=== PATIENT | female | born 1980 | race African-American/Black ===

== ENCOUNTER 2017-11-22 21:11 | Inpatient (IN) ==
[2017-11-22] MEDS ORDERED: MethylPREDNISolone Sod Succinate Inj 125 MG/2 ML Vial IV.PUSH ONE (23:28)
[2017-11-22 23:41] LABS: Baso # (Auto) 0.1 th/mm3 (0.0-0.2); Baso % (Auto) 0.9 % (0.0-2.0); Eos # (Auto) 0.1 th/mm3 (0.0-0.4); Eos % (Auto) 1.7 % (0.0-4.0); Hematocrit 34.3 % (35.0-46.0); Lymph # (Auto) 2.1 th/mm3 (1.0-4.8); Lymph % (Auto) 29.4 % (9.0-44.0); Mean Corpuscular HGB Conc 32.2 % (32.0-36.0); Mean Corpuscular Hemoglobin 25.6 pg (27.0-34.0); Mean Corpuscular Volume 79.6 fL (80.0-100.0); Mean Platelet Volume 8.1 fL (7.0-11.0); Mono # (Auto) 0.5 th/mm3 (0.0-0.9); Mono % (Auto) 7.3 % (0.0-8.0); Neut # (Auto) 4.3 th/mm3 (1.8-7.7); Neut % (Auto) 60.7 % (16.0-70.0); Platelet Count 362 th/mm3 (150-450); Red Cell Distribution Width 23.8 % (11.6-17.2); White Blood Count 7.1 th/mm3 (4.0-11.0)
[2017-11-22 23:51] LABS: Bacteria,Urine Rare /hpf; Bilirubin,Urine Negative (Negative); Clarity,Urine Hazy (Clear); Color,Urine Yellow (Yellw/Straw); Glucose,Urine (UA) Negative (Negative); Leukocyte Esterase,Urine Negative (Negative); Mucus,Urine Moderate /lpf (Occasional); Nitrite,Urine Negative (Negative); Specific Gravity,Urine 1.032 (1.002-1.035); Squamous Epithelial Cell,Urine 5 /hpf (0-5); Urobilinogen,Urine 4 or Greater mg/dL (Less than 2)
[2017-11-23] LABS: Albumin 3.2 g/dL (3.4-5.0); Anion Gap 4 meq/L (5-15); Aspartate Aminotransferase 17 U/L (15-37); Blood Urea Nitrogen 12 mg/dL (7-18); Calcium 8.8 mg/dL (8.5-10.1); Carbon Dioxide 28.6 meq/L (21.0-32.0); Chloride 108 meq/L (98-107); Glomerular Filtration Rate 71 mL/min (>89); Glucose,Random 92 mg/dL (74-106); Potassium 4.4 meq/L (3.5-5.1); Sodium 141 meq/L (136-145)
[2017-11-23 00:02] LABS: Alanine Aminotransferase 19 U/L (10-53)
[2017-11-23 00:03] LABS: Alkaline Phosphatase 88 U/L (45-117); Total Protein 7.3 g/dL (6.4-8.2)
[2017-11-23] MEDS ORDERED: Sod Chloride 0.9% Inj 1,000 ML IV.SIG ONE (00:53)
--- NOTE | 2017-11-23 00:53 | ED ---
HPI General Chief Complaint: Neuro Symptoms/Deficit Stated Complaint: numbness/MS pt Time Seen by Provider: 11/22/17 22:13 Source: patient Mode of arrival: ambulatory Limitations: no limitations History of Present Illness HPI Narrative: The patient is a 37-year-old female with MS presented with complaint of left artm and leg weakness that started earlier today. She had another she had another episode of exacerbation of MS during the summer and just recently moved to [facility] from [place]. She does not have a physician established down here yet. She was diagnosed with MS in 2012 and there is no family history of it. Denies any alcohol drug use and admits to smoking. 3 C- sections in the past and has chronic anemia. Onset (ago): day(s) (1) Location: left leg History of same: Yes Severity: moderate Quality: weak Relieving factors: none Exacerbating factors: none Context: sudden onset On Anticoagulants: No Associated symptoms: denies other symptoms Related Data Home Medications Medication Instructions Recorded Confirmed No Known Home Medications 11/22/17 11/22/17 Allergies Allergy/AdvReac Type Severity Reaction Status Date / Time No Known Allergies Allergy Verified 11/22/17 22:25 Review of Systems ROS: all other systems reviewed are negative [facility] Medical History Medical History Anemia (Acute) Multiple sclerosis (Acute) Surgical History Surgical History Previous section (Acute) Family History Family History Father Stroke Mother Hypertension Lupus Social History Social History Substance History: No History of Abuse Second Hand Smoke Exposure: Yes Smoking Status: Current every day smoker Tobacco Type: Cigarettes How Often Do You Have a Drink Containing Alcohol: Never Recent Travel in [facility] within the Last 8 Weeks: No Recent Out of Country Travel within the Last 8 Weeks: No Immunization History Tetanus Immunization: <5 Years Hx Influenza Vaccine This Season: No Exam Narrative Exam Narrative: GENERAL: Alert and oriented no distress SKIN: Focused skin assessment warm/dry. HEAD: Atraumatic. Normocephalic. EYES: Pupils equal and round. No scleral icterus. No injection or drainage. ENT: No nasal bleeding or discharge. Mucous membranes pink and moist. NECK: Trachea midline. No JVD. CARDIOVASCULAR: Regular rate and rhythm. No murmur appreciated. RESPIRATORY: No accessory muscle use. Clear to auscultation. Breath sounds equal bilaterally. GASTROINTESTINAL: Abdomen soft, non-tender, nondistended. Hepatic and splenic margins not palpable. MUSCULOSKELETAL: No obvious deformities. No clubbing. No cyanosis. No edema. NEUROLOGICAL: Awake and alert. No obvious cranial nerve deficits. Normal speech. Right upper lower extremities 5 out of 5 strength. Left lower extremity 3 out of 5 drops after 5 seconds. Left upper extremity 4 out of 5. PSYCHIATRIC: Appropriate mood and affect; insight and judgment normal. Course Hospital Course: Patient with appears to be MS exacerbation discussed with neurology on-call. Recommends high-dose Solu-Medrol and admission with an MRI in the a.m. Reevaluation(s) Reevaluation #1: Patient is resting comfortably no distress. Time: 00:30 Initial Documented Vital Signs Temperature 98.2 F 11/22/17 22:03 Pulse Rate 91 H 11/22/17 22:03 Respiratory Rate 18 11/22/17 22:03 Blood Pressure 132/64 11/22/17 22:03 Pulse Oximetry 100 11/22/17 22:03 Last Documented Vital Signs Temperature 98.2 F 11/22/17 22:03 Pulse Rate 88 11/23/17 02:35 Respiratory Rate 16 11/23/17 02:35 Blood Pressure 124/78 11/23/17 02:35 Pulse Oximetry 99 11/23/17 02:35 Medical Decision Making [facility] Narrative Medical decision making narrative: Patient with appears to be an MS exacerbation she had similar symptoms recently. Discussed with neurology started on IV steroids high-dose and then I will got admitted for an MRI in the a.m. Medical Screen Exam Complete: Yes Emergency Medical Condition: Yes Medical Records Medical records reviewed: Yes I reviewed the patient's medical records. Lab Data Lab results reviewed: Yes I reviewed the patient's lab results. Result diagrams: 11/22/17 23:20 11/22/17 23:20 POC Results POC Urine Results Negative Lab Results 11/22/17 11/22/17 11/22/17 Range/Units 22:48 23:20 23:20 WBC 7.1 (4.0-11.0) th/mm3 RBC 4.30 (4.00-5.30) mil/mm3 Hgb 11.0 L (11.6-15.3) gm/dL Hct 34.3 L (35.0-46.0) % MCV 79.6 L (80.0-100.0) fL MCH 25.6 L (27.0-34.0) pg MCHC 32.2 (32.0-36.0) % RDW 23.8 H (11.6-17.2) % Plt Count 362 (150-450) th/mm3 MPV 8.1 (7.0-11.0) fL Neut % (Auto) 60.7 (16.0-70.0) % Lymph % (Auto) 29.4 (9.0-44.0) % [place] % (Auto) 7.3 (0.0-8.0) % Eos % (Auto) 1.7 (0.0-4.0) % Baso % (Auto) 0.9 (0.0-2.0) % Neut # (Auto) 4.3 (1.8-7.7) th/mm3 Lymph # (Auto) 2.1 (1.0-4.8) th/mm3 [place] # (Auto) 0.5 (0.0-0.9) th/mm3 Eos # (Auto) 0.1 (0.0-0.4) th/mm3 Baso # (Auto) 0.1 (0.0-0.2) th/mm3 WBC Differential . Differential Comment Auto diff final Sodium 141 (136-145) meq/L Potassium 4.4 (3.5-5.1) meq/L Chloride 108 H (98-107) meq/L Carbon Dioxide 28.6 (21.0-32.0) meq/L Anion Gap 4 L (5-15) meq/L BUN 12 (7-18) mg/dL Creatinine 1.05 H (0.50-1.00) mg/dL Estimated GFR 71 L (>89) mL/min Random Glucose 92 (74-106) mg/dL Calcium 8.8 (8.5-10.1) mg/dL Total Bilirubin 0.1 L (0.2-1.0) mg/dL AST 17 (15-37) U/L ALT 19 (10-53) U/L Alkaline Phosphatase 88 (45-117) U/L Total Protein 7.3 (6.4-8.2) g/dL Albumin 3.2 L (3.4-5.0) g/dL Urine Color Yellow (Yellw/Straw) Urine Clarity Hazy H (Clear) Urine pH 6.0 (5.0-8.5) Ur Specific [place] 1.032 (1.002-1.035) Urine Protein 30 H (Neg-Trace) mg/dL Urine Glucose (UA) Negative (Negative) mg/dL Urine Ketones Trace H (Negative) mg/dL Urine Occult Blood Negative (Negative) Urine Nitrate Negative (Negative) Urine Bilirubin Negative (Negative) Urine Urobilinogen 4 or greater (Less than 2) mg/dL Ur Leukocyte Esterase Negative (Negative) Urine RBC 1 (0-3) /hpf Urine WBC 1 (0-5) /hpf Ur Squamous Epith Cells 5 (0-5) /hpf Urine Bacteria Rare H (None) /hpf Urine Mucus Moderate H (Occasional) /lpf Ur Microscopic Review Not Reportable Discharge Plan Discharge Disposition Patient Disposition: 30 Still Patient Discharge Condition Condition: Good Discharge Details Diagnosis: Multiple sclerosis exacerbation, Acute dehydration Physicians Team ED Provider: Shukri Dasilva Primary Care Provider: Primary Care Saida You Attending Provider: Leonid Peña Other Providers: Harjit Henry ED Status: Left Department Discharge Information Discharge Date/Time: 11/23/17 03:15
[2017-11-23] MEDS ORDERED: Bisacodyl 10 MG Supp RECTAL PRN ×2 (01:24→13:03)
[2017-11-23] MEDS ORDERED: Senna/Docusate Sodium 8.6/50 MG Tablet PO ONE (02:02)
--- NOTE | 2017-11-23 02:04 | P.HPIM ---
History of Present Illness Primary Care Physician: No Primary Care Physician History of Present Illness: 37-year-old female with a history of multiple sclerosis with most recent exacerbation last month who presents with a 1 day history of diplopia starting yesterday, with gradual onset left upper and lower extremity weakness starting during the day yesterday. She denies any chest pain, shortness of breath, nausea, vomiting, fevers, chills. She says that this current MS exacerbation is similar to her last MS exacerbation, both with left-sided weakness. Patient recently moved down here from [place], hoping that the warm weather would help with her MS. Review of Systems Patient does report some mild constipation, however no abdominal pain. All other systems reviewed negative except as stated in HPI [facility] - History History Provided By: Patient - Medical History Medical History: Medical History (Last Updated 11/22/17 @ 22:05 by Deja España) Anemia Multiple sclerosis - Surgical History Surgical History: Surgical History (Last Updated 11/23/17 @ 01:58 by Surinder Wiggins MD) Previous section - Family History Family History: Family History (Last Updated 11/23/17 @ 01:58 by Surinder Wiggins MD) Father Stroke Mother Hypertension Lupus - Tobacco History Second Hand Smoke Exposure: Yes Tobacco Use In Past 30 Days: Yes Smoking Status: Current every day smoker Tobacco Type: Cigarettes - Alcohol History How Often Do You Have a Drink Containing Alcohol: Never - Substance Use History Substance History: No History of Abuse - Travel History Recent Travel in the [place] Within the Last 8 Weeks: No Recent Travel Out of the Country Within the Last 8 Weeks: No - Immunization History Tetanus Immunization: <5 Years Hx Influenza Vaccine This Season: No Medications and Allergies Active Medications: Active Medications Al Hydroxide/Mg Hydroxide (Milk Of Magnesia Liq) 30 ml PO Q12H PRN PRN Reason: Mild Constipation Bisacodyl (Dulcolax Supp) 10 mg RECTAL DAILY PRN PRN Reason: SEVERE CONSITIPATION Sodium Chloride (Ns Inj) 1,000 mls @ 100 mls/hr IV.CONT .Q10H LOLA Lactulose (Lactulose Liq) 30 ml PO DAILY PRN PRN Reason: SEVERE CONSITIPATION Sennosides (Senokot) 17.2 mg PO Q12H PRN PRN Reason: Moderate Constipation Allergies Allergy/AdvReac Type Severity Reaction Status Date / Time No Known Allergies Allergy Verified 11/22/17 22:25 Home Medications Medication Instructions Recorded Confirmed Type No Known Home Medications 11/22/17 11/22/17 History Exam Vital signs: Vital Signs 11/22/17 22:03 Temperature 98.2 F Pulse Rate 91 H Respiratory Rate 18 Blood Pressure 132/64 Pulse Oximetry 100 Intake & Output 11/22/17 11/22/17 11/23/17 06:59 18:59 06:59 Weight 94.801 kg Narrative: GENERAL: Patient sitting up in bed. Appears comfortable. Alert and oriented x3. SKIN: Warm and dry. HEAD: Atraumatic. Normocephalic. EYES: Pupils equal and round. No scleral icterus. No injection or drainage. Patient appears to have a little nystagmus on lateral gaze bilaterally. ENT: No nasal bleeding or discharge. Mucous membranes pink and moist. NECK: Trachea midline. No JVD. CARDIOVASCULAR: Regular rate and rhythm. RESPIRATORY: No accessory muscle use. Clear to auscultation. Breath sounds equal bilaterally. GASTROINTESTINAL: Abdomen soft, non-tender, nondistended. Hepatic and splenic margins not palpable. MUSCULOSKELETAL: Extremities without clubbing, cyanosis, or edema. No obvious deformities. NEUROLOGICAL: Awake and alert. No obvious cranial nerve deficits. Patient with 4 out of 5 strength on the left upper and left lower extremity. 5 out of 5 strength on right upper and right lower extremity. Speech is clear. PSYCHIATRIC: Appropriate mood and affect; insight and judgment normal. Results - Labs CBC & Chem 7: 11/22/17 23:20 11/22/17 23:20 Labs: Short CBC 11/22/17 Range/Units 23:20 WBC 7.1 (4.0-11.0) th/mm3 Hgb 11.0 L (11.6-15.3) gm/dL Hct 34.3 L (35.0-46.0) % Plt Count 362 (150-450) th/mm3 BMP 11/22/17 23:20 Sodium 141 Potassium 4.4 Chloride 108 H Carbon Dioxide 28.6 BUN 12 Creatinine 1.05 H Calcium 8.8 Liver Function 11/22/17 Range/Units 23:20 Total Bilirubin 0.1 L (0.2-1.0) mg/dL AST 17 (15-37) U/L ALT 19 (10-53) U/L Alkaline Phosphatase 88 (45-117) U/L Albumin 3.2 L (3.4-5.0) g/dL Urine 11/22/17 Range/Units 22:48 Urine Color Yellow (Yellw/Straw) Urine Clarity Hazy H (Clear) Urine pH 6.0 (5.0-8.5) Ur Specific [place] 1.032 (1.002-1.035) Urine Protein 30 H (Neg-Trace) mg/dL Urine Glucose (UA) Negative (Negative) mg/dL Caprini VTE Risk Assessment Caprini VTE Risk Assessment: Moderate/High Risk (score >= 2) Caprini Risk Assessment Model: Point Value = 1 Point Value = 2 Point Value = 3 Point Value = 5 Age 41-60 Minor surgery BMI > 25 kg/m2 Swollen legs Varicose veins or History of unexplained or recurrent spontaneous Oral contraceptives or hormone replacement Sepsis (< 1 month) Serious lung disease, including pneumonia (< 1 month) Abnormal pulmonary function Acute myocardial infarction Congestive heart failure (< 1 month) History of inflammatory bowel disease Medical patient at bed rest Age 61-74 Arthroscopic surgery Major open surgery (> 45 min) Laparoscopic surgery (> 45 min) Malignancy Confined to bed (> 72 hours) Immobilizing plaster cast Central venous access Age >= 75 History of VTE Family history of VTE Factor V Leiden Prothrombin [id number] Lupus anticoagulant Anticardiolipin antibodies Elevated serum homocysteine Heparin-induced thrombocytopenia Other congenital or acquired thrombophilia Stroke (< 1 month) Elective arthroplasty Hip, pelvis, or leg fracture Acute spinal cord injury (< 1 month) Prophylaxis Regimen: Total Risk Factor Score Risk Level Prophylaxis Regimen 0-1 Low Early ambulation 2 Moderate Order ONE of the following: *Sequential Compression Device (SCD) *Heparin 5000 units SQ BID 3-4 Higher Order ONE of the following medications: *Heparin 5000 units SQ TID *Enoxaparin/Lovenox 40 mg SQ daily (WT < 150 kg, CrCl > 30 mL/min) *Enoxaparin/Lovenox 30 mg SQ daily (WT < 150 kg, CrCl > 10-29 mL/min) *Enoxaparin/Lovenox 30 mg SQ BID (WT < 150 kg, CrCl > 30 mL/min) AND/OR *Sequential Compression Device (SCD) 5 or more Highest Order ONE of the following medications: *Heparin 5000 units SQ TID (Preferred with Epidurals) *Enoxaparin/Lovenox 40 mg SQ daily (WT < 150 kg, CrCl > 30 mL/min) *Enoxaparin/Lovenox 30 mg SQ daily (WT < 150 kg, CrCl > 10-29 mL/min) *Enoxaparin/Lovenox 30 mg SQ BID (WT < 150 kg, CrCl > 30 mL/min) AND *Sequential Compression Device (SCD) Assessment and Plan - Plan //Multiple sclerosis exacerbation. -[facility] has discussed case with neurology. Status post IV Solu-Medrol in the ER = Outside records to be requested. Further management as per neurology. MRI scheduled for this morning. //Chronic anemia. Hemoglobin 11. No signs of bleeding. //Tobacco abuse. Cessation counseling provided. //Chronic mild constipation. Laxative ordered x1. Discussed Condition With: Patient, nurse, ED physician.
[2017-11-23] MEDS: Sod Chloride 0.9% Inj 1,000 ML IV.CONT SCH ×3 (03:39→22:44)
[2017-11-23] MEDS ORDERED: Gadobutrol PF 10 MMOL/10 ML Vial (for RAD) IV.SIG ONE ×2 (08:51→20:03)
--- NOTE | 2017-11-23 08:57 | MR ---
EXAM DATE: 11/23/2017 7:14 AM EDT AGE/SEX: 37 years / Female INDICATIONS: . Left leg weakness and numbness. Multiple sclerosis. CLINICAL DATA: This is the patient's subsequent encounter. Patient reports that signs and symptoms h ave been present for 2 days and indicates a pain score of 0/10. MEDICAL/SURGICAL HISTORY: Anemia. Multiple sclerosis. section. COMPARISON: No prior exams available for comparison. TECHNIQUE: Multiplanar, multisequence examination of the brain was performed without and with 9.5 ml Gadavist (gadobutrol) contrast as a single exam dose. FINDINGS: Problems specific findings: The inversion recovery images demonstrate scattered areas of T2 signal in the periventricular and subcortical white matter. No enhancing plaques are identified. No abnormal s ignal is seen in these areas on the diffusion restricted images. The exam as a stated history of MS. In the appropriate clinical setting these lesions could represent a demyelinating process. There are nonspecific in appearance but fairly numerous for a patient of 37 years of age. MRI source data: The ventricular system is normal in size and configuration. No mass lesion is identi fied. No abnormal inter or extra-axial fluid collections are seen. No abnormal enhancement is identif ied. The appearance of the posterior fossa is unremarkable. The visualized portion of sinus and orbit are intact. CONCLUSION: 1. Scattered areas of abnormal T2 signal within the periventricular and subcortical white matter. No enhancing lesions identified. Please see above. Electronically signed by: Tito Ruiz MD 11/23/2017 8:56 AM EDT
[2017-11-23] MEDS ORDERED: Acetaminophen 325 MG Tablet PO PRN (13:03)
[2017-11-23] MEDS ORDERED: Naloxone Inj 0.4 MG/ML Vial IV.PUSH PRN (13:04)
[2017-11-23] MEDS ORDERED: Morphine Inj 4 MG/ML Vial IV.PUSH PRN (13:04)
[2017-11-23] MEDS ORDERED: Morphine Sulfate Inj 2 MG/ML Vial IV.PUSH PRN (13:04)
[2017-11-23] MEDS ORDERED: Ibuprofen 400 MG Tablet PO PRN (13:04)
[2017-11-23] MEDS: oxyCODONE/Acetaminophen 10/325 Tablet PO PRN ×2 (14:54→20:57)
--- NOTE | 2017-11-23 14:54 | P.PNIM ---
Subjective Interval history: 37-year-old female with a history of multiple sclerosis with most recent exacerbation last month who presents with a 1 day history of diplopia starting yesterday, with gradual onset left upper and lower extremity weakness starting during the day yesterday. She denies any chest pain, shortness of breath, nausea, vomiting, fevers, chills. She says that this current MS exacerbation is similar to her last MS exacerbation, both with left-sided weakness. Patient recently moved down here from [place], hoping that the warm weather would help with her MS. 11-23 AWAIT NEUROLOGY INPUT PT AND OT AM LABS ORAL PAIN CONTROL DW RN AND PT AND CM Physical Exam Vital signs: Vital Signs 11/22/17 22:03 11/23/17 02:35 11/23/17 04:00 Temperature 98.2 F 98 F Pulse Rate 91 H 88 79 Respiratory Rate 18 16 18 Blood Pressure 132/64 124/78 122/68 Pulse Oximetry 100 99 97 11/23/17 06:00 11/23/17 12:00 Temperature 98.2 F Pulse Rate 80 Respiratory Rate 17 20 Blood Pressure 112/68 Pulse Oximetry 99 Intake & Output 11/22/17 11/23/17 11/23/17 18:59 06:59 18:59 Intake Total 1000 / 1000 1480 / 1480 Balance 1000 / 1000 1480 / 1480 Weight 94.801 kg Intake: IV 1000 / 1000 1000 / 1000 NS Inj 1,000 ML @ 100 mls/hr IV 1000 / 1000 .CONT .Q10H LOLA Rx#:[id number] NS Inj 1,000 ML @ Wide Open IV. 1000 / 1000 SIG BOLUS ONE Rx#:[id number] Oral 480 / 480 Other: # Voids 1 Date of Last Bowel Movement 11/22/17 Narrative: GENERAL: Patient sitting up in bed. Appears comfortable. Alert and oriented x3. SKIN: Warm and dry. HEAD: Atraumatic. Normocephalic. EYES: Pupils equal and round. No scleral icterus. No injection or drainage. Patient appears to have a little nystagmus on lateral gaze bilaterally. ENT: No nasal bleeding or discharge. Mucous membranes pink and moist. NECK: Trachea midline. No JVD. CARDIOVASCULAR: Regular rate and rhythm. S1, S2 NO S3 OR S4 RESPIRATORY: No accessory muscle use. Clear to auscultation. Breath sounds equal bilaterally. GASTROINTESTINAL: Abdomen soft, non-tender, nondistended. Hepatic and splenic margins not palpable. MUSCULOSKELETAL: Extremities without clubbing, cyanosis, or edema. No obvious deformities. NEUROLOGICAL: Awake and alert. No obvious cranial nerve deficits. Patient with 3 out of 5 strength on the left lower extremity AND 4/5 IN LEFT UPPER EXTREMITY. 5 out of 5 strength on right upper and right lower extremity. Speech is clear. PSYCHIATRIC: Appropriate mood and affect; insight and judgment normal. Results - Labs CBC & Chem 7: 11/22/17 23:20 11/22/17 23:20 Laboratory Results - last 24 hr 11/22/17 11/22/17 11/22/17 22:48 23:20 23:20 WBC 7.1 RBC 4.30 Hgb 11.0 L Hct 34.3 L MCV 79.6 L MCH 25.6 L MCHC 32.2 RDW 23.8 H Plt Count 362 MPV 8.1 Neut % (Auto) 60.7 Lymph % (Auto) 29.4 [place] % (Auto) 7.3 Eos % (Auto) 1.7 Baso % (Auto) 0.9 Neut # (Auto) 4.3 Lymph # (Auto) 2.1 [place] # (Auto) 0.5 Eos # (Auto) 0.1 Baso # (Auto) 0.1 WBC Differential . Differential Comment Auto diff final Sodium 141 Potassium 4.4 Chloride 108 H Carbon Dioxide 28.6 Anion Gap 4 L BUN 12 Creatinine 1.05 H Estimated GFR 71 L Random Glucose 92 Calcium 8.8 Total Bilirubin 0.1 L AST 17 ALT 19 Alkaline Phosphatase 88 Total Protein 7.3 Albumin 3.2 L Urine Color Yellow Urine Clarity Hazy H Urine pH 6.0 Ur Specific [place] 1.032 Urine Protein 30 H Urine Glucose (UA) Negative Urine Ketones Trace H Urine Occult Blood Negative Urine Nitrate Negative Urine Bilirubin Negative Urine Urobilinogen 4 or greater Ur Leukocyte Esterase Negative Urine RBC 1 Urine WBC 1 Ur Squamous Epith Cells 5 Urine Bacteria Rare H Urine Mucus Moderate H Ur Microscopic Review Not Reportable - Imaging Impressions Head MRI 11/23/17 00:00 CONCLUSION: 1. Scattered areas of abnormal T2 signal within the periventricular and subcortical white matter. No enhancing lesions identified. Please see above. Assessment and Plan - Plan Multiple sclerosis exacerbation. [facility] case with neurology. Status post IV Solu-Medrol in the ER = Outside records to be requested. Further management as per neurology. MRI scheduled for this morning. Chronic anemia. Hemoglobin 11. No signs of bleeding. Tobacco abuse. Cessation counseling provided. Chronic mild constipation. Laxative ordered x1. Code Status: FULL CODE Discussed Condition With: RN AND PT AND CM Discharge Planning: PENDING IMPROVEMENT NO FUNDING POSSIBLE [facility]
[2017-11-23] MEDS: Famotidine 20 MG Tablet PO SCH ×2 (15:00→20:39)
[2017-11-23] MEDS ORDERED: MethylPREDNISolone Sod Suc Inj 250 MG in Sodium Chlor 0.9% Inj 100 ML IV.SIG ONE ×2 (16:00→21:00)
--- NOTE | 2017-11-23 20:30 | MB ---
cc: Harjit Henry MD, PhD DATE: 11/23/2017 REASON FOR CONSULTATION: Multiple sclerosis. HISTORY OF PRESENT ILLNESS: This is a pleasant 37-year-old woman who has a diagnosis of multiple sclerosis made a number of years ago by MRI scanning as well as lumbar puncture. She has been treated with a number for immunomodulators but has had difficulty tolerating these. These have included Copaxone, Tecfidera and Aubagio. She therefore has been off immunomodulators for some time. Her neurologist in [place] was considering placing her on Ocrevus, but she has not yet started this. She had her last exacerbation last February and then one last month and now presents with double vision, left-sided weakness consistent with a recurrent MS exacerbation. She had one exacerbation in 2017. Does not believe she has had any exacerbations in 2016. PAST MEDICAL HISTORY: Noted above, multiple sclerosis, as well as anemia. CURRENT MEDICATIONS: 1. Tylenol. 2. Dulcolax. 3. Pepcid. 4. Motrin. 5. Lactulose. She has been started on IV Solu-Medrol through the emergency room. Yesterday she received a dose of 160 mg IV push. Today, she received an additional dose of Solu-Medrol, one-time dose of 250 mg IV. She continued with her symptoms, although double vision is slightly better. NEUROLOGICAL EXAMINATION: VITAL SIGNS: Blood pressure is 113/68, pulse 82, respirations 20, temperature 98 degrees. NEUROLOGIC: HIGHER CORTICAL FUNCTIONS: Normal. CRANIAL NERVES: She does have JESSE with dissociated nystagmus. The pupils are equal. Other cranial nerves are normal. MOTOR: She has left hemiparesis, 4/5 strength left arm, left leg, 5/5 strength in the right. Reflexes are symmetric. She has diminished numbness in the left hand. MRI of the brain shows several plaques in the white matter consistent with MS plaques. None of these are showing any contrast enhancement, however. LABORATORY DATA: White count 7100, hemoglobin 11, hematocrit 34.3%, platelet count 362,000. Sodium is 141, potassium 4.4, chloride 101, CO2 28.6, BUN is 12, creatinine 1.05, GFR 71, glucose 92. AST is 17, ALT is 19. IMPRESSION: Multiple sclerosis exacerbation. RECOMMENDATION: I would like to proceed with an MRI of the cervical and thoracic spine as well. Would recommend continuing IV Solu-Medrol. We will increase the dose to 250 mg IV every 6 hours for 3-5 days depending on her response. After discharge, I feel that another immunomodulator needs to be considered. Ocrevus certainly would be a consideration given the frequent number of exacerbations she has been experiencing. Harjit Henry MD, PhD TONY/ct , 07:04 PM , 07:11 PM
[2017-11-23] MEDS: Morphine Inj 4 MG/ML Vial IV.PUSH PRN (20:39)
[2017-11-23] MEDS: Senna/Docusate Sodium 8.6/50 MG Tablet PO SCH (20:39)
[2017-11-23] MEDS ORDERED: Zolpidem Tartrate 5 MG Tablet PO PRN (21:00)
--- NOTE | 2017-11-23 21:18 | MR ---
EXAM DATE: 11/23/2017 7:12 PM EDT AGE/SEX: 37 years / Female INDICATIONS: Multiple sclerosis. Bilateral leg weakness. CLINICAL DATA: This is the patient's initial encounter. Patient reports that signs and symptoms have been present for 1 day and indicates a pain score of 0/10. MEDICAL/SURGICAL HISTORY: Multiple sclerosis. section. COMPARISON: No prior exams available for comparison. TECHNIQUE: Multiplanar, multisequence MRI of the thoracic spine was performed without and with 9.5 m l Gadavist (gadobutrol) contrast as a cumulative dose for multiple exams. FINDINGS: Vertebrae: Normal vertebral body height. Homogeneous marrow signal. Alignment: Normal. Cord: Normal size. No epidural impressions. The conus is at the level of L1. There is a longitudinal area of T2 prolongation in the left half of the thoracic cord centered at the T5 level measuring 12 mm in length. No enhancement within this signal abnormality. Post Contrast: No abnormal areas of enhancement are seen in the cord, dural or paraspinal regions. T1-T2: The thecal sac has a normal diameter. No evidence of disc bulge or protrusion. T2-T3: The thecal sac has a normal diameter. No evidence of disc bulge or protrusion. T3-T4: The thecal sac has a normal diameter. No evidence of disc bulge or protrusion. T4-T5: The thecal sac has a normal diameter. No evidence of disc bulge or protrusion. T5-T6: The thecal sac has a normal diameter. No evidence of disc bulge or protrusion. T6-T7: The thecal sac has a normal diameter. No evidence of disc bulge or protrusion. T7-T8: The thecal sac has a normal diameter. No evidence of disc bulge or protrusion. T8-T9: The thecal sac has a normal diameter. No evidence of disc bulge or protrusion. T9-T10: The thecal sac has a normal diameter. No evidence of disc bulge or protrusion. T10-T11: The thecal sac has a normal diameter. No evidence of disc bulge or protrusion. T11-T12: The thecal sac has a normal diameter. No evidence of disc bulge or protrusion. T12-L1: The thecal sac has a normal diameter. No evidence of disc bulge or protrusion. CONCLUSION: 1. Elongated 12 mm area of T2 prolongation within the substance of the thoracic cord left half T5 le [place] characteristic of demyelination. Electronically signed by: Erasmo Pendleton MD 11/23/2017 9:16 PM EDT
--- NOTE | 2017-11-23 21:22 | MR ---
EXAM DATE: 11/23/2017 7:12 PM EDT AGE/SEX: 37 years / Female INDICATIONS: Multiple sclerosis. Bilateral leg weakness. CLINICAL DATA: This is the patient's subsequent encounter. Patient reports that signs and symptoms h ave been present for 1 day and indicates a pain score of 0/10. MEDICAL/SURGICAL HISTORY: Multiple sclerosis. section. COMPARISON: No prior exams available for comparison. TECHNIQUE: Multiplanar, multisequence MRI examination of the cervical spine was performed without an d with 9.5 ml Gadavist (gadobutrol) contrast as a cumulative dose for multiple exams. FINDINGS: Vertebrae: Normal vertebral body height. Homogeneous marrow signal. Alignment: There is reversal of the cervical lordosis from C2 through C5. No evidence of spondylolis thesis.. Cord: Normal size to the cervical cord. There is a focal rounded area of T2 prolongation within the posterior central cord just inferior to the C5-6 level. No abnormal enhancement within this abnormali ty. Post Fossa: The cerebellar tonsils are normal in position. Post Contrast: No abnormal areas of enhancement are seen. C2-C3: The thecal sac has a normal configuration. There is no evidence of disc herniation or spinal canal stenosis. The neural foramina are patent bilaterally. C3-C4: The thecal sac has a normal configuration. There is no evidence of disc herniation or spinal canal stenosis. The neural foramina are patent bilaterally. C4-C5: The thecal sac has a normal configuration. There is no evidence of disc herniation or spinal canal stenosis. The neural foramina are patent bilaterally. C5-C6: Central left paracentral protrusion of the disc indenting on the thecal sac with a thin amoun t of CSF sealed seen about the cervical cord. The protrusion measures 3 mm in AP dimension. C6-C7: The thecal sac has a normal configuration. There is no evidence of disc herniation or spinal canal stenosis. The neural foramina are patent bilaterally. C7-T1: No epidural impressions seen. CONCLUSION: 1. Rounded 5 mm area of T2 prolongation in the posterior substance of the cervical cord just inferio r to the C5-6 level without enhancement. Given the adjacent disc protrusion, differential considerati ons include demyelinating and encephalomalacic causes. 2. Central left paracentral protrusion at C5-6 disc with out evidence of cord compression. Electronically signed by: Erasmo Pendleton MD 11/23/2017 9:21 PM EDT
[2017-11-24] MEDS: oxyCODONE/Acetaminophen 10/325 Tablet PO PRN ×3 (04:08→23:09)
[2017-11-24 06:00] LABS: Baso % (Auto) 0.1 % (0.0-2.0); Hematocrit 33.3 % (35.0-46.0); Hemoglobin 10.4 gm/dL (11.6-15.3); Lymph % (Auto) 6.7 % (9.0-44.0); Mean Corpuscular HGB Conc 31.1 % (32.0-36.0); Mean Corpuscular Hemoglobin 25.3 pg (27.0-34.0); Mean Corpuscular Volume 81.3 fL (80.0-100.0); Mean Platelet Volume 8.8 fL (7.0-11.0); Mono # (Auto) 0.2 th/mm3 (0.0-0.9); Mono % (Auto) 1.1 % (0.0-8.0); Neut # (Auto) 13.8 th/mm3 (1.8-7.7); Neut % (Auto) 92.1 % (16.0-70.0); Platelet Count 351 th/mm3 (150-450); Red Cell Distribution Width 23.9 % (11.6-17.2)
[2017-11-24 06:16] LABS: Alanine Aminotransferase 18 U/L (10-53); Anion Gap 7 meq/L (5-15); Aspartate Aminotransferase 15 U/L (15-37); Blood Urea Nitrogen 8 mg/dL (7-18); Calcium 8.5 mg/dL (8.5-10.1); Carbon Dioxide 24.6 meq/L (21.0-32.0); Chloride 110 meq/L (98-107); Glomerular Filtration Rate 69 mL/min (>89); Glucose,Random 147 mg/dL (74-106); Magnesium 1.8 mg/dL (1.5-2.5); Phosphorus 1.9 mg/dL (2.5-4.9); Potassium 4.9 meq/L (3.5-5.1); Sodium 142 meq/L (136-145)
[2017-11-24 06:24] LABS: Alkaline Phosphatase 88 U/L (45-117); Free T4 (Free Thyroxine) 0.77 ng/dL (0.76-1.46); Thyroid Stimulating Hormone 0.226 uIU/mL (0.358-3.740); Total Protein 6.8 g/dL (6.4-8.2)
[2017-11-24] MEDS: Sod Chloride 0.9% Inj 1,000 ML IV.CONT SCH ×2 (07:30→17:30)
[2017-11-24] MEDS: Senna/Docusate Sodium 8.6/50 MG Tablet PO SCH ×2 (08:38→20:35)
[2017-11-24] MEDS: Famotidine 20 MG Tablet PO SCH ×2 (08:38→20:35)
--- NOTE | 2017-11-24 12:13 | P.PNIM ---
Subjective Interval history: 37-year-old female with a history of multiple sclerosis with most recent exacerbation last month who presents with a 1 day history of diplopia starting yesterday, with gradual onset left upper and lower extremity weakness starting during the day yesterday. She denies any chest pain, shortness of breath, nausea, vomiting, fevers, chills. She says that this current MS exacerbation is similar to her last MS exacerbation, both with left-sided weakness. Patient recently moved down here from [place], hoping that the warm weather would help with her MS. 11-23 AWAIT NEUROLOGY INPUT PT AND OT AM LABS ORAL PAIN CONTROL DW RN AND PT AND CM 11-24 STEROIDS INCREASED PER NEUROLOGY CONTINUE PT AND OT WILL NEED OUTPT FOLLOW UP WITH NEUROLOGY DENIES ANY MAJOR IMPROVEMENT OF LEFT LOWER EXTREMITY CHART Physical Exam Vital signs: Vital Signs 11/23/17 16:00 11/24/17 00:00 11/24/17 02:00 Temperature 98.4 F 98.0 F Pulse Rate 82 79 Respiratory Rate 20 16 18 Blood Pressure 113/68 125/69 Pulse Oximetry 97 95 11/24/17 04:00 11/24/17 08:00 11/24/17 11:55 Temperature 98.1 F 98.4 F 98.8 F Pulse Rate 80 16 L 63 Respiratory Rate 16 16 16 Blood Pressure 123/70 107/55 L 104/54 L Pulse Oximetry 96 100 100 Intake & Output 11/23/17 11/24/17 11/24/17 18:59 06:59 18:59 Intake Total 2220 / 2220 1104 / 1104 Balance 2220 / 2220 1104 / 1104 Weight 92 kg Intake: IV 1000 / 1000 1104 / 1104 NS Inj 1,000 ML @ 100 mls/hr IV 1000 / 1000 1000 / 1000 .CONT .Q10H [facility] Rx#:[id number] SoluMEDROL Inj 250 MG In NS Inj 104 / 104 100 ML @ 200 mls/hr IV.SIG ONCE ONE Rx#:[id number] Oral 1220 / 1220 Other: # Voids 2 3 Date of Last Bowel Movement 11/23/17 # Bowel Movements 0 Narrative: GENERAL: Patient sitting up in bed. Appears comfortable. Alert and oriented x3. SKIN: Warm and dry. HEAD: Atraumatic. Normocephalic. EYES: Pupils equal and round. No scleral icterus. No injection or drainage. Patient appears to have a little nystagmus on lateral gaze bilaterally. ENT: No nasal bleeding or discharge. Mucous membranes pink and moist. NECK: Trachea midline. No JVD. CARDIOVASCULAR: Regular rate and rhythm. S1, S2 NO S3 OR S4 RESPIRATORY: No accessory muscle use. Clear to auscultation. Breath sounds equal bilaterally. GASTROINTESTINAL: Abdomen soft, non-tender, nondistended. Hepatic and splenic margins not palpable. MUSCULOSKELETAL: Extremities without clubbing, cyanosis, or edema. No obvious deformities. NEUROLOGICAL: Awake and alert. No obvious cranial nerve deficits. Patient with 3 out of 5 strength on the left lower extremity AND 4/5 IN LEFT UPPER EXTREMITY. 5 out of 5 strength on right upper and right lower extremity. Speech is clear. PSYCHIATRIC: Appropriate mood and affect; insight and judgment normal. Results - Labs CBC & Chem 7: 11/24/17 04:50 11/24/17 04:50 Laboratory Results - last 24 hr 11/22/17 11/24/17 11/24/17 23:20 04:50 04:50 WBC 15.0 H RBC 4.10 Hgb 10.4 L Hct 33.3 L MCV 81.3 MCH 25.3 L MCHC 31.1 L RDW 23.9 H Plt Count 351 MPV 8.8 Neut % (Auto) 92.1 H Lymph % (Auto) 6.7 L [place] % (Auto) 1.1 Eos % (Auto) 0.0 Baso % (Auto) 0.1 Neut # (Auto) 13.8 H Lymph # (Auto) 1.0 [place] # (Auto) 0.2 Eos # (Auto) 0.0 Baso # (Auto) 0.0 WBC Differential . Differential Comment Auto diff final Sodium 142 Potassium 4.9 Chloride 110 H Carbon Dioxide 24.6 Anion Gap 7 BUN 8 Creatinine 1.07 H Estimated GFR 69 L Random Glucose 147 H Calcium 8.5 Phosphorus 1.9 L Magnesium 1.8 Total Bilirubin 0.1 L AST 15 ALT 18 Alkaline Phosphatase 88 Total Protein 6.8 Albumin 3.0 L TSH 0.226 L Free T4 0.77 Beta HCG, Qual Less than 1.0 - Imaging Impressions Cervical Spine MRI 11/23/17 00:00 CONCLUSION: 1. Rounded 5 mm area of T2 prolongation in the posterior substance of the cervical cord just inferior to the C5-6 level without enhancement. Given the adjacent disc protrusion, differential considerations include demyelinating and encephalomalacic causes. 2. Central left paracentral protrusion at C5-6 disc with out evidence of cord compression. Thoracic Spine MRI 11/23/17 00:00 CONCLUSION: 1. Elongated 12 mm area of T2 prolongation within the substance of the thoracic cord left half T5 level characteristic of demyelination. - Procedures NONE Assessment and Plan - Plan Multiple sclerosis exacerbation. [facility]. Status post IV Solu-Medrol in the ER = Outside records to be requested. Further management as per neurology. MRIS DONE Chronic anemia. Hemoglobin 11. No signs of bleeding. Tobacco abuse. Cessation counseling provided. Chronic mild constipation. Laxative ordered x1. STARTED ON IV STEROIDS PER NEUROLOGY 250MG Q 5H HAS INSOMNIA WILL GIVE AMBIEN FOR SLEEP DW RN AND PT AND CM Code Status: FULL CODE Discussed Condition With: RN AND PT AND CM Discharge Planning: PENDING IMPROVEMENT NO FUNDING
[2017-11-24] MEDS: MethylPREDNISolone Sod Suc Inj 250 MG in Sodium Chlor 0.9% Inj 100 ML IV.SIG SCH ×2 (13:00→18:41)
--- NOTE | 2017-11-24 19:15 | P.PNNEU ---
Subjective Subjective Comments: tolerating iv solumedrol Feels improvement in left sided strength Active Medications: Active Medications Acetaminophen (Tylenol) 650 mg PO Q4H PRN PRN Reason: Temp > 100.4 Al Hydroxide/Mg Hydroxide (Milk Of Magnesia Liq) 30 ml PO Q12H PRN PRN Reason: Mild Constipation Bisacodyl (Dulcolax Supp) 10 mg RECTAL DAILY PRN PRN Reason: SEVERE CONSITIPATION Famotidine (Pepcid) 20 mg PO BID [facility] Last Admin: 11/24/17 08:38 Dose: 20 mg Sodium Chloride (Ns Inj) 1,000 mls @ 100 mls/hr IV.CONT .Q10H [facility] Last Infusion: 11/24/17 08:44 Dose: 0 mls/hr Methylprednisolone Sodium Succinate 250 mg/ Sodium Chloride 104 mls @ 200 mls/ hr IV.SIG Q6H [facility] Last Admin: 11/24/17 18:41 Dose: 200 mls/hr Ibuprofen (Motrin) 600 mg PO Q6HR PRN PRN Reason: PAIN SCALE 1 TO 2 Lactulose (Lactulose Liq) 30 ml PO DAILY PRN PRN Reason: SEVERE CONSITIPATION Morphine Sulfate (Morphine Inj) 4 mg IV.PUSH Q3H PRN PRN Reason: BREAKTHROUGH PAIN Last Admin: 11/23/17 20:39 Dose: 4 mg Morphine Sulfate (Morphine Inj) 4 mg IV.PUSH Q3H PRN PRN Reason: PAIN 6-10;IF UNABLE TO TAKE PO Morphine Sulfate (Morphine Inj) 2 mg IV.PUSH Q3H PRN PRN Reason: PAIN 3-5; IF UABLE TO TAKE PO Naloxone HCl (Narcan Inj) 0.4 mg IV.PUSH UNSCH PRN PRN Reason: SEE LABEL COMMENTS Ondansetron HCl (Zofran Inj) 4 mg IV.PUSH Q6H PRN PRN Reason: NAUSEA OR VOMITING Oxycodone/Acetaminophen (Percocet 10/325 Mg) 1 tab PO Q6H PRN PRN Reason: PAIN SCALE 6 TO 10 Last Admin: 11/24/17 14:13 Dose: 1 tab Oxycodone/Acetaminophen (Percocet 5/325 Mg) 1 tab PO Q6H PRN PRN Reason: PAIN SCALE 3 TO 5 Last Admin: 11/23/17 13:14 Dose: 1 tab Senna/Docusate Sodium (Lisa-Colace) 1 tab PO BID [facility] Last Admin: 11/24/17 08:38 Dose: 1 tab Sennosides (Senokot) 17.2 mg PO Q12H PRN PRN Reason: Moderate Constipation Zolpidem Tartrate (Ambien) 10 mg PO HS PRN PRN Reason: INSOMNIA Allergies/Adverse Reactions: Allergies Allergy/AdvReac Type Severity Reaction Status Date / Time No Known Allergies Allergy Verified 11/22/17 22:25 Physical Exam Vital signs: Vital Signs 11/24/17 00:00 11/24/17 02:00 11/24/17 04:00 Temperature 98.0 F 98.1 F Pulse Rate 79 80 Respiratory Rate 16 18 16 Blood Pressure 125/69 123/70 Pulse Oximetry 95 96 11/24/17 08:00 11/24/17 11:55 11/24/17 16:00 Temperature 98.4 F 98.8 F 98.9 F Pulse Rate 16 L 63 85 Respiratory Rate 16 16 16 Blood Pressure 107/55 L 104/54 L 102/52 L Pulse Oximetry 100 100 100 Intake & Output 11/24/17 11/24/17 11/25/17 06:59 18:59 06:59 Intake Total 1104 / 1104 944 / 944 Balance 1104 / 1104 944 / 944 Weight 92 kg Intake: IV 1104 / 1104 104 / 104 NS Inj 1,000 ML @ 100 mls/hr IV 1000 / 1000 .CONT .Q10H [facility] Rx#:[id number] SoluMEDROL Inj 250 MG In NS Inj 104 / 104 104 / 104 100 ML @ 200 mls/hr IV.SIG Q6H [facility] Rx#:[id number] Oral 840 / 840 Other: # Voids 3 2 Date of Last Bowel Movement 11/23/17 # Bowel Movements 0 - Routine Neurological Exam alert, speech intact CN normal MOTOR 4/5 LUE and LLE. 5/5 RUE and RLE Objective Radiology Results: MRI brain shows several areas of demyelination without contrast enhancement MRI cervical and thoracic spine with small isolated areas of demyelination with no enhancement Laboratory Results - last 24 hr 11/22/17 11/24/17 11/24/17 23:20 04:50 04:50 WBC 15.0 H RBC 4.10 Hgb 10.4 L Hct 33.3 L MCV 81.3 MCH 25.3 L MCHC 31.1 L RDW 23.9 H Plt Count 351 MPV 8.8 Neut % (Auto) 92.1 H Lymph % (Auto) 6.7 L [place] % (Auto) 1.1 Eos % (Auto) 0.0 Baso % (Auto) 0.1 Neut # (Auto) 13.8 H Lymph # (Auto) 1.0 [place] # (Auto) 0.2 Eos # (Auto) 0.0 Baso # (Auto) 0.0 WBC Differential . Differential Comment Auto diff final Sodium 142 Potassium 4.9 Chloride 110 H Carbon Dioxide 24.6 Anion Gap 7 BUN 8 Creatinine 1.07 H Estimated GFR 69 L Random Glucose 147 H Calcium 8.5 Phosphorus 1.9 L Magnesium 1.8 Total Bilirubin 0.1 L AST 15 ALT 18 Alkaline Phosphatase 88 Total Protein 6.8 Albumin 3.0 L TSH 0.226 L Free T4 0.77 Beta HCG, Qual Less than 1.0 Review/Management - Diagnosis (1) Multiple sclerosis exacerbation Code(s): G35 - Multiple sclerosis Status: Acute Current Visit: Yes - Review/Management Plan: copntinue iv solumedrol through monday night/monday am
[2017-11-25] MEDS: MethylPREDNISolone Sod Suc Inj 250 MG in Sodium Chlor 0.9% Inj 100 ML IV.SIG SCH ×4 (00:33→18:34)
[2017-11-25] MEDS: Morphine Inj 4 MG/ML Vial IV.PUSH PRN ×2 (00:35→09:38)
[2017-11-25] MEDS: Sod Chloride 0.9% Inj 1,000 ML IV.CONT SCH ×2 (03:34→14:51)
[2017-11-25 06:47] LABS: Baso % (Auto) 0.2 % (0.0-2.0); Hematocrit 33.8 % (35.0-46.0); Hemoglobin 10.5 gm/dL (11.6-15.3); Lymph # (Auto) 1.3 th/mm3 (1.0-4.8); Lymph % (Auto) 6.7 % (9.0-44.0); Mean Corpuscular Hemoglobin 24.9 pg (27.0-34.0); Mean Corpuscular Volume 80.2 fL (80.0-100.0); Mean Platelet Volume 8.7 fL (7.0-11.0); Mono # (Auto) 0.3 th/mm3 (0.0-0.9); Mono % (Auto) 1.7 % (0.0-8.0); Neut # (Auto) 17.2 th/mm3 (1.8-7.7); Neut % (Auto) 91.4 % (16.0-70.0); Platelet Count 358 th/mm3 (150-450); Red Blood Count 4.22 mil/mm3 (4.00-5.30); Red Cell Distribution Width 24.4 % (11.6-17.2); White Blood Count 18.8 th/mm3 (4.0-11.0)
[2017-11-25 07:02] LABS: Albumin 3.1 g/dL (3.4-5.0); Anion Gap 9 meq/L (5-15); Aspartate Aminotransferase 10 U/L (15-37); Calcium 8.7 mg/dL (8.5-10.1); Carbon Dioxide 27.5 meq/L (21.0-32.0); Chloride 108 meq/L (98-107); Glomerular Filtration Rate 71 mL/min (>89); Glucose,Random 114 mg/dL (74-106); Magnesium 2.2 mg/dL (1.5-2.5); Phosphorus 2.3 mg/dL (2.5-4.9); Potassium 4.3 meq/L (3.5-5.1); Sodium 144 meq/L (136-145)
[2017-11-25 07:05] LABS: Alanine Aminotransferase 18 U/L (10-53); Alkaline Phosphatase 85 U/L (45-117); Blood Urea Nitrogen 12 mg/dL (7-18); Total Protein 7.2 g/dL (6.4-8.2)
[2017-11-25] MEDS: Famotidine 20 MG Tablet PO SCH ×2 (08:18→20:41)
[2017-11-25] MEDS: Senna/Docusate Sodium 8.6/50 MG Tablet PO SCH ×2 (08:18→20:41)
--- NOTE | 2017-11-25 12:11 | XR ---
EXAM DATE: 11/25/2017 12:00 AM EDT AGE/SEX: 37 years / Female INDICATIONS: Left sided chest pain. CLINICAL DATA: This is the patient's initial encounter. Patient reports that signs and symptoms have been present for 2 days and indicates a pain score of 5/10. MEDICAL/SURGICAL HISTORY: . Anemia. Multiple sclerosis. section. COMPARISON: No prior exams available for comparison. FINDINGS: Portable AP view of the chest demonstrates a normal-sized cardiac silhouette. No effusion, consolidat ion, or pneumothorax is identified. The bones and soft tissues demonstrate no acute finding. CONCLUSION: No acute cardiopulmonary abnormality is identified. Electronically signed by: Oscar Martinez MD 11/25/2017 12:09 PM EDT
--- NOTE | 2017-11-25 16:40 | P.PN ---
Subjective Interval history: Patient is seen lying in bed. Tells me that she is getting her strength back in her left arm. Still quite weak in the left leg and relying on the walker to move around the room. She is experiencing a lot of depression due to her MS. In the past she has tried citalopram but it did not really help. She is open to trying something else. Discussed the importance of continuing these type of medications without interruption and she tells me that she has an appointment on December 05 with a new primary care who will be able to continue her medications. Physical Exam Vital signs: Vital Signs 11/24/17 20:00 11/25/17 00:00 11/25/17 08:00 Temperature 98.2 F 98.5 F 99.1 F Pulse Rate 64 59 L 68 Respiratory Rate 18 18 14 Blood Pressure 137/65 138/74 128/71 Pulse Oximetry 98 100 100 11/25/17 09:00 11/25/17 12:00 Temperature 99.1 F 98.1 F Pulse Rate 68 65 Respiratory Rate 14 16 Blood Pressure 128/71 124/71 Pulse Oximetry 100 98 Intake & Output 11/24/17 11/25/17 11/25/17 18:59 06:59 18:59 Intake Total 944 / 944 1368 / 1368 304 / 304 Balance 944 / 944 1368 / 1368 304 / 304 Weight 100.4 kg Intake: IV 104 / 104 208 / 208 304 / 304 SoluMEDROL Inj 250 MG In NS Inj 104 / 104 208 / 208 304 / 304 100 ML @ 200 mls/hr IV.SIG Q6H [facility] Rx#:[id number] Oral 840 / 840 960 / 960 Other 200 / 200 Other: # Voids 2 6 Date of Last Bowel Movement 11/22/17 # Bowel Movements 0 Narrative: GENERAL: Patient sitting up in bed. Appears comfortable. Alert and oriented x3. SKIN: Warm and dry. HEAD: Atraumatic. Normocephalic. NECK: Trachea midline. No JVD. CARDIOVASCULAR: Regular rate and rhythm. RESPIRATORY: No accessory muscle use. Clear to auscultation. Breath sounds equal bilaterally. GASTROINTESTINAL: Abdomen soft, non-tender, nondistended. MUSCULOSKELETAL: Extremities without clubbing, cyanosis, or edema. No obvious deformities. NEUROLOGICAL: Awake and alert. No obvious cranial nerve deficits. Patient with 3 out of 5 strength on the left lower extremity AND 4/5 IN LEFT UPPER EXTREMITY. 5 out of 5 strength on right upper and right lower extremity. Speech is clear. PSYCHIATRIC: Appears depressed; insight and judgment normal. Results - Labs CBC & Chem 7: 11/25/17 06:07 11/25/17 06:07 Laboratory Results - last 24 hr 11/24/17 11/25/17 11/25/17 04:50 06:07 06:07 WBC 18.8 H RBC 4.22 Hgb 10.5 L Hct 33.8 L MCV 80.2 MCH 24.9 L MCHC 31.0 L RDW 24.4 H Plt Count 358 MPV 8.7 Neut % (Auto) 91.4 H Lymph % (Auto) 6.7 L [place] % (Auto) 1.7 Eos % (Auto) 0.0 Baso % (Auto) 0.2 Neut # (Auto) 17.2 H Lymph # (Auto) 1.3 [place] # (Auto) 0.3 Eos # (Auto) 0.0 Baso # (Auto) 0.0 WBC Differential . Differential Comment Auto diff final Sodium 144 Potassium 4.3 Chloride 108 H Carbon Dioxide 27.5 Anion Gap 9 BUN 12 Creatinine 1.05 H Estimated GFR 71 L Random Glucose 114 H Hemoglobin A1c 5.0 Calcium 8.7 Phosphorus 2.3 L Magnesium 2.2 Total Bilirubin 0.1 L AST 10 L ALT 18 Alkaline Phosphatase 85 Total Protein 7.2 Albumin 3.1 L - Imaging Impressions Chest X-Ray 11/25/17 00:00 CONCLUSION: No acute cardiopulmonary abnormality is identified. - Procedures NONE Assessment and Plan - Plan Multiple sclerosis exacerbation. -Neurochecks = Outside records to be requested. Further management as per neurology. Per neurology plan is to continue IV Solu -Medrol until at least Monday. MRIS DONE Chronic anemia. -Hemoglobin 11. No signs of bleeding. Neutrophilia -Most likely due to steroid. Afebrile. UA negative. Cultures ordered. Monitor. Tobacco abuse. -Cessation counseling provided. Chronic mild constipation. -Laxative ordered x1. Insomnia -Exacerbated by steroid. Not responsive to Ambien -Will possibly be helped by BuSpar Depression -Trial BuSpar. Code Status: FULL CODE Discussed Condition With: RN AND PT Discharge Planning: PENDING IMPROVEMENT NO FUNDING
[2017-11-25] MEDS: oxyCODONE/Acetaminophen 10/325 Tablet PO PRN (23:16)
[2017-11-26] MEDS: Sod Chloride 0.9% Inj 1,000 ML IV.CONT SCH ×3 (01:11→21:37)
[2017-11-26] MEDS: MethylPREDNISolone Sod Suc Inj 250 MG in Sodium Chlor 0.9% Inj 100 ML IV.SIG SCH ×4 (02:23→18:51)
[2017-11-26 05:02] LABS: Baso % (Auto) 0.1 % (0.0-2.0); Hematocrit 32.4 % (35.0-46.0); Hemoglobin 10.2 gm/dL (11.6-15.3); Lymph # (Auto) 1.1 th/mm3 (1.0-4.8); Lymph % (Auto) 6.2 % (9.0-44.0); Mean Corpuscular HGB Conc 31.6 % (32.0-36.0); Mean Corpuscular Hemoglobin 25.5 pg (27.0-34.0); Mean Corpuscular Volume 80.7 fL (80.0-100.0); Mono # (Auto) 0.7 th/mm3 (0.0-0.9); Mono % (Auto) 3.9 % (0.0-8.0); Neut # (Auto) 15.6 th/mm3 (1.8-7.7); Neut % (Auto) 89.8 % (16.0-70.0); Platelet Count 328 th/mm3 (150-450); Red Blood Count 4.01 mil/mm3 (4.00-5.30); Red Cell Distribution Width 24.4 % (11.6-17.2); White Blood Count 17.4 th/mm3 (4.0-11.0)
[2017-11-26] MEDS: oxyCODONE/Acetaminophen 10/325 Tablet PO PRN (05:12)
[2017-11-26 05:34] LABS: Calcium 8.5 mg/dL (8.5-10.1); Carbon Dioxide 28.4 meq/L (21.0-32.0); Potassium 4.5 meq/L (3.5-5.1)
[2017-11-26] MEDS: Famotidine 20 MG Tablet PO SCH ×2 (09:02→20:17)
[2017-11-26] MEDS: Senna/Docusate Sodium 8.6/50 MG Tablet PO SCH ×2 (09:02→20:16)
--- NOTE | 2017-11-26 14:35 | P.PNIM ---
Subjective Interval history: 37-year-old female with a history of multiple sclerosis with most recent exacerbation last month who presents with a 1 day history of diplopia starting yesterday, with gradual onset left upper and lower extremity weakness starting during the day yesterday. She denies any chest pain, shortness of breath, nausea, vomiting, fevers, chills. She says that this current MS exacerbation is similar to her last MS exacerbation, both with left-sided weakness. Patient recently moved down here from [place], hoping that the warm weather would help with her MS. 11-23 AWAIT NEUROLOGY INPUT PT AND OT AM LABS ORAL PAIN CONTROL DW RN AND PT AND CM 11-24 STEROIDS INCREASED PER NEUROLOGY CONTINUE PT AND OT WILL NEED OUTPT FOLLOW UP WITH NEUROLOGY DENIES ANY MAJOR IMPROVEMENT OF LEFT LOWER EXTREMITY CHART 11-25 Patient is seen lying in bed. Tells me that she is getting her strength back in her left arm. Still quite weak in the left leg and relying on the walker to move around the room. She is experiencing a lot of depression due to her MS. In the past she has tried citalopram but it did not really help. She is open to trying something else. Discussed the importance of continuing these type of medications without interruption and she tells me that she has an appointment on December 05 with a new primary care who will be able to continue her medications. 11-26 STATES HAS SOME BACK PAIN ON THE LEFT NEED TO MOVE MORE DW PT AND RN AND CM CONTINUE STEROIDS Physical Exam Vital signs: Vital Signs 11/25/17 16:00 11/25/17 20:00 11/26/17 00:00 Temperature 98.4 F 97.9 F 97.7 F Pulse Rate 54 L 56 L 51 L Respiratory Rate 16 17 16 Blood Pressure 136/67 116/60 115/57 L Pulse Oximetry 100 99 100 11/26/17 04:00 11/26/17 08:00 11/26/17 09:00 Temperature 97.8 F 97.6 F 97.6 F Pulse Rate 47 L 52 L 52 L Respiratory Rate 16 16 16 Blood Pressure 126/63 128/65 128/65 Pulse Oximetry 100 99 99 11/26/17 12:00 Temperature 98.2 F Pulse Rate 55 L Respiratory Rate 16 Blood Pressure 114/61 Pulse Oximetry 99 Intake & Output 11/25/17 11/26/17 11/26/17 18:59 06:59 18:59 Intake Total 1684 / 1684 3464 / 3464 104 / 104 Balance 1684 / 1684 3464 / 3464 104 / 104 Weight 100.4 kg Intake: IV 404 / 404 / 104 / 104 SoluMEDROL Inj 250 MG In NS Inj 404 / 404 / 204 104 / 104 100 ML @ 200 mls/hr IV.SIG Q6H [facility] Rx#:[id number] Oral 1280 / 1280 3260 / 3260 Other: # Voids 3 1 Date of Last Bowel Movement 11/25/17 11/25/17 11/25/17 # Bowel Movements 1 4 Narrative: GENERAL: Patient sitting up in bed. Appears comfortable. Alert and oriented x3. SKIN: Warm and dry. HEAD: Atraumatic. Normocephalic. NECK: Trachea midline. No JVD. CARDIOVASCULAR: Regular rate and rhythm. RESPIRATORY: No accessory muscle use. Clear to auscultation. Breath sounds equal bilaterally. GASTROINTESTINAL: Abdomen soft, non-tender, nondistended. MUSCULOSKELETAL: Extremities without clubbing, cyanosis, or edema. No obvious deformities. NEUROLOGICAL: Awake and alert. No obvious cranial nerve deficits. Patient with 3 out of 5 strength on the left lower extremity AND 4/5 IN LEFT UPPER EXTREMITY. 5 out of 5 strength on right upper and right lower extremity. Speech is clear. PSYCHIATRIC: Appears depressed; insight and judgment normal. Results - Labs CBC & Chem 7: 11/26/17 04:07 11/26/17 04:07 Laboratory Results - last 24 hr 11/26/17 11/26/17 04:07 04:07 WBC 17.4 H RBC 4.01 Hgb 10.2 L Hct 32.4 L MCV 80.7 MCH 25.5 L MCHC 31.6 L RDW 24.4 H Plt Count 328 MPV 9.0 Neut % (Auto) 89.8 H Lymph % (Auto) 6.2 L Upton % (Auto) 3.9 Eos % (Auto) 0.0 Baso % (Auto) 0.1 Neut # (Auto) 15.6 H Lymph # (Auto) 1.1 Upton # (Auto) 0.7 Eos # (Auto) 0.0 Baso # (Auto) 0.0 WBC Differential . Differential Comment Auto diff final Sodium 143 Potassium 4.5 Chloride 107 Carbon Dioxide 28.4 Anion Gap 8 BUN 16 Creatinine 1.08 H Estimated GFR 69 L Random Glucose 120 H Calcium 8.5 Microbiology 11/25/17 13:05 Blood - Peripheral Aerobic Blood Culture - Preliminary No growth in 1 day 11/25/17 13:05 Blood - Peripheral Anaerobic Blood Culture - Preliminary No growth in 1 day 11/25/17 13:10 Blood - Peripheral Aerobic Blood Culture - Preliminary No growth in 1 day 11/25/17 13:10 Blood - Peripheral Anaerobic Blood Culture - Preliminary No growth in 1 day - Imaging ITS Impressions Cervical Spine MRI 11/23/17 00:00 CONCLUSION: 1. Rounded 5 mm area of T2 prolongation in the posterior substance of the cervical cord just inferior to the C5-6 level without enhancement. Given the adjacent disc protrusion, differential considerations include demyelinating and encephalomalacic causes. 2. Central left paracentral protrusion at C5-6 disc with out evidence of cord compression. Head MRI 11/23/17 00:00 CONCLUSION: 1. Scattered areas of abnormal T2 signal within the periventricular and subcortical white matter. No enhancing lesions identified. Please see above. Thoracic Spine MRI 11/23/17 00:00 CONCLUSION: 1. Elongated 12 mm area of T2 prolongation within the substance of the thoracic cord left half T5 level characteristic of demyelination. Chest X-Ray 11/25/17 00:00 CONCLUSION: No acute cardiopulmonary abnormality is identified. - Procedures NONE Assessment and Plan - Plan Multiple sclerosis exacerbation. -[facility] has discussed case with neurology. Status post IV Solu-Medrol in the ER = Outside records to be requested. Further management as per neurology. MRIS DONE Chronic anemia. Hemoglobin 11. No signs of bleeding. Tobacco abuse. Cessation counseling provided. Chronic mild constipation. Laxative ordered x1. STARTED ON IV STEROIDS PER NEUROLOGY 250MG Q 5H HAS INSOMNIA WILL GIVE AMBIEN FOR SLEEP BUSPAR ADDED FOR SLEEP DEPRESSION BUSPAR STARTED DW RN AND PT AND CM Code Status: FULL CODE Discussed Condition With: RN AND PT AND CM Discharge Planning: PENDING IMPROVEMENT NO FUNDING
[2017-11-26] MEDS: Morphine Inj 4 MG/ML Vial IV.PUSH PRN (19:51)
[2017-11-27] MEDS: MethylPREDNISolone Sod Suc Inj 250 MG in Sodium Chlor 0.9% Inj 100 ML IV.SIG SCH ×4 (06:42→17:57)
[2017-11-27] MEDS: Sod Chloride 0.9% Inj 1,000 ML IV.CONT SCH ×2 (06:42→18:23)
[2017-11-27] MEDS: oxyCODONE/Acetaminophen 10/325 Tablet PO PRN ×2 (09:10→18:10)
[2017-11-27] MEDS: Senna/Docusate Sodium 8.6/50 MG Tablet PO SCH ×2 (09:11→21:03)
[2017-11-27] MEDS: Famotidine 20 MG Tablet PO SCH ×2 (09:11→21:03)
--- NOTE | 2017-11-27 11:40 | P.PNIM ---
Subjective Interval history: 37-year-old female with a history of multiple sclerosis with most recent exacerbation last month who presents with a 1 day history of diplopia starting yesterday, with gradual onset left upper and lower extremity weakness starting during the day yesterday. She denies any chest pain, shortness of breath, nausea, vomiting, fevers, chills. She says that this current MS exacerbation is similar to her last MS exacerbation, both with left-sided weakness. Patient recently moved down here from [place], hoping that the warm weather would help with her MS. 11-23 AWAIT NEUROLOGY INPUT PT AND OT AM LABS ORAL PAIN CONTROL DW RN AND PT AND CM 11-24 STEROIDS INCREASED PER NEUROLOGY CONTINUE PT AND OT WILL NEED OUTPT FOLLOW UP WITH NEUROLOGY DENIES ANY MAJOR IMPROVEMENT OF LEFT LOWER EXTREMITY CHART 11-25 Patient is seen lying in bed. Tells me that she is getting her strength back in her left arm. Still quite weak in the left leg and relying on the walker to move around the room. She is experiencing a lot of depression due to her MS. In the past she has tried citalopram but it did not really help. She is open to trying something else. Discussed the importance of continuing these type of medications without interruption and she tells me that she has an appointment on December 05 with a new primary care who will be able to continue her medications. 11-26 STATES HAS SOME BACK PAIN ON THE LEFT NEED TO MOVE MORE DW PT AND RN AND CM CONTINUE STEROIDS 10- STATES NO IMPROVEMENT IN LEFT LEG DW RN AND PT STILL ON STEROIDS VERY TEARFUL TODAY DW DR LANI WARE WANTS HEMATOLOGY FOR PLASMAPHERESIS Physical Exam Vital signs: Vital Signs 11/26/17 12:00 11/26/17 16:00 11/26/17 20:00 Temperature 98.2 F 98.1 F 98 F Pulse Rate 55 L 58 L 50 L Respiratory Rate 16 16 18 Blood Pressure 114/61 123/67 119/65 Pulse Oximetry 99 100 95 11/27/17 00:00 11/27/17 08:00 Temperature 97.8 F 97.9 F Pulse Rate 55 L 43 L Respiratory Rate 18 16 Blood Pressure 137/62 132/65 Pulse Oximetry 100 100 Intake & Output 11/26/17 11/27/17 11/27/17 18:59 06:59 18:59 Intake Total 2428 / 2428 1280 / 1280 Balance 2428 / 2428 1280 / 1280 Weight 104.9 kg Intake: IV 80 / 80 SoluMEDROL Inj 250 MG In NS Inj 80 / 80 100 ML @ 200 mls/hr IV.SIG Q6H [facility] Rx#:[id number] Oral 2220 / 2220 1200 / 1200 Other: # Voids 3 6 Date of Last Bowel Movement 11/25/17 11/25/17 11/25/17 Narrative: GENERAL: Patient sitting up in bed. Appears comfortable. Alert and oriented x3. SKIN: Warm and dry. HEAD: Atraumatic. Normocephalic. NECK: Trachea midline. No JVD. CARDIOVASCULAR: Regular rate and rhythm. RESPIRATORY: No accessory muscle use. Clear to auscultation. Breath sounds equal bilaterally. GASTROINTESTINAL: Abdomen soft, non-tender, nondistended. MUSCULOSKELETAL: Extremities without clubbing, cyanosis, or edema. No obvious deformities. NEUROLOGICAL: Awake and alert. No obvious cranial nerve deficits. Patient with 3 out of 5 strength on the left lower extremity AND 4/5 IN LEFT UPPER EXTREMITY. 5 out of 5 strength on right upper and right lower extremity. Speech is clear. PSYCHIATRIC: Appears depressed; insight and judgment normal. Results - Labs CBC & Chem 7: 11/26/17 04:07 11/26/17 04:07 Microbiology 11/25/17 13:05 Blood - Peripheral Aerobic Blood Culture - Preliminary No growth in 2 days 11/25/17 13:05 Blood - Peripheral Anaerobic Blood Culture - Preliminary No growth in 2 days 11/25/17 13:10 Blood - Peripheral Aerobic Blood Culture - Preliminary No growth in 2 days 11/25/17 13:10 Blood - Peripheral Anaerobic Blood Culture - Preliminary No growth in 2 days - Imaging ITS Impressions Cervical Spine MRI 11/23/17 00:00 CONCLUSION: 1. Rounded 5 mm area of T2 prolongation in the posterior substance of the cervical cord just inferior to the C5-6 level without enhancement. Given the adjacent disc protrusion, differential considerations include demyelinating and encephalomalacic causes. 2. Central left paracentral protrusion at C5-6 disc with out evidence of cord compression. Head MRI 11/23/17 00:00 CONCLUSION: 1. Scattered areas of abnormal T2 signal within the periventricular and subcortical white matter. No enhancing lesions identified. Please see above. Thoracic Spine MRI 11/23/17 00:00 CONCLUSION: 1. Elongated 12 mm area of T2 prolongation within the substance of the thoracic cord left half T5 level characteristic of demyelination. Chest X-Ray 11/25/17 00:00 CONCLUSION: No acute cardiopulmonary abnormality is identified. - Procedures NONE Assessment and Plan - Plan Multiple sclerosis exacerbation. -[facility] has discussed case with neurology. Status post IV Solu-Medrol in the ER = Outside records to be requested. Further management as per neurology. MRIS DONE CONSULT HEMATOLOGY FOR PLASMAPHERESIS FOR MULTIPLE SCLEROSIS Chronic anemia. Hemoglobin 11. No signs of bleeding. Tobacco abuse. Cessation counseling provided. Chronic mild constipation. Laxative ordered x1. STARTED ON IV STEROIDS PER NEUROLOGY 250MG Q 6H HAS INSOMNIA WILL GIVE AMBIEN FOR SLEEP BUSPAR ADDED FOR SLEEP DEPRESSION BUSPAR STARTED DW RN AND PT AND CM Code Status: FULL CODE Discussed Condition With: RN AND PT AND CM Discharge Planning: PENDING IMPROVEMENT NO FUNDING
--- NOTE | 2017-11-27 18:59 | P.PNNEU ---
Subjective Subjective Comments: Pt still c/o significant LLE weakness despite iv solumedrol therapy Active Medications: Active Medications Acetaminophen (Tylenol) 650 mg PO Q4H PRN PRN Reason: Temp > 100.4 Al Hydroxide/Mg Hydroxide (Milk Of Magnesia Liq) 30 ml PO Q12H PRN PRN Reason: Mild Constipation Bisacodyl (Dulcolax Supp) 10 mg RECTAL DAILY PRN PRN Reason: SEVERE CONSITIPATION Buspirone HCl (Buspar) 5 mg PO BID [facility] Last Admin: 11/27/17 09:11 Dose: 5 mg Famotidine (Pepcid) 20 mg PO BID [facility] Last Admin: 11/27/17 09:11 Dose: 20 mg Sodium Chloride (Ns Inj) 1,000 mls @ 100 mls/hr IV.CONT .Q10H [facility] Last Admin: 11/27/17 18:23 Dose: Not Given Methylprednisolone Sodium Succinate 250 mg/ Sodium Chloride 104 mls @ 200 mls/ hr IV.SIG Q6H [facility] Last Infusion: 11/27/17 18:23 Dose: Infused Ibuprofen (Motrin) 600 mg PO Q6HR PRN PRN Reason: PAIN SCALE 1 TO 2 Lactulose (Lactulose Liq) 30 ml PO DAILY PRN PRN Reason: SEVERE CONSITIPATION Last Admin: 11/25/17 08:18 Dose: 30 ml Morphine Sulfate (Morphine Inj) 4 mg IV.PUSH Q3H PRN PRN Reason: BREAKTHROUGH PAIN Last Admin: 11/26/17 19:51 Dose: 4 mg Morphine Sulfate (Morphine Inj) 4 mg IV.PUSH Q3H PRN PRN Reason: PAIN 6-10;IF UNABLE TO TAKE PO Morphine Sulfate (Morphine Inj) 2 mg IV.PUSH Q3H PRN PRN Reason: PAIN 3-5; IF UABLE TO TAKE PO Last Admin: 11/26/17 09:11 Dose: 2 mg Naloxone HCl (Narcan Inj) 0.4 mg IV.PUSH UNSCH PRN PRN Reason: SEE LABEL COMMENTS Ondansetron HCl (Zofran Inj) 4 mg IV.PUSH Q6H PRN PRN Reason: NAUSEA OR VOMITING Oxycodone/Acetaminophen (Percocet 10/325 Mg) 1 tab PO Q6H PRN PRN Reason: PAIN SCALE 6 TO 10 Last Admin: 11/27/17 18:10 Dose: 1 tab Oxycodone/Acetaminophen (Percocet 5/325 Mg) 1 tab PO Q6H PRN PRN Reason: PAIN SCALE 3 TO 5 Last Admin: 11/23/17 13:14 Dose: 1 tab Senna/Docusate Sodium (Lisa-Colace) 1 tab PO BID [facility] Last Admin: 11/27/17 09:11 Dose: 1 tab Sennosides (Senokot) 17.2 mg PO Q12H PRN PRN Reason: Moderate Constipation Allergies/Adverse Reactions: Allergies Allergy/AdvReac Type Severity Reaction Status Date / Time No Known Allergies Allergy Verified 11/22/17 22:25 Physical Exam Vital signs: Vital Signs 11/26/17 20:00 11/27/17 00:00 11/27/17 08:00 Temperature 98 F 97.8 F 97.9 F Pulse Rate 50 L 55 L 43 L Respiratory Rate 18 18 16 Blood Pressure 119/65 137/62 132/65 Pulse Oximetry 95 100 100 11/27/17 15:54 11/27/17 18:40 Temperature 98 F Pulse Rate 61 Respiratory Rate 22 18 Blood Pressure 114/56 L Pulse Oximetry 100 Intake & Output 11/26/17 11/27/17 11/27/17 18:59 06:59 18:59 Intake Total 2428 / 2428 1280 / 1280 232 / 232 Output Total 0 / 0 Balance 2428 / 2428 1280 / 1280 232 / 232 Weight 104.9 kg Intake: IV 208 / 208 80 / 80 232 / 232 SoluMEDROL Inj 250 MG In NS Inj 208 / 208 80 / 80 232 / 232 100 ML @ 200 mls/hr IV.SIG Q6H [facility] Rx#:[id number] Oral 2220 / 2220 1200 / 1200 Output: Urine 0 / 0 Other: # Voids 3 6 Date of Last Bowel Movement 11/25/17 11/25/17 11/25/17 - Routine Neurological Exam alert, speech normal CN intact MOTOR 5/5 BUE 4-/5 LLE. 5/5 RLE Objective Microbiology 11/25/17 13:05 Aerobic Blood Culture - Preliminary Blood - Peripheral No growth in 2 days Anaerobic Blood Culture - Preliminary No growth in 2 days 11/25/17 13:10 Aerobic Blood Culture - Preliminary Blood - Peripheral No growth in 2 days Anaerobic Blood Culture - Preliminary No growth in 2 days Review/Management - Diagnosis (1) Multiple sclerosis exacerbation Code(s): G35 - Multiple sclerosis Status: Acute Current Visit: Yes - Review/Management Plan: hematology consult for consideration of plasmapheresis for MS----5-10 treatments every other day
[2017-11-27 21:28] LABS: Activated Partial Thrombo Time 21.3 sec (24.3-30.1); Prothrombin Time 10.3 sec (9.8-11.6)
--- NOTE | 2017-11-27 23:21 | MB ---
cc: Christos Dyer MD DATE: 11/27/2017 REASON FOR CONSULTATION: Consult requested by Dr. Henry, neurologist, to arrange plasmapheresis for exacerbation of multiple sclerosis. HISTORY OF PRESENT ILLNESS: This is a 37-year-old female. She is without any significant past medical history. Five years ago in 2012, she was diagnosed with multiple sclerosis. She had multiple treatments when she used to live in [place]. She recently moved to [facility]. The patient presented to the emergency room last week complaining of diplopia and weakness of the left upper extremity and left lower extremity. In the emergency room, the patient underwent further workup. Neurology, Dr. Henry, was called. The patient was started on high dose steroid therapy. This failed to improve her symptoms. Therefore, Dr. Henry has recommended plasmapheresis. He is requesting a hematology consult for further evaluation. REVIEW OF SYSTEMS: The patient still has weakness in the leg. Her diplopia is somewhat improved. She has been getting high doses of steroids, which do not seem to be helping the symptoms of the multiple sclerosis. The rest of the review of systems is negative. PAST MEDICAL HISTORY: Multiple sclerosis, chronic anemia. PAST SURGICAL HISTORY: . ALLERGIES: NONE. MEDICATIONS: Prior to coming to the hospital were none. FAMILY HISTORY: None for multiple sclerosis or malignancy. SOCIAL HISTORY: The patient smokes cigarettes, 1 pack a day. She does not drink alcohol. PHYSICAL EXAMINATION: GENERAL: This is a well-developed female in no apparent distress. VITAL SIGNS: Temperature 98, heart rate 61, respiratory rate 22, blood pressure 114/56. HEAD, EYES, EARS, NOSE, AND THROAT: Pupils equal, round, reactive to light and accommodation, extraocular movements intact. Anicteric. No oral lesions noted. No thrush noted. NECK: Supple. No JVD. No masses noted. LUNGS: Clear. No wheezing, rhonchi, or rales. HEART: Regular rate and rhythm. No murmur heard. ABDOMEN: Soft and nontender. No hepatosplenomegaly. No abnormal bowel sounds. No guarding or rigidity noted. EXTREMITIES: No pedal edema. No cyanosis, no clubbing. NEUROLOGIC: The patient is awake, alert. SKIN: No bruises or petechiae noted. BREASTS: No masses noted. LYMPH NODES: No cervical, supraclavicular, or axillary lymphadenopathy noted. BACK: There is no spinal tenderness noted. ASSESSMENT: 1. Exacerbation of multiple sclerosis and not responding to high dose steroids. 2. Multiple sclerosis diagnosed in 2013. 3. History of chronic anemia. PLAN: I have reviewed her available records and I have discussed with the patient regarding the plasmapheresis. I discussed with her that neurologist, Dr. Henry, has recommended plasmapheresis. I discussed the procedure with the patient in layman terms of what it entails. She now has better understanding of the plasmapheresis. She states that she never had that in the past since she was diagnosed with multiple sclerosis in 2012. The risks, benefits and alternatives of plasmapheresis were discussed with the patient. Complications of the procedure were explained to her. She has agreed to allow us to proceed with that. I will consult interventional radiology for Vas-Cath placement for tomorrow. I will get CBC and coagulation studies for the Vas-Cath procedure. I will notify the dialysis unit who does inpatient plasmapheresis . We will replace the plasma with albumin. We will start the first plasmapheresis tomorrow and then every other day for a total of 5. She will be reassessed by neurologist, Dr. Henry and if she has a response after 5 treatments then it could be extended for 10 treatments if needed. Thank you for asking my opinion. MD ADITHYA Walker/red , 10:38 PM , 10:51 PM [facility]William
[2017-11-28] MEDS: MethylPREDNISolone Sod Suc Inj 250 MG in Sodium Chlor 0.9% Inj 100 ML IV.SIG SCH ×5 (00:09→23:42)
[2017-11-28] MEDS: oxyCODONE/Acetaminophen 10/325 Tablet PO PRN ×4 (00:14→20:54)
[2017-11-28] MEDS: Sod Chloride 0.9% Inj 1,000 ML IV.CONT SCH ×3 (04:45→21:28)
[2017-11-28 06:36] LABS: Baso % (Auto) 0.1 % (0.0-2.0); Hematocrit 34.1 % (35.0-46.0); Lymph # (Auto) 1.3 th/mm3 (1.0-4.8); Lymph % (Auto) 8.7 % (9.0-44.0); Mean Corpuscular HGB Conc 32.2 % (32.0-36.0); Mean Corpuscular Hemoglobin 25.6 pg (27.0-34.0); Mean Corpuscular Volume 79.5 fL (80.0-100.0); Mean Platelet Volume 9.1 fL (7.0-11.0); Mono # (Auto) 0.5 th/mm3 (0.0-0.9); Mono % (Auto) 3.3 % (0.0-8.0); Neut # (Auto) 12.7 th/mm3 (1.8-7.7); Neut % (Auto) 87.9 % (16.0-70.0); Platelet Count 327 th/mm3 (150-450); Red Blood Count 4.28 mil/mm3 (4.00-5.30); Red Cell Distribution Width 23.6 % (11.6-17.2); White Blood Count 14.4 th/mm3 (4.0-11.0)
[2017-11-28 07:08] LABS: Albumin 2.8 g/dL (3.4-5.0); Anion Gap 8 meq/L (5-15); Aspartate Aminotransferase 16 U/L (15-37); Blood Urea Nitrogen 20 mg/dL (7-18); Calcium 8.4 mg/dL (8.5-10.1); Carbon Dioxide 28.6 meq/L (21.0-32.0); Chloride 103 meq/L (98-107); Glomerular Filtration Rate 69 mL/min (>89); Glucose,Random 109 mg/dL (74-106); Magnesium 2.1 mg/dL (1.5-2.5); Potassium 3.8 meq/L (3.5-5.1); Sodium 140 meq/L (136-145)
[2017-11-28 07:10] LABS: Alanine Aminotransferase 43 U/L (10-53); Phosphorus 2.9 mg/dL (2.5-4.9)
[2017-11-28 07:22] LABS: Alkaline Phosphatase 82 U/L (45-117); Total Protein 6.7 g/dL (6.4-8.2)
[2017-11-28] MEDS: Senna/Docusate Sodium 8.6/50 MG Tablet PO SCH ×2 (08:27→20:54)
[2017-11-28] MEDS: Famotidine 20 MG Tablet PO SCH ×2 (08:27→20:54)
[2017-11-28] MEDS ORDERED: *Heparin 10,000 UNITS/10 ML Vial Periprocedural ONLY ONE (10:55)
--- NOTE | 2017-11-28 11:16 | P.RAD ---
Post Procedure Progress Note - Pre Procedure Diagnosis (1) Multiple sclerosis exacerbation - Post Procedure Diagnosis (1) Multiple sclerosis exacerbation - Procedure Information Supervising Radiologist: Chin Laguna MD - Plan of Activity Patient to Unit: Nursing Unit Patient Condition: Good See PACS Report for procedural detail/treatment.
[2017-11-28] MEDS: Morphine Inj 4 MG/ML Vial IV.PUSH PRN ×2 (12:05→21:54)
--- NOTE | 2017-11-28 12:23 | IR ---
EXAM DATE: 11/28/2017 12:00 AM EDT AGE/SEX: 37 years / Female INDICATIONS: Patient with history of Multiple Sclerosis in need of temporary non-tunneled central ve nous catheter placement for Plasmapheresis. CLINICAL DATA: This is the patient's initial encounter. Patient reports that signs and symptoms have been present for 1 day and indicates a pain score of 0/10. MEDICAL/SURGICAL HISTORY: Multiple sclerosis. Anemia. section. COMPARISON: No prior exams available for comparison. FLUORO TIME (min): 0.15 IMAGE SERIES: 3 ACCESS SITE: Right internal jugular vein DEVICE(S): 14 Kinyarwanda double lumen 15 cm Schon catheter Vascath. . . PROCEDURE : 1. Ultrasound guided venipuncture. 2. Fluoroscopic guidance. 3. Central line placement. The risks, benefits and alternatives to the procedure were explained and verbal and written consent w as obtained. The site was prepped in sterile fashion. Full sterile technique was used, including ca p, mask, sterile gloves and gown and a large sterile sheet. Hand hygiene and 2% chlorhexidine prep w as utilized per protocol for cutaneous antisepsis with appropriate dry time for site. Sterile gel an d sterile probe cover were utilized for ultrasound guidance. The skin and subcutaneous tissues were infiltrated with local anesthetic solution. A suitable site a funmi the vein was selected with ultrasound and fluoroscopic guidance. A small incision was made. Th e vein was accessed under direct ultrasound visualization using the micropuncture technique. The miller ropuncture set was exchanged for a 0.035 wire. The tract was dilated. The catheter was advanced int o position under direct fluoroscopic visualization, and was advanced with the tip at the junction of the superior vena cava and rt atrium. The catheter was fixed in place with suture and a sterile dres sing was applied. The patient tolerated the procedure well and there were no complications. CONCLUSION: 1. Uncomplicated line placement as above. Electronically signed by: Chin Laguna MD 11/28/2017 12:22 PM EDT
[2017-11-28] MEDS ORDERED: Heparin 2,000 UNITS/2 ML Vial (for IV use) IV.FLUSH PRN (12:33)
--- NOTE | 2017-11-28 12:48 | P.PNONC ---
Subjective Interval history: Patient just returned to room from IR having Vas-Cath placed. She reports some tenderness at the site. Describes increasing left leg weakness. Objective Vital Signs/Intake & Output: Vital Signs 11/27/17 15:54 11/27/17 18:40 11/27/17 20:00 Temperature 98 F 98.2 F Pulse Rate 61 57 L Respiratory Rate 22 18 18 Blood Pressure 114/56 L 115/66 Pulse Oximetry 100 97 11/28/17 00:00 11/28/17 01:00 11/28/17 08:00 Temperature 97.4 F L 98.4 F Pulse Rate 51 L 52 L Respiratory Rate 18 18 17 Blood Pressure 120/56 L 132/64 Pulse Oximetry 100 100 11/28/17 12:00 Temperature 97.8 F Pulse Rate 55 L Respiratory Rate 18 Blood Pressure 135/71 Pulse Oximetry 99 Intake & Output 11/27/17 11/28/17 11/28/17 18:59 06:59 18:59 Intake Total 232 / 232 104 / 104 104 / 104 Output Total 0 / 0 Balance 232 / 232 104 / 104 104 / 104 Weight 104.9 kg Intake: IV 232 / 232 104 / 104 104 / 104 SoluMEDROL Inj 250 MG In NS Inj 232 / 232 104 / 104 104 / 104 100 ML @ 200 mls/hr IV.SIG Q6H [facility]A Rx#:[id number] Output: Urine 0 / 0 Other: # Voids 3 Date of Last Bowel Movement 11/25/17 11/25/17 12/25/17 Weight On Admission 104.9 kg Result Diagrams: 11/28/17 05:49 11/28/17 05:49 Laboratory Results: Laboratory Results - last 24 hr 11/27/17 11/27/17 11/28/17 20:04 20:04 05:49 WBC 14.4 H RBC 4.28 Hgb 11.0 L Hct 34.1 L MCV 79.5 L MCH 25.6 L MCHC 32.2 RDW 23.6 H Plt Count 327 MPV 9.1 Neut % (Auto) 87.9 H Lymph % (Auto) 8.7 L [place] % (Auto) 3.3 Eos % (Auto) 0.0 Baso % (Auto) 0.1 Neut # (Auto) 12.7 H Lymph # (Auto) 1.3 [place] # (Auto) 0.5 Eos # (Auto) 0.0 Baso # (Auto) 0.0 WBC Differential . Differential Comment Auto diff final PT 10.3 INR 1.0 APTT 21.3 L Fibrinogen 226 L Sodium Potassium Chloride Carbon Dioxide Anion Gap BUN Creatinine Estimated GFR Random Glucose Calcium Phosphorus Magnesium Total Bilirubin AST ALT Alkaline Phosphatase Total Protein Albumin Beta HCG, Qual Less than 1.0 11/28/17 05:49 WBC RBC Hgb Hct MCV MCH MCHC RDW Plt Count MPV Neut % (Auto) Lymph % (Auto) [place] % (Auto) Eos % (Auto) Baso % (Auto) Neut # (Auto) Lymph # (Auto) [place] # (Auto) Eos # (Auto) Baso # (Auto) WBC Differential Differential Comment PT INR APTT Fibrinogen Sodium 140 Potassium 3.8 Chloride 103 Carbon Dioxide 28.6 Anion Gap 8 BUN 20 H Creatinine 1.07 H Estimated GFR 69 L Random Glucose 109 H Calcium 8.4 L Phosphorus 2.9 Magnesium 2.1 Total Bilirubin 0.2 AST 16 ALT 43 Alkaline Phosphatase 82 Total Protein 6.7 Albumin 2.8 L Beta HCG, Qual Culture Results: Microbiology 11/25/17 13:05 Aerobic Blood Culture - Preliminary Blood - Peripheral No growth in 3 days Anaerobic Blood Culture - Preliminary No growth in 3 days 11/25/17 13:10 Aerobic Blood Culture - Preliminary Blood - Peripheral No growth in 3 days Anaerobic Blood Culture - Preliminary No growth in 3 days Imaging Studies: Impressions Catheter Placement 11/28/17 00:00 CONCLUSION: 1. Uncomplicated line placement as above. Medications: Active Medications Generic Name Dose Route Start Last Admin Trade Name Freq PRN Reason Stop Dose Admin Buspirone HCl 5 mg 11/25/17 21:00 11/28/17 08:27 Buspar PO 5 mg BID LOLA Administration Famotidine 20 mg 11/23/17 15:00 11/28/17 08:27 Pepcid PO 20 mg BID LOLA Administration Sodium Chloride 1,000 mls @ 100 mls/hr 11/23/17 01:30 11/28/17 12:08 Ns Inj IV.CONT Not Given .Q10H LOLA Methylprednisolone Sodium 104 mls @ 200 mls/hr 11/27/17 12:00 11/28/17 12:22 Succinate 250 mg/ Sodium IV.SIG 200 mls/hr Chloride Q6H LOLA Administration Lactulose 30 ml 11/23/17 13:03 11/25/17 08:18 Lactulose Liq PO 30 ml DAILY PRN Administration SEVERE CONSITIPATION Morphine Sulfate 4 mg 11/23/17 13:04 11/28/17 12:05 Morphine Inj IV.PUSH 4 mg Q3H PRN Administration BREAKTHROUGH PAIN Morphine Sulfate 2 mg 11/23/17 13:04 11/26/17 09:11 Morphine Inj IV.PUSH 2 mg Q3H PRN Administration PAIN 3-5; IF UABLE TO TAKE PO Oxycodone/Acetaminophen 1 tab 11/23/17 13:04 11/28/17 06:40 Percocet 10/325 Mg PO 1 tab Q6H PRN Administration PAIN SCALE 6 TO 10 Oxycodone/Acetaminophen 1 tab 11/23/17 13:04 11/23/17 13:14 Percocet 5/325 Mg PO 1 tab Q6H PRN Administration PAIN SCALE 3 TO 5 Senna/Docusate Sodium 1 tab 11/23/17 21:00 11/28/17 08:27 Lisa-Colace PO 1 tab BID LOLA Administration Sennosides 17.2 mg 11/23/17 13:03 11/28/17 08:27 Senokot PO 17.2 mg Q12H PRN Administration Moderate Constipation Objective Remarks: GENERAL: Well-nourished, well-developed female patient, in no acute distress. SKIN: Warm and dry. HEAD: Normocephalic. EYES: No scleral icterus. No injection or drainage. NECK: Supple, trachea midline. Rt Vasc-cath, drsg dry/intact. CARDIOVASCULAR: Regular rate and rhythm without murmurs. RESPIRATORY: Breath sounds equal bilaterally. Non-labored at rest. GASTROINTESTINAL: Abdomen soft, non-tender, nondistended. EXTREMITIES: No cyanosis, or edema. MUSCULOSKELETAL: Adequate muscle tone. NEUROLOGICAL: Awake, alert, and oriented x3. LLE weakness. PSYCHIATRIC: Appropriate mood and affect; insight and judgment normal. Assessment/Plan - Plan Ms. Price is a pleasant 37-year-old female patient who has a history of multiple sclerosis. She recently moved to [place] from [place]. She is under the care of neurologist who consulted hematology for plasma exchange. Plan: 1. MS, with increasing left sided weakness. Management per neurology. 2. Plasma exchange, status post Vas-Cath placement today. Plan for plasma exchange every other day times 5 days. Orders given to dialysis nurse. 3. Monitor CBC, aPTT and fibrinogen daily. - Attending Statement The exam, history, and the medical decision-making described in the above note were completed with the assistance of the mid-level provider. I reviewed and agree with the findings presented. I attest that I had a [id number] encounter with the patient on the same day, and personally performed and documented my assessment and findings in the medical record. c/o discomfort at [facility] site had first Pheresis today.Tolerated well check coags tomorrow
--- NOTE | 2017-11-28 17:00 | P.PNIM ---
Subjective Interval history: Patient reports continued left-sided weakness and pain. Denies any chest pain. Physical Exam Vital signs: Vital Signs 11/27/17 18:40 11/27/17 20:00 11/28/17 00:00 Temperature 98.2 F 97.4 F L Pulse Rate 57 L 51 L Respiratory Rate 18 18 18 Blood Pressure 115/66 120/56 L Pulse Oximetry 97 100 11/28/17 01:00 11/28/17 08:00 11/28/17 12:00 Temperature 98.4 F 97.8 F Pulse Rate 52 L 55 L Respiratory Rate 18 18 Blood Pressure 132/64 135/71 Pulse Oximetry 100 99 Intake & Output 11/27/17 11/28/17 11/28/17 18:59 06:59 18:59 Intake Total 232 / 232 104 / 104 208 / 208 Output Total 0 / 0 Balance 232 / 232 104 / 104 208 / 208 Weight 104.9 kg Intake: IV 232 / 232 104 / 104 208 / 208 SoluMEDROL Inj 250 MG In NS Inj 232 / 232 104 / 104 208 / 208 100 ML @ 200 mls/hr IV.SIG Q6H LOLA Rx#:[id number] Output: Urine 0 / 0 Other: # Voids 3 Date of Last Bowel Movement 11/25/17 11/25/17 12/25/17 Weight On Admission 104.9 kg Narrative: GENERAL: Patient lying in bed following right IJ placement. Appears uncomfortable. Alert and oriented x3. SKIN: Warm and dry. HEAD: Atraumatic. Normocephalic. NECK: Trachea midline. No JVD. CARDIOVASCULAR: Regular rate and rhythm. RESPIRATORY: No accessory muscle use. Clear to auscultation. Breath sounds equal bilaterally. GASTROINTESTINAL: Abdomen soft, non-tender, nondistended. MUSCULOSKELETAL: Extremities without clubbing, cyanosis, or edema. No obvious deformities. NEUROLOGICAL: Awake and alert. No obvious cranial nerve deficits. Patient with 3 out of 5 strength on the left lower extremity, 4-5 strength left upper extremity. PSYCHIATRIC: Appears depressed; insight and judgment normal. Results - Labs CBC & Chem 7: 11/28/17 05:49 11/28/17 05:49 Laboratory Results - last 24 hr 11/27/17 11/27/17 11/28/17 20:04 20:04 05:49 WBC 14.4 H RBC 4.28 Hgb 11.0 L Hct 34.1 L MCV 79.5 L MCH 25.6 L MCHC 32.2 RDW 23.6 H Plt Count 327 MPV 9.1 Neut % (Auto) 87.9 H Lymph % (Auto) 8.7 L [place] % (Auto) 3.3 Eos % (Auto) 0.0 Baso % (Auto) 0.1 Neut # (Auto) 12.7 H Lymph # (Auto) 1.3 [place] # (Auto) 0.5 Eos # (Auto) 0.0 Baso # (Auto) 0.0 WBC Differential . Differential Comment Auto diff final PT 10.3 INR 1.0 APTT 21.3 L Fibrinogen 226 L Sodium Potassium Chloride Carbon Dioxide Anion Gap BUN Creatinine Estimated GFR Random Glucose Calcium Phosphorus Magnesium Total Bilirubin AST ALT Alkaline Phosphatase Total Protein Albumin Beta HCG, Qual Less than 1.0 11/28/17 05:49 WBC RBC Hgb Hct MCV MCH MCHC RDW Plt Count MPV Neut % (Auto) Lymph % (Auto) [place] % (Auto) Eos % (Auto) Baso % (Auto) Neut # (Auto) Lymph # (Auto) [place] # (Auto) Eos # (Auto) Baso # (Auto) WBC Differential Differential Comment PT INR APTT Fibrinogen Sodium 140 Potassium 3.8 Chloride 103 Carbon Dioxide 28.6 Anion Gap 8 BUN 20 H Creatinine 1.07 H Estimated GFR 69 L Random Glucose 109 H Calcium 8.4 L Phosphorus 2.9 Magnesium 2.1 Total Bilirubin 0.2 AST 16 ALT 43 Alkaline Phosphatase 82 Total Protein 6.7 Albumin 2.8 L Beta HCG, Qual Microbiology 11/25/17 13:05 Blood - Peripheral Aerobic Blood Culture - Preliminary No growth in 3 days 11/25/17 13:05 Blood - Peripheral Anaerobic Blood Culture - Preliminary No growth in 3 days 11/25/17 13:10 Blood - Peripheral Aerobic Blood Culture - Preliminary No growth in 3 days 11/25/17 13:10 Blood - Peripheral Anaerobic Blood Culture - Preliminary No growth in 3 days - Imaging Impressions Catheter Placement 11/28/17 00:00 CONCLUSION: 1. Uncomplicated line placement as above. - Procedures NONE Assessment and Plan - Plan //Multiple sclerosis exacerbation. -[facility] has discussed case with neurology. Status post IV Solu-Medrol in the ER = Outside records to be requested. Further management as per neurology. = Patient did not improved with IVIG. Plan is for plasmapheresis as per hematology. Appreciate hematology assistance. //Chronic anemia. Hemoglobin 11. No signs of bleeding. = Hemoglobin 11. No signs of bleeding. Continue to monitor. //Leukocytosis. 14.4. Secondary to steroids. No signs of infection. //Tobacco abuse. Cessation counseling provided. //Chronic mild constipation. Continue twice daily Lisa-Colace. //Insomnia. //Depression Continue Ambien.. BuSpar was added for sleep. We will continue for now. Discussed Condition With: Patient, nurse. Discharge Planning: Pending improvement. Will need neurology and hematology clearance.
[2017-11-28] MEDS: CALCIUM GLUCONATE IV.SIG SCH (17:29)
[2017-11-28] MEDS: SODIUM CHLOR 0.9% IV.SIG SCH (17:29)
[2017-11-28] MEDS: ALBUMIN HUMAN 5% IV.SIG SCH (17:30)
[2017-11-28] MEDS: Anticoagulant Citrate Dextrose 1,000 ML Solution EXTRACORPO SCH (17:31)
--- NOTE | 2017-11-28 18:11 | P.PNNEU ---
Subjective Subjective Comments: s/p vascath placement and had pheresis #1 today and tolerated it well Active Medications: Active Medications Acetaminophen (Tylenol) 650 mg PO Q4H PRN PRN Reason: Temp > 100.4 Al Hydroxide/Mg Hydroxide (Milk Of Brittany Liagusto) 30 ml PO Q12H PRN PRN Reason: Mild Constipation Bisacodyl (Dulcolax Supp) 10 mg RECTAL DAILY PRN PRN Reason: SEVERE CONSITIPATION Buspirone HCl (Buspar) 5 mg PO BID [facility] Last Admin: 11/28/17 08:27 Dose: 5 mg Diphenhydramine HCl (Benadryl Inj) 25 mg IV.PUSH PRN PRN PRN Reason: FOR ALLERGIC REACTION Stop: 12/07/17 12:24 Diphenhydramine HCl (Benadryl Inj) 25 mg IV.PUSH PRN PRN PRN Reason: SEE LABEL COMMENTS Stop: 12/07/17 12:25 Famotidine (Pepcid) 20 mg PO BID [facility] Last Admin: 11/28/17 08:27 Dose: 20 mg Heparin Sodium (Porcine) (Heparin Inj) 5,000 units OTHER Q48H [facility] Stop: 12/09/17 13:59 Heparin Sodium (Porcine) (Heparin Inj) 1,000 units IV.FLUSH Q48H PRN PRN Reason: SEE LABEL COMMENTS Stop: 12/07/17 12:32 Last Admin: 11/28/17 17:31 Dose: 1,000 units Sodium Chloride (Ns Inj) 1,000 mls @ 100 mls/hr IV.CONT .Q10H [facility] Last Admin: 11/28/17 12:08 Dose: Not Given Methylprednisolone Sodium Succinate 250 mg/ Sodium Chloride 104 mls @ 200 mls/ hr IV.SIG Q6H [facility] Last Admin: 11/28/17 18:06 Dose: 200 mls/hr Albumin Human ([place] 5% Inj) 3,500 mls @ 0 mls/hr IV.SIG Q48H [facility] Stop: 12/06/17 14:01 Last Admin: 11/28/17 17:30 Dose: 180 mls/hr Calcium Gluconate 3.5 gm/ (Sodium Chloride) 285 mls @ 120 mls/hr IV.SIG Q48H [facility] Stop: 12/06/17 16:23 Last Admin: 11/28/17 17:29 Dose: 120 mls/hr Ibuprofen (Motrin) 600 mg PO Q6HR PRN PRN Reason: PAIN SCALE 1 TO 2 Lactulose (Lactulose Liq) 30 ml PO DAILY PRN PRN Reason: SEVERE CONSITIPATION Last Admin: 11/25/17 08:18 Dose: 30 ml Morphine Sulfate (Morphine Inj) 4 mg IV.PUSH Q3H PRN PRN Reason: BREAKTHROUGH PAIN Last Admin: 11/28/17 12:05 Dose: 4 mg Morphine Sulfate (Morphine Inj) 4 mg IV.PUSH Q3H PRN PRN Reason: PAIN 6-10;IF UNABLE TO TAKE PO Morphine Sulfate (Morphine Inj) 2 mg IV.PUSH Q3H PRN PRN Reason: PAIN 3-5; IF UABLE TO TAKE PO Last Admin: 11/26/17 09:11 Dose: 2 mg Naloxone HCl (Narcan Inj) 0.4 mg IV.PUSH UNSCH PRN PRN Reason: SEE LABEL COMMENTS Ondansetron HCl (Zofran Inj) 4 mg IV.PUSH Q6H PRN PRN Reason: NAUSEA OR VOMITING Oxycodone/Acetaminophen (Percocet 10/325 Mg) 1 tab PO Q6H PRN PRN Reason: PAIN SCALE 6 TO 10 Last Admin: 11/28/17 12:43 Dose: 1 tab Oxycodone/Acetaminophen (Percocet 5/325 Mg) 1 tab PO Q6H PRN PRN Reason: PAIN SCALE 3 TO 5 Last Admin: 11/23/17 13:14 Dose: 1 tab Senna/Docusate Sodium (Lisa-Colace) 1 tab PO BID [facility] Last Admin: 11/28/17 08:27 Dose: 1 tab Sennosides (Senokot) 17.2 mg PO Q12H PRN PRN Reason: Moderate Constipation Last Admin: 11/28/17 08:27 Dose: 17.2 mg Sodium Chloride (Ns Flush) 10 ml OTHER Q48H [facility] Stop: 12/08/17 13:59 Sodium Citrate (Acd-A Solution) 1,000 ml EXTRACORPO Q48H [facility] Stop: 12/06/17 15:01 Last Admin: 11/28/17 17:31 Dose: 1,000 ml Allergies/Adverse Reactions: Allergies Allergy/AdvReac Type Severity Reaction Status Date / Time No Known Allergies Allergy Verified 11/22/17 22:25 Physical Exam Vital signs: Vital Signs 11/27/17 18:40 11/27/17 20:00 11/28/17 00:00 Temperature 98.2 F 97.4 F L Pulse Rate 57 L 51 L Respiratory Rate 18 18 18 Blood Pressure 115/66 120/56 L Pulse Oximetry 97 100 11/28/17 01:00 11/28/17 08:00 11/28/17 12:00 Temperature 98.4 F 97.8 F Pulse Rate 52 L 55 L Respiratory Rate 18 17 18 Blood Pressure 132/64 135/71 Pulse Oximetry 100 99 Intake & Output 11/27/17 11/28/17 11/28/17 18:59 06:59 18:59 Intake Total 232 / 232 104 / 104 208 / 208 Output Total 0 / 0 Balance 232 / 232 104 / 104 208 / 208 Weight 104.9 kg Intake: IV 232 / 232 104 / 104 208 / 208 SoluMEDROL Inj 250 MG In NS Inj 232 / 232 104 / 104 208 / 208 100 ML @ 200 mls/hr IV.SIG Q6H LOLA Rx#:[id number] Output: Urine 0 / 0 Other: # Voids 3 Date of Last Bowel Movement 11/25/17 11/25/17 12/25/17 Weight On Admission 104.9 kg - Routine Neurological Exam alert, speech normal CN intact MOTOR 5/5 RUE, 4/5 LUE. 5/5 RLE, 4/5 LLE Objective Laboratory Results - last 24 hr 11/27/17 11/27/17 11/28/17 20:04 20:04 05:49 WBC 14.4 H RBC 4.28 Hgb 11.0 L Hct 34.1 L MCV 79.5 L MCH 25.6 L MCHC 32.2 RDW 23.6 H Plt Count 327 MPV 9.1 Neut % (Auto) 87.9 H Lymph % (Auto) 8.[address] [place] % (Auto) 3.3 Eos % (Auto) 0.0 Baso % (Auto) 0.1 Neut # (Auto) 12.7 H Lymph # (Auto) 1.3 [place] # (Auto) 0.5 Eos # (Auto) 0.0 Baso # (Auto) 0.0 WBC Differential . Differential Comment Auto diff final PT 10.3 INR 1.0 APTT 21.3 L Fibrinogen 226 L Sodium Potassium Chloride Carbon Dioxide Anion Gap BUN Creatinine Estimated GFR Random Glucose Calcium Phosphorus Magnesium Total Bilirubin AST ALT Alkaline Phosphatase Total Protein Albumin Beta HCG, Qual Less than 1.0 11/28/17 05:49 WBC RBC Hgb Hct MCV MCH MCHC RDW Plt Count MPV Neut % (Auto) Lymph % (Auto) [place] % (Auto) Eos % (Auto) Baso % (Auto) Neut # (Auto) Lymph # (Auto) [place] # (Auto) Eos # (Auto) Baso # (Auto) WBC Differential Differential Comment PT INR APTT Fibrinogen Sodium 140 Potassium 3.8 Chloride 103 Carbon Dioxide 28.6 Anion Gap 8 BUN 20 H Creatinine 1.07 H Estimated GFR 69 L Random Glucose 109 H Calcium 8.4 L Phosphorus 2.9 Magnesium 2.1 Total Bilirubin 0.2 AST 16 ALT 43 Alkaline Phosphatase 82 Total Protein 6.7 Albumin 2.8 L Beta HCG, Qual Microbiology 11/25/17 13:05 Aerobic Blood Culture - Preliminary Blood - Peripheral No growth in 3 days Anaerobic Blood Culture - Preliminary No growth in 3 days 11/25/17 13:10 Aerobic Blood Culture - Preliminary Blood - Peripheral No growth in 3 days Anaerobic Blood Culture - Preliminary No growth in 3 days Review/Management - Diagnosis (1) Multiple sclerosis exacerbation Code(s): G35 - Multiple sclerosis Status: Acute Current Visit: Yes - Review/Management Plan: continue plasmapheresis every other day for 5-10 treatments.
[2017-11-28] MEDS: Heparin - SQ 10,000 UNITS/ML Vial OTHER SCH (19:33)
[2017-11-29] MEDS: Morphine Inj 4 MG/ML Vial IV.PUSH PRN (01:14)
[2017-11-29] MEDS: MethylPREDNISolone Sod Suc Inj 250 MG in Sodium Chlor 0.9% Inj 100 ML IV.SIG SCH ×4 (05:21→23:59)
[2017-11-29] MEDS: oxyCODONE/Acetaminophen 10/325 Tablet PO PRN ×4 (05:21→23:59)
[2017-11-29] MEDS: Famotidine 20 MG Tablet PO SCH ×2 (08:45→21:24)
[2017-11-29] MEDS: Senna/Docusate Sodium 8.6/50 MG Tablet PO SCH ×2 (08:45→21:24)
[2017-11-29] MEDS: Sod Chloride 0.9% Inj 1,000 ML IV.CONT SCH ×2 (09:11→17:41)
--- NOTE | 2017-11-29 11:17 | P.PNIM ---
Subjective Interval history: 37-year-old female with a history of multiple sclerosis with most recent exacerbation last month who presents with a 1 day history of diplopia starting yesterday, with gradual onset left upper and lower extremity weakness starting during the day yesterday. She denies any chest pain, shortness of breath, nausea, vomiting, fevers, chills. She says that this current MS exacerbation is similar to her last MS exacerbation, both with left-sided weakness. Patient recently moved down here from [place], hoping that the warm weather would help with her MS. 11-23 AWAIT NEUROLOGY INPUT PT AND OT AM LABS ORAL PAIN CONTROL DW RN AND PT AND CM 11-24 STEROIDS INCREASED PER NEUROLOGY CONTINUE PT AND OT WILL NEED OUTPT FOLLOW UP WITH NEUROLOGY DENIES ANY MAJOR IMPROVEMENT OF LEFT LOWER EXTREMITY CHART 11-25 Patient is seen lying in bed. Tells me that she is getting her strength back in her left arm. Still quite weak in the left leg and relying on the walker to move around the room. She is experiencing a lot of depression due to her MS. In the past she has tried citalopram but it did not really help. She is open to trying something else. Discussed the importance of continuing these type of medications without interruption and she tells me that she has an appointment on December 05 with a new primary care who will be able to continue her medications. 30 STATES HAS SOME BACK PAIN ON THE LEFT NEED TO MOVE MORE DW PT AND RN AND CM CONTINUE STEROIDS 10-1 STATES NO IMPROVEMENT IN LEFT LEG DW RN AND PT STILL ON STEROIDS VERY TEARFUL TODAY DW DR LANI WARE WANTS HEMATOLOGY FOR PLASMAPHERESIS 10-2 Patient reports continued left-sided weakness and pain. Denies any chest pain. HAD CATHETER PLACED 10-3 HAD CATHETER PLACED YESTERDAY HAD PLASMAPHERESIS YESTERDAY DW RN AND PT AND CM STATES NO IMPROVEMENT IN LEFT LE YET AM LABS Physical Exam Vital signs: Vital Signs 11/28/17 12:00 11/28/17 20:00 11/29/17 00:00 Temperature 97.8 F 98.1 F 98.2 F Pulse Rate 55 L 60 53 L Respiratory Rate 18 16 16 Blood Pressure 135/71 112/62 144/72 H Pulse Oximetry 99 100 100 11/29/17 04:00 11/29/17 08:00 Temperature 98.3 F 98.2 F Pulse Rate 56 L 51 L Respiratory Rate 16 16 Blood Pressure 133/66 131/66 Pulse Oximetry 100 98 Intake & Output 11/28/17 11/29/17 11/29/17 18:59 06:59 18:59 Intake Total 658 / 658 597 / 597 Balance 658 / 658 597 / 597 Weight 104.9 kg 104.5 kg Intake: IV / 208 597 / 597 Calcium Gluconate Inj 3.5 GM In 285 / 285 NS Inj 250 ML @ 120 mls/hr IV. SIG Q48H [facility] Rx#:[id number] SoluMEDROL Inj 250 MG In NS Inj 208 / 208 312 / 312 100 ML @ 200 mls/hr IV.SIG Q6H [facility] Rx#:[id number] Oral 450 / 450 Other: # Voids 4 3 Date of Last Bowel Movement 12/25/17 11/25/17 Weight On Admission 104.9 kg Narrative: GENERAL: Patient lying in bed following right IJ placement. Appears uncomfortable. Alert and oriented x3. SKIN: Warm and dry. HEAD: Atraumatic. Normocephalic. NECK: Trachea midline. No JVD. CARDIOVASCULAR: Regular rate and rhythm. RESPIRATORY: No accessory muscle use. Clear to auscultation. Breath sounds equal bilaterally. GASTROINTESTINAL: Abdomen soft, non-tender, nondistended. MUSCULOSKELETAL: Extremities without clubbing, cyanosis, or edema. No obvious deformities. NEUROLOGICAL: Awake and alert. No obvious cranial nerve deficits. Patient with 3 out of 5 strength on the left lower extremity, 4-5 strength left upper extremity. PSYCHIATRIC: Appears depressed; insight and judgment normal. Results - Labs CBC & Chem 7: 11/28/17 05:49 11/28/17 05:49 Microbiology 11/25/17 13:05 Blood - Peripheral Aerobic Blood Culture - Preliminary No growth in 4 days 11/25/17 13:05 Blood - Peripheral Anaerobic Blood Culture - Preliminary No growth in 4 days 11/25/17 13:10 Blood - Peripheral Aerobic Blood Culture - Preliminary No growth in 4 days 11/25/17 13:10 Blood - Peripheral Anaerobic Blood Culture - Preliminary No growth in 4 days - Imaging Impressions Catheter Placement 11/28/17 00:00 CONCLUSION: 1. Uncomplicated line placement as above. - Procedures IR dialysis cath plcmt w us Signed EXAM DATE: 11/28/2017 12:00 AM EDT AGE/SEX: 37 years / Female INDICATIONS: Patient with history of Multiple Sclerosis in need of temporary non-tunneled central venous catheter placement for Plasmapheresis. CLINICAL DATA: This is the patient's initial encounter. Patient reports that signs and symptoms have been present for 1 day and indicates a pain score of 0/ 10. MEDICAL/SURGICAL HISTORY: Multiple sclerosis. Anemia. section. COMPARISON: No prior exams available for comparison. FLUORO TIME (min): 0.15 IMAGE SERIES: 3 ACCESS SITE: Right internal jugular vein DEVICE(S): 14 [place]ian double lumen 15 cm Schon catheter Vascath. . . PROCEDURE : 1. Ultrasound guided venipuncture. 2. Fluoroscopic guidance. 3. Central line placement. The risks, benefits and alternatives to the procedure were explained and verbal and written consent was obtained. The site was prepped in sterile fashion. Full sterile technique was used, including cap, mask, sterile gloves and gown and a large sterile sheet. Hand hygiene and 2% chlorhexidine prep was utilized per protocol for cutaneous antisepsis with appropriate dry time for site. Sterile gel and sterile probe cover were utilized for ultrasound guidance. The skin and subcutaneous tissues were infiltrated with local anesthetic solution. A suitable site above the vein was selected with ultrasound and fluoroscopic guidance. A small incision was made. The vein was accessed under direct ultrasound visualization using the micropuncture technique. The micropuncture set was exchanged for a 0.035 wire. The tract was dilated. The catheter was advanced into position under direct fluoroscopic visualization, and was advanced with the tip at the junction of the superior vena cava and rt atrium. The catheter was fixed in place with suture and a sterile dressing was applied. The patient tolerated the procedure well and there were no complications. CONCLUSION: 1. Uncomplicated line placement as above. Electronically signed by: Chin Laguna MD 11/28/2017 Assessment and Plan - Plan Multiple sclerosis exacerbation. -[facility]y. Status post IV Solu-Medrol in the ER = Outside records to be requested. Further management as per neurology. MRIS DONE CONSULT HEMATOLOGY FOR PLASMAPHERESIS FOR MULTIPLE SCLEROSIS HAD RIGHT HD CATHETER PLACEMENT FOR PLASMAPHERESIS ON 10-2 FIRST PLASMAPHERESIS ON 10-2 Chronic anemia. Hemoglobin 11. No signs of bleeding. Tobacco abuse. Cessation counseling provided. Chronic mild constipation. Laxative ordered x1. STARTED ON IV STEROIDS PER NEUROLOGY 250MG Q 6H--REMAINS ON STEROIDS HAS INSOMNIA WILL GIVE AMBIEN FOR SLEEP BUSPAR ADDED FOR SLEEP DEPRESSION BUSPAR STARTED DW RN AND PT AND CM AM LABS Code Status: FULL CODE Discussed Condition With: RN AND PT AND CM Discharge Planning: PENDING IMPROVEMENT NO FUNDING
--- NOTE | 2017-11-29 14:49 | P.PNONC ---
Subjective Interval history: Patient sitting in chair, no acute distress. Patient reports pain at the Vas-Cath site. She states she is awaiting her nurse to bring medicine. Noted on exam her right arm is cool to touch, good pulses. Patient states her arm has been cool since the placement of the Vas-Cath. Status post plasmapheresis yesterday. Patient has not noticed improvement in her left leg weakness. Objective Vital Signs/Intake & Output: Vital Signs 11/28/17 20:00 11/29/17 00:00 11/29/17 04:00 Temperature 98.1 F 98.2 F 98.3 F Pulse Rate 60 53 L 56 L Respiratory Rate 16 16 16 Blood Pressure 112/62 144/72 H 133/66 Pulse Oximetry 100 100 100 11/29/17 08:00 11/29/17 12:00 Temperature 98.2 F 98.3 F Pulse Rate 51 L 67 Respiratory Rate 16 18 Blood Pressure 131/66 124/68 Pulse Oximetry 98 99 Intake & Output 11/28/17 11/29/17 11/29/17 18:59 06:59 18:59 Intake Total 658 / 658 597 / 597 104 / 104 Balance 658 / 658 597 / 597 104 / 104 Weight 104.9 kg 104.5 kg Intake: IV 208 / 208 597 / 597 104 / 104 Calcium Gluconate Inj 3.5 GM In 285 / 285 NS Inj 250 ML @ 120 mls/hr IV. SIG Q48H [facility] Rx#:[id number] SoluMEDROL Inj 250 MG In NS Inj 208 / 208 312 / 312 104 / 104 100 ML @ 200 mls/hr IV.SIG Q6H [facility] Rx#:[id number] Oral 450 / 450 Other: # Voids 4 3 Date of Last Bowel Movement 12/25/17 11/25/17 Weight On Admission 104.9 kg Result Diagrams: 11/28/17 05:49 11/28/17 05:49 Culture Results: Microbiology 11/25/17 13:05 Aerobic Blood Culture - Preliminary Blood - Peripheral No growth in 4 days Anaerobic Blood Culture - Preliminary No growth in 4 days 11/25/17 13:10 Aerobic Blood Culture - Preliminary Blood - Peripheral No growth in 4 days Anaerobic Blood Culture - Preliminary No growth in 4 days Medications: Active Medications Generic Name Dose Route Start Last Admin Trade Name Freq PRN Reason Stop Dose Admin Al Hydroxide/Mg Hydroxide 30 ml 11/23/17 13:03 11/28/17 20:54 Milk Of Magnesia Liq PO 30 ml Q12H PRN Administration Mild Constipation Buspirone HCl 5 mg 11/25/17 21:00 11/29/17 08:45 Buspar PO 5 mg BID LOLA Administration Famotidine 20 mg 11/23/17 15:00 11/29/17 08:45 Pepcid PO 20 mg BID LOLA Administration Heparin Sodium (Porcine) 5,000 units 11/28/17 14:00 11/28/17 19:33 Heparin Inj OTHER 12/09/17 13:59 Not Given Q48H LOLA Heparin Sodium (Porcine) 1,000 units 11/28/17 12:33 11/28/17 17:31 Heparin Inj IV.FLUSH 12/07/17 12:32 1,000 units Q48H PRN Administration SEE LABEL COMMENTS Sodium Chloride 1,000 mls @ 100 mls/hr 11/23/17 01:30 11/29/17 09:11 Ns Inj IV.CONT Not Given .Q10H [facility] Methylprednisolone Sodium 104 mls @ 200 mls/hr 11/27/17 12:00 11/29/17 13:41 Succinate 250 mg/ Sodium IV.SIG Infused Chloride Q6H [facility] Infusion Albumin Human 3,500 mls @ 0 mls/hr 11/28/17 14:00 11/28/17 17:30 Alburx 5% Inj IV.SIG 12/06/17 14:01 180 mls/hr Q48H LOLA Administration As Directed Calcium Gluconate 3.5 gm/ 285 mls @ 120 mls/hr 11/28/17 14:00 11/28/17 21:26 Sodium Chloride IV.SIG 12/06/17 16:23 Infused Q48H [facility]A Infusion Lactulose 30 ml 11/23/17 13:03 11/25/17 08:18 Lactulose Liq PO 30 ml DAILY PRN Administration SEVERE CONSITIPATION Morphine Sulfate 4 mg 11/23/17 13:04 11/29/17 01:14 Morphine Inj IV.PUSH 4 mg Q3H PRN Administration BREAKTHROUGH PAIN Morphine Sulfate 2 mg 11/23/17 13:04 11/26/17 09:11 Morphine Inj IV.PUSH 2 mg Q3H PRN Administration PAIN 3-5; IF UABLE TO TAKE PO Oxycodone/Acetaminophen 1 tab 11/23/17 13:04 11/29/17 14:38 Percocet 10/325 Mg PO 1 tab Q6H PRN Administration PAIN SCALE 6 TO 10 Oxycodone/Acetaminophen 1 tab 11/23/17 13:04 11/23/17 13:14 Percocet 5/325 Mg PO 1 tab Q6H PRN Administration PAIN SCALE 3 TO 5 Senna/Docusate Sodium 1 tab 11/23/17 21:00 11/29/17 08:45 Lias-Colace PO 1 tab BID LOLA Administration Sennosides 17.2 mg 11/23/17 13:03 11/28/17 08:27 Senokot PO 17.2 mg Q12H PRN Administration Moderate Constipation Sodium Chloride 10 ml 11/28/17 14:00 11/28/17 19:33 Ns Flush OTHER 12/08/17 13:59 Not Given Q48H LOLA Sodium Citrate 1,000 ml 11/28/17 15:00 11/28/17 17:31 Acd-A Solution EXTRACORPO 12/06/17 15:01 1,000 ml Q48H LOLA Administration Objective Remarks: GENERAL: Well-nourished, well-developed young female patient, in no acute distress. SKIN: Warm and dry. Vasc-cath Rt. HEAD: Normocephalic. EYES: No scleral icterus. No injection or drainage. NECK: Supple, trachea midline. CARDIOVASCULAR: Regular rate and rhythm without murmurs. RESPIRATORY: Breath sounds equal bilaterally. Non-labored at rest. GASTROINTESTINAL: Abdomen soft, non-tender, nondistended. EXTREMITIES: No cyanosis, or edema. Right arm cooler than left, 3+ radial pulses. MUSCULOSKELETAL: Adequate muscle tone. NEUROLOGICAL: Awake, alert, and oriented x3. LLE weaker than RLE. PSYCHIATRIC: Appropriate mood and affect; insight and judgment normal. Assessment/Plan - Plan Ms. Price is a pleasant 37-year-old female patient who has a history of multiple sclerosis. She recently moved to [place] from [place]. She is under the care of neurologist who consulted hematology for plasma exchange. Plan: 1. MS, with increasing left sided weakness. Management per neurology. 2. Plasma exchange, status post Vas-Cath placement yesterday and #1 plasma exchange. Plan for plasma exchange every other day times 5 days. Patient reports tolerating well, has not noticed a difference in her left lower extremity weakness. 3. Noted on exam right arm is cooler than left. Patient states this started after placement of the Vas-Cath. She has good pulses and color is normal. I notified her attending Dr. Peña, who had Dr. Alfredo-vascular surgeon evaluate this, he recommends IR re-evaluate Vasc-cath. Consult placed for IR to re-evaluate vasc-cath. 4. Monitor CBC, aPTT and fibrinogen daily. - Attending Statement The exam, history, and the medical decision-making described in the above note were completed with the assistance of the mid-level provider. I reviewed and agree with the findings presented. I attest that I had a [id number] encounter with the patient on the same day, and personally performed and documented my assessment and findings in the medical record. left sided weakness persist c/o pain at the vascath site. RUE is very cold, ? arterial thrombosis. d/w Dr Laguna. Get CTA RUE STAT d/w pt and RN
--- NOTE | 2017-11-29 20:04 | P.PNNEU ---
Subjective Subjective Comments: pt feels sensation improving on left. Has left knee pain. No other sx Active Medications: Active Medications Acetaminophen (Tylenol) 650 mg PO Q4H PRN PRN Reason: Temp > 100.4 Al Hydroxide/Mg Hydroxide (Milk Of Magnsissy Liq) 30 ml PO Q12H PRN PRN Reason: Mild Constipation Last Admin: 11/28/17 20:54 Dose: 30 ml Bisacodyl (Dulcolax Supp) 10 mg RECTAL DAILY PRN PRN Reason: SEVERE CONSITIPATION Buspirone HCl (Buspar) 5 mg PO BID [facility] Last Admin: 11/29/17 08:45 Dose: 5 mg Diphenhydramine HCl (Benadryl Inj) 25 mg IV.PUSH PRN PRN PRN Reason: FOR ALLERGIC REACTION Stop: 12/07/17 12:24 Diphenhydramine HCl (Benadryl Inj) 25 mg IV.PUSH PRN PRN PRN Reason: SEE LABEL COMMENTS Stop: 12/07/17 12:25 Famotidine (Pepcid) 20 mg PO BID [facility] Last Admin: 11/29/17 08:45 Dose: 20 mg Heparin Sodium (Porcine) (Heparin Inj) 5,000 units OTHER Q48H [facility] Stop: 12/09/17 13:59 Last Admin: 11/28/17 19:33 Dose: Not Given Heparin Sodium (Porcine) (Heparin Inj) 1,000 units IV.FLUSH Q48H PRN PRN Reason: SEE LABEL COMMENTS Stop: 12/07/17 12:32 Last Admin: 11/28/17 17:31 Dose: 1,000 units Sodium Chloride (Ns Inj) 1,000 mls @ 100 mls/hr IV.CONT .Q10H [facility] Last Admin: 11/29/17 17:41 Dose: 100 mls/hr Methylprednisolone Sodium Succinate 250 mg/ Sodium Chloride 104 mls @ 200 mls/ hr IV.SIG Q6H [facility] Last Infusion: 11/29/17 18:43 Dose: Infused Albumin Human (Alburx 5% Inj) 3,500 mls @ 0 mls/hr IV.SIG Q48H [facility] Stop: 12/06/17 14:01 Last Infusion: 11/28/17 17:30 Dose: Infused Calcium Gluconate 3.5 gm/ (Sodium Chloride) 285 mls @ 120 mls/hr IV.SIG Q48H [facility] Stop: 12/06/17 16:23 Last Infusion: 11/28/17 21:26 Dose: Infused Ibuprofen (Motrin) 600 mg PO Q6HR PRN PRN Reason: PAIN SCALE 1 TO 2 Lactulose (Lactulose Liq) 30 ml PO DAILY PRN PRN Reason: SEVERE CONSITIPATION Last Admin: 11/25/17 08:18 Dose: 30 ml Morphine Sulfate (Morphine Inj) 4 mg IV.PUSH Q3H PRN PRN Reason: BREAKTHROUGH PAIN Last Admin: 11/29/17 01:14 Dose: 4 mg Morphine Sulfate (Morphine Inj) 4 mg IV.PUSH Q3H PRN PRN Reason: PAIN 6-10;IF UNABLE TO TAKE PO Morphine Sulfate (Morphine Inj) 2 mg IV.PUSH Q3H PRN PRN Reason: PAIN 3-5; IF UABLE TO TAKE PO Last Admin: 11/26/17 09:11 Dose: 2 mg Naloxone HCl (Narcan Inj) 0.4 mg IV.PUSH UNSCH PRN PRN Reason: SEE LABEL COMMENTS Ondansetron HCl (Zofran Inj) 4 mg IV.PUSH Q6H PRN PRN Reason: NAUSEA OR VOMITING Oxycodone/Acetaminophen (Percocet 5/325 Mg) 1 tab PO Q6H PRN PRN Reason: PAIN SCALE 3 TO 5 Last Admin: 11/23/17 13:14 Dose: 1 tab Oxycodone/Acetaminophen (Percocet 10/325 Mg) 1 tab PO Q4H PRN PRN Reason: PAIN SCALE 6 TO 10 Last Admin: 11/29/17 18:39 Dose: 1 tab Senna/Docusate Sodium (Lisa-Colace) 1 tab PO BID [facility] Last Admin: 11/29/17 08:45 Dose: 1 tab Sennosides (Senokot) 17.2 mg PO Q12H PRN PRN Reason: Moderate Constipation Last Admin: 11/28/17 08:27 Dose: 17.2 mg Sodium Chloride (Ns Flush) 10 ml OTHER Q48H [facility] Stop: 12/08/17 13:59 Last Admin: 11/28/17 19:33 Dose: Not Given Sodium Citrate (Acd-A Solution) 1,000 ml EXTRACORPO Q48H [facility] Stop: 12/06/17 15:01 Last Admin: 11/28/17 17:31 Dose: 1,000 ml Allergies/Adverse Reactions: Allergies Allergy/AdvReac Type Severity Reaction Status Date / Time No Known Allergies Allergy Verified 11/22/17 22:25 Physical Exam Vital signs: Vital Signs 11/29/17 00:00 11/29/17 04:00 11/29/17 08:00 Temperature 98.2 F 98.3 F 98.2 F Pulse Rate 53 L 56 L 51 L Respiratory Rate 16 16 16 Blood Pressure 144/72 H 133/66 131/66 Pulse Oximetry 100 100 98 11/29/17 12:00 11/29/17 16:00 Temperature 98.3 F 98.6 F Pulse Rate 67 68 Respiratory Rate 18 18 Blood Pressure 124/68 116/59 L Pulse Oximetry 99 98 Intake & Output 11/29/17 11/29/17 11/30/17 06:59 18:59 06:59 Intake Total 597 / 597 1008 / 1008 Balance 597 / 597 1008 / 1008 Weight 104.5 kg Intake: IV 597 / 597 208 / 208 Calcium Gluconate Inj 3.5 GM In 285 / 285 NS Inj 250 ML @ 120 mls/hr IV. SIG Q48H [facility] Rx#:[id number] SoluMEDROL Inj 250 MG In NS Inj 312 / 312 208 / 208 100 ML @ 200 mls/hr IV.SIG Q6H [facility] Rx#:[id number] Oral 800 / 800 Other: # Voids 3 2 Date of Last Bowel Movement 11/25/17 - Routine Neurological Exam alert, speech normal Cn intact MOTOR 4/5 LUE and LLE Objective Microbiology 11/25/17 13:05 Aerobic Blood Culture - Preliminary Blood - Peripheral No growth in 4 days Anaerobic Blood Culture - Preliminary No growth in 4 days 11/25/17 13:10 Aerobic Blood Culture - Preliminary Blood - Peripheral No growth in 4 days Anaerobic Blood Culture - Preliminary No growth in 4 days Review/Management - Diagnosis (1) Multiple sclerosis exacerbation Code(s): G35 - Multiple sclerosis Status: Acute Current Visit: Yes - Review/Management Plan: continue plasmapheresis every other day for 5-10 treatments.
[2017-11-30] MEDS: Morphine Inj 4 MG/ML Vial IV.PUSH PRN (00:55)
[2017-11-30] MEDS: Sod Chloride 0.9% Inj 1,000 ML IV.CONT SCH ×3 (06:19→23:03)
[2017-11-30] MEDS: MethylPREDNISolone Sod Suc Inj 250 MG in Sodium Chlor 0.9% Inj 100 ML IV.SIG SCH ×3 (06:21→18:53)
[2017-11-30] MEDS: oxyCODONE/Acetaminophen 10/325 Tablet PO PRN ×4 (06:21→21:43)
[2017-11-30 08:00] LABS: Baso % (Auto) 0.1 % (0.0-2.0); Hematocrit 37.8 % (35.0-46.0); Hemoglobin 11.7 gm/dL (11.6-15.3); Lymph % (Auto) 4.9 % (9.0-44.0); Mean Corpuscular Volume 80.7 fL (80.0-100.0); Mean Platelet Volume 8.8 fL (7.0-11.0); Mono # (Auto) 1.3 th/mm3 (0.0-0.9); Mono % (Auto) 6.1 % (0.0-8.0); Neut # (Auto) 18.1 th/mm3 (1.8-7.7); Neut % (Auto) 88.9 % (16.0-70.0); Platelet Count 300 th/mm3 (150-450); Red Blood Count 4.69 mil/mm3 (4.00-5.30); Red Cell Distribution Width 23.5 % (11.6-17.2); White Blood Count 20.4 th/mm3 (4.0-11.0)
[2017-11-30 08:15] LABS: Mean Corpuscular HGB Conc 30.9 % (32.0-36.0)
[2017-11-30 08:22] LABS: Alanine Aminotransferase 22 U/L (10-53); Albumin 3.6 g/dL (3.4-5.0); Alkaline Phosphatase 61 U/L (45-117); Anion Gap 6 meq/L (5-15); Aspartate Aminotransferase 9 U/L (15-37); Blood Urea Nitrogen 20 mg/dL (7-18); Calcium 8.5 mg/dL (8.5-10.1); Carbon Dioxide 32.7 meq/L (21.0-32.0); Chloride 103 meq/L (98-107); Glomerular Filtration Rate 69 mL/min (>89); Glucose,Random 112 mg/dL (74-106); Magnesium 2.5 mg/dL (1.5-2.5); Phosphorus 2.9 mg/dL (2.5-4.9); Potassium 4.8 meq/L (3.5-5.1); Sodium 142 meq/L (136-145); Total Protein 6.2 g/dL (6.4-8.2)
[2017-11-30 08:54] LABS: INR 1.2 Ratio
[2017-11-30] MEDS: Senna/Docusate Sodium 8.6/50 MG Tablet PO SCH ×2 (09:04→20:01)
[2017-11-30] MEDS: Famotidine 20 MG Tablet PO SCH ×2 (09:04→20:01)
[2017-11-30 09:12] LABS: Prothrombin Time 12.6 sec (9.8-11.6)
[2017-11-30] MEDS ORDERED: Sodium Chlor 0.9% Inj 250 ML IV.SIG SCH (10:00)
[2017-11-30] MEDS: ALBUMIN HUMAN 5% IV.SIG SCH ×2 (10:31→13:30)
[2017-11-30] MEDS: SODIUM CHLOR 0.9% IV.SIG SCH ×2 (10:32→13:30)
[2017-11-30] MEDS: CALCIUM GLUCONATE IV.SIG SCH ×2 (10:32→13:30)
[2017-11-30] MEDS: Anticoagulant Citrate Dextrose 1,000 ML Solution EXTRACORPO SCH ×2 (10:33→17:56)
[2017-11-30] MEDS: Heparin - SQ 10,000 UNITS/ML Vial OTHER SCH (13:30)
--- NOTE | 2017-11-30 14:39 | P.PNONC ---
Subjective Interval history: Afebrile She has just returned from getting plasma exchange Reports her arm became warm again last night Complains of being hungry Has very minimal increased feeling in her L leg. Objective Vital Signs/Intake & Output: Vital Signs 11/29/17 16:00 11/29/17 20:00 11/30/17 00:00 Temperature 98.6 F 98.6 F 98.5 F Pulse Rate 68 61 56 L Respiratory Rate 18 16 16 Blood Pressure 116/59 L 125/77 142/75 H Pulse Oximetry 98 99 98 Intake & Output 11/29/17 11/30/17 11/30/17 18:59 06:59 18:59 Intake Total 1008 / 1008 1104 / 1104 3889 / 3889 Output Total 3500 / 3500 Balance 1008 / 1008 1104 / 1104 389 / 389 Weight 227 lb 8.273 oz Intake: IV 208 / 208 1104 / 1104 3889 / 3889 NS Inj 1,000 ML @ 100 mls/hr IV 1000 / 1000 .CONT .Q10H [facility] Rx#:[id number] Alburx 5% Inj 3,500 ML @ As 3500 / 3500 Directed IV.SIG Q48H [facility] Rx#: [id number] Calcium Gluconate Inj 3.5 GM In 285 / 285 NS Inj 250 ML @ 120 mls/hr IV. SIG Q48H [facility] Rx#:[id number] SoluMEDROL Inj 250 MG In NS Inj 208 / 208 104 / 104 104 / 104 100 ML @ 200 mls/hr IV.SIG Q6H [facility] Rx#:[id number] Oral 800 / 800 Output: Plasma Exchange Amount 3500 / 3500 Other: # Voids 2 2 Date of Last Bowel Movement 11/26/17 11/26/17 Result Diagrams: 11/30/17 07:06 11/30/17 07:06 Laboratory Results: Laboratory Results - last 24 hr 11/30/17 11/30/17 11/30/17 07:06 07:06 07:06 WBC 20.4 H RBC 4.69 Hgb 11.7 Hct 37.8 MCV 80.7 MCH 25.0 L MCHC 30.9 L RDW 23.5 H Plt Count 300 MPV 8.8 Neut % (Auto) 88.9 H Lymph % (Auto) 4.9 L [place] % (Auto) 6.1 Eos % (Auto) 0.0 Baso % (Auto) 0.1 Neut # (Auto) 18.1 H Lymph # (Auto) 1.0 [place] # (Auto) 1.3 H Eos # (Auto) 0.0 Baso # (Auto) 0.0 WBC Differential . Differential Comment Auto diff final PT 12.6 H INR 1.2 APTT 25.0 Fibrinogen 82 L* Sodium 142 Potassium 4.8 Chloride 103 Carbon Dioxide 32.7 H Anion Gap 6 BUN 20 H Creatinine 1.07 H Estimated GFR 69 L Random Glucose 112 H Calcium 8.5 Phosphorus 2.9 Magnesium 2.5 Total Bilirubin 0.4 AST 9 L ALT 22 Alkaline Phosphatase 61 Total Protein 6.2 L Albumin 3.6 Blood Type 11/30/17 10:30 WBC RBC Hgb Hct MCV MCH MCHC RDW Plt Count MPV Neut % (Auto) Lymph % (Auto) [place] % (Auto) Eos % (Auto) Baso % (Auto) Neut # (Auto) Lymph # (Auto) [place] # (Auto) Eos # (Auto) Baso # (Auto) WBC Differential Differential Comment PT INR APTT Fibrinogen Sodium Potassium Chloride Carbon Dioxide Anion Gap BUN Creatinine Estimated GFR Random Glucose Calcium Phosphorus Magnesium Total Bilirubin AST ALT Alkaline Phosphatase Total Protein Albumin Blood Type O Positive Culture Results: Microbiology 11/25/17 13:05 Aerobic Blood Culture - Final Blood - Peripheral No growth in 5 days Anaerobic Blood Culture - Final No growth in 5 days 11/25/17 13:10 Aerobic Blood Culture - Final Blood - Peripheral No growth in 5 days Anaerobic Blood Culture - Final No growth in 5 days Medications: Active Medications Generic Name Dose Route Start Last Admin Trade Name Freq PRN Reason Stop Dose Admin Al Hydroxide/Mg Hydroxide 30 ml 11/23/17 13:03 11/28/17 20:54 Milk Of Magnesia Liq PO 30 ml Q12H PRN Administration Mild Constipation Buspirone HCl 5 mg 11/25/17 21:00 11/30/17 09:04 Buspar PO 5 mg BID LOLA Administration Famotidine 20 mg 11/23/17 15:00 11/30/17 09:04 Pepcid PO 20 mg BID LOLA Administration Heparin Sodium (Porcine) 5,000 units 11/28/17 14:00 11/30/17 13:30 Heparin Inj OTHER 12/09/17 13:59 Not Given Q48H [facility] Heparin Sodium (Porcine) 1,000 units 11/28/17 12:33 11/28/17 17:31 Heparin Inj IV.FLUSH 12/07/17 12:32 1,000 units Q48H PRN Administration SEE LABEL COMMENTS Sodium Chloride 1,000 mls @ 100 mls/hr 11/23/17 01:30 11/30/17 06:19 Ns Inj IV.CONT Infused .Q10H [facility] Infusion Methylprednisolone Sodium 104 mls @ 200 mls/hr 11/27/17 12:00 11/30/17 14:18 Succinate 250 mg/ Sodium IV.SIG 200 mls/hr Chloride Q6H LOLA Administration Albumin Human 3,500 mls @ 0 mls/hr 11/28/17 14:00 11/30/17 13:32 Alburx 5% Inj IV.SIG 12/06/17 14:01 Infused Q48H [facility]A Infusion As Directed Calcium Gluconate 3.5 gm/ 285 mls @ 120 mls/hr 11/28/17 14:00 11/30/17 13:32 Sodium Chloride IV.SIG 12/06/17 16:23 Infused Q48H LOLA Infusion Lactulose 30 ml 11/23/17 13:03 11/25/17 08:18 Lactulose Liq PO 30 ml DAILY PRN Administration SEVERE CONSITIPATION Morphine Sulfate 4 mg 11/23/17 13:04 11/30/17 00:55 Morphine Inj IV.PUSH 4 mg Q3H PRN Administration BREAKTHROUGH PAIN Morphine Sulfate 2 mg 11/23/17 13:04 11/26/17 09:11 Morphine Inj IV.PUSH 2 mg Q3H PRN Administration PAIN 3-5; IF UABLE TO TAKE PO Oxycodone/Acetaminophen 1 tab 11/23/17 13:04 11/23/17 13:14 Percocet 5/325 Mg PO 1 tab Q6H PRN Administration PAIN SCALE 3 TO 5 Oxycodone/Acetaminophen 1 tab 11/29/17 15:41 11/30/17 14:18 Percocet 10/325 Mg PO 1 tab Q4H PRN Administration PAIN SCALE 6 TO 10 Senna/Docusate Sodium 1 tab 11/23/17 21:00 11/30/17 09:04 Lisa-Colace PO 1 tab BID LOLA Administration Sennosides 17.2 mg 11/23/17 13:03 11/28/17 08:27 Senokot PO 17.2 mg Q12H PRN Administration Moderate Constipation Sodium Chloride 10 ml 11/28/17 14:00 11/30/17 13:30 Ns Flush OTHER 12/08/17 13:59 Not Given Q48H LOLA Sodium Citrate 1,000 ml 11/28/17 15:00 11/30/17 10:33 Acd-A Solution EXTRACORPO 12/06/17 15:01 1,000 ml Q48H LOLA Administration Objective Remarks: GENERAL: Well-nourished, well-developed young female patient, in no acute distress. SKIN: Warm and dry. Vasc-cath Rt. HEAD: Normocephalic. EYES: No scleral icterus. No injection or drainage. NECK: Supple, trachea midline. CARDIOVASCULAR: Regular rate and rhythm without murmurs. RESPIRATORY: Breath sounds equal bilaterally. Non-labored at rest. GASTROINTESTINAL: Abdomen soft, non-tender, nondistended. EXTREMITIES: No cyanosis, or edema. R arm warm and well perfused on today's visit. MUSCULOSKELETAL: Adequate muscle tone. NEUROLOGICAL: Awake, alert, and oriented x3. LLE weaker than RLE. Assessment/Plan - Plan Ms. Price is a pleasant 37-year-old female patient who has a history of multiple sclerosis. She recently moved to [place] from [place]. She is under the care of neurologist who consulted hematology for plasma exchange. Plan: 1. Plasma exchange continues. She had pheresis #2/5 today. Reports very minimal improvement in her LLE. 2. Fibrinogen decreased today to 82. Transfuse cryoprecipitate. Continue to monitor coags. 3. Noted R arm now warm. CTA done earlier today, currently pending. Await results. - Attending Statement The exam, history, and the medical decision-making described in the above note were completed with the assistance of the mid-level provider. I reviewed and agree with the findings presented. I attest that I had a [id number] encounter with the patient on the same day, and personally performed and documented my assessment and findings in the medical record. Left sided weakness is better. RUE is warm again CTA RUE = no thrombosis. second plasmapheresis today. Tolerated well Cryo for fibrinigen <100.
--- NOTE | 2017-11-30 16:11 | CT ---
EXAM DATE: 11/30/2017 9:12 AM EDT AGE/SEX: 37 years / Female INDICATIONS: Evaluate for arterial thrombosis CLINICAL DATA: This is the patient's initial encounter. Patient reports that signs and symptoms have been present for 1 day and indicates a pain score of 0/10. MEDICAL/SURGICAL HISTORY: Anemia. None. RADIATION DOSE: 9.36 CTDI (mGy) COMPARISON: No prior exams available for comparison. TECHNIQUE: Volumetric scanning was performed using a multi-row detector CT scanner during bolus infu alba of 100 ml Omnipaque 350 (iohexol) nonionic water-soluble contrast as a single exam dose. The d rex was post processed with a variety of visualization algorithms including full volume maximum inten sity projection, multi-planar sliding thin slab reformation, curved planar reformation, and surface r endering techniques. Using automated exposure control and adjustment of the mA and/or kV according t o patient size, radiation dose was kept as low as reasonably achievable to obtain optimal diagnostic quality images. DICOM format image data is available electronically for review and comparison. FINDINGS: CT angiography of the right upper extremity demonstrates normal origin of vessels from the arch. No p roximal stenosis is seen. A right internal jugular vas catheter is present. No abnormality is identif ied within the mediastinum. The subclavian, axillary and brachial arteries are patent. The proximal radial artery is unremarkable . The distal half of the forearm and digital vessels are not evaluated. CONCLUSION: 1. Limited but negative evaluation of the upper extremity. No abnormalities identified to the level of the proximal forearm with nonvisualization of vessels distal to this. Electronically signed by: Chin Laguna MD 11/30/2017 4:09 PM EDT
[2017-11-30] MEDS: Acetaminophen 325 MG Tablet PO PRN (17:50)
[2017-11-30] MEDS ORDERED: Sod Phosphate/Sod Biphosphate (Adult) Enema 133 ML Bottle RECTAL ONE (19:28)
--- NOTE | 2017-11-30 19:30 | P.PNIM ---
Subjective Interval history: Patient seen this afternoon around 1 PM. Says that right arm swelling seems to be getting better. She reports continued left leg pain, however sensation is improving in left leg. Physical Exam Vital signs: Vital Signs 11/29/17 20:00 11/30/17 00:00 11/30/17 16:00 Temperature 98.6 F 98.5 F 98.5 F Pulse Rate 61 56 L 66 Respiratory Rate 16 16 16 Blood Pressure 125/77 142/75 H 121/62 Pulse Oximetry 99 98 96 Intake & Output 11/30/17 11/30/17 12/01/17 06:59 18:59 06:59 Intake Total 1104 / 1104 3993 / 3993 Output Total 3500 / 3500 Balance 1104 / 1104 493 / 493 Weight 103.2 kg Intake: IV 1104 / 1104 3993 / 3993 NS Inj 1,000 ML @ 100 mls/hr IV 1000 / 1000 .CONT .Q10H LOLA Rx#:[id number] Alburx 5% Inj 3,500 ML @ As 3500 / 3500 Directed IV.SIG Q48H LOLA Rx#: [id number] Calcium Gluconate Inj 3.5 GM In 285 / 285 NS Inj 250 ML @ 120 mls/hr IV. SIG Q48H LOLA Rx#:[id number] SoluMEDROL Inj 250 MG In NS Inj 104 / 104 208 / 208 100 ML @ 200 mls/hr IV.SIG Q6H LOLA Rx#:[id number] Output: Plasma Exchange Amount 3500 / 3500 Other: # Voids 2 Date of Last Bowel Movement 11/26/17 11/26/17 Narrative: GENERAL: Patient sitting up in chair at bedside. Appears comfortable. SKIN: Warm and dry. HEAD: Normocephalic. EYES: No scleral icterus. No injection or drainage. NECK: Supple, trachea midline. No JVD. CARDIOVASCULAR: Regular rate and rhythm without murmurs, gallops, or rubs. RESPIRATORY: Breath sounds equal bilaterally. No accessory muscle use. GASTROINTESTINAL: Abdomen soft, non-tender, nondistended. MUSCULOSKELETAL: No cyanosis, or edema. Right arm with some edema, warmth, however no erythema. BACK: Nontender without obvious deformity. No CVA tenderness. Results - Labs CBC & Chem 7: 11/30/17 07:06 11/30/17 07:06 Laboratory Results - last 24 hr 11/30/17 11/30/17 11/30/17 07:06 07:06 07:06 WBC 20.4 H RBC 4.69 Hgb 11.7 Hct 37.8 MCV 80.7 MCH 25.0 L MCHC 30.9 L RDW 23.5 H Plt Count 300 MPV 8.8 Neut % (Auto) 88.9 H Lymph % (Auto) 4.9 L [place] % (Auto) 6.1 Eos % (Auto) 0.0 Baso % (Auto) 0.1 Neut # (Auto) 18.1 H Lymph # (Auto) 1.0 [place] # (Auto) 1.3 H Eos # (Auto) 0.0 Baso # (Auto) 0.0 WBC Differential . Differential Comment Auto diff final PT 12.6 H INR 1.2 APTT 25.0 Fibrinogen 82 L* Sodium 142 Potassium 4.8 Chloride 103 Carbon Dioxide 32.7 H Anion Gap 6 BUN 20 H Creatinine 1.07 H Estimated GFR 69 L Random Glucose 112 H Calcium 8.5 Phosphorus 2.9 Magnesium 2.5 Total Bilirubin 0.4 AST 9 L ALT 22 Alkaline Phosphatase 61 Total Protein 6.2 L Albumin 3.6 Blood Type Blood Bank Comment 11/30/17 10:30 WBC RBC Hgb Hct MCV MCH MCHC RDW Plt Count MPV Neut % (Auto) Lymph % (Auto) [place] % (Auto) Eos % (Auto) Baso % (Auto) Neut # (Auto) Lymph # (Auto) [place] # (Auto) Eos # (Auto) Baso # (Auto) WBC Differential Differential Comment PT INR APTT Fibrinogen Sodium Potassium Chloride Carbon Dioxide Anion Gap BUN Creatinine Estimated GFR Random Glucose Calcium Phosphorus Magnesium Total Bilirubin AST ALT Alkaline Phosphatase Total Protein Albumin Blood Type O Positive Blood Bank Comment Microbiology 11/25/17 13:05 Blood - Peripheral Aerobic Blood Culture - Final No growth in 5 days 11/25/17 13:05 Blood - Peripheral Anaerobic Blood Culture - Final No growth in 5 days 11/25/17 13:10 Blood - Peripheral Aerobic Blood Culture - Final No growth in 5 days 11/25/17 13:10 Blood - Peripheral Anaerobic Blood Culture - Final No growth in 5 days - Imaging Impressions Upper Extremity CTA 11/30/17 00:00 CONCLUSION: 1. Limited but negative evaluation of the upper extremity. No abnormalities identified to the level of the proximal forearm with nonvisualization of vessels distal to this. - Procedures IR dialysis cath plcmt w us Signed EXAM DATE: 11/28/2017 12:00 AM EDT AGE/SEX: 37 years / Female INDICATIONS: Patient with history of Multiple Sclerosis in need of temporary non-tunneled central venous catheter placement for Plasmapheresis. CLINICAL DATA: This is the patient's initial encounter. Patient reports that signs and symptoms have been present for 1 day and indicates a pain score of 0/ 10. MEDICAL/SURGICAL HISTORY: Multiple sclerosis. Anemia. section. COMPARISON: No prior exams available for comparison. FLUORO TIME (min): 0.15 IMAGE SERIES: 3 ACCESS SITE: Right internal jugular vein DEVICE(S): 14 Telugu double lumen 15 cm Schon catheter Vascath. . . PROCEDURE : 1. Ultrasound guided venipuncture. 2. Fluoroscopic guidance. 3. Central line placement. The risks, benefits and alternatives to the procedure were explained and verbal and written consent was obtained. The site was prepped in sterile fashion. Full sterile technique was used, including cap, mask, sterile gloves and gown and a large sterile sheet. Hand hygiene and 2% chlorhexidine prep was utilized per protocol for cutaneous antisepsis with appropriate dry time for site. Sterile gel and sterile probe cover were utilized for ultrasound guidance. The skin and subcutaneous tissues were infiltrated with local anesthetic solution. A suitable site above the vein was selected with ultrasound and fluoroscopic guidance. A small incision was made. The vein was accessed under direct ultrasound visualization using the micropuncture technique. The micropuncture set was exchanged for a 0.035 wire. The tract was dilated. The catheter was advanced into position under direct fluoroscopic visualization, and was advanced with the tip at the junction of the superior vena cava and rt atrium. The catheter was fixed in place with suture and a sterile dressing was applied. The patient tolerated the procedure well and there were no complications. CONCLUSION: 1. Uncomplicated line placement as above. Electronically signed by: Chin Laguna MD 11/28/2017 Assessment and Plan - Plan Multiple sclerosis exacerbation. [facility]. Status post IV Solu-Medrol in the ER = Outside records to be requested. Further management as per neurology. MRIS DONE CONSULT HEMATOLOGY FOR PLASMAPHERESIS FOR MULTIPLE SCLEROSIS = Appreciate hematology assistance. Continues on IV steroids as per neurology. Appears to be improving on plasmapheresis. Appreciate workday financials consultant assistance. //Right upper extremity swelling CT angiogram appears negative for thrombus. Likely superficial thrombus. Appears to be improving. Chronic anemia. Hemoglobin 11. No signs of bleeding. Tobacco abuse. Cessation counseling provided. //Chronic mild constipation. Laxative ordered x1. = 11/30. No bowel movement in 1 week despite laxatives. Will order enema. //HAS INSOMNIA Continue Ambien for sleep. //Depression. Continue BuSpar. Which was started here. Discharge Planning: Pending improvement. Will need neurology and hematology clearance.
--- NOTE | 2017-11-30 21:01 | P.PNNEU ---
Subjective Subjective Comments: Pt had second plasma pheresis today and is tolerating it well SHe feels sensation in left leg improving and able to move it easier Active Medications: Active Medications Acetaminophen (Tylenol) 650 mg PO Q4H PRN PRN Reason: Temp > 100.4 Acetaminophen (Tylenol) 650 mg PO Q4H PRN PRN Reason: SEE LABEL COMMENTS Last Admin: 11/30/17 17:50 Dose: 650 mg Al Hydroxide/Mg Hydroxide (Milk Of Magnsissy Liq) 30 ml PO Q12H PRN PRN Reason: Mild Constipation Last Admin: 11/28/17 20:54 Dose: 30 ml Bisacodyl (Dulcolax Supp) 10 mg RECTAL DAILY PRN PRN Reason: SEVERE CONSITIPATION Buspirone HCl (Buspar) 5 mg PO BID [facility] Last Admin: 11/30/17 20:01 Dose: 5 mg Diphenhydramine HCl (Benadryl Inj) 25 mg IV.PUSH PRN PRN PRN Reason: FOR ALLERGIC REACTION Stop: 12/07/17 12:24 Diphenhydramine HCl (Benadryl Inj) 25 mg IV.PUSH PRN PRN PRN Reason: SEE LABEL COMMENTS Stop: 12/07/17 12:25 Diphenhydramine HCl (Benadryl) 25 mg PO Q4H PRN PRN Reason: SEE LABEL COMMENTS Last Admin: 11/30/17 17:51 Dose: 25 mg Famotidine (Pepcid) 20 mg PO BID [facility] Last Admin: 11/30/17 20:01 Dose: 20 mg Heparin Sodium (Porcine) (Heparin Inj) 5,000 units OTHER Q48H [facility] Stop: 12/09/17 13:59 Last Admin: 11/30/17 13:30 Dose: Not Given Heparin Sodium (Porcine) (Heparin Inj) 1,000 units IV.FLUSH Q48H PRN PRN Reason: SEE LABEL COMMENTS Stop: 12/07/17 12:32 Last Admin: 11/28/17 17:31 Dose: 1,000 units Sodium Chloride (Ns Inj) 1,000 mls @ 100 mls/hr IV.CONT .Q10H [facility] Last Admin: 11/30/17 17:57 Dose: Not Given Methylprednisolone Sodium Succinate 250 mg/ Sodium Chloride 104 mls @ 200 mls/ hr IV.SIG Q6H [facility] Last Infusion: 11/30/17 19:25 Dose: Infused Albumin Human (Alburx 5% Inj) 3,500 mls @ 0 mls/hr IV.SIG Q48H LOLA Stop: 12/06/17 14:01 Last Infusion: 11/30/17 13:32 Dose: Infused Calcium Gluconate 3.5 gm/ (Sodium Chloride) 285 mls @ 120 mls/hr IV.SIG Q48H LOLA Stop: 12/06/17 16:23 Last Infusion: 11/30/17 13:32 Dose: Infused Sodium Chloride (Ns Inj) 250 mls @ 15 mls/hr IV.SIG ONCE LOLA Stop: 12/01/17 02:39 Last Admin: 11/30/17 17:57 Dose: Not Given Ibuprofen (Motrin) 600 mg PO Q6HR PRN PRN Reason: PAIN SCALE 1 TO 2 Lactulose (Lactulose Liq) 30 ml PO DAILY PRN PRN Reason: SEVERE CONSITIPATION Last Admin: 11/25/17 08:18 Dose: 30 ml Morphine Sulfate (Morphine Inj) 4 mg IV.PUSH Q3H PRN PRN Reason: BREAKTHROUGH PAIN Last Admin: 11/30/17 00:55 Dose: 4 mg Morphine Sulfate (Morphine Inj) 4 mg IV.PUSH Q3H PRN PRN Reason: PAIN 6-10;IF UNABLE TO TAKE PO Morphine Sulfate (Morphine Inj) 2 mg IV.PUSH Q3H PRN PRN Reason: PAIN 3-5; IF UABLE TO TAKE PO Last Admin: 11/26/17 09:11 Dose: 2 mg Naloxone HCl (Narcan Inj) 0.4 mg IV.PUSH UNSCH PRN PRN Reason: SEE LABEL COMMENTS Ondansetron HCl (Zofran Inj) 4 mg IV.PUSH Q6H PRN PRN Reason: NAUSEA OR VOMITING Oxycodone/Acetaminophen (Percocet 5/325 Mg) 1 tab PO Q6H PRN PRN Reason: PAIN SCALE 3 TO 5 Last Admin: 11/23/17 13:14 Dose: 1 tab Oxycodone/Acetaminophen (Percocet 10/325 Mg) 1 tab PO Q4H PRN PRN Reason: PAIN SCALE 6 TO 10 Last Admin: 11/30/17 17:50 Dose: 1 tab Senna/Docusate Sodium (Lisa-Colace) 1 tab PO BID [facility] Last Admin: 11/30/17 20:01 Dose: 1 tab Sennosides (Senokot) 17.2 mg PO Q12H PRN PRN Reason: Moderate Constipation Last Admin: 11/28/17 08:27 Dose: 17.2 mg Sodium Chloride (Ns Flush) 10 ml OTHER Q48H LOLA Stop: 12/08/17 13:59 Last Admin: 11/30/17 13:30 Dose: Not Given Sodium Citrate (Acd-A Solution) 1,000 ml EXTRACORPO Q48H LOLA Stop: 12/06/17 15:01 Last Admin: 11/30/17 17:56 Dose: Not Given Allergies/Adverse Reactions: Allergies Allergy/AdvReac Type Severity Reaction Status Date / Time No Known Allergies Allergy Verified 11/22/17 22:25 Physical Exam Vital signs: Vital Signs 11/30/17 00:00 11/30/17 16:00 11/30/17 19:31 Temperature 98.5 F 98.5 F 97.4 F L Pulse Rate 56 L 66 66 Respiratory Rate 16 16 17 Blood Pressure 142/75 H 121/62 144/67 H Pulse Oximetry 98 96 100 Intake & Output 11/30/17 11/30/17 12/01/17 06:59 18:59 06:59 Intake Total 1104 / 1104 3993 / 3993 104 / 104 Output Total 3500 / 3500 Balance 1104 / 1104 493 / 493 104 / 104 Weight 103.2 kg Intake: IV 1104 / 1104 3993 / 3993 104 / 104 NS Inj 1,000 ML @ 100 mls/hr IV 1000 / 1000 .CONT .Q10H LOLA Rx#:[id number] Alburx 5% Inj 3,500 ML @ As 3500 / 3500 Directed IV.SIG Q48H LOLA Rx#: [id number] Calcium Gluconate Inj 3.5 GM In 285 / 285 NS Inj 250 ML @ 120 mls/hr IV. SIG Q48H LOLA Rx#:[id number] SoluMEDROL Inj 250 MG In NS Inj 104 / 104 208 / 208 104 / 104 100 ML @ 200 mls/hr IV.SIG Q6H LOLA Rx#:[id number] Intake (Blood Product) Amt 0 / 0 Pre-Pooled Cryo Thawed 10units 0 / 0 Unit [id number] Output: Plasma Exchange Amount 3500 / 3500 Other: # Voids 2 Date of Last Bowel Movement 11/26/17 11/26/17 - Routine Neurological Exam alert, speech normal CN intact MTOR 4/5 LUE and LLE, 5/5 RUE and RLE Objective Laboratory Results - last 24 hr 11/30/17 11/30/17 11/30/17 07:06 07:06 07:06 WBC 20.4 H RBC 4.69 Hgb 11.7 Hct 37.8 MCV 80.7 MCH 25.0 L MCHC 30.9 L RDW 23.5 H Plt Count 300 MPV 8.8 Neut % (Auto) 88.9 H Lymph % (Auto) 4.9 L [place] % (Auto) 6.1 Eos % (Auto) 0.0 Baso % (Auto) 0.1 Neut # (Auto) 18.1 H Lymph # (Auto) 1.0 [place] # (Auto) 1.3 H Eos # (Auto) 0.0 Baso # (Auto) 0.0 WBC Differential . Differential Comment Auto diff final PT 12.6 H INR 1.2 APTT 25.0 Fibrinogen 82 L* Sodium 142 Potassium 4.8 Chloride 103 Carbon Dioxide 32.7 H Anion Gap 6 BUN 20 H Creatinine 1.07 H Estimated GFR 69 L Random Glucose 112 H Calcium 8.5 Phosphorus 2.9 Magnesium 2.5 Total Bilirubin 0.4 AST 9 L ALT 22 Alkaline Phosphatase 61 Total Protein 6.2 L Albumin 3.6 Blood Type Blood Bank Comment 11/30/17 10:30 WBC RBC Hgb Hct MCV MCH MCHC RDW Plt Count MPV Neut % (Auto) Lymph % (Auto) [place] % (Auto) Eos % (Auto) Baso % (Auto) Neut # (Auto) Lymph # (Auto) [place] # (Auto) Eos # (Auto) Baso # (Auto) WBC Differential Differential Comment PT INR APTT Fibrinogen Sodium Potassium Chloride Carbon Dioxide Anion Gap BUN Creatinine Estimated GFR Random Glucose Calcium Phosphorus Magnesium Total Bilirubin AST ALT Alkaline Phosphatase Total Protein Albumin Blood Type O Positive Blood Bank Comment Microbiology 11/25/17 13:05 Aerobic Blood Culture - Final Blood - Peripheral No growth in 5 days Anaerobic Blood Culture - Final No growth in 5 days 11/25/17 13:10 Aerobic Blood Culture - Final Blood - Peripheral No growth in 5 days Anaerobic Blood Culture - Final No growth in 5 days Review/Management - Diagnosis (1) Multiple sclerosis exacerbation Code(s): G35 - Multiple sclerosis Status: Acute Current Visit: Yes - Review/Management Plan: continue plasmapheresis every other day for 5-10 treatments.
[2017-12-01] MEDS: MethylPREDNISolone Sod Suc Inj 250 MG in Sodium Chlor 0.9% Inj 100 ML IV.SIG SCH ×4 (00:28→17:33)
[2017-12-01] MEDS: oxyCODONE/Acetaminophen 10/325 Tablet PO PRN ×4 (06:28→19:58)
[2017-12-01] MEDS: Senna/Docusate Sodium 8.6/50 MG Tablet PO SCH ×2 (08:53→20:01)
[2017-12-01] MEDS: Famotidine 20 MG Tablet PO SCH ×2 (08:53→20:02)
[2017-12-01] MEDS: Sod Chloride 0.9% Inj 1,000 ML IV.CONT SCH (10:22)
--- NOTE | 2017-12-01 13:25 | P.PNONC ---
Subjective Interval history: Afebrile Patient states she had some vaginal bleeding this morning when she wiped but this also stopped abruptly She was not expecting her menses for another 10 days No other bleeding Reports not much change in her lower extremity strength Objective Vital Signs/Intake & Output: Vital Signs 11/30/17 16:00 11/30/17 19:31 11/30/17 19:50 Temperature 98.5 F 97.4 F L 98 F Pulse Rate 66 66 71 Respiratory Rate 16 17 18 Blood Pressure 121/62 144/67 H 136/67 Pulse Oximetry 96 100 99 11/30/17 21:30 12/01/17 00:00 Temperature 98.1 F 98.5 F Pulse Rate 64 65 Respiratory Rate 16 16 Blood Pressure 137/73 138/81 Pulse Oximetry 99 99 Intake & Output 11/30/17 12/01/17 12/01/17 18:59 06:59 18:59 Intake Total 3993 / 3993 1178 / 1178 104 / 104 Output Total 3500 / 3500 Balance 493 / 493 1178 / 1178 104 / 104 Weight 243 lb 6.245 oz Intake: IV 3993 / 3993 208 / 208 104 / 104 [place] 5% Inj 3,500 ML @ As 3500 / 3500 Directed IV.SIG Q48H LOLA Rx#: [id number] Calcium Gluconate Inj 3.5 GM In 285 / 285 NS Inj 250 ML @ 120 mls/hr IV. SIG Q48H LOLA Rx#:[id number] SoluMEDROL Inj 250 MG In NS Inj 208 / 208 208 / 208 104 / 104 100 ML @ 200 mls/hr IV.SIG Q6H LOLA Rx#:[id number] Oral 960 / 960 Other Pre-Pooled Cryo Thawed 10units 10 Unit [id number] Intake (Blood Product) Amt 0 / 0 Pre-Pooled Cryo Thawed 10units 0 / 0 Unit [id number] Output: Plasma Exchange Amount 3500 / 3500 Other: # Voids 2 Date of Last Bowel Movement 11/26/17 11/26/17 11/26/17 Result Diagrams: 12/01/17 13:12 11/30/17 07:06 Laboratory Results: Laboratory Results - last 24 hr 11/30/17 10:30 Blood Type O Positive Blood Bank Comment Culture Results: Microbiology 11/25/17 13:05 Aerobic Blood Culture - Final Blood - Peripheral No growth in 5 days Anaerobic Blood Culture - Final No growth in 5 days 11/25/17 13:10 Aerobic Blood Culture - Final Blood - Peripheral No growth in 5 days Anaerobic Blood Culture - Final No growth in 5 days Imaging Studies: Impressions Upper Extremity CTA 11/30/17 00:00 CONCLUSION: 1. Limited but negative evaluation of the upper extremity. No abnormalities identified to the level of the proximal forearm with nonvisualization of vessels distal to this. Medications: Active Medications Generic Name Dose Route Start Last Admin Trade Name Freq PRN Reason Stop Dose Admin Acetaminophen 650 mg 11/30/17 09:22 11/30/17 17:50 Tylenol PO 650 mg Q4H PRN Administration SEE LABEL COMMENTS Al Hydroxide/Mg Hydroxide 30 ml 11/23/17 13:03 11/28/17 20:54 Milk Of Magnesia Liq PO 30 ml Q12H PRN Administration Mild Constipation Buspirone HCl 5 mg 11/25/17 21:00 12/01/17 08:53 Buspar PO 5 mg BID LOLA Administration Diphenhydramine HCl 25 mg 11/30/17 09:22 11/30/17 17:51 Benadryl PO 25 mg Q4H PRN Administration SEE LABEL COMMENTS Famotidine 20 mg 11/23/17 15:00 12/01/17 08:53 Pepcid PO 20 mg BID LOLA Administration Heparin Sodium (Porcine) 5,000 units 11/28/17 14:00 11/30/17 13:30 Heparin Inj OTHER 12/09/17 13:59 Not Given Q48H [facility] Heparin Sodium (Porcine) 1,000 units 11/28/17 12:33 11/28/17 17:31 Heparin Inj IV.FLUSH 12/07/17 12:32 1,000 units Q48H PRN Administration SEE LABEL COMMENTS Sodium Chloride 1,000 mls @ 100 mls/hr 11/23/17 01:30 12/01/17 10:22 Ns Inj IV.CONT Not Given .Q10H [facility] Methylprednisolone Sodium 104 mls @ 200 mls/hr 11/27/17 12:00 12/01/17 12:31 Succinate 250 mg/ Sodium IV.SIG 200 mls/hr Chloride Q6H LOLA Administration Albumin Human 3,500 mls @ 0 mls/hr 11/28/17 14:00 11/30/17 13:32 Alburx 5% Inj IV.SIG 12/06/17 14:01 Infused Q48H LOLA Infusion As Directed Calcium Gluconate 3.5 gm/ 285 mls @ 120 mls/hr 11/28/17 14:00 11/30/17 13:32 Sodium Chloride IV.SIG 12/06/17 16:23 Infused Q48H LOLA Infusion Lactulose 30 ml 11/23/17 13:03 11/25/17 08:18 Lactulose Liq PO 30 ml DAILY PRN Administration SEVERE CONSITIPATION Morphine Sulfate 4 mg 11/23/17 13:04 11/30/17 00:55 Morphine Inj IV.PUSH 4 mg Q3H PRN Administration BREAKTHROUGH PAIN Morphine Sulfate 2 mg 11/23/17 13:04 11/26/17 09:11 Morphine Inj IV.PUSH 2 mg Q3H PRN Administration PAIN 3-5; IF UABLE TO TAKE PO Oxycodone/Acetaminophen 1 tab 11/23/17 13:04 11/23/17 13:14 Percocet 5/325 Mg PO 1 tab Q6H PRN Administration PAIN SCALE 3 TO 5 Oxycodone/Acetaminophen 1 tab 11/29/17 15:41 12/01/17 11:19 Percocet 10/325 Mg PO 1 tab Q4H PRN Administration PAIN SCALE 6 TO 10 Senna/Docusate Sodium 1 tab 11/23/17 21:00 12/01/17 08:53 Lisa-Colace PO Not Given BID LOLA Sennosides 17.2 mg 11/23/17 13:03 11/28/17 08:27 Senokot PO 17.2 mg Q12H PRN Administration Moderate Constipation Sodium Chloride 10 ml 11/28/17 14:00 11/30/17 13:30 Ns Flush OTHER 12/08/17 13:59 Not Given Q48H LOLA Sodium Citrate 1,000 ml 11/28/17 15:00 11/30/17 17:56 Acd-A Solution EXTRACORPO 12/06/17 15:01 Not Given Q48H [facility] Objective Remarks: GENERAL: Well-nourished, well-developed young female patient, in no acute distress. SKIN: Warm and dry. Vasc-cath Rt. HEAD: Normocephalic. EYES: No scleral icterus. No injection or drainage. NECK: Supple, trachea midline. CARDIOVASCULAR: Regular rate and rhythm without murmurs. RESPIRATORY: Breath sounds equal bilaterally. Non-labored at rest. GASTROINTESTINAL: Abdomen soft, non-tender, nondistended. EXTREMITIES: No cyanosis, or edema. R arm warm and well perfused MUSCULOSKELETAL: Adequate muscle tone. NEUROLOGICAL: Awake, alert, and oriented x3. LLE weaker than RLE. Assessment/Plan - Plan Ms. Price is a pleasant 37-year-old female patient who has a history of multiple sclerosis. She recently moved to [place] from [place]. She is under the care of neurologist who consulted hematology for plasma exchange. Plan: 1. Off day today for plasma exchange. Will continue with number 3 out of 5 tomorrow. 2. Labs pending. Plan to transfuse cryoprecipitate for fibrinogen less than 100 3. Monitor CBC, coags. Supportive care. - Attending Statement The exam, history, and the medical decision-making described in the above note were completed with the assistance of the mid-level provider. I reviewed and agree with the findings presented. I attest that I had a [id number] encounter with the patient on the same day, and personally performed and documented my assessment and findings in the medical record. Patient stated that she is now having pain in the left leg before it was all numb. She also mentioned that the weakness on the left side seems to have improved. She is able to walk now. Day 3 out of 5 of plasmapheresis tomorrow Monitor coags and keep the fibrinogen more than 100 Fibrinogen from today is still pending.
[2017-12-01 13:33] LABS: Baso % (Auto) 0.2 % (0.0-2.0); Hematocrit 34.7 % (35.0-46.0); Hemoglobin 10.6 gm/dL (11.6-15.3); Lymph # (Auto) 0.7 th/mm3 (1.0-4.8); Lymph % (Auto) 3.5 % (9.0-44.0); Mean Corpuscular Hemoglobin 24.8 pg (27.0-34.0); Mean Corpuscular Volume 81.3 fL (80.0-100.0); Mean Platelet Volume 8.8 fL (7.0-11.0); Mono # (Auto) 1.4 th/mm3 (0.0-0.9); Mono % (Auto) 6.4 % (0.0-8.0); Neut # (Auto) 19.2 th/mm3 (1.8-7.7); Neut % (Auto) 89.9 % (16.0-70.0); Platelet Count 253 th/mm3 (150-450); Red Blood Count 4.27 mil/mm3 (4.00-5.30); Red Cell Distribution Width 23.4 % (11.6-17.2); White Blood Count 21.4 th/mm3 (4.0-11.0)
[2017-12-01 13:36] LABS: Mean Corpuscular HGB Conc 30.5 % (32.0-36.0)
[2017-12-01 13:51] LABS: Carbon Dioxide 30.6 meq/L (21.0-32.0)
[2017-12-01 14:02] LABS: Potassium 3.8 meq/L (3.5-5.1)
[2017-12-01 14:06] LABS: Lymphocytes 3 % (9-44); Metamyelocytes 1 % (0-1); Monocytes 5 % (0-8); Myelocytes 1 % (0-0); Ovalocytes 1+; Platelet Estimate Normal (Normal); Platelet Morphology Normal (Normal); Promyelocyte 1 % (0-0)
[2017-12-01] MEDS ORDERED: Acetaminophen 325 MG Tablet PO PRN (14:23)
[2017-12-01] MEDS ORDERED: Sodium Chlor 0.9% Inj 250 ML IV.SIG SCH (15:00)
[2017-12-01] MEDS: Acetaminophen 325 MG Tablet PO PRN (15:52)
--- NOTE | 2017-12-01 17:13 | P.PNIM ---
Subjective Interval history: Patient says that left leg weakness is stable from yesterday. Denies any chest pain or shortness of breath. Reports discomfort in right arm is improving. Physical Exam Vital signs: Vital Signs 11/30/17 19:31 11/30/17 19:50 11/30/17 21:30 Temperature 97.4 F L 98 F 98.1 F Pulse Rate 66 71 64 Respiratory Rate 17 18 16 Blood Pressure 144/67 H 136/67 137/73 Pulse Oximetry 100 99 99 12/01/17 00:00 12/01/17 08:00 12/01/17 12:00 Temperature 98.5 F 98.0 F 97.9 F Pulse Rate 65 75 79 Respiratory Rate 16 18 18 Blood Pressure 138/81 129/64 134/93 H Pulse Oximetry 99 96 95 Intake & Output 11/30/17 12/01/17 12/01/17 18:59 06:59 18:59 Intake Total 3993 / 3993 1178 / 1178 208 / 208 Output Total 3500 / 3500 Balance 493 / 493 1178 / 1178 208 / 208 Weight 110.4 kg Intake: IV 3993 / 3993 208 / 208 208 / 208 [place] 5% Inj 3,500 ML @ As 3500 / 3500 Directed IV.SIG Q48H [facility] Rx#: [id number] Calcium Gluconate Inj 3.5 GM In 285 / 285 NS Inj 250 ML @ 120 mls/hr IV. SIG Q48H [facility] Rx#:[id number] SoluMEDROL Inj 250 MG In NS Inj 208 / 208 208 / 208 208 / 208 100 ML @ 200 mls/hr IV.SIG Q6H [facility] Rx#:[id number] Oral 960 / 960 Other Pre-Pooled Cryo Thawed 10units Unit [id number] Intake (Blood Product) Amt 0 / 0 Pre-Pooled Cryo Thawed 10units 0 / 0 Unit [id number] Output: Plasma Exchange Amount 3500 / 3500 Other: # Voids 2 Date of Last Bowel Movement 11/26/17 11/26/17 11/26/17 Narrative: GENERAL: Patient sitting up in chair at bedside. Appears comfortable. SKIN: Warm and dry. HEAD: Normocephalic. EYES: No scleral icterus. No injection or drainage. NECK: Supple, trachea midline. No JVD. CARDIOVASCULAR: Regular rate and rhythm without murmurs, gallops, or rubs. RESPIRATORY: Breath sounds equal bilaterally. No accessory muscle use. GASTROINTESTINAL: Abdomen soft, non-tender, nondistended. MUSCULOSKELETAL: No cyanosis,. Trace edema bilateral lower extremities. Right arm with some edema, warmth, much improved from yesterday BACK: Nontender without obvious deformity. No CVA tenderness. Results - Labs CBC & Chem 7: 12/01/17 13:12 12/01/17 13:12 Laboratory Results - last 24 hr 11/30/17 12/01/17 12/01/17 10:30 13:12 13:12 WBC 21.4 H RBC 4.27 Hgb 10.6 L Hct 34.7 L MCV 81.3 MCH 24.8 L MCHC 30.5 L RDW 23.4 H Plt Count 253 MPV 8.8 Prelim Diff (Auto) Slide review pending Neut % (Auto) 89.9 H Lymph % (Auto) 3.5 L [place] % (Auto) 6.4 Eos % (Auto) 0.0 Baso % (Auto) 0.2 Neut # (Auto) 19.2 H Lymph # (Auto) 0.7 L [place] # (Auto) 1.4 H Eos # (Auto) 0.0 Baso # (Auto) 0.0 WBC Differential Manual diff final Seg Neuts % (Manual) 89 H Lymphocytes % (Manual) 3 L Monocytes % (Manual) 5 Metamyelocytes % (Man) 1 Myelocytes % (Man) 1 H Promyelocytes % (Man) 1 H Abs Neuts (Manual) 19.7 H Differential Comment . Platelet Estimate Normal Platelet Morphology Normal Ovalocytes 1+ H Fibrinogen 98 L* Sodium Potassium Chloride Carbon Dioxide Anion Gap BUN Creatinine Estimated GFR Random Glucose Calcium Blood Type O Positive Blood Bank Comment 12/01/17 12/01/17 13:12 14:23 WBC RBC Hgb Hct MCV MCH MCHC RDW Plt Count MPV Prelim Diff (Auto) Neut % (Auto) Lymph % (Auto) [place] % (Auto) Eos % (Auto) Baso % (Auto) Neut # (Auto) Lymph # (Auto) [place] # (Auto) Eos # (Auto) Baso # (Auto) WBC Differential Seg Neuts % (Manual) Lymphocytes % (Manual) Monocytes % (Manual) Metamyelocytes % (Man) Myelocytes % (Man) Promyelocytes % (Man) Abs Neuts (Manual) Differential Comment Platelet Estimate Platelet Morphology Ovalocytes Fibrinogen Sodium 143 Potassium 3.8 D Chloride 104 Carbon Dioxide 30.6 Anion Gap 8 BUN 20 H Creatinine 1.11 H Estimated GFR 67 L Random Glucose 166 H Calcium 8.0 L Blood Type Blood Bank Comment - Procedures IR dialysis cath plcmt w us Signed EXAM DATE: 11/28/2017 12:00 AM EDT AGE/SEX: 37 years / Female INDICATIONS: Patient with history of Multiple Sclerosis in need of temporary non-tunneled central venous catheter placement for Plasmapheresis. CLINICAL DATA: This is the patient's initial encounter. Patient reports that signs and symptoms have been present for 1 day and indicates a pain score of 0/ 10. MEDICAL/SURGICAL HISTORY: Multiple sclerosis. Anemia. section. COMPARISON: No prior exams available for comparison. FLUORO TIME (min): 0.15 IMAGE SERIES: 3 ACCESS SITE: Right internal jugular vein DEVICE(S): 14 Yi double lumen 15 cm Schon catheter Vascath. . . PROCEDURE : 1. Ultrasound guided venipuncture. 2. Fluoroscopic guidance. 3. Central line placement. The risks, benefits and alternatives to the procedure were explained and verbal and written consent was obtained. The site was prepped in sterile fashion. Full sterile technique was used, including cap, mask, sterile gloves and gown and a large sterile sheet. Hand hygiene and 2% chlorhexidine prep was utilized per protocol for cutaneous antisepsis with appropriate dry time for site. Sterile gel and sterile probe cover were utilized for ultrasound guidance. The skin and subcutaneous tissues were infiltrated with local anesthetic solution. A suitable site above the vein was selected with ultrasound and fluoroscopic guidance. A small incision was made. The vein was accessed under direct ultrasound visualization using the micropuncture technique. The micropuncture set was exchanged for a 0.035 wire. The tract was dilated. The catheter was advanced into position under direct fluoroscopic visualization, and was advanced with the tip at the junction of the superior vena cava and rt atrium. The catheter was fixed in place with suture and a sterile dressing was applied. The patient tolerated the procedure well and there were no complications. CONCLUSION: 1. Uncomplicated line placement as above. Electronically signed by: Chin Laguna MD 11/28/2017 Assessment and Plan - Plan Multiple sclerosis exacerbation. [facility]. Status post IV Solu-Medrol in the ER = Outside records to be requested. Further management as per neurology. MRIS DONE CONSULT HEMATOLOGY FOR PLASMAPHERESIS FOR MULTIPLE SCLEROSIS = Appreciate hematology assistance. Continues on IV steroids as per neurology. Appears to be improving on plasmapheresis. Appreciate [employer] [facility] consultant assistance. = Continue plasmapheresis as per neurology, hematology. Placement of regulation factors as per hematology. Appreciate assistance. For plasmapheresis tomorrow. //Right upper extremity swelling CT angiogram appears negative for thrombus. Likely superficial thrombus. Appears to be improving. = Improving. //Chronic anemia. Hemoglobin 11. No signs of bleeding. Tobacco abuse. Cessation counseling provided. //Chronic mild constipation. Laxative ordered x1. = 11/30. No bowel movement in 1 week despite laxatives. Will order enema. = 12/01. No bowel movements recorded. Will order magnesium citrate. //HAS INSOMNIA Continue Ambien for sleep. //Depression. Continue BuSpar. Which was started here. Discharge Planning: Pending improvement. Will need neurology and hematology clearance.
[2017-12-01] MEDS ORDERED: Magnesium Citrate Liq 300 ML Bottle PO ONE (17:15)
--- NOTE | 2017-12-01 20:43 | P.PNNEU ---
Subjective Subjective Comments: pt feels her left leg strength is improving. She is scheduled to receive plasmapheresis #3 tomorrow Active Medications: Active Medications Acetaminophen (Tylenol) 650 mg PO Q4H PRN PRN Reason: Temp > 100.4 Acetaminophen (Tylenol) 650 mg PO Q4H PRN PRN Reason: SEE LABEL COMMENTS Al Hydroxide/Mg Hydroxide (Milk Of Brittany Freire) 30 ml PO Q12H PRN PRN Reason: Mild Constipation Last Admin: 11/28/17 20:54 Dose: 30 ml Bisacodyl (Dulcolax Supp) 10 mg RECTAL DAILY PRN PRN Reason: SEVERE CONSITIPATION Buspirone HCl (Buspar) 5 mg PO BID [facility] Last Admin: 12/01/17 20:02 Dose: 5 mg Diphenhydramine HCl (Benadryl Inj) 25 mg IV.PUSH PRN PRN PRN Reason: FOR ALLERGIC REACTION Stop: 12/07/17 12:24 Diphenhydramine HCl (Benadryl Inj) 25 mg IV.PUSH PRN PRN PRN Reason: SEE LABEL COMMENTS Stop: 12/07/17 12:25 Diphenhydramine HCl (Benadryl) 25 mg PO Q4H PRN PRN Reason: SEE LABEL COMMENTS Famotidine (Pepcid) 20 mg PO BID [facility] Last Admin: 12/01/17 20:02 Dose: 20 mg Heparin Sodium (Porcine) (Heparin Inj) 5,000 units OTHER Q48H [facility] Stop: 12/09/17 13:59 Last Admin: 11/30/17 13:30 Dose: Not Given Heparin Sodium (Porcine) (Heparin Inj) 1,000 units IV.FLUSH Q48H PRN PRN Reason: SEE LABEL COMMENTS Stop: 12/07/17 12:32 Last Admin: 11/28/17 17:31 Dose: 1,000 units Methylprednisolone Sodium Succinate 250 mg/ Sodium Chloride 104 mls @ 200 mls/ hr IV.SIG Q6H [facility] Last Infusion: 12/01/17 19:18 Dose: Infused Albumin Human (Alburx 5% Inj) 3,500 mls @ 0 mls/hr IV.SIG Q48H [facility] Stop: 12/06/17 14:01 Last Infusion: 11/30/17 13:32 Dose: Infused Calcium Gluconate 3.5 gm/ (Sodium Chloride) 285 mls @ 120 mls/hr IV.SIG Q48H [facility] Stop: 12/06/17 16:23 Last Infusion: 11/30/17 13:32 Dose: Infused Sodium Chloride (Ns Inj) 250 mls @ 15 mls/hr IV.SIG ONCE [facility] Stop: 12/02/17 07:39 Last Admin: 12/01/17 17:31 Dose: Not Given Ibuprofen (Motrin) 600 mg PO Q6HR PRN PRN Reason: PAIN SCALE 1 TO 2 Lactulose (Lactulose Liq) 30 ml PO DAILY PRN PRN Reason: SEVERE CONSITIPATION Last Admin: 11/25/17 08:18 Dose: 30 ml Morphine Sulfate (Morphine Inj) 4 mg IV.PUSH Q3H PRN PRN Reason: BREAKTHROUGH PAIN Last Admin: 11/30/17 00:55 Dose: 4 mg Morphine Sulfate (Morphine Inj) 4 mg IV.PUSH Q3H PRN PRN Reason: PAIN 6-10;IF UNABLE TO TAKE PO Morphine Sulfate (Morphine Inj) 2 mg IV.PUSH Q3H PRN PRN Reason: PAIN 3-5; IF UABLE TO TAKE PO Last Admin: 11/26/17 09:11 Dose: 2 mg Naloxone HCl (Narcan Inj) 0.4 mg IV.PUSH UNSCH PRN PRN Reason: SEE LABEL COMMENTS Ondansetron HCl (Zofran Inj) 4 mg IV.PUSH Q6H PRN PRN Reason: NAUSEA OR VOMITING Oxycodone/Acetaminophen (Percocet 5/325 Mg) 1 tab PO Q6H PRN PRN Reason: PAIN SCALE 3 TO 5 Last Admin: 11/23/17 13:14 Dose: 1 tab Oxycodone/Acetaminophen (Percocet 10/325 Mg) 1 tab PO Q4H PRN PRN Reason: PAIN SCALE 6 TO 10 Last Admin: 12/01/17 19:58 Dose: 1 tab Senna/Docusate Sodium (Lisa-Colace) 1 tab PO BID [facility] Last Admin: 12/01/17 20:01 Dose: Not Given Sennosides (Senokot) 17.2 mg PO Q12H PRN PRN Reason: Moderate Constipation Last Admin: 11/28/17 08:27 Dose: 17.2 mg Sodium Chloride (Ns Flush) 10 ml OTHER Q48H [facility] Stop: 12/08/17 13:59 Last Admin: 11/30/17 13:30 Dose: Not Given Sodium Citrate (Acd-A Solution) 1,000 ml EXTRACORPO Q48H [facility] Stop: 12/06/17 15:01 Last Admin: 11/30/17 17:56 Dose: Not Given Allergies/Adverse Reactions: Allergies Allergy/AdvReac Type Severity Reaction Status Date / Time No Known Allergies Allergy Verified 11/22/17 22:25 Physical Exam Vital signs: Vital Signs 11/30/17 21:30 12/01/17 00:00 12/01/17 08:00 Temperature 98.1 F 98.5 F 98.0 F Pulse Rate 64 65 75 Respiratory Rate 16 16 18 Blood Pressure 137/73 138/81 129/64 Pulse Oximetry 99 99 96 12/01/17 12:00 12/01/17 17:23 12/01/17 17:43 Temperature 97.9 F 97.7 F 97.6 F Pulse Rate 79 68 63 Respiratory Rate 18 18 16 Blood Pressure 134/93 H 129/79 129/80 Pulse Oximetry 95 97 96 12/01/17 17:44 12/01/17 20:00 Temperature 97.6 F 98.4 F Pulse Rate 63 70 Respiratory Rate 16 16 Blood Pressure 129/80 143/76 H Pulse Oximetry 95 100 Intake & Output 12/01/17 12/01/17 12/02/17 06:59 18:59 06:59 Intake Total 1178 / 1178 208 / 208 104 / 104 Balance 1178 / 1178 208 / 208 104 / 104 Weight 110.4 kg Intake: IV 208 / 208 208 / 208 104 / 104 SoluMEDROL Inj 250 MG In NS Inj 208 / 208 208 / 208 104 / 104 100 ML @ 200 mls/hr IV.SIG Q6H [facility] Rx#:[id number] Oral 960 / 960 Other Pre-Pooled Cryo Thawed 10units 10 / 10 Unit [id number] Intake (Blood Product) Amt 0 / 0 0 / 0 Pre-Pooled Cryo Thawed 10units 0 / 0 Unit [id number] Pre-Pooled Cryo Thawed 10units 0 / 0 Unit [id number] Other: # Voids 2 4 Date of Last Bowel Movement 11/26/17 12/01/17 # Bowel Movements 1 - Routine Neurological Exam alert, speech normal CN intact MOTOR 4/5 LUE and LLE Objective Laboratory Results - last 24 hr 12/01/17 12/01/17 12/01/17 13:12 13:12 13:12 WBC 21.4 H RBC 4.27 Hgb 10.6 L Hct 34.7 L MCV 81.3 MCH 24.8 L MCHC 30.5 L RDW 23.4 H Plt Count 253 MPV 8.8 Prelim Diff (Auto) Slide review pending Neut % (Auto) 89.9 H Lymph % (Auto) 3.5 L [place] % (Auto) 6.4 Eos % (Auto) 0.0 Baso % (Auto) 0.2 Neut # (Auto) 19.2 H Lymph # (Auto) 0.7 L [place] # (Auto) 1.4 H Eos # (Auto) 0.0 Baso # (Auto) 0.0 WBC Differential Manual diff final Seg Neuts % (Manual) 89 H Lymphocytes % (Manual) 3 L Monocytes % (Manual) 5 Metamyelocytes % (Man) 1 Myelocytes % (Man) 1 H Promyelocytes % (Man) 1 H Abs Neuts (Manual) 19.7 H Differential Comment . Platelet Estimate Normal Platelet Morphology Normal Ovalocytes 1+ H Fibrinogen 98 L* Sodium 143 Potassium 3.8 D Chloride 104 Carbon Dioxide 30.6 Anion Gap 8 BUN 20 H Creatinine 1.11 H Estimated GFR 67 L Random Glucose 166 H Calcium 8.0 L Blood Bank Comment 12/01/17 14:23 WBC RBC Hgb Hct MCV MCH MCHC RDW Plt Count MPV Prelim Diff (Auto) Neut % (Auto) Lymph % (Auto) [place] % (Auto) Eos % (Auto) Baso % (Auto) Neut # (Auto) Lymph # (Auto) [place] # (Auto) Eos # (Auto) Baso # (Auto) WBC Differential Seg Neuts % (Manual) Lymphocytes % (Manual) Monocytes % (Manual) Metamyelocytes % (Man) Myelocytes % (Man) Promyelocytes % (Man) Abs Neuts (Manual) Differential Comment Platelet Estimate Platelet Morphology Ovalocytes Fibrinogen Sodium Potassium Chloride Carbon Dioxide Anion Gap BUN Creatinine Estimated GFR Random Glucose Calcium Blood Bank Comment Review/Management - Diagnosis (1) Multiple sclerosis exacerbation Code(s): G35 - Multiple sclerosis Status: Acute Current Visit: Yes - Review/Management Plan: continue plasmapheresis every other day for 5-10 treatments.
[2017-12-02] MEDS: MethylPREDNISolone Sod Suc Inj 250 MG in Sodium Chlor 0.9% Inj 100 ML IV.SIG SCH ×5 (00:29→23:36)
[2017-12-02] MEDS: oxyCODONE/Acetaminophen 10/325 Tablet PO PRN ×5 (01:06→23:36)
[2017-12-02 05:34] LABS: Activated Partial Thrombo Time 22.9 sec (24.3-30.1)
[2017-12-02 05:37] LABS: Baso % (Auto) 0.1 % (0.0-2.0); Hematocrit 34.2 % (35.0-46.0); Hemoglobin 10.6 gm/dL (11.6-15.3); Lymph # (Auto) 0.8 th/mm3 (1.0-4.8); Lymph % (Auto) 3.8 % (9.0-44.0); Mean Corpuscular Volume 80.7 fL (80.0-100.0); Mono # (Auto) 1.3 th/mm3 (0.0-0.9); Mono % (Auto) 6.1 % (0.0-8.0); Neut # (Auto) 19.8 th/mm3 (1.8-7.7); Platelet Count 229 th/mm3 (150-450); Red Blood Count 4.24 mil/mm3 (4.00-5.30); Red Cell Distribution Width 23.5 % (11.6-17.2)
[2017-12-02 05:39] LABS: Mean Corpuscular HGB Conc 30.9 % (32.0-36.0)
[2017-12-02 05:54] LABS: Albumin 3.7 g/dL (3.4-5.0); Anion Gap 8 meq/L (5-15); Aspartate Aminotransferase 9 U/L (15-37); Blood Urea Nitrogen 20 mg/dL (7-18); Calcium 8.6 mg/dL (8.5-10.1); Carbon Dioxide 32.5 meq/L (21.0-32.0); Chloride 102 meq/L (98-107); Glomerular Filtration Rate 70 mL/min (>89); Glucose,Random 120 mg/dL (74-106); Potassium 4.1 meq/L (3.5-5.1); Sodium 142 meq/L (136-145)
[2017-12-02 05:55] LABS: Alanine Aminotransferase 17 U/L (10-53)
[2017-12-02 05:57] LABS: Alkaline Phosphatase 76 U/L (45-117); Total Protein 5.7 g/dL (6.4-8.2)
[2017-12-02] MEDS: Famotidine 20 MG Tablet PO SCH ×2 (08:38→20:33)
[2017-12-02] MEDS: Senna/Docusate Sodium 8.6/50 MG Tablet PO SCH ×2 (08:38→20:31)
[2017-12-02] MEDS: ALBUMIN HUMAN 5% IV.SIG SCH (10:00)
[2017-12-02] MEDS: CALCIUM GLUCONATE IV.SIG SCH (10:00)
[2017-12-02] MEDS: Anticoagulant Citrate Dextrose 1,000 ML Solution EXTRACORPO SCH (10:00)
[2017-12-02] MEDS: SODIUM CHLOR 0.9% IV.SIG SCH (10:00)
--- NOTE | 2017-12-02 14:16 | P.PNONC ---
Subjective Interval history: Afebrile Patient reports she is walking better She is having her menses and reports this is heavy however this is her normal No other bleeding Objective Vital Signs/Intake & Output: Vital Signs 12/01/17 17:23 12/01/17 17:43 12/01/17 17:44 Temperature 97.7 F 97.6 F 97.6 F Pulse Rate 68 63 63 Respiratory Rate 18 16 16 Blood Pressure 129/79 129/80 129/80 Pulse Oximetry 97 96 95 12/01/17 20:00 12/02/17 00:00 12/02/17 02:08 Temperature 98.4 F 98.1 F Pulse Rate 70 60 Respiratory Rate 16 18 18 Blood Pressure 143/76 H 144/73 H Pulse Oximetry 100 100 12/02/17 04:00 12/02/17 08:00 Temperature 98.2 F 97.4 F L Pulse Rate 75 58 L Respiratory Rate 18 18 Blood Pressure 150/78 H 150/71 H Pulse Oximetry 99 100 Intake & Output 12/01/17 12/02/17 12/02/17 18:59 06:59 18:59 Intake Total 208 / 208 547 / 547 3785 / 3785 Output Total 3500 / 3500 Balance 208 / 208 547 / 547 285 / 285 Weight 251 lb 5.231 oz Intake: IV 208 / 208 312 / 312 3785 / 3785 [place] 5% Inj 3,500 ML @ As 3500 / 3500 Directed IV.SIG Q48H [facility] Rx#: [id number] Calcium Gluconate Inj 3.5 GM In 285 / 285 NS Inj 250 ML @ 120 mls/hr IV. SIG Q48H [facility] Rx#:[id number] SoluMEDROL Inj 250 MG In NS Inj 208 / 208 312 / 312 100 ML @ 200 mls/hr IV.SIG Q6H [facility] Rx#:[id number] Other Pre-Pooled Cryo Thawed 10units 10 Unit [id number] Intake (Blood Product) Amt 0 / 0 225 / 225 Pre-Pooled Cryo Thawed 10units 0 / 0 225 / 225 Unit [id number] Output: Plasma Exchange Amount 3500 / 3500 Other: # Voids 4 4 Date of Last Bowel Movement 12/01/17 12/01/17 # Bowel Movements 1 Result Diagrams: 12/02/17 04:58 12/02/17 04:58 Laboratory Results: Laboratory Results - last 24 hr 12/01/17 12/02/17 12/02/17 14:23 04:58 04:58 WBC 22.0 H RBC 4.24 Hgb 10.6 L Hct 34.2 L MCV 80.7 MCH 25.0 L MCHC 30.9 L RDW 23.5 H Plt Count 229 MPV 9.0 Neut % (Auto) 90.0 H Lymph % (Auto) 3.8 L [place] % (Auto) 6.1 Eos % (Auto) 0.0 Baso % (Auto) 0.1 Neut # (Auto) 19.8 H Lymph # (Auto) 0.8 L [place] # (Auto) 1.3 H Eos # (Auto) 0.0 Baso # (Auto) 0.0 WBC Differential . Differential Comment Auto diff final APTT 22.9 L Fibrinogen 147 L Sodium Potassium Chloride Carbon Dioxide Anion Gap BUN Creatinine Estimated GFR Random Glucose Calcium Total Bilirubin AST ALT Alkaline Phosphatase Total Protein Albumin Blood Bank Comment 12/02/17 04:58 WBC RBC Hgb Hct MCV MCH MCHC RDW Plt Count MPV Neut % (Auto) Lymph % (Auto) [place] % (Auto) Eos % (Auto) Baso % (Auto) Neut # (Auto) Lymph # (Auto) [place] # (Auto) Eos # (Auto) Baso # (Auto) WBC Differential Differential Comment APTT Fibrinogen Sodium 142 Potassium 4.1 Chloride 102 Carbon Dioxide 32.5 H Anion Gap 8 BUN 20 H Creatinine 1.06 H Estimated GFR 70 L Random Glucose 120 H Calcium 8.6 Total Bilirubin 0.3 AST 9 L ALT 17 Alkaline Phosphatase 76 Total Protein 5.7 L Albumin 3.7 Blood Bank Comment Culture Results: Microbiology 11/25/17 13:05 Aerobic Blood Culture - Final Blood - Peripheral No growth in 5 days Anaerobic Blood Culture - Final No growth in 5 days 11/25/17 13:10 Aerobic Blood Culture - Final Blood - Peripheral No growth in 5 days Anaerobic Blood Culture - Final No growth in 5 days Medications: Active Medications Generic Name Dose Route Start Last Admin Trade Name Freq PRN Reason Stop Dose Admin Al Hydroxide/Mg Hydroxide 30 ml 11/23/17 13:03 11/28/17 20:54 Milk Of Magnesia Liq PO 30 ml Q12H PRN Administration Mild Constipation Buspirone HCl 5 mg 11/25/17 21:00 12/02/17 08:38 Buspar PO 5 mg BID [facility] Administration Famotidine 20 mg 11/23/17 15:00 12/02/17 08:38 Pepcid PO 20 mg BID [facility] Administration Heparin Sodium (Porcine) 5,000 units 11/28/17 14:00 11/30/17 13:30 Heparin Inj OTHER 12/09/17 13:59 Not Given Q48H [facility] Heparin Sodium (Porcine) 1,000 units 11/28/17 12:33 11/28/17 17:31 Heparin Inj IV.FLUSH 12/07/17 12:32 1,000 units Q48H PRN Administration SEE LABEL COMMENTS Methylprednisolone Sodium 104 mls @ 200 mls/hr 11/27/17 12:00 12/02/17 12:33 Succinate 250 mg/ Sodium IV.SIG Not Given Chloride Q6H [facility] Albumin Human 3,500 mls @ 0 mls/hr 11/28/17 14:00 12/02/17 13:40 [place] 5% Inj IV.SIG 12/06/17 14:01 Infused Q48H [facility] Infusion As Directed Calcium Gluconate 3.5 gm/ 285 mls @ 120 mls/hr 11/28/17 14:00 12/02/17 13:40 Sodium Chloride IV.SIG 12/06/17 16:23 Infused Q48H [facility] Infusion Lactulose 30 ml 11/23/17 13:03 11/25/17 08:18 Lactulose Liq PO 30 ml DAILY PRN Administration SEVERE CONSITIPATION Morphine Sulfate 4 mg 11/23/17 13:04 11/30/17 00:55 Morphine Inj IV.PUSH 4 mg Q3H PRN Administration BREAKTHROUGH PAIN Morphine Sulfate 2 mg 11/23/17 13:04 11/26/17 09:11 Morphine Inj IV.PUSH 2 mg Q3H PRN Administration PAIN 3-5; IF UABLE TO TAKE PO Oxycodone/Acetaminophen 1 tab 11/23/17 13:04 11/23/17 13:14 Percocet 5/325 Mg PO 1 tab Q6H PRN Administration PAIN SCALE 3 TO 5 Oxycodone/Acetaminophen 1 tab 11/29/17 15:41 12/02/17 05:07 Percocet 10/325 Mg PO 1 tab Q4H PRN Administration PAIN SCALE 6 TO 10 Senna/Docusate Sodium 1 tab 11/23/17 21:00 12/02/17 08:38 Lisa-Colace PO 1 tab BID [facility] Administration Sennosides 17.2 mg 11/23/17 13:03 11/28/17 08:27 Senokot PO 17.2 mg Q12H PRN Administration Moderate Constipation Sodium Chloride 10 ml 11/28/17 14:00 11/30/17 13:30 Ns Flush OTHER 12/08/17 13:59 Not Given Q48H [facility] Sodium Citrate 1,000 ml 11/28/17 15:00 12/02/17 10:00 Acd-A Solution EXTRACORPO 12/06/17 15:01 1,000 ml Q48H [facility] Administration Objective Remarks: GENERAL: Well-nourished, well-developed young female patient, in no acute distress. SKIN: Warm and dry. Vasc-cath Rt. HEAD: Normocephalic. EYES: No scleral icterus. No injection or drainage. NECK: Supple, trachea midline. CARDIOVASCULAR: Regular rate and rhythm without murmurs. RESPIRATORY: Breath sounds equal bilaterally. Non-labored at rest. GASTROINTESTINAL: Abdomen soft, non-tender, nondistended. EXTREMITIES: No cyanosis, or edema. R arm warm and well perfused MUSCULOSKELETAL: Adequate muscle tone. NEUROLOGICAL: Awake, alert, and oriented x3. LLE weaker than RLE. Assessment/Plan - Plan Ms. Price is a pleasant 37-year-old female patient who has a history of multiple sclerosis. She recently moved to [place] from [place]. She is under the care of neurologist who consulted hematology for plasma exchange. Plan: 1. Today is day number 3 out of 5 for plasma exchange 2. Patient received cryoprecipitate yesterday for low fibrinogen. Will transfuse for level less than 100. 3. Monitor CBC, coags. Supportive care. - Attending Statement The exam, history, and the medical decision-making described in the above note were completed with the assistance of the mid-level provider. I reviewed and agree with the findings presented. I attest that I had a [id number] encounter with the patient on the same day, and personally performed and documented my assessment and findings in the medical record. 37 yoF with MS admitted with excerbation. Day 4/5 pheresis today. Will recheck fibrinogen tomorrow. Tolerating well. On steroids. Leukocytosis reactive. Anemia work up.
[2017-12-02 17:29] LABS: % Iron Saturation 26.1 % (20-50); Folate 4.5 ng/mL (3.1-17.5)
--- NOTE | 2017-12-02 18:53 | P.PNIM ---
Subjective Interval history: patient says she is feeling generally fatigued after plasmapheresis. Denies any chest pain or shortness of breath. Physical Exam Vital signs: Vital Signs 12/01/17 20:00 12/02/17 00:00 12/02/17 02:08 Temperature 98.4 F 98.1 F Pulse Rate 70 60 Respiratory Rate 16 18 18 Blood Pressure 143/76 H 144/73 H Pulse Oximetry 100 100 12/02/17 04:00 12/02/17 08:00 12/02/17 16:00 Temperature 98.2 F 97.4 F L 98.3 F Pulse Rate 75 58 L 80 Respiratory Rate 18 18 19 Blood Pressure 150/78 H 150/71 H 131/72 Pulse Oximetry 99 100 98 Intake & Output 12/01/17 12/02/17 12/02/17 18:59 06:59 18:59 Intake Total 208 / 208 547 / 547 3785 / 3785 Output Total 3500 / 3500 Balance 208 / 208 547 / 547 285 / 285 Weight 114 kg Intake: IV / 208 312 / 312 3785 / 3785 Alburx 5% Inj 3,500 ML @ As 3500 / 3500 Directed IV.SIG Q48H LOLA Rx#: [id number] Calcium Gluconate Inj 3.5 GM In 285 / 285 NS Inj 250 ML @ 120 mls/hr IV. SIG Q48H LOLA Rx#:[id number] SoluMEDROL Inj 250 MG In NS Inj 208 / 208 312 / 312 100 ML @ 200 mls/hr IV.SIG Q6H LOLA Rx#:[id number] Other Pre-Pooled Cryo Thawed 10units Unit [id number] Intake (Blood Product) Amt 0 / 0 225 / 225 Pre-Pooled Cryo Thawed 10units 0 / 0 225 / 225 Unit [id number] Output: Plasma Exchange Amount 3500 / 3500 Other: # Voids 4 4 Date of Last Bowel Movement 12/01/17 12/01/17 # Bowel Movements 1 Narrative: GENERAL: Patient sitting up in chair at bedside. Appears comfortable. SKIN: Warm and dry. HEAD: Normocephalic. EYES: No scleral icterus. No injection or drainage. NECK: Supple, trachea midline. No JVD. CARDIOVASCULAR: Regular rate and rhythm without murmurs, gallops, or rubs. RESPIRATORY: Breath sounds equal bilaterally. No accessory muscle use. GASTROINTESTINAL: Abdomen soft, non-tender, nondistended. MUSCULOSKELETAL: No cyanosis,. Trace edema bilateral lower extremities. BACK: Nontender without obvious deformity. No CVA tenderness. Results - Labs CBC & Chem 7: 12/02/17 04:58 12/02/17 04:58 Laboratory Results - last 24 hr 12/02/17 12/02/17 12/02/17 04:58 04:58 04:58 WBC 22.0 H RBC 4.24 Hgb 10.6 L Hct 34.2 L MCV 80.7 MCH 25.0 L MCHC 30.9 L RDW 23.5 H Plt Count 229 MPV 9.0 Neut % (Auto) 90.0 H Lymph % (Auto) 3.8 L [place] % (Auto) 6.1 Eos % (Auto) 0.0 Baso % (Auto) 0.1 Neut # (Auto) 19.8 H Lymph # (Auto) 0.8 L [place] # (Auto) 1.3 H Eos # (Auto) 0.0 Baso # (Auto) 0.0 WBC Differential . Differential Comment Auto diff final APTT 22.9 L Fibrinogen 147 L Sodium 142 Potassium 4.1 Chloride 102 Carbon Dioxide 32.5 H Anion Gap 8 BUN 20 H Creatinine 1.06 H Estimated GFR 70 L Random Glucose 120 H Calcium 8.6 Iron TIBC % Saturation Ferritin Total Bilirubin 0.3 AST 9 L ALT 17 Alkaline Phosphatase 76 Total Protein 5.7 L Albumin 3.7 Vitamin B12 Folate 12/02/17 04:58 WBC RBC Hgb Hct MCV MCH MCHC RDW Plt Count MPV Neut % (Auto) Lymph % (Auto) [place] % (Auto) Eos % (Auto) Baso % (Auto) Neut # (Auto) Lymph # (Auto) [place] # (Auto) Eos # (Auto) Baso # (Auto) WBC Differential Differential Comment APTT Fibrinogen Sodium Potassium Chloride Carbon Dioxide Anion Gap BUN Creatinine Estimated GFR Random Glucose Calcium Iron 61 TIBC 234 L % Saturation 26.1 Ferritin 13 Total Bilirubin AST ALT Alkaline Phosphatase Total Protein Albumin Vitamin B12 375 Folate 4.5 - Procedures IR dialysis cath plcak w us Signed EXAM DATE: 11/28/2017 12:00 AM EDT AGE/SEX: 37 years / Female INDICATIONS: Patient with history of Multiple Sclerosis in need of temporary non-tunneled central venous catheter placement for Plasmapheresis. CLINICAL DATA: This is the patient's initial encounter. Patient reports that signs and symptoms have been present for 1 day and indicates a pain score of 0/ 10. MEDICAL/SURGICAL HISTORY: Multiple sclerosis. Anemia. section. COMPARISON: No prior exams available for comparison. FLUORO TIME (min): 0.15 IMAGE SERIES: 3 ACCESS SITE: Right internal jugular vein DEVICE(S): 14 Mongolian double lumen 15 cm Schon catheter Vascath. . . PROCEDURE : 1. Ultrasound guided venipuncture. 2. Fluoroscopic guidance. 3. Central line placement. The risks, benefits and alternatives to the procedure were explained and verbal and written consent was obtained. The site was prepped in sterile fashion. Full sterile technique was used, including cap, mask, sterile gloves and gown and a large sterile sheet. Hand hygiene and 2% chlorhexidine prep was utilized per protocol for cutaneous antisepsis with appropriate dry time for site. Sterile gel and sterile probe cover were utilized for ultrasound guidance. The skin and subcutaneous tissues were infiltrated with local anesthetic solution. A suitable site above the vein was selected with ultrasound and fluoroscopic guidance. A small incision was made. The vein was accessed under direct ultrasound visualization using the micropuncture technique. The micropuncture set was exchanged for a 0.035 wire. The tract was dilated. The catheter was advanced into position under direct fluoroscopic visualization, and was advanced with the tip at the junction of the superior vena cava and rt atrium. The catheter was fixed in place with suture and a sterile dressing was applied. The patient tolerated the procedure well and there were no complications. CONCLUSION: 1. Uncomplicated line placement as above. Electronically signed by: Chin Laguna MD 11/28/2017 Assessment and Plan - Plan Multiple sclerosis exacerbation. [facility]. Status post IV Solu-Medrol in the ER = Outside records to be requested. Further management as per neurology. MRIS DONE CONSULT HEMATOLOGY FOR PLASMAPHERESIS FOR MULTIPLE SCLEROSIS = Appreciate hematology assistance. Continues on IV steroids as per neurology. Appears to be improving on plasmapheresis. Appreciate personal consultant assistance. = Continue plasmapheresis as per neurology, hematology. Placement of coag factors as per hematology. Appreciate assistance. //Right upper extremity swelling CT angiogram appears negative for thrombus. Likely superficial thrombus. Appears to be improving. =resolved. //Chronic anemia. Hemoglobin 11. No signs of bleeding. Tobacco abuse. Cessation counseling provided. //Chronic mild constipation. Laxative ordered x1. = 11/30. No bowel movement in 1 week despite laxatives. Will order enema. = 12/01. No bowel movements recorded. Will order magnesium citrate. =12/02. Resolved. //HAS INSOMNIA Continue Ambien for sleep. //Depression. Continue BuSpar. Which was started here. Discharge Planning: Pending improvement. Will need neurology and hematology clearance.
[2017-12-03] MEDS: oxyCODONE/Acetaminophen 10/325 Tablet PO PRN ×3 (04:12→21:23)
[2017-12-03] MEDS: MethylPREDNISolone Sod Suc Inj 250 MG in Sodium Chlor 0.9% Inj 100 ML IV.SIG SCH ×2 (05:55→11:39)
[2017-12-03] MEDS: Senna/Docusate Sodium 8.6/50 MG Tablet PO SCH ×2 (08:31→21:23)
[2017-12-03] MEDS: Famotidine 20 MG Tablet PO SCH ×2 (08:31→21:23)
--- NOTE | 2017-12-03 12:25 | P.PNONC ---
Subjective Interval history: Afebrile Patient complains of some significant fatigue today Still having her menses, otherwise no bleeding Lab has had difficulties in getting her blood today Objective Vital Signs/Intake & Output: Vital Signs 12/02/17 16:00 12/02/17 19:54 12/02/17 23:06 Temperature 98.3 F 97.7 F 97.7 F Pulse Rate 80 65 60 Respiratory Rate 19 18 18 Blood Pressure 131/72 145/69 H 144/80 H Pulse Oximetry 98 96 99 12/03/17 08:00 Temperature 97.8 F Pulse Rate 62 Respiratory Rate 16 Blood Pressure 141/80 H Pulse Oximetry 100 Intake & Output 12/02/17 12/03/17 12/03/17 18:59 06:59 18:59 Intake Total 4585 / 4585 1032 / 1032 Output Total 3500 / 3500 Balance 1085 / 1085 1032 / 1032 Weight 251 lb 5.231 oz Intake: IV 3785 / 3785 312 / 312 Alburx 5% Inj 3,500 ML @ As 3500 / 3500 Directed IV.SIG Q48H LOLA Rx#: [id number] Calcium Gluconate Inj 3.5 GM In 285 / 285 NS Inj 250 ML @ 120 mls/hr IV. SIG Q48H LOLA Rx#:[id number] SoluMEDROL Inj 250 MG In NS Inj 312 / 312 100 ML @ 200 mls/hr IV.SIG Q6H LOLA Rx#:[id number] Oral 800 / 800 720 / 720 Output: Plasma Exchange Amount 3500 / 3500 Other: # Voids 2 10 Date of Last Bowel Movement 12/01/17 # Bowel Movements 0 Result Diagrams: 12/02/17 04:58 12/03/17 12:50 Laboratory Results: Laboratory Results - last 24 hr 12/02/17 04:58 Iron 61 TIBC 234 L % Saturation 26.1 Ferritin 13 Vitamin B12 375 Folate 4.5 Culture Results: Microbiology 11/25/17 13:05 Aerobic Blood Culture - Final Blood - Peripheral No growth in 5 days Anaerobic Blood Culture - Final No growth in 5 days 11/25/17 13:10 Aerobic Blood Culture - Final Blood - Peripheral No growth in 5 days Anaerobic Blood Culture - Final No growth in 5 days Medications: Active Medications Generic Name Dose Route Start Last Admin Trade Name Freq PRN Reason Stop Dose Admin Al Hydroxide/Mg Hydroxide 30 ml 11/23/17 13:03 11/28/17 20:54 Milk Of Magnesia Liq PO 30 ml Q12H PRN Administration Mild Constipation Buspirone HCl 5 mg 11/25/17 21:00 12/03/17 08:31 Buspar PO 5 mg BID LOLA Administration Famotidine 20 mg 11/23/17 15:00 12/03/17 08:31 Pepcid PO 20 mg BID LOLA Administration Heparin Sodium (Porcine) 5,000 units 11/28/17 14:00 11/30/17 13:30 Heparin Inj OTHER 12/09/17 13:59 Not Given Q48H LOLA Heparin Sodium (Porcine) 1,000 units 11/28/17 12:33 11/28/17 17:31 Heparin Inj IV.FLUSH 12/07/17 12:32 1,000 units Q48H PRN Administration SEE LABEL COMMENTS Methylprednisolone Sodium 104 mls @ 200 mls/hr 11/27/17 12:00 12/03/17 12:11 Succinate 250 mg/ Sodium IV.SIG 0 mls/hr Chloride Q6H LOLA Infusion Albumin Human 3,500 mls @ 0 mls/hr 11/28/17 14:00 12/02/17 13:40 Alburx 5% Inj IV.SIG 12/06/17 14:01 Infused Q48H LOLA Infusion As Directed Calcium Gluconate 3.5 gm/ 285 mls @ 120 mls/hr 11/28/17 14:00 12/02/17 13:40 Sodium Chloride IV.SIG 12/06/17 16:23 Infused Q48H LOLA Infusion Lactulose 30 ml 11/23/17 13:03 11/25/17 08:18 Lactulose Liq PO 30 ml DAILY PRN Administration SEVERE CONSITIPATION Morphine Sulfate 4 mg 11/23/17 13:04 11/30/17 00:55 Morphine Inj IV.PUSH 4 mg Q3H PRN Administration BREAKTHROUGH PAIN Morphine Sulfate 2 mg 11/23/17 13:04 11/26/17 09:11 Morphine Inj IV.PUSH 2 mg Q3H PRN Administration PAIN 3-5; IF UABLE TO TAKE PO Oxycodone/Acetaminophen 1 tab 11/23/17 13:04 11/23/17 13:14 Percocet 5/325 Mg PO 1 tab Q6H PRN Administration PAIN SCALE 3 TO 5 Oxycodone/Acetaminophen 1 tab 11/29/17 15:41 12/03/17 11:39 Percocet 10/325 Mg PO 1 tab Q4H PRN Administration PAIN SCALE 6 TO 10 Senna/Docusate Sodium 1 tab 11/23/17 21:00 12/03/17 08:31 Lisa-Colace PO 1 tab BID LOLA Administration Sennosides 17.2 mg 11/23/17 13:03 11/28/17 08:27 Senokot PO 17.2 mg Q12H PRN Administration Moderate Constipation Sodium Chloride 10 ml 11/28/17 14:00 11/30/17 13:30 Ns Flush OTHER 12/08/17 13:59 Not Given Q48H LOLA Sodium Citrate 1,000 ml 11/28/17 15:00 12/02/17 10:00 Acd-A Solution EXTRACORPO 12/06/17 15:01 1,000 ml Q48H LOLA Administration Objective Remarks: GENERAL: Well-nourished, well-developed young female patient, in no acute distress. SKIN: Warm and dry. Vasc-cath Rt. HEAD: Normocephalic. EYES: No scleral icterus. No injection or drainage. NECK: Supple, trachea midline. CARDIOVASCULAR: Regular rate and rhythm without murmurs. RESPIRATORY: Breath sounds equal bilaterally. Non-labored at rest. GASTROINTESTINAL: Abdomen soft, non-tender, nondistended. EXTREMITIES: No cyanosis, or edema. R arm warm and well perfused MUSCULOSKELETAL: Adequate muscle tone. NEUROLOGICAL: Awake, alert, and oriented x3. LLE weaker than RLE. Assessment/Plan - Plan Ms. Price is a pleasant 37-year-old female patient who has a history of multiple sclerosis. She recently moved to [place] from [place]. She is under the care of neurologist who consulted hematology for plasma exchange. Plan: 1. Patient will receive number 4 out of 5 plasma exchange tomorrow. 2. Plan to transfuse cryoprecipitate if she has fibrinogen less than 100. 3. Monitor CBC, monitor coags. - Attending Statement The exam, history, and the medical decision-making described in the above note were completed with the assistance of the mid-level provider. I reviewed and agree with the findings presented. I attest that I had a [id number] encounter with the patient on the same day, and personally performed and documented my assessment and findings in the medical record. 37 yoF with MS currently being treated with plasmapheresis, steroids. Neurology team following closely. Patient reports fatigue after third cycle of plasmapheresis. Fourth cycle planned for tomorrow.
[2017-12-03 13:39] LABS: Alanine Aminotransferase 17 U/L (10-53); Albumin 3.4 g/dL (3.4-5.0); Anion Gap 8 meq/L (5-15); Aspartate Aminotransferase 10 U/L (15-37); Blood Urea Nitrogen 19 mg/dL (7-18); Calcium 8.1 mg/dL (8.5-10.1); Chloride 104 meq/L (98-107); Glomerular Filtration Rate 77 mL/min (>89); Glucose,Random 158 mg/dL (74-106); Potassium 4.1 meq/L (3.5-5.1); Sodium 139 meq/L (136-145)
[2017-12-03 13:41] LABS: Alkaline Phosphatase 59 U/L (45-117); Total Protein 5.3 g/dL (6.4-8.2)
--- NOTE | 2017-12-03 15:05 | P.PNIM ---
Subjective Interval history: Patient says she is feeling fatigued about the same as yesterday. Denies any chest pain or shortness of breath. Reports weakness continues. Physical Exam Vital signs: Vital Signs 12/02/17 16:00 12/02/17 19:54 12/02/17 23:06 Temperature 98.3 F 97.7 F 97.7 F Pulse Rate 80 65 60 Respiratory Rate 19 18 18 Blood Pressure 131/72 145/69 H 144/80 H Pulse Oximetry 98 96 99 12/03/17 08:00 12/03/17 12:00 Temperature 97.8 F 97.7 F Pulse Rate 62 84 Respiratory Rate 16 18 Blood Pressure 141/80 H 134/70 Pulse Oximetry 100 95 Intake & Output 12/02/17 12/03/17 12/03/17 18:59 06:59 18:59 Intake Total 4585 / 4585 1032 / 1032 Output Total 3500 / 3500 Balance 1085 / 1085 1032 / 1032 Weight 114 kg Intake: IV 3785 / 3785 312 / 312 Alburx 5% Inj 3,500 ML @ As 3500 / 3500 Directed IV.SIG Q48H LOLA Rx#: [id number] Calcium Gluconate Inj 3.5 GM In 285 / 285 NS Inj 250 ML @ 120 mls/hr IV. SIG Q48H LOLA Rx#:[id number] SoluMEDROL Inj 250 MG In NS Inj 312 / 312 100 ML @ 200 mls/hr IV.SIG Q6H LOLA Rx#:[id number] Oral 800 / 800 720 / 720 Output: Plasma Exchange Amount 3500 / 3500 Other: # Voids 2 10 Date of Last Bowel Movement 12/01/17 # Bowel Movements 0 Narrative: GENERAL: Patient sitting up in chair at bedside. Appears comfortable. Alert and oriented x3. SKIN: Warm and dry. HEAD: Normocephalic. EYES: No scleral icterus. No injection or drainage. NECK: Supple, trachea midline. No JVD. CARDIOVASCULAR: Regular rate and rhythm without murmurs, gallops, or rubs. RESPIRATORY: Breath sounds equal bilaterally. No accessory muscle use. GASTROINTESTINAL: Abdomen soft, non-tender, nondistended. MUSCULOSKELETAL: No cyanosis,. Trace edema bilateral lower extremities. BACK: Nontender without obvious deformity. No CVA tenderness. Results - Labs CBC & Chem 7: 12/02/17 04:58 10/07/18 12:50 Laboratory Results - last 24 hr 12/02/17 12/03/17 04:58 12:50 Sodium 139 Potassium 4.1 Chloride 104 Carbon Dioxide 27.0 Anion Gap 8 BUN 19 H Creatinine 0.98 Estimated GFR 77 L Random Glucose 158 H Calcium 8.1 L Iron 61 TIBC 234 L % Saturation 26.1 Ferritin 13 Total Bilirubin 0.4 AST 10 L ALT 17 Alkaline Phosphatase 59 Total Protein 5.3 L Albumin 3.4 Vitamin B12 375 Folate 4.5 - Procedures IR dialysis cath plcmt w us Signed EXAM DATE: 11/28/2017 12:00 AM EDT AGE/SEX: 37 years / Female INDICATIONS: Patient with history of Multiple Sclerosis in need of temporary non-tunneled central venous catheter placement for Plasmapheresis. CLINICAL DATA: This is the patient's initial encounter. Patient reports that signs and symptoms have been present for 1 day and indicates a pain score of 0/ 10. MEDICAL/SURGICAL HISTORY: Multiple sclerosis. Anemia. section. COMPARISON: No prior exams available for comparison. FLUORO TIME (min): 0.15 IMAGE SERIES: 3 ACCESS SITE: Right internal jugular vein DEVICE(S): 14 Egyptian double lumen 15 cm Schon catheter Vascath. . . PROCEDURE : 1. Ultrasound guided venipuncture. 2. Fluoroscopic guidance. 3. Central line placement. The risks, benefits and alternatives to the procedure were explained and verbal and written consent was obtained. The site was prepped in sterile fashion. Full sterile technique was used, including cap, mask, sterile gloves and gown and a large sterile sheet. Hand hygiene and 2% chlorhexidine prep was utilized per protocol for cutaneous antisepsis with appropriate dry time for site. Sterile gel and sterile probe cover were utilized for ultrasound guidance. The skin and subcutaneous tissues were infiltrated with local anesthetic solution. A suitable site above the vein was selected with ultrasound and fluoroscopic guidance. A small incision was made. The vein was accessed under direct ultrasound visualization using the micropuncture technique. The micropuncture set was exchanged for a 0.035 wire. The tract was dilated. The catheter was advanced into position under direct fluoroscopic visualization, and was advanced with the tip at the junction of the superior vena cava and rt atrium. The catheter was fixed in place with suture and a sterile dressing was applied. The patient tolerated the procedure well and there were no complications. CONCLUSION: 1. Uncomplicated line placement as above. Electronically signed by: Chin Laguna MD 11/28/2017 Assessment and Plan - Plan Multiple sclerosis exacerbation. -[facility]. Status post IV Solu-Medrol in the ER = Outside records to be requested. Further management as per neurology. MRIS DONE CONSULT HEMATOLOGY FOR PLASMAPHERESIS FOR MULTIPLE SCLEROSIS = Appreciate hematology assistance. Continues on IV steroids as per neurology. Appears to be improving on plasmapheresis. Appreciate physician practice consultant assistance. =12/03= Continue plasmapheresis as per neurology, hematology. Placement of coag factors as per hematology. Appreciate assistance. //Right upper extremity swelling CT angiogram appears negative for thrombus. Likely superficial thrombus. Appears to be improving. =resolved. //Chronic anemia. Hemoglobin 11. No signs of bleeding. = Hemoglobin 10.6. Stable. Tobacco abuse. Cessation counseling provided. //Chronic mild constipation. Laxative ordered x1. = 11/30. No bowel movement in 1 week despite laxatives. Will order enema. = 12/01. No bowel movements recorded. Will order magnesium citrate. =12/02. Resolved. //HAS INSOMNIA Continue Ambien for sleep. //Depression. Continue BuSpar. Which was started here. Discharge Planning: Pending improvement. Will need neurology and hematology clearance.
[2017-12-04] MEDS: MethylPREDNISolone Sod Suc Inj 250 MG in Sodium Chlor 0.9% Inj 100 ML IV.SIG SCH ×5 (00:29→17:07)
[2017-12-04] MEDS: oxyCODONE/Acetaminophen 10/325 Tablet PO PRN ×4 (05:14→21:16)
[2017-12-04] MEDS: Anticoagulant Citrate Dextrose 1,000 ML Solution EXTRACORPO SCH ×2 (06:25→17:08)
[2017-12-04] MEDS: Heparin - SQ 10,000 UNITS/ML Vial OTHER SCH ×2 (06:25→17:08)
[2017-12-04] MEDS: Senna/Docusate Sodium 8.6/50 MG Tablet PO SCH ×2 (07:58→21:16)
[2017-12-04] MEDS: Famotidine 20 MG Tablet PO SCH ×2 (07:58→21:15)
--- NOTE | 2017-12-04 11:49 | P.PNIM ---
Subjective Interval history: Patient states that she is feeling better and has felt more strength in the left lower leg. She states that she would need a walker upon discharge to home. She is due for her fourth cycle of plasmapheresis today. No other concerns at this time. Physical Exam Vital signs: Vital Signs 12/03/17 12:00 12/03/17 16:00 12/03/17 20:00 Temperature 97.7 F 98.1 F 98.3 F Pulse Rate 84 64 68 Respiratory Rate 18 18 20 Blood Pressure 134/70 131/76 146/83 H Pulse Oximetry 95 98 100 12/04/17 00:00 12/04/17 08:00 Temperature 97.6 F 98.5 F Pulse Rate 58 L 64 Respiratory Rate 20 16 Blood Pressure 122/77 137/68 Pulse Oximetry 97 100 Intake & Output 12/03/17 12/04/17 12/04/17 18:59 06:59 18:59 Intake Total 600 / 600 512 / 512 Balance 600 / 600 512 / 512 Weight 114 kg Intake: IV 312 / 312 SoluMEDROL Inj 250 MG In NS Inj 312 / 312 100 ML @ 200 mls/hr IV.SIG Q6H LOLA Rx#:[id number] Oral 600 / 600 200 / 200 Other: # Voids 3 2 Date of Last Bowel Movement 12/01/17 12/01/17 Narrative: GENERAL: Patient sitting up in chair at bedside. Appears comfortable. Alert and oriented x3. CARDIOVASCULAR: Regular rate and rhythm without murmurs, gallops, or rubs. RESPIRATORY: Breath sounds equal bilaterally. No accessory muscle use. GASTROINTESTINAL: Abdomen soft, non-tender, nondistended. MUSCULOSKELETAL: No cyanosis,. Trace edema bilateral lower extremities. BACK: Nontender without obvious deformity. No CVA tenderness. Results - Labs CBC & Chem 7: 12/02/17 04:58 12/03/17 12:50 Laboratory Results - last 24 hr 12/03/17 12:50 Sodium 139 Potassium 4.1 Chloride 104 Carbon Dioxide 27.0 Anion Gap 8 BUN 19 H Creatinine 0.98 Estimated GFR 77 L Random Glucose 158 H Calcium 8.1 L Total Bilirubin 0.4 AST 10 L ALT 17 Alkaline Phosphatase 59 Total Protein 5.3 L Albumin 3.4 - Procedures IR dialysis cath plcmt w us Signed EXAM DATE: 11/28/2017 12:00 AM EDT AGE/SEX: 37 years / Female INDICATIONS: Patient with history of Multiple Sclerosis in need of temporary non-tunneled central venous catheter placement for Plasmapheresis. CLINICAL DATA: This is the patient's initial encounter. Patient reports that signs and symptoms have been present for 1 day and indicates a pain score of 0/ 10. MEDICAL/SURGICAL HISTORY: Multiple sclerosis. Anemia. section. COMPARISON: No prior exams available for comparison. FLUORO TIME (min): 0.15 IMAGE SERIES: 3 ACCESS SITE: Right internal jugular vein DEVICE(S): 14 Polish double lumen 15 cm Schon catheter Vascath. . . PROCEDURE : 1. Ultrasound guided venipuncture. 2. Fluoroscopic guidance. 3. Central line placement. The risks, benefits and alternatives to the procedure were explained and verbal and written consent was obtained. The site was prepped in sterile fashion. Full sterile technique was used, including cap, mask, sterile gloves and gown and a large sterile sheet. Hand hygiene and 2% chlorhexidine prep was utilized per protocol for cutaneous antisepsis with appropriate dry time for site. Sterile gel and sterile probe cover were utilized for ultrasound guidance. The skin and subcutaneous tissues were infiltrated with local anesthetic solution. A suitable site above the vein was selected with ultrasound and fluoroscopic guidance. A small incision was made. The vein was accessed under direct ultrasound visualization using the micropuncture technique. The micropuncture set was exchanged for a 0.035 wire. The tract was dilated. The catheter was advanced into position under direct fluoroscopic visualization, and was advanced with the tip at the junction of the superior vena cava and rt atrium. The catheter was fixed in place with suture and a sterile dressing was applied. The patient tolerated the procedure well and there were no complications. CONCLUSION: 1. Uncomplicated line placement as above. Electronically signed by: Chin Laguna MD 11/28/2017 Assessment and Plan - Plan 1. Multiple sclerosis exacerbation. -[facility] has remained stable Status post IV Solu-Medrol in the ER Further management as per neurology. = Appreciate hematology assistance in starting plasmapheresis. Continues on IV steroids as per neurology. Appears to be improving on plasmapheresis. Appreciate customer sales consultant assistance. Currently cycle 4 out of 5 to 10 cycles per neurology. Seems clinically improved. 2. Right upper extremity swelling CT angiogram appears negative for thrombus. Likely superficial thrombus. Appears to be improving. =resolved. 3. Chronic anemia. Hemoglobin 11. No signs of bleeding. 4. Tobacco abuse. Cessation counseling provided. 5. Chronic mild constipation. Resolved. 6. Depression. Continue BuSpar. Which was started here. Discharge Planning: Will need walker for home and home after plasmapheresis course completed.
--- NOTE | 2017-12-04 12:40 | P.PNONC ---
Subjective Interval history: Patient sitting in chair, states that she feels better today than she did yesterday. She feels that her left leg is getting stronger and she has been ambulating around her room. She also states that she can feel pain in her left knee, which she feels is an improvement in her sensation. Reports lab attempted 6 times to draw blood and remained unsuccessful. Have discussed with RN. Patient requests lab draw from Vas-Cath or peripheral IVs. RN discussed with dialysis to see if they can draw labs. Objective Vital Signs/Intake & Output: Vital Signs 12/03/17 16:00 12/03/17 20:00 12/04/17 00:00 Temperature 98.1 F 98.3 F 97.6 F Pulse Rate 64 68 58 L Respiratory Rate 18 20 20 Blood Pressure 131/76 146/83 H 122/77 Pulse Oximetry 98 100 97 12/04/17 08:00 Temperature 98.5 F Pulse Rate 64 Respiratory Rate 16 Blood Pressure 137/68 Pulse Oximetry 100 Intake & Output 12/03/17 12/04/17 12/04/17 18:59 06:59 18:59 Intake Total 600 / 600 512 / 512 Balance 600 / 600 512 / 512 Weight 114 kg Intake: IV 312 / 312 SoluMEDROL Inj 250 MG In NS Inj 312 / 312 100 ML @ 200 mls/hr IV.SIG Q6H [facility] Rx#:[id number] Oral 600 / 600 200 / 200 Other: # Voids 3 2 Date of Last Bowel Movement 12/01/17 12/01/17 Result Diagrams: 12/04/17 12:30 12/04/17 12:30 Laboratory Results: Laboratory Results - last 24 hr 12/03/17 12:50 Sodium 139 Potassium 4.1 Chloride 104 Carbon Dioxide 27.0 Anion Gap 8 BUN 19 H Creatinine 0.98 Estimated GFR 77 L Random Glucose 158 H Calcium 8.1 L Total Bilirubin 0.4 AST 10 L ALT 17 Alkaline Phosphatase 59 Total Protein 5.3 L Albumin 3.4 Medications: Active Medications Generic Name Dose Route Start Last Admin Trade Name Freq PRN Reason Stop Dose Admin Al Hydroxide/Mg Hydroxide 30 ml 11/23/17 13:03 11/28/17 20:54 Milk Of Magnesia Liq PO 30 ml Q12H PRN Administration Mild Constipation Buspirone HCl 5 mg 11/25/17 21:00 12/04/17 07:58 Buspar PO 5 mg BID LOLA Administration Famotidine 20 mg 11/23/17 15:00 12/04/17 07:58 Pepcid PO 20 mg BID LOLA Administration Heparin Sodium (Porcine) 5,000 units 11/28/17 14:00 12/04/17 06:25 Heparin Inj OTHER 12/09/17 13:59 Not Given Q48H [facility] Heparin Sodium (Porcine) 1,000 units 11/28/17 12:33 11/28/17 17:31 Heparin Inj IV.FLUSH 12/07/17 12:32 1,000 units Q48H PRN Administration SEE LABEL COMMENTS Methylprednisolone Sodium 104 mls @ 200 mls/hr 11/27/17 12:00 12/04/17 06:10 Succinate 250 mg/ Sodium IV.SIG Infused Chloride Q6H [facility] Infusion Albumin Human 3,500 mls @ 0 mls/hr 11/28/17 14:00 12/02/17 13:40 Alburx 5% Inj IV.SIG 12/06/17 14:01 Infused Q48H [facility] Infusion As Directed Calcium Gluconate 3.5 gm/ 285 mls @ 120 mls/hr 11/28/17 14:00 12/02/17 13:40 Sodium Chloride IV.SIG 12/06/17 16:23 Infused Q48H [facility] Infusion Lactulose 30 ml 11/23/17 13:03 11/25/17 08:18 Lactulose Liq PO 30 ml DAILY PRN Administration SEVERE CONSITIPATION Morphine Sulfate 4 mg 11/23/17 13:04 11/30/17 00:55 Morphine Inj IV.PUSH 4 mg Q3H PRN Administration BREAKTHROUGH PAIN Morphine Sulfate 2 mg 11/23/17 13:04 11/26/17 09:11 Morphine Inj IV.PUSH 2 mg Q3H PRN Administration PAIN 3-5; IF UABLE TO TAKE PO Oxycodone/Acetaminophen 1 tab 11/23/17 13:04 11/23/17 13:14 Percocet 5/325 Mg PO 1 tab Q6H PRN Administration PAIN SCALE 3 TO 5 Oxycodone/Acetaminophen 1 tab 11/29/17 15:41 12/04/17 09:24 Percocet 10/325 Mg PO 1 tab Q4H PRN Administration PAIN SCALE 6 TO 10 Senna/Docusate Sodium 1 tab 11/23/17 21:00 12/04/17 07:58 Lisa-Colace PO Not Given BID LOLA Sennosides 17.2 mg 11/23/17 13:03 11/28/17 08:27 Senokot PO 17.2 mg Q12H PRN Administration Moderate Constipation Sodium Chloride 10 ml 11/28/17 14:00 12/04/17 06:25 Ns Flush OTHER 12/08/17 13:59 Not Given Q48H [facility]A Sodium Citrate 1,000 ml 11/28/17 15:00 12/04/17 06:25 Acd-A Solution EXTRACORPO 12/06/17 15:01 Not Given Q48H [facility] Objective Remarks: GENERAL: Well-nourished, well-developed young female patient, in no acute distress. SKIN: Warm and dry. Vasc-cath Rt. HEAD: Normocephalic. EYES: No scleral icterus. No injection or drainage. NECK: Supple, trachea midline. CARDIOVASCULAR: Regular rate and rhythm without murmurs. RESPIRATORY: Breath sounds equal bilaterally. Non-labored at rest. GASTROINTESTINAL: Abdomen soft, non-tender, nondistended. EXTREMITIES: No cyanosis, or edema. MUSCULOSKELETAL: Adequate muscle tone. NEUROLOGICAL: Awake, alert, and oriented x3. PSYCHIATRIC: Appropriate mood and affect; insight and judgment normal. Assessment/Plan - Plan Ms. Price is a pleasant 37-year-old female patient who has a history of multiple sclerosis. She recently moved to [place] from [place]. She is under the care of neurologist who consulted hematology for plasma exchange. Plan: 1. Patient scheduled to receive number 4 out of 5 plasma exchange today. Lab unable to draw blood. RN discussed with dialysis to see if they can pull labs prior to plasma exchange. Discussed importance of obtaining results prior to plasma exchange. 2. S/p transfusion of cryoprecipitate on 12/01/17 for low fibrinogen. Awaiting results today. 3. Monitor CBC, monitor coags. Updated entry at 1600: STEVENSON Maxwell called with critical fibrinogen at 63. Pt plasma exchange delayed today due to difficulties obtaining labs and other logistical technicalities. Spoke with French from dialysis earlier in the afternoon and he was rescheduling todays plasma exchange for the a.m. This will be treatment 4 of 5. Will order cryo to be transfused today for low fibrinogen. Repeat coags and fibrinogen in the a.m. - Attending Statement The exam, history, and the medical decision-making described in the above note were completed with the assistance of the mid-level provider. I reviewed and agree with the findings presented. I attest that I had a [id number] encounter with the patient on the same day, and personally performed and documented my assessment and findings in the medical record. Patient complaining of generalized weakness but stated that her left sided weakness is improving. Fibrinogen is less than 100 today. We will hold the plasmapheresis for today. Discussed with hvac controls technician Give cryoprecipitate today and repeat PTT and fibrinogen in the morning. If it is still less than 100 then we will give her more cryo before the next plasmapheresis
[2017-12-04 12:52] LABS: Baso % (Auto) 0.1 % (0.0-2.0); Hemoglobin 9.6 gm/dL (11.6-15.3); Lymph # (Auto) 0.5 th/mm3 (1.0-4.8); Lymph % (Auto) 2.1 % (9.0-44.0); Mean Corpuscular Hemoglobin 25.9 pg (27.0-34.0); Mean Corpuscular Volume 80.8 fL (80.0-100.0); Mean Platelet Volume 8.4 fL (7.0-11.0); Mono # (Auto) 1.4 th/mm3 (0.0-0.9); Mono % (Auto) 6.2 % (0.0-8.0); Neut # (Auto) 20.5 th/mm3 (1.8-7.7); Neut % (Auto) 91.6 % (16.0-70.0); Platelet Count 192 th/mm3 (150-450); Red Blood Count 3.71 mil/mm3 (4.00-5.30); Red Cell Distribution Width 23.7 % (11.6-17.2); White Blood Count 22.4 th/mm3 (4.0-11.0)
[2017-12-04 13:19] LABS: Alanine Aminotransferase 20 U/L (10-53); Albumin 3.5 g/dL (3.4-5.0); Anion Gap 5 meq/L (5-15); Aspartate Aminotransferase 12 U/L (15-37); Blood Urea Nitrogen 22 mg/dL (7-18); Calcium 8.2 mg/dL (8.5-10.1); Carbon Dioxide 35.3 meq/L (21.0-32.0); Chloride 102 meq/L (98-107); Glomerular Filtration Rate 81 mL/min (>89); Glucose,Random 138 mg/dL (74-106); Potassium 3.6 meq/L (3.5-5.1); Sodium 142 meq/L (136-145)
[2017-12-04 13:22] LABS: Alkaline Phosphatase 51 U/L (45-117); Total Protein 5.1 g/dL (6.4-8.2)
[2017-12-04] MEDS ORDERED: Sodium Chlor 0.9% Inj 250 ML IV.SIG SCH ×2 (16:00→18:00)
[2017-12-04] MEDS: SODIUM CHLOR 0.9% IV.SIG SCH (17:08)
[2017-12-04] MEDS: ALBUMIN HUMAN 5% IV.SIG SCH (17:08)
[2017-12-04] MEDS: CALCIUM GLUCONATE IV.SIG SCH (17:08)
--- NOTE | 2017-12-04 20:05 | P.PNNEU ---
Subjective Subjective Comments: has had 3 plasmapheresis--feels improved in left sided strength. Feels a little weaker on the right Active Medications: Active Medications Acetaminophen (Tylenol) 650 mg PO Q4H PRN PRN Reason: Temp > 100.4 Acetaminophen (Tylenol) 650 mg PO Q4H PRN PRN Reason: SEE LABEL COMMENTS Al Hydroxide/Mg Hydroxide (Milk Of Brittany Liq) 30 ml PO Q12H PRN PRN Reason: Mild Constipation Last Admin: 11/28/17 20:54 Dose: 30 ml Bisacodyl (Dulcolax Supp) 10 mg RECTAL DAILY PRN PRN Reason: SEVERE CONSITIPATION Buspirone HCl (Buspar) 5 mg PO BID [facility] Last Admin: 12/04/17 07:58 Dose: 5 mg Diphenhydramine HCl (Benadryl Inj) 25 mg IV.PUSH PRN PRN PRN Reason: FOR ALLERGIC REACTION Stop: 12/07/17 12:24 Diphenhydramine HCl (Benadryl Inj) 25 mg IV.PUSH PRN PRN PRN Reason: SEE LABEL COMMENTS Stop: 12/07/17 12:25 Diphenhydramine HCl (Benadryl) 25 mg PO Q4H PRN PRN Reason: SEE LABEL COMMENTS Famotidine (Pepcid) 20 mg PO BID [facility] Last Admin: 12/04/17 07:58 Dose: 20 mg Heparin Sodium (Porcine) (Heparin Inj) 5,000 units OTHER Q48H [facility] Stop: 12/09/17 13:59 Last Admin: 12/04/17 17:08 Dose: Not Given Heparin Sodium (Porcine) (Heparin Inj) 1,000 units IV.FLUSH Q48H PRN PRN Reason: SEE LABEL COMMENTS Stop: 12/07/17 12:32 Last Admin: 11/28/17 17:31 Dose: 1,000 units Methylprednisolone Sodium Succinate 250 mg/ Sodium Chloride 104 mls @ 200 mls/ hr IV.SIG Q6H [facility] Last Infusion: 12/04/17 17:50 Dose: Infused Albumin Human (Alburx 5% Inj) 3,500 mls @ 0 mls/hr IV.SIG Q48H [facility] Stop: 12/06/17 14:01 Last Admin: 12/04/17 17:08 Dose: Not Given Calcium Gluconate 3.5 gm/ (Sodium Chloride) 285 mls @ 120 mls/hr IV.SIG Q48H [facility] Stop: 12/06/17 16:23 Last Admin: 12/04/17 17:08 Dose: Not Given Sodium Chloride (Ns Inj) 250 mls @ 15 mls/hr IV.SIG ONCE [facility] Stop: 12/05/17 08:39 Last Admin: 12/04/17 16:17 Dose: Not Given Ibuprofen (Motrin) 600 mg PO Q6HR PRN PRN Reason: PAIN SCALE 1 TO 2 Lactulose (Lactulose Liq) 30 ml PO DAILY PRN PRN Reason: SEVERE CONSITIPATION Last Admin: 12/04/17 17:07 Dose: 30 ml Morphine Sulfate (Morphine Inj) 4 mg IV.PUSH Q3H PRN PRN Reason: BREAKTHROUGH PAIN Last Admin: 11/30/17 00:55 Dose: 4 mg Morphine Sulfate (Morphine Inj) 4 mg IV.PUSH Q3H PRN PRN Reason: PAIN 6-10;IF UNABLE TO TAKE PO Morphine Sulfate (Morphine Inj) 2 mg IV.PUSH Q3H PRN PRN Reason: PAIN 3-5; IF UABLE TO TAKE PO Last Admin: 11/26/17 09:11 Dose: 2 mg Naloxone HCl (Narcan Inj) 0.4 mg IV.PUSH UNSCH PRN PRN Reason: SEE LABEL COMMENTS Ondansetron HCl (Zofran Inj) 4 mg IV.PUSH Q6H PRN PRN Reason: NAUSEA OR VOMITING Oxycodone/Acetaminophen (Percocet 5/325 Mg) 1 tab PO Q6H PRN PRN Reason: PAIN SCALE 3 TO 5 Last Admin: 11/23/17 13:14 Dose: 1 tab Oxycodone/Acetaminophen (Percocet 10/325 Mg) 1 tab PO Q4H PRN PRN Reason: PAIN SCALE 6 TO 10 Last Admin: 12/04/17 13:54 Dose: 1 tab Senna/Docusate Sodium (Lisa-Colace) 1 tab PO BID [facility] Last Admin: 12/04/17 07:58 Dose: Not Given Sennosides (Senokot) 17.2 mg PO Q12H PRN PRN Reason: Moderate Constipation Last Admin: 11/28/17 08:27 Dose: 17.2 mg Sodium Chloride (Ns Flush) 10 ml OTHER Q48H [facility] Stop: 12/08/17 13:59 Last Admin: 12/04/17 17:08 Dose: Not Given Sodium Citrate (Acd-A Solution) 1,000 ml EXTRACORPO Q48H [facility] Stop: 12/06/17 15:01 Last Admin: 12/04/17 17:08 Dose: Not Given Allergies/Adverse Reactions: Allergies Allergy/AdvReac Type Severity Reaction Status Date / Time No Known Allergies Allergy Verified 11/22/17 22:25 Physical Exam Vital signs: Vital Signs 12/04/17 00:00 12/04/17 08:00 12/04/17 12:00 Temperature 97.6 F 98.5 F 98.3 F Pulse Rate 58 L 64 77 Respiratory Rate 20 16 16 Blood Pressure 122/77 137/68 122/78 Pulse Oximetry 97 100 97 12/04/17 16:00 12/04/17 17:03 12/04/17 17:21 Temperature 97.8 F 97.8 F 97.8 F Pulse Rate 69 69 84 Respiratory Rate 18 18 18 Blood Pressure 135/78 135/78 140/79 Pulse Oximetry 98 98 97 Intake & Output 12/04/17 12/04/17 12/05/17 06:59 18:59 06:59 Intake Total 512 / 512 208 / 208 237 / 237 Balance 512 / 512 208 / 208 237 / 237 Weight 114 kg Intake: IV 312 / 312 208 / 208 SoluMEDROL Inj 250 MG In NS Inj 312 / 312 208 / 208 100 ML @ 200 mls/hr IV.SIG Q6H [facility] Rx#:[id number] Oral 200 / 200 Intake (Blood Product) Amt 0 / 0 237 / 237 Pre-Pooled Cryo Thawed 10units 0 / 0 237 / 237 Unit [id number] Other: # Voids 2 4 Date of Last Bowel Movement 12/01/17 12/01/17 - Routine Neurological Exam alert, speech normal CN intact MOTOR 4/5 LLE. 4+/5 RLE Objective Laboratory Results - last 24 hr 12/04/17 12/04/17 12/04/17 12:30 12:30 14:20 WBC 22.4 H RBC 3.71 L Hgb 9.6 L Hct 30.0 L MCV 80.8 MCH 25.9 L MCHC 32.0 RDW 23.7 H Plt Count 192 MPV 8.4 Neut % (Auto) 91.6 H Lymph % (Auto) 2.1 L [place] % (Auto) 6.2 Eos % (Auto) 0.0 Baso % (Auto) 0.1 Neut # (Auto) 20.5 H Lymph # (Auto) 0.5 L [place] # (Auto) 1.4 H Eos # (Auto) 0.0 Baso # (Auto) 0.0 WBC Differential . Differential Comment Auto diff final Fibrinogen 63 L* Sodium 142 Potassium 3.6 Chloride 102 Carbon Dioxide 35.3 H Anion Gap 5 BUN 22 H Creatinine 0.94 Estimated GFR 81 L Random Glucose 138 H Calcium 8.2 L Total Bilirubin 0.4 AST 12 L ALT 20 Alkaline Phosphatase 51 Total Protein 5.1 L Albumin 3.5 Blood Bank Comment 12/04/17 16:00 WBC RBC Hgb Hct MCV MCH MCHC RDW Plt Count MPV Neut % (Auto) Lymph % (Auto) [place] % (Auto) Eos % (Auto) Baso % (Auto) Neut # (Auto) Lymph # (Auto) [place] # (Auto) Eos # (Auto) Baso # (Auto) WBC Differential Differential Comment Fibrinogen Sodium Potassium Chloride Carbon Dioxide Anion Gap BUN Creatinine Estimated GFR Random Glucose Calcium Total Bilirubin AST ALT Alkaline Phosphatase Total Protein Albumin Blood Bank Comment Review/Management - Diagnosis (1) Multiple sclerosis exacerbation Code(s): G35 - Multiple sclerosis Status: Acute Current Visit: Yes - Review/Management Plan: continue plasmapheresis every other day for 5-10 treatments.
[2017-12-05] MEDS: MethylPREDNISolone Sod Suc Inj 250 MG in Sodium Chlor 0.9% Inj 100 ML IV.SIG SCH ×4 (00:54→18:40)
[2017-12-05] MEDS: oxyCODONE/Acetaminophen 10/325 Tablet PO PRN ×4 (02:57→19:54)
[2017-12-05 05:50] LABS: Baso # (Auto) 0.1 th/mm3 (0.0-0.2); Baso % (Auto) 0.5 % (0.0-2.0); Hematocrit 32.3 % (35.0-46.0); Hemoglobin 10.1 gm/dL (11.6-15.3); Lymph # (Auto) 0.4 th/mm3 (1.0-4.8); Lymph % (Auto) 2.1 % (9.0-44.0); Mean Corpuscular HGB Conc 31.1 % (32.0-36.0); Mean Corpuscular Hemoglobin 25.7 pg (27.0-34.0); Mean Corpuscular Volume 82.5 fL (80.0-100.0); Mean Platelet Volume 8.5 fL (7.0-11.0); Mono # (Auto) 0.9 th/mm3 (0.0-0.9); Neut # (Auto) 19.9 th/mm3 (1.8-7.7); Neut % (Auto) 93.4 % (16.0-70.0); Platelet Count 168 th/mm3 (150-450); Red Blood Count 3.92 mil/mm3 (4.00-5.30); Red Cell Distribution Width 23.5 % (11.6-17.2); White Blood Count 21.3 th/mm3 (4.0-11.0)
[2017-12-05 06:31] LABS: Albumin 3.7 g/dL (3.4-5.0); Anion Gap 9 meq/L (5-15); Aspartate Aminotransferase 11 U/L (15-37); Blood Urea Nitrogen 23 mg/dL (7-18); Calcium 8.8 mg/dL (8.5-10.1); Carbon Dioxide 30.8 meq/L (21.0-32.0); Chloride 101 meq/L (98-107); Glomerular Filtration Rate 82 mL/min (>89); Glucose,Random 118 mg/dL (74-106); Potassium 3.7 meq/L (3.5-5.1); Sodium 141 meq/L (136-145)
[2017-12-05 06:32] LABS: Alanine Aminotransferase 21 U/L (10-53)
[2017-12-05 06:34] LABS: Alkaline Phosphatase 77 U/L (45-117); Total Protein 5.7 g/dL (6.4-8.2)
[2017-12-05 07:46] LABS: Lymphocytes 1 % (9-44); Myelocytes 1 % (0-0); Ovalocytes 1+; Platelet Estimate Normal (Normal); Platelet Morphology Normal (Normal); Target Cells 1+
[2017-12-05] MEDS: Famotidine 20 MG Tablet PO SCH ×2 (09:11→20:53)
[2017-12-05] MEDS: Senna/Docusate Sodium 8.6/50 MG Tablet PO SCH ×2 (09:12→20:53)
--- NOTE | 2017-12-05 11:53 | P.PNIM ---
Subjective Interval history: Reports she is not feeling as good today. She did not complete her session yesterday. Will move forward with the plasmapheresis today. Physical Exam Vital signs: Vital Signs 12/04/17 12:00 12/04/17 16:00 12/04/17 17:03 Temperature 98.3 F 97.8 F 97.8 F Pulse Rate 77 69 69 Respiratory Rate 16 18 18 Blood Pressure 122/78 135/78 135/78 Pulse Oximetry 97 98 98 12/04/17 17:21 12/04/17 20:00 12/05/17 00:00 Temperature 97.8 F 97.7 F 97.8 F Pulse Rate 84 74 70 Respiratory Rate 18 20 20 Blood Pressure 140/79 123/85 146/74 H Pulse Oximetry 97 99 99 12/05/17 08:00 Temperature 98.0 F Pulse Rate 63 Respiratory Rate 17 Blood Pressure 142/70 H Pulse Oximetry 99 Intake & Output 12/04/17 12/05/17 12/05/17 18:59 06:59 18:59 Intake Total 208 / 208 761 / 761 104 / 104 Balance 208 / 208 761 / 761 104 / 104 Weight 114 kg Intake: IV 208 / 208 104 / 104 104 / 104 SoluMEDROL Inj 250 MG In NS Inj 208 / 208 104 / 104 104 / 104 100 ML @ 200 mls/hr IV.SIG Q6H [facility] Rx#:[id number] Oral 420 / 420 Intake (Blood Product) Amt 0 / 0 237 / 237 Pre-Pooled Cryo Thawed 10units 0 / 0 237 / 237 Unit [id number] Other: # Voids 4 3 Date of Last Bowel Movement 12/01/17 12/01/17 12/05/17 # Bowel Movements 2 Narrative: GENERAL: Patient sitting up in bed. Appears comfortable. Alert and oriented x3. CARDIOVASCULAR: Regular rate and rhythm without murmurs, gallops, or rubs. RESPIRATORY: Breath sounds equal bilaterally. No accessory muscle use. GASTROINTESTINAL: Abdomen soft, non-tender, nondistended. MUSCULOSKELETAL: No cyanosis,. Trace edema bilateral lower extremities. BACK: Nontender without obvious deformity. No CVA tenderness. Results - Labs CBC & Chem 7: 12/05/17 05:30 12/05/17 05:30 Laboratory Results - last 24 hr 12/04/17 12/04/17 12/04/17 12:30 12:30 14:20 WBC 22.4 H RBC 3.71 L Hgb 9.6 L Hct 30.0 L MCV 80.8 MCH 25.9 L MCHC 32.0 RDW 23.7 H Plt Count 192 MPV 8.4 Prelim Diff (Auto) Neut % (Auto) 91.6 H Lymph % (Auto) 2.1 L [place] % (Auto) 6.2 Eos % (Auto) 0.0 Baso % (Auto) 0.1 Neut # (Auto) 20.5 H Lymph # (Auto) 0.5 L [place] # (Auto) 1.4 H Eos # (Auto) 0.0 Baso # (Auto) 0.0 WBC Differential . Seg Neuts % (Manual) Band Neuts % (Manual) Lymphocytes % (Manual) Myelocytes % (Man) Abs Neuts (Manual) Differential Comment Auto diff final Platelet Estimate Platelet Morphology Target Cells Ovalocytes Fibrinogen 63 L* Sodium 142 Potassium 3.6 Chloride 102 Carbon Dioxide 35.3 H Anion Gap 5 BUN 22 H Creatinine 0.94 Estimated GFR 81 L Random Glucose 138 H Calcium 8.2 L Total Bilirubin 0.4 AST 12 L ALT 20 Alkaline Phosphatase 51 Total Protein 5.1 L Albumin 3.5 Blood Bank Comment 12/04/17 12/05/17 12/05/17 16:00 05:30 05:30 WBC 21.3 H RBC 3.92 L Hgb 10.1 L Hct 32.3 L MCV 82.5 MCH 25.7 L MCHC 31.1 L RDW 23.5 H Plt Count 168 MPV 8.5 Prelim Diff (Auto) Slide review pending Neut % (Auto) 93.4 H Lymph % (Auto) 2.1 L [place] % (Auto) 4.0 Eos % (Auto) 0.0 Baso % (Auto) 0.5 Neut # (Auto) 19.9 H Lymph # (Auto) 0.4 L [place] # (Auto) 0.9 Eos # (Auto) 0.0 Baso # (Auto) 0.1 WBC Differential Manual diff final Seg Neuts % (Manual) 97 H Band Neuts % (Manual) 1 Lymphocytes % (Manual) 1 L Myelocytes % (Man) 1 H Abs Neuts (Manual) 21.1 H Differential Comment . Platelet Estimate Normal Platelet Morphology Normal Target Cells 1+ H Ovalocytes 1+ H Fibrinogen 116 L Sodium Potassium Chloride Carbon Dioxide Anion Gap BUN Creatinine Estimated GFR Random Glucose Calcium Total Bilirubin AST ALT Alkaline Phosphatase Total Protein Albumin Blood Bank Comment 12/05/17 05:30 WBC RBC Hgb Hct MCV MCH MCHC RDW Plt Count MPV Prelim Diff (Auto) Neut % (Auto) Lymph % (Auto) [place] % (Auto) Eos % (Auto) Baso % (Auto) Neut # (Auto) Lymph # (Auto) [place] # (Auto) Eos # (Auto) Baso # (Auto) WBC Differential Seg Neuts % (Manual) Band Neuts % (Manual) Lymphocytes % (Manual) Myelocytes % (Man) Abs Neuts (Manual) Differential Comment Platelet Estimate Platelet Morphology Target Cells Ovalocytes Fibrinogen Sodium 141 Potassium 3.7 Chloride 101 Carbon Dioxide 30.8 Anion Gap 9 BUN 23 H Creatinine 0.93 Estimated GFR 82 L Random Glucose 118 H Calcium 8.8 Total Bilirubin 0.4 AST 11 L ALT 21 Alkaline Phosphatase 77 Total Protein 5.7 L D Albumin 3.7 Blood Bank Comment - Imaging Impressions Catheter Placement 11/28/17 00:00 CONCLUSION: 1. Uncomplicated line placement as above. - Procedures IR dialysis cath [facility] Signed EXAM DATE: 11/28/2017 12:00 AM EDT AGE/SEX: 37 years / Female INDICATIONS: Patient with history of Multiple Sclerosis in need of temporary non-tunneled central venous catheter placement for Plasmapheresis. CLINICAL DATA: This is the patient's initial encounter. Patient reports that signs and symptoms have been present for 1 day and indicates a pain score of 0/ 10. MEDICAL/SURGICAL HISTORY: Multiple sclerosis. Anemia. section. COMPARISON: No prior exams available for comparison. FLUORO TIME (min): 0.15 IMAGE SERIES: 3 ACCESS SITE: Right internal jugular vein DEVICE(S): 14 [place]ese double lumen 15 cm Schon catheter Vascath. . . PROCEDURE : 1. Ultrasound guided venipuncture. 2. Fluoroscopic guidance. 3. Central line placement. The risks, benefits and alternatives to the procedure were explained and verbal and written consent was obtained. The site was prepped in sterile fashion. Full sterile technique was used, including cap, mask, sterile gloves and gown and a large sterile sheet. Hand hygiene and 2% chlorhexidine prep was utilized per protocol for cutaneous antisepsis with appropriate dry time for site. Sterile gel and sterile probe cover were utilized for ultrasound guidance. The skin and subcutaneous tissues were infiltrated with local anesthetic solution. A suitable site above the vein was selected with ultrasound and fluoroscopic guidance. A small incision was made. The vein was accessed under direct ultrasound visualization using the micropuncture technique. The micropuncture set was exchanged for a 0.035 wire. The tract was dilated. The catheter was advanced into position under direct fluoroscopic visualization, and was advanced with the tip at the junction of the superior vena cava and rt atrium. The catheter was fixed in place with suture and a sterile dressing was applied. The patient tolerated the procedure well and there were no complications. CONCLUSION: 1. Uncomplicated line placement as above. Electronically signed by: Chin Laguna MD 11/28/2017 Assessment and Plan - Plan 1. Multiple sclerosis exacerbation. -Neurochecks has remained stable Status post IV Solu-Medrol in the ER Further management as per neurology. = Appreciate hematology assistance in starting plasmapheresis. Continues on IV steroids as per neurology. Appears to be improving on plasmapheresis. To complete cycle 4 out of 5 to 10 cycles per neurology. 2. Right upper extremity swelling CT angiogram appears negative for thrombus. Likely superficial thrombus. Appears to be improving. =resolved. 3. Chronic anemia. Hemoglobin 10.1. No signs of bleeding. 4. Tobacco abuse. Cessation counseling provided. 5. Chronic mild constipation. Resolved. 6. Depression. Continue BuSpar. 7. DVT prophylaxisheparin Discharge Planning: Will need walker for home and home after plasmapheresis course completed.
--- NOTE | 2017-12-05 14:01 | P.PNONC ---
Subjective Interval history: Afebrile. Patient lying in bed, states she feels terrible. Her family is at the bedside. Patient reports she feels swollen all over. She associates the swelling with making it painful to stand. She continues to report improvement on her left side however she is now feels like her right side is weakening. She is due for treatment 4 of 5 today. Objective Vital Signs/Intake & Output: Vital Signs 12/04/17 16:00 12/04/17 17:03 12/04/17 17:21 Temperature 97.8 F 97.8 F 97.8 F Pulse Rate 69 69 84 Respiratory Rate 18 18 18 Blood Pressure 135/78 135/78 140/79 Pulse Oximetry 98 98 97 12/04/17 20:00 12/05/17 00:00 12/05/17 08:00 Temperature 97.7 F 97.8 F 98.0 F Pulse Rate 74 70 63 Respiratory Rate 20 20 17 Blood Pressure 123/85 146/74 H 142/70 H Pulse Oximetry 99 99 99 12/05/17 12:00 Temperature 98.0 F Pulse Rate 70 Respiratory Rate 16 Blood Pressure 141/74 H Pulse Oximetry 100 Intake & Output 12/04/17 12/05/17 12/05/17 18:59 06:59 18:59 Intake Total 208 / 208 761 / 761 208 / 208 Balance 208 / 208 761 / 761 208 / 208 Weight 114 kg Intake: IV 208 / 208 104 / 104 208 / 208 SoluMEDROL Inj 250 MG In NS Inj 208 / 208 104 / 104 208 / 208 100 ML @ 200 mls/hr IV.SIG Q6H [facility] Rx#:[id number] Oral 420 / 420 Intake (Blood Product) Amt 0 / 0 237 / 237 Pre-Pooled Cryo Thawed 10units 0 / 0 237 / 237 Unit [id number] Other: # Voids 4 3 Date of Last Bowel Movement 12/01/17 12/01/17 12/05/17 # Bowel Movements 2 Result Diagrams: 12/05/17 05:30 12/05/17 05:30 Laboratory Results: Laboratory Results - last 24 hr 12/04/17 12/04/17 12/05/17 14:20 16:00 05:30 WBC 21.3 H RBC 3.92 L Hgb 10.1 L Hct 32.3 L MCV 82.5 MCH 25.7 L MCHC 31.1 L RDW 23.5 H Plt Count 168 MPV 8.5 Prelim Diff (Auto) Slide review pending Neut % (Auto) 93.4 H Lymph % (Auto) 2.1 L Lamb % (Auto) 4.0 Eos % (Auto) 0.0 Baso % (Auto) 0.5 Neut # (Auto) 19.9 H Lymph # (Auto) 0.4 L Lamb # (Auto) 0.9 Eos # (Auto) 0.0 Baso # (Auto) 0.1 WBC Differential Manual diff final Seg Neuts % (Manual) 97 H Band Neuts % (Manual) 1 Lymphocytes % (Manual) 1 L Myelocytes % (Man) 1 H Abs Neuts (Manual) 21.1 H Differential Comment . Platelet Estimate Normal Platelet Morphology Normal Target Cells 1+ H Ovalocytes 1+ H Fibrinogen 63 L* Sodium Potassium Chloride Carbon Dioxide Anion Gap BUN Creatinine Estimated GFR Random Glucose Calcium Total Bilirubin AST ALT Alkaline Phosphatase Total Protein Albumin Blood Bank Comment 12/05/17 12/05/17 05:30 05:30 WBC RBC Hgb Hct MCV MCH MCHC RDW Plt Count MPV Prelim Diff (Auto) Neut % (Auto) Lymph % (Auto) Lamb % (Auto) Eos % (Auto) Baso % (Auto) Neut # (Auto) Lymph # (Auto) Lamb # (Auto) Eos # (Auto) Baso # (Auto) WBC Differential Seg Neuts % (Manual) Band Neuts % (Manual) Lymphocytes % (Manual) Myelocytes % (Man) Abs Neuts (Manual) Differential Comment Platelet Estimate Platelet Morphology Target Cells Ovalocytes Fibrinogen 116 L Sodium 141 Potassium 3.7 Chloride 101 Carbon Dioxide 30.8 Anion Gap 9 BUN 23 H Creatinine 0.93 Estimated GFR 82 L Random Glucose 118 H Calcium 8.8 Total Bilirubin 0.4 AST 11 L ALT 21 Alkaline Phosphatase 77 Total Protein 5.7 L D Albumin 3.7 Blood Bank Comment Imaging Studies: Impressions Catheter Placement 11/28/17 00:00 CONCLUSION: 1. Uncomplicated line placement as above. Medications: Active Medications Generic Name Dose Route Start Last Admin Trade Name Freq PRN Reason Stop Dose Admin Al Hydroxide/Mg Hydroxide 30 ml 11/23/17 13:03 11/28/17 20:54 Milk Of Magnesia Liq PO 30 ml Q12H PRN Administration Mild Constipation Buspirone HCl 5 mg 11/25/17 21:00 12/05/17 09:11 Buspar PO 5 mg BID LOLA Administration Famotidine 20 mg 11/23/17 15:00 12/05/17 09:11 Pepcid PO 20 mg BID LOLA Administration Heparin Sodium (Porcine) 5,000 units 11/28/17 14:00 12/04/17 17:08 Heparin Inj OTHER 12/09/17 13:59 Not Given Q48H [facility] Heparin Sodium (Porcine) 1,000 units 11/28/17 12:33 11/28/17 17:31 Heparin Inj IV.FLUSH 12/07/17 12:32 1,000 units Q48H PRN Administration SEE LABEL COMMENTS Methylprednisolone Sodium 104 mls @ 200 mls/hr 11/27/17 12:00 12/05/17 12:34 Succinate 250 mg/ Sodium IV.SIG Infused Chloride Q6H [facility] Infusion Albumin Human 3,500 mls @ 0 mls/hr 11/28/17 14:00 12/04/17 17:08 Alburx 5% Inj IV.SIG 12/06/17 14:01 Not Given Q48H [facility] As Directed Calcium Gluconate 3.5 gm/ 285 mls @ 120 mls/hr 11/28/17 14:00 12/04/17 17:08 Sodium Chloride IV.SIG 12/06/17 16:23 Not Given Q48H [facility] Lactulose 30 ml 11/23/17 13:03 12/04/17 17:07 Lactulose Liq PO 30 ml DAILY PRN Administration SEVERE CONSITIPATION Morphine Sulfate 4 mg 11/23/17 13:04 11/30/17 00:55 Morphine Inj IV.PUSH 4 mg Q3H PRN Administration BREAKTHROUGH PAIN Morphine Sulfate 2 mg 11/23/17 13:04 11/26/17 09:11 Morphine Inj IV.PUSH 2 mg Q3H PRN Administration PAIN 3-5; IF UABLE TO TAKE PO Oxycodone/Acetaminophen 1 tab 11/23/17 13:04 11/23/17 13:14 Percocet 5/325 Mg PO 1 tab Q6H PRN Administration PAIN SCALE 3 TO 5 Oxycodone/Acetaminophen 1 tab 11/29/17 15:41 12/05/17 11:51 Percocet 10/325 Mg PO 1 tab Q4H PRN Administration PAIN SCALE 6 TO 10 Senna/Docusate Sodium 1 tab 11/23/17 21:00 12/05/17 09:12 Lisa-Colace PO Not Given BID LOLA Sennosides 17.2 mg 11/23/17 13:03 11/28/17 08:27 Senokot PO 17.2 mg Q12H PRN Administration Moderate Constipation Sodium Chloride 10 ml 11/28/17 14:00 12/04/17 17:08 Ns Flush OTHER 12/08/17 13:59 Not Given Q48H [facility] Sodium Citrate 1,000 ml 11/28/17 15:00 12/04/17 17:08 Acd-A Solution EXTRACORPO 12/06/17 15:01 Not Given Q48H [facility] Objective Remarks: GENERAL: Well-nourished, well-developed young female patient, in no acute distress. SKIN: Warm and dry. Vasc-cath Rt, drsg clean/dry. HEAD: Normocephalic. EYES: No scleral icterus. No injection or drainage. NECK: Supple, trachea midline. CARDIOVASCULAR: Regular rate and rhythm without murmurs. RESPIRATORY: Breath sounds clear, equal bilaterally. Non-labored at rest. GASTROINTESTINAL: Abdomen soft, non-tender, nondistended. EXTREMITIES: No cyanosis, or pitting edema. MUSCULOSKELETAL: Adequate muscle tone. BLE weakened strength. NEUROLOGICAL: Awake, alert, and oriented x3. PSYCHIATRIC: Appropriate mood and affect; insight and judgment normal. Assessment/Plan - Plan Ms. Price is a pleasant 37-year-old female patient who has a history of multiple sclerosis. She recently moved to [place] from [place]. She is under the care of neurologist who consulted hematology for plasma exchange. Plan: 1. Patient scheduled to receive number 4 out of 5 plasma exchange today. Status post transfusion of cryoprecipitate yesterday for low fibrinogen. Fibrinogen today 116. 2. Generalized nonpitting edema, likely secondary to steroids. Will give 1 dose of Lasix 40 mg IV and reevaluate tomorrow. Sodium and potassium normal, will recheck CMP in the a.m. 3. Monitor CBC, monitor coags. - Attending Statement The exam, history, and the medical decision-making described in the above note were completed with the assistance of the mid-level provider. I reviewed and agree with the findings presented. I attest that I had a [id number] encounter with the patient on the same day, and personally performed and documented my assessment and findings in the medical record. c/o generalized weakness and discomfort. Fibrinogen 116 today. #4 of plasmaphersis today. check coags tomorrow.
[2017-12-05] MEDS ORDERED: Sodium Chloride 0.9% 2 ML Flush PRN IV.FLUSH (14:39)
[2017-12-05] MEDS: SODIUM CHLOR 0.9% IV.SIG SCH (15:50)
[2017-12-05] MEDS: ALBUMIN HUMAN 5% IV.SIG SCH (15:50)
[2017-12-05] MEDS: Anticoagulant Citrate Dextrose 1,000 ML Solution EXTRACORPO SCH (15:50)
[2017-12-05] MEDS: CALCIUM GLUCONATE IV.SIG SCH (15:50)
[2017-12-05] MEDS: Sodium Chloride 0.9% 2 ML Flush BID IV.FLUSH SCH (20:54)
[2017-12-06] MEDS: MethylPREDNISolone Sod Suc Inj 250 MG in Sodium Chlor 0.9% Inj 100 ML IV.SIG SCH ×4 (00:14→18:05)
[2017-12-06] MEDS: oxyCODONE/Acetaminophen 10/325 Tablet PO PRN ×4 (00:15→18:11)
[2017-12-06 05:05] LABS: Baso % (Auto) 0.1 % (0.0-2.0); Hematocrit 30.5 % (35.0-46.0); Hemoglobin 9.6 gm/dL (11.6-15.3); Lymph # (Auto) 0.5 th/mm3 (1.0-4.8); Lymph % (Auto) 1.4 % (9.0-44.0); Mean Corpuscular HGB Conc 31.5 % (32.0-36.0); Mean Corpuscular Hemoglobin 25.8 pg (27.0-34.0); Mean Corpuscular Volume 81.9 fL (80.0-100.0); Mean Platelet Volume 8.8 fL (7.0-11.0); Mono # (Auto) 1.2 th/mm3 (0.0-0.9); Mono % (Auto) 3.4 % (0.0-8.0); Neut # (Auto) 33.1 th/mm3 (1.8-7.7); Neut % (Auto) 95.1 % (16.0-70.0); Platelet Count 176 th/mm3 (150-450); Red Blood Count 3.72 mil/mm3 (4.00-5.30); Red Cell Distribution Width 23.5 % (11.6-17.2); White Blood Count 34.9 th/mm3 (4.0-11.0)
[2017-12-06 08:06] LABS: Lymphocytes 3 % (9-44); Monocytes 4 % (0-8); Ovalocytes 1+; Target Cells 1+
[2017-12-06 08:07] LABS: Platelet Estimate Normal (Normal); Platelet Morphology Normal (Normal)
[2017-12-06] MEDS: Famotidine 20 MG Tablet PO SCH ×2 (08:36→21:41)
[2017-12-06] MEDS: Senna/Docusate Sodium 8.6/50 MG Tablet PO SCH ×2 (08:36→21:42)
[2017-12-06] MEDS: Sodium Chloride 0.9% 2 ML Flush BID IV.FLUSH SCH ×2 (08:37→21:42)
--- NOTE | 2017-12-06 09:43 | P.PNIM ---
Subjective Interval history: Reports that she is feeling stronger since the last plasmapheresis. She has more strength in the bilateral lower leg. Physical Exam Vital signs: Vital Signs 12/05/17 12:00 12/05/17 20:00 12/06/17 00:00 Temperature 98.0 F 97.7 F 97.6 F Pulse Rate 70 104 H 75 Respiratory Rate 16 20 20 Blood Pressure 141/74 H 137/77 113/59 L Pulse Oximetry 100 97 96 Intake & Output 12/05/17 12/06/17 12/06/17 18:59 06:59 18:59 Intake Total 4953 / 4953 568 / 568 Output Total 3500 / 3500 Balance 1453 / 1453 568 / 568 Weight 112.1 kg Intake: IV 3993 / 3993 208 / 208 Alburx 5% Inj 3,500 ML @ As 3500 / 3500 Directed IV.SIG Q48H [facility] Rx#: [id number] Calcium Gluconate Inj 3.5 GM In 285 / 285 NS Inj 250 ML @ 120 mls/hr IV. SIG Q48H [facility] Rx#:[id number] SoluMEDROL Inj 250 MG In NS Inj 208 / 208 208 / 208 100 ML @ 200 mls/hr IV.SIG Q6H [facility] Rx#:[id number] Oral 960 / 960 360 / 360 Output: Plasma Exchange Amount 3500 / 3500 Other: # Voids 3 4 Date of Last Bowel Movement 12/05/17 12/05/17 # Bowel Movements 2 Narrative: GENERAL: Patient sitting up in bed. Appears comfortable. Alert and oriented x3. CARDIOVASCULAR: Regular rate and rhythm without murmurs, gallops, or rubs. RESPIRATORY: Breath sounds equal bilaterally. No accessory muscle use. GASTROINTESTINAL: Abdomen soft, non-tender, nondistended. MUSCULOSKELETAL: No cyanosis,. Trace edema bilateral lower extremities. Neuro: 5 out of 5 motor strength bilateral upper extremities, 4.5 out of 5 bilateral lower Results - Labs CBC & Chem 7: 12/06/17 03:55 12/05/17 05:30 Laboratory Results - last 24 hr 12/06/17 03:55 WBC 34.9 H D RBC 3.72 L Hgb 9.6 L Hct 30.5 L MCV 81.9 MCH 25.8 L MCHC 31.5 L RDW 23.5 H Plt Count 176 MPV 8.8 Prelim Diff (Auto) Slide review pending Neut % (Auto) 95.1 H Lymph % (Auto) 1.4 L Mason % (Auto) 3.4 Eos % (Auto) 0.0 Baso % (Auto) 0.1 Neut # (Auto) 33.1 H Lymph # (Auto) 0.5 L Mason # (Auto) 1.2 H Eos # (Auto) 0.0 Baso # (Auto) 0.0 WBC Differential Manual diff final Seg Neuts % (Manual) 93 H Lymphocytes % (Manual) 3 L Monocytes % (Manual) 4 Abs Neuts (Manual) 32.5 H Differential Comment . Platelet Estimate Normal Platelet Morphology Normal Target Cells 1+ H Ovalocytes 1+ H - Procedures IR dialysis cath plcmt w us Signed EXAM DATE: 11/28/2017 12:00 AM EDT AGE/SEX: 37 years / Female INDICATIONS: Patient with history of Multiple Sclerosis in need of temporary non-tunneled central venous catheter placement for Plasmapheresis. CLINICAL DATA: This is the patient's initial encounter. Patient reports that signs and symptoms have been present for 1 day and indicates a pain score of 0/ 10. MEDICAL/SURGICAL HISTORY: Multiple sclerosis. Anemia. section. COMPARISON: No prior exams available for comparison. FLUORO TIME (min): 0.15 IMAGE SERIES: 3 ACCESS SITE: Right internal jugular vein DEVICE(S): 14 Nigerian double lumen 15 cm Schon catheter Vascath. . . PROCEDURE : 1. Ultrasound guided venipuncture. 2. Fluoroscopic guidance. 3. Central line placement. The risks, benefits and alternatives to the procedure were explained and verbal and written consent was obtained. The site was prepped in sterile fashion. Full sterile technique was used, including cap, mask, sterile gloves and gown and a large sterile sheet. Hand hygiene and 2% chlorhexidine prep was utilized per protocol for cutaneous antisepsis with appropriate dry time for site. Sterile gel and sterile probe cover were utilized for ultrasound guidance. The skin and subcutaneous tissues were infiltrated with local anesthetic solution. A suitable site above the vein was selected with ultrasound and fluoroscopic guidance. A small incision was made. The vein was accessed under direct ultrasound visualization using the micropuncture technique. The micropuncture set was exchanged for a 0.035 wire. The tract was dilated. The catheter was advanced into position under direct fluoroscopic visualization, and was advanced with the tip at the junction of the superior vena cava and rt atrium. The catheter was fixed in place with suture and a sterile dressing was applied. The patient tolerated the procedure well and there were no complications. CONCLUSION: 1. Uncomplicated line placement as above. Electronically signed by: Chin Laguna MD 11/28/2017 Assessment and Plan - Plan 1. Multiple sclerosis exacerbation. -Neurochecks has remained stable Status post IV Solu-Medrol in the ER Further management as per neurology. Appreciate hematology assistance in starting plasmapheresis. Continues on IV steroids as per neurology. Appears to be improving on plasmapheresis. Patient has completed 4 cycles. Her next cycle is scheduled for tomorrow. Per neurology recommendations, she should receive 5-10 total cycles. Continue occupational and physical therapy 2. Right upper extremity swelling CT angiogram appears negative for thrombus. Likely superficial thrombus. Appears to be improving. =resolved. 3. Chronic anemia. Hemoglobin 9.6. No signs of bleeding. 4. Tobacco abuse. Cessation counseling provided. 5. Chronic mild constipation. Resolved. 6. Depression. Continue BuSpar. 7. Leukocytosisdue to steroids 8. DVT prophylaxisheparin Discharge Planning: Will need walker for home and home after plasmapheresis course completed.
[2017-12-06 13:51] LABS: Activated Partial Thrombo Time 25.2 sec (24.3-30.1); INR 1.2 Ratio
--- NOTE | 2017-12-06 14:00 | P.PNONC ---
Subjective Interval history: Patient sitting in chair, soaking her feet. She states yesterday was her best day yet. She reports the diuretic decreased her overall edema and she felt like it was easier to walk. She reports being able to feel her left leg and both legs remain weak, however improving. She is status post plasma exchange yesterday treatment 4 of 5. Objective Vital Signs/Intake & Output: Vital Signs 12/05/17 20:00 12/06/17 00:00 12/06/17 08:00 Temperature 97.7 F 97.6 F 97.7 F Pulse Rate 104 H 75 77 Respiratory Rate 20 20 16 Blood Pressure 137/77 113/59 L 138/69 Pulse Oximetry 97 96 99 Intake & Output 12/05/17 12/06/17 12/06/17 18:59 06:59 18:59 Intake Total 4953 / 4953 568 / 568 Output Total 3500 / 3500 Balance 1453 / 1453 568 / 568 Weight 112.1 kg Intake: IV 3993 / 3993 208 / 208 Alburx 5% Inj 3,500 ML @ As 3500 / 3500 Directed IV.SIG Q48H [facility] Rx#: [id number] Calcium Gluconate Inj 3.5 GM In 285 / 285 NS Inj 250 ML @ 120 mls/hr IV. SIG Q48H [facility] Rx#:[id number] SoluMEDROL Inj 250 MG In NS Inj 208 / 208 208 / 208 100 ML @ 200 mls/hr IV.SIG Q6H [facility] Rx#:[id number] Oral 960 / 960 360 / 360 Output: Plasma Exchange Amount 3500 / 3500 Other: # Voids 3 4 Date of Last Bowel Movement 12/05/17 12/05/17 12/05/17 # Bowel Movements 2 Result Diagrams: 12/06/17 03:55 12/05/17 05:30 Laboratory Results: Laboratory Results - last 24 hr 12/06/17 03:55 WBC 34.9 H D RBC 3.72 L Hgb 9.6 L Hct 30.5 L MCV 81.9 MCH 25.8 L MCHC 31.5 L RDW 23.5 H Plt Count 176 MPV 8.8 Prelim Diff (Auto) Slide review pending Neut % (Auto) 95.1 H Lymph % (Auto) 1.4 L [place] % (Auto) 3.4 Eos % (Auto) 0.0 Baso % (Auto) 0.1 Neut # (Auto) 33.1 H Lymph # (Auto) 0.5 L [place] # (Auto) 1.2 H Eos # (Auto) 0.0 Baso # (Auto) 0.0 WBC Differential Manual diff final Seg Neuts % (Manual) 93 H Lymphocytes % (Manual) 3 L Monocytes % (Manual) 4 Abs Neuts (Manual) 32.5 H Differential Comment . Platelet Estimate Normal Platelet Morphology Normal Target Cells 1+ H Ovalocytes 1+ H Medications: Active Medications Generic Name Dose Route Start Last Admin Trade Name Freq PRN Reason Stop Dose Admin Al Hydroxide/Mg Hydroxide 30 ml 11/23/17 13:03 11/28/17 20:54 Milk Of Magnesia Liq PO 30 ml Q12H PRN Administration Mild Constipation Buspirone HCl 5 mg 11/25/17 21:00 12/06/17 08:36 Buspar PO 5 mg BID LOLA Administration Famotidine 20 mg 11/23/17 15:00 12/06/17 08:36 Pepcid PO 20 mg BID [facility] Administration Heparin Sodium (Porcine) 5,000 units 11/28/17 14:00 12/04/17 17:08 Heparin Inj OTHER 12/09/17 13:59 Not Given Q48H [facility] Heparin Sodium (Porcine) 1,000 units 11/28/17 12:33 11/28/17 17:31 Heparin Inj IV.FLUSH 12/07/17 12:32 1,000 units Q48H PRN Administration SEE LABEL COMMENTS Methylprednisolone Sodium 104 mls @ 200 mls/hr 11/27/17 12:00 12/06/17 13:17 Succinate 250 mg/ Sodium IV.SIG 200 mls/hr Chloride Q6H [facility] Administration Albumin Human 3,500 mls @ 0 mls/hr 11/28/17 14:00 12/05/17 18:10 Alburx 5% Inj IV.SIG 12/06/17 14:01 Infused Q48H [facility] Infusion As Directed Calcium Gluconate 3.5 gm/ 285 mls @ 120 mls/hr 11/28/17 14:00 12/05/17 18:10 Sodium Chloride IV.SIG 12/06/17 16:23 Infused Q48H [facility] Infusion Lactulose 30 ml 11/23/17 13:03 12/04/17 17:07 Lactulose Liq PO 30 ml DAILY PRN Administration SEVERE CONSITIPATION Morphine Sulfate 4 mg 11/23/17 13:04 11/30/17 00:55 Morphine Inj IV.PUSH 4 mg Q3H PRN Administration BREAKTHROUGH PAIN Morphine Sulfate 2 mg 11/23/17 13:04 11/26/17 09:11 Morphine Inj IV.PUSH 2 mg Q3H PRN Administration PAIN 3-5; IF UABLE TO TAKE PO Oxycodone/Acetaminophen 1 tab 11/23/17 13:04 11/23/17 13:14 Percocet 5/325 Mg PO 1 tab Q6H PRN Administration PAIN SCALE 3 TO 5 Oxycodone/Acetaminophen 1 tab 11/29/17 15:41 12/06/17 13:19 Percocet 10/325 Mg PO 1 tab Q4H PRN Administration PAIN SCALE 6 TO 10 Senna/Docusate Sodium 1 tab 11/23/17 21:00 12/06/17 08:36 Lisa-Colace PO 1 tab BID [facility] Administration Sennosides 17.2 mg 11/23/17 13:03 11/28/17 08:27 Senokot PO 17.2 mg Q12H PRN Administration Moderate Constipation Sodium Chloride 10 ml 11/28/17 14:00 12/04/17 17:08 Ns Flush OTHER 12/08/17 13:59 Not Given Q48H [facility] Sodium Chloride 2 ml 12/05/17 21:00 12/06/17 08:37 Ns Flush IV.FLUSH 2 ml BID LOLA Administration Sodium Citrate 1,000 ml 11/28/17 15:00 12/05/17 15:50 Acd-A Solution EXTRACORPO 12/06/17 15:01 1,000 ml Q48H [facility] Administration Objective Remarks: GENERAL: Well-nourished, well-developed young female patient, in no acute distress. SKIN: Warm and dry. Vasc-cath Rt, drsg clean/dry. HEAD: Normocephalic. EYES: No scleral icterus. No injection or drainage. NECK: Supple, trachea midline. CARDIOVASCULAR: +S1/S2. RESPIRATORY: Posterior breath sounds clear, equal bilaterally. Non-labored at rest. GASTROINTESTINAL: Abdomen soft, non-tender, nondistended. EXTREMITIES: No cyanosis, or pitting edema. MUSCULOSKELETAL: Adequate muscle tone. BLE weakened strength. NEUROLOGICAL: Awake, alert, and oriented x3. PSYCHIATRIC: Appropriate mood and affect; insight and judgment normal. Assessment/Plan - Plan Ms. Price is a pleasant 37-year-old female patient who has a history of multiple sclerosis. She recently moved to [place] from [place]. She is under the care of neurologist who consulted hematology for plasma exchange. Plan: 1. Plasmapheresis, patient has received her fourth treatment yesterday. Fibrinogen is pending today. We will plan to transfuse cryoprecipitate if fibrinogen is less than 100. She is scheduled for her fifth plasma exchange tomorrow. 2. Generalized nonpitting edema, likely secondary to steroids. S/P 1 dose of Lasix 40 mg IV, subjectively reports improvement after diuretic. Recheck CMP in the a.m. 3. Monitor CBC, monitor coags. - Attending Statement The exam, history, and the medical decision-making described in the above note were completed with the assistance of the mid-level provider. I reviewed and agree with the findings presented. I attest that I had a [id number] encounter with the patient on the same day, and personally performed and documented my assessment and findings in the medical record. C/O Generalized weakness. Left sided neurological changes are improving. Fifth plasmapheresis tomorrow Patient wants to stop Plasmapheresis after tomorrow And wants to go home. We will discuss with neurologist Dr. Henry for continuation of Plasmapheresis or stop it
[2017-12-06] MEDS: CALCIUM GLUCONATE IV.SIG SCH (15:56)
[2017-12-06] MEDS: SODIUM CHLOR 0.9% IV.SIG SCH (15:56)
[2017-12-06] MEDS: ALBUMIN HUMAN 5% IV.SIG SCH (15:56)
[2017-12-06] MEDS: Heparin - SQ 10,000 UNITS/ML Vial OTHER SCH (15:56)
[2017-12-06] MEDS: Anticoagulant Citrate Dextrose 1,000 ML Solution EXTRACORPO SCH (15:57)
[2017-12-06] MEDS ORDERED: Sodium Chlor 0.9% Inj 250 ML IV.SIG SCH (17:00)
--- NOTE | 2017-12-06 18:23 | P.PNNEU ---
Subjective Subjective Comments: No new c/o. PT feels weak Active Medications: Active Medications Acetaminophen (Tylenol) 650 mg PO Q4H PRN PRN Reason: Temp > 100.4 Acetaminophen (Tylenol) 650 mg PO Q4H PRN PRN Reason: SEE LABEL COMMENTS Al Hydroxide/Mg Hydroxide (Milk Of Magnesia Liq) 30 ml PO Q12H PRN PRN Reason: Mild Constipation Last Admin: 11/28/17 20:54 Dose: 30 ml Bisacodyl (Dulcolax Supp) 10 mg RECTAL DAILY PRN PRN Reason: SEVERE CONSITIPATION Buspirone HCl (Buspar) 5 mg PO BID [facility] Last Admin: 12/06/17 08:36 Dose: 5 mg Diphenhydramine HCl (Benadryl Inj) 25 mg IV.PUSH PRN PRN PRN Reason: FOR ALLERGIC REACTION Stop: 12/07/17 12:24 Diphenhydramine HCl (Benadryl Inj) 25 mg IV.PUSH PRN PRN PRN Reason: SEE LABEL COMMENTS Stop: 12/07/17 12:25 Diphenhydramine HCl (Benadryl) 25 mg PO Q4H PRN PRN Reason: SEE LABEL COMMENTS Famotidine (Pepcid) 20 mg PO BID [facility] Last Admin: 12/06/17 08:36 Dose: 20 mg Heparin Sodium (Porcine) (Heparin Inj) 5,000 units OTHER Q48H [facility] Stop: 12/09/17 13:59 Last Admin: 12/06/17 15:56 Dose: Not Given Heparin Sodium (Porcine) (Heparin Inj) 1,000 units IV.FLUSH Q48H PRN PRN Reason: SEE LABEL COMMENTS Stop: 12/07/17 12:32 Last Admin: 11/28/17 17:31 Dose: 1,000 units Methylprednisolone Sodium Succinate 250 mg/ Sodium Chloride 104 mls @ 200 mls/ hr IV.SIG Q6H [facility] Last Admin: 12/06/17 18:05 Dose: 200 mls/hr Sodium Chloride (Ns Inj) 250 mls @ 15 mls/hr IV.SIG ONCE [facility] Stop: 12/07/17 09:39 Last Admin: 12/06/17 18:05 Dose: 15 mls/hr Ibuprofen (Motrin) 600 mg PO Q6HR PRN PRN Reason: PAIN SCALE 1 TO 2 Lactulose (Lactulose Liq) 30 ml PO DAILY PRN PRN Reason: SEVERE CONSITIPATION Last Admin: 12/04/17 17:07 Dose: 30 ml Morphine Sulfate (Morphine Inj) 4 mg IV.PUSH Q3H PRN PRN Reason: BREAKTHROUGH PAIN Last Admin: 11/30/17 00:55 Dose: 4 mg Morphine Sulfate (Morphine Inj) 4 mg IV.PUSH Q3H PRN PRN Reason: PAIN 6-10;IF UNABLE TO TAKE PO Morphine Sulfate (Morphine Inj) 2 mg IV.PUSH Q3H PRN PRN Reason: PAIN 3-5; IF UABLE TO TAKE PO Last Admin: 11/26/17 09:11 Dose: 2 mg Naloxone HCl (Narcan Inj) 0.4 mg IV.PUSH UNSCH PRN PRN Reason: SEE LABEL COMMENTS Ondansetron HCl (Zofran Inj) 4 mg IV.PUSH Q6H PRN PRN Reason: NAUSEA OR VOMITING Oxycodone/Acetaminophen (Percocet 5/325 Mg) 1 tab PO Q6H PRN PRN Reason: PAIN SCALE 3 TO 5 Last Admin: 11/23/17 13:14 Dose: 1 tab Oxycodone/Acetaminophen (Percocet 10/325 Mg) 1 tab PO Q4H PRN PRN Reason: PAIN SCALE 6 TO 10 Last Admin: 12/06/17 18:11 Dose: 1 tab Senna/Docusate Sodium (Lisa-Colace) 1 tab PO BID [facility] Last Admin: 12/06/17 08:36 Dose: 1 tab Sennosides (Senokot) 17.2 mg PO Q12H PRN PRN Reason: Moderate Constipation Last Admin: 11/28/17 08:27 Dose: 17.2 mg Sodium Chloride (Ns Flush) 10 ml OTHER Q48H [facility] Stop: 12/08/17 13:59 Last Admin: 12/06/17 15:57 Dose: Not Given Sodium Chloride (Ns Flush) 2 ml IV.FLUSH BID [facility] Last Admin: 12/06/17 08:37 Dose: 2 ml Sodium Chloride (Ns Flush) 2 ml IV.FLUSH PRN PRN PRN Reason: FLUSH AFTER USING IV ACCESS Allergies/Adverse Reactions: Allergies Allergy/AdvReac Type Severity Reaction Status Date / Time No Known Allergies Allergy Verified 11/22/17 22:25 Physical Exam Vital signs: Vital Signs 12/05/17 20:00 12/06/17 00:00 12/06/17 08:00 Temperature 97.7 F 97.6 F 97.7 F Pulse Rate 104 H 75 77 Respiratory Rate 20 20 16 Blood Pressure 137/77 113/59 L 138/69 Pulse Oximetry 97 96 99 12/06/17 12:00 12/06/17 15:51 12/06/17 17:55 Temperature 97.7 F 97.6 F Pulse Rate 76 64 Respiratory Rate 16 18 14 Blood Pressure 137/68 143/76 H Pulse Oximetry 100 12/06/17 17:59 Temperature 97.6 F Pulse Rate 64 Respiratory Rate 16 Blood Pressure 143/76 H Pulse Oximetry Intake & Output 12/05/17 12/06/17 12/06/17 18:59 06:59 18:59 Intake Total 4953 / 4953 568 / 568 104 / 104 Output Total 3500 / 3500 Balance 1453 / 1453 568 / 568 104 / 104 Weight 112.1 kg Intake: IV 3993 / 3993 208 / 208 104 / 104 [place] 5% Inj 3,500 ML @ As 3500 / 3500 Directed IV.SIG Q48H [facility] Rx#: [id number] Calcium Gluconate Inj 3.5 GM In 285 / 285 NS Inj 250 ML @ 120 mls/hr IV. SIG Q48H [facility] Rx#:[id number] SoluMEDROL Inj 250 MG In NS Inj 208 / 208 208 / 208 104 / 104 100 ML @ 200 mls/hr IV.SIG Q6H [facility] Rx#:[id number] Oral 960 / 960 360 / 360 Intake (Blood Product) Amt 0 / 0 Pre-Pooled Cryo Thawed 10units 0 / 0 Unit [id number] Output: Plasma Exchange Amount 3500 / 3500 Other: # Voids 3 4 Date of Last Bowel Movement 12/05/17 12/05/17 12/05/17 # Bowel Movements 2 - Routine Neurological Exam alert, speech normal CN normal MOTOR 4/5 BUE and BLE Objective Laboratory Results - last 24 hr 12/06/17 12/06/17 12/06/17 03:55 13:13 16:52 WBC 34.9 H D RBC 3.72 L Hgb 9.6 L Hct 30.5 L MCV 81.9 MCH 25.8 L MCHC 31.5 L RDW 23.5 H Plt Count 176 MPV 8.8 Prelim Diff (Auto) Slide review pending Neut % (Auto) 95.1 H Lymph % (Auto) 1.4 L [place] % (Auto) 3.4 Eos % (Auto) 0.0 Baso % (Auto) 0.1 Neut # (Auto) 33.1 H Lymph # (Auto) 0.5 L [place] # (Auto) 1.2 H Eos # (Auto) 0.0 Baso # (Auto) 0.0 WBC Differential Manual diff final Seg Neuts % (Manual) 93 H Lymphocytes % (Manual) 3 L Monocytes % (Manual) 4 Abs Neuts (Manual) 32.5 H Differential Comment . Platelet Estimate Normal Platelet Morphology Normal Target Cells 1+ H Ovalocytes 1+ H PT 12.0 H INR 1.2 APTT 25.2 Fibrinogen 86 L* Blood Bank Comment Review/Management - Diagnosis (1) Multiple sclerosis exacerbation Code(s): G35 - Multiple sclerosis Status: Acute Current Visit: Yes - Review/Management Plan: continue plasmapheresis every other day for 7 treatments upto 10 if needed
[2017-12-06] MEDS: LORazepam 1 MG Tablet PO SCH (21:42)
[2017-12-07] MEDS: MethylPREDNISolone Sod Suc Inj 250 MG in Sodium Chlor 0.9% Inj 100 ML IV.SIG SCH ×5 (00:12→23:36)
[2017-12-07] MEDS: oxyCODONE/Acetaminophen 10/325 Tablet PO PRN ×5 (00:12→22:19)
[2017-12-07] MEDS: Famotidine 20 MG Tablet PO SCH ×2 (08:20→20:45)
[2017-12-07] MEDS: Senna/Docusate Sodium 8.6/50 MG Tablet PO SCH ×2 (08:20→20:45)
[2017-12-07] MEDS: Sodium Chloride 0.9% 2 ML Flush BID IV.FLUSH SCH (08:21)
[2017-12-07 08:44] LABS: Baso % (Auto) 0.1 % (0.0-2.0); Hematocrit 27.5 % (35.0-46.0); Hemoglobin 8.9 gm/dL (11.6-15.3); Lymph # (Auto) 0.2 th/mm3 (1.0-4.8); Mean Corpuscular HGB Conc 32.1 % (32.0-36.0); Mean Corpuscular Hemoglobin 26.3 pg (27.0-34.0); Mean Corpuscular Volume 81.9 fL (80.0-100.0); Mean Platelet Volume 8.4 fL (7.0-11.0); Mono # (Auto) 0.9 th/mm3 (0.0-0.9); Mono % (Auto) 4.8 % (0.0-8.0); Neut # (Auto) 17.5 th/mm3 (1.8-7.7); Neut % (Auto) 94.1 % (16.0-70.0); Platelet Count 153 th/mm3 (150-450); Red Blood Count 3.36 mil/mm3 (4.00-5.30); Red Cell Distribution Width 24.1 % (11.6-17.2); White Blood Count 18.6 th/mm3 (4.0-11.0)
[2017-12-07 08:55] LABS: Activated Partial Thrombo Time 22.6 sec (24.3-30.1); INR 1.1 Ratio; Prothrombin Time 10.7 sec (9.8-11.6)
[2017-12-07 09:25] LABS: Albumin 3.7 g/dL (3.4-5.0); Anion Gap 6 meq/L (5-15); Aspartate Aminotransferase 11 U/L (15-37); Blood Urea Nitrogen 21 mg/dL (7-18); Calcium 8.6 mg/dL (8.5-10.1); Carbon Dioxide 34.4 meq/L (21.0-32.0); Chloride 99 meq/L (98-107); Glomerular Filtration Rate 83 mL/min (>89); Glucose,Random 130 mg/dL (74-106); Potassium 3.7 meq/L (3.5-5.1); Sodium 139 meq/L (136-145)
[2017-12-07 09:31] LABS: Alanine Aminotransferase 19 U/L (10-53); Alkaline Phosphatase 50 U/L (45-117); Total Protein 5.2 g/dL (6.4-8.2)
--- NOTE | 2017-12-07 12:33 | P.PN ---
Subjective Interval history: Patient doing well overnight. Reports that she is tolerating p.o., and voiding/ stooling well. Patient does report that on days that she gets a plasmapheresis she does have increased fatigue but this is been chronic since admission. No overnight events per nursing Physical Exam Vital signs: Vital Signs 12/06/17 15:51 12/06/17 17:55 12/06/17 17:59 Temperature 97.6 F 97.6 F Pulse Rate 64 64 Respiratory Rate 18 14 16 Blood Pressure 143/76 H 143/76 H Pulse Oximetry 12/06/17 19:00 12/06/17 20:00 12/07/17 00:00 Temperature 97.6 F 97.8 F 98.0 F Pulse Rate 64 81 57 L Respiratory Rate 14 20 17 Blood Pressure 143/76 H 143/81 H 146/74 H Pulse Oximetry 98 98 100 12/07/17 01:30 12/07/17 08:00 12/07/17 12:00 Temperature 97.9 F 98.0 F Pulse Rate 67 73 Respiratory Rate 17 17 16 Blood Pressure 146/80 H 153/74 H Pulse Oximetry 99 100 Intake & Output 12/06/17 12/07/17 12/07/17 18:59 06:59 18:59 Intake Total 208 / 208 208 / 208 Balance 208 / 208 208 / 208 Intake: IV 208 / 208 SoluMEDROL Inj 250 MG In NS Inj 208 100 ML @ 200 mls/hr IV.SIG Q6H [facility] Rx#:[id number] Intake (Blood Product) Amt 0 / 0 Pre-Pooled Cryo Thawed 10units 0 / 0 Unit [id number] Other: # Voids 2 Date of Last Bowel Movement 12/05/17 12/05/17 12/05/17 Narrative: GENERAL: Well-nourished -[place] female, in NAD, lying comfortably in bed SKIN: Warm and dry. HEENT: Normocephalic. No scleral icterus. No injection or drainage. PERRLA. MOM. NECK: Supple, trachea midline. No JVD or lymphadenopathy. CARDIOVASCULAR: Regular rate and rhythm without murmurs, gallops, or rubs. RESPIRATORY: Breath sounds equal bilaterally. No accessory muscle use. GASTROINTESTINAL: Abdomen soft, non-tender, nondistended. MUSCULOSKELETAL: No cyanosis, or edema. Motor strength 4/5 x 4 BACK: Nontender without obvious deformity. No CVA tenderness. NEURO: AAO x3, no focal deficit Results - Labs CBC & Chem 7: 12/07/17 08:15 12/07/17 08:15 Laboratory Results - last 24 hr 12/06/17 12/06/17 12/07/17 13:13 16:52 08:15 WBC RBC Hgb Hct MCV MCH MCHC RDW Plt Count MPV Neut % (Auto) Lymph % (Auto) [place] % (Auto) Eos % (Auto) Baso % (Auto) Neut # (Auto) Lymph # (Auto) [place] # (Auto) Eos # (Auto) Baso # (Auto) WBC Differential Differential Comment PT 12.0 H 10.7 INR 1.2 1.1 APTT 25.2 22.6 L Fibrinogen 86 L* 120 L Sodium Potassium Chloride Carbon Dioxide Anion Gap BUN Creatinine Estimated GFR Random Glucose Calcium Total Bilirubin AST ALT Alkaline Phosphatase Total Protein Albumin Blood Bank Comment 12/07/17 12/07/17 08:15 08:15 WBC 18.6 H RBC 3.36 L Hgb 8.9 L Hct 27.5 L MCV 81.9 MCH 26.3 L MCHC 32.1 RDW 24.1 H Plt Count 153 MPV 8.4 Neut % (Auto) 94.1 H Lymph % (Auto) 1.0 L [place] % (Auto) 4.8 Eos % (Auto) 0.0 Baso % (Auto) 0.1 Neut # (Auto) 17.5 H Lymph # (Auto) 0.2 L [place] # (Auto) 0.9 Eos # (Auto) 0.0 Baso # (Auto) 0.0 WBC Differential . Differential Comment Auto diff final PT INR APTT Fibrinogen Sodium 139 Potassium 3.7 Chloride 99 Carbon Dioxide 34.4 H Anion Gap 6 BUN 21 H Creatinine 0.92 Estimated GFR 83 L Random Glucose 130 H Calcium 8.6 Total Bilirubin 0.4 AST 11 L ALT 19 Alkaline Phosphatase 50 Total Protein 5.2 L Albumin 3.7 Blood Bank Comment - Procedures IR dialysis cath [facility] Signed EXAM DATE: 11/28/2017 12:00 AM EDT AGE/SEX: 37 years / Female INDICATIONS: Patient with history of Multiple Sclerosis in need of temporary non-tunneled central venous catheter placement for Plasmapheresis. CLINICAL DATA: This is the patient's initial encounter. Patient reports that signs and symptoms have been present for 1 day and indicates a pain score of 0/ 10. MEDICAL/SURGICAL HISTORY: Multiple sclerosis. Anemia. section. COMPARISON: No prior exams available for comparison. FLUORO TIME (min): 0.15 IMAGE SERIES: 3 ACCESS SITE: Right internal jugular vein DEVICE(S): 14 [place] double lumen 15 cm Schon catheter Vascath. . . PROCEDURE : 1. Ultrasound guided venipuncture. 2. Fluoroscopic guidance. 3. Central line placement. The risks, benefits and alternatives to the procedure were explained and verbal and written consent was obtained. The site was prepped in sterile fashion. Full sterile technique was used, including cap, mask, sterile gloves and gown and a large sterile sheet. Hand hygiene and 2% chlorhexidine prep was utilized per protocol for cutaneous antisepsis with appropriate dry time for site. Sterile gel and sterile probe cover were utilized for ultrasound guidance. The skin and subcutaneous tissues were infiltrated with local anesthetic solution. A suitable site above the vein was selected with ultrasound and fluoroscopic guidance. A small incision was made. The vein was accessed under direct ultrasound visualization using the micropuncture technique. The micropuncture set was exchanged for a 0.035 wire. The tract was dilated. The catheter was advanced into position under direct fluoroscopic visualization, and was advanced with the tip at the junction of the superior vena cava and rt atrium. The catheter was fixed in place with suture and a sterile dressing was applied. The patient tolerated the procedure well and there were no complications. CONCLUSION: 1. Uncomplicated line placement as above. Electronically signed by: Chin Laguna MD 11/28/2017 Assessment and Plan - Assessment (1) Multiple sclerosis exacerbation Code(s): G35 - Multiple sclerosis Status: Acute - Plan This is a 37-year-old -[place] female with past medical history multiple sclerosis MS exacerbation, HD#15 1. Multiple Sclerosis Exacerbation, strength improving Neurochecks have remained stable Managed by Neurology, appreciate assistance, continue on Methyolpred 250mg IV Q6hrs as per Neurology and plasmapheresis. Patient will receive her 5th plasmapheresis today. Her next cycle is scheduled for Monday. Per neurology recommendations, she should receive 7-10 total cycles Continue occupational and physical therapy Appreciate Hematology assistance with plasmapheresis Reccs Per HemOnc 12/06: C/O Generalized weakness. Left sided neurological changes are improving. Fifth plasmapheresis tomorrow Patient wants to stop Plasmapheresis after tomorrow And wants to go home. We will discuss with neurologist Dr. Henry for continuation of Plasmapheresis or stop Reccs Per Neuro 12/06: Continue plasmapheresis every other day for 7 treatments up to 10 if needed 2. Right Upper Extremity Swelling, resolved CT angiogram Neg for thrombus 3. Chronic Anemia Hemoglobin 8.9 today from 9.6 No signs of bleeding, will obtain Hemoccult today Cont. FeSulfate Follow-up CBC in a.m. 4. Leukocytosis, improving Secondary to steroids, patient afebrile WBC 18.6 today from 39.4 previously Blood culture with no growth times 5 days (4 bottles) 11/25 Negative UA, Neg chest x-ray on admission (11/25) 5. Tobacco Abuse Cessation counseling provided, risks discussed 6. Depression Continue BuSpar, denies homicidal/suicidal ideation 7. GERD Cont. Pepcid 8. DVT prophylaxis: SCD's 9. Disposition: Plan for plasmapheresis #5 today followed by plasmapheresis every other day until 7 treatments are completed, we will then reassess per neurology as may need up to 10 treatments pending response. Code Status: full Discussed Condition With: patient, family, RN
[2017-12-07] MEDS: SODIUM CHLOR 0.9% IV.SIG SCH (14:00)
[2017-12-07] MEDS: ALBUMIN HUMAN 5% IV.SIG SCH (14:00)
[2017-12-07] MEDS: CALCIUM GLUCONATE IV.SIG SCH (14:00)
[2017-12-07] MEDS: Anticoagulant Citrate Dextrose 1,000 ML Solution EXTRACORPO SCH (14:00)
--- NOTE | 2017-12-07 16:38 | P.PNONC ---
Subjective Interval history: Patient seen in dialysis, receiving her fifth plasmapheresis. Patient reports feeling tired. She feels an increase in strength in her bilateral lower extremities. Patient's neurologist requests additional plasmapheresis. 7-10 treatments. Discussed with dialysis nurse, the patient has clotted during 4 of her 5 treatments. They have inquired if it would be possible to use heparin 8000 units as needed for machine prime and heparin 1: 1000 units/mL. Use 1 mL each hour when indicated to prevent clotting during treatment. This will be discussed with her project associate. Objective Vital Signs/Intake & Output: Vital Signs 12/06/17 17:55 12/06/17 17:59 12/06/17 19:00 Temperature 97.6 F 97.6 F 97.6 F Pulse Rate 64 64 64 Respiratory Rate 14 16 14 Blood Pressure 143/76 H 143/76 H 143/76 H Pulse Oximetry 98 12/06/17 20:00 12/07/17 00:00 12/07/17 01:30 Temperature 97.8 F 98.0 F Pulse Rate 81 57 L Respiratory Rate 20 17 17 Blood Pressure 143/81 H 146/74 H Pulse Oximetry 98 100 12/07/17 08:00 12/07/17 12:00 Temperature 97.9 F 98.0 F Pulse Rate 67 73 Respiratory Rate 17 16 Blood Pressure 146/80 H 153/74 H Pulse Oximetry 99 100 Intake & Output 12/06/17 12/07/17 12/07/17 18:59 06:59 18:59 Intake Total 223 / 223 208 / 208 104 / 104 Balance 223 / 223 208 / 208 104 / 104 Intake: IV 223 / 223 208 / 208 104 / 104 SoluMEDROL Inj 250 MG In NS Inj 208 / 208 208 / 208 104 / 104 100 ML @ 200 mls/hr IV.SIG Q6H [facility] Rx#:[id number] NS Inj 250 ML @ 15 mls/hr IV. 15 / 15 SIG ONCE [facility] Rx#:[id number] Intake (Blood Product) Amt 0 / 0 Pre-Pooled Cryo Thawed 10units 0 / 0 Unit [id number] Other: # Voids 2 Date of Last Bowel Movement 12/05/17 12/05/17 12/05/17 Result Diagrams: 12/07/17 08:15 12/07/17 08:15 Laboratory Results: Laboratory Results - last 24 hr 12/06/17 12/07/17 12/07/17 16:52 08:15 08:15 WBC RBC Hgb Hct MCV MCH MCHC RDW Plt Count MPV Neut % (Auto) Lymph % (Auto) [place] % (Auto) Eos % (Auto) Baso % (Auto) Neut # (Auto) Lymph # (Auto) [place] # (Auto) Eos # (Auto) Baso # (Auto) WBC Differential Differential Comment PT 10.7 INR 1.1 APTT 22.6 L Fibrinogen 120 L Sodium 139 Potassium 3.7 Chloride 99 Carbon Dioxide 34.4 H Anion Gap 6 BUN 21 H Creatinine 0.92 Estimated GFR 83 L Random Glucose 130 H Calcium 8.6 Total Bilirubin 0.4 AST 11 L ALT 19 Alkaline Phosphatase 50 Total Protein 5.2 L Albumin 3.7 Blood Bank Comment 12/07/17 08:15 WBC 18.6 H RBC 3.36 L Hgb 8.9 L Hct 27.5 L MCV 81.9 MCH 26.3 L MCHC 32.1 RDW 24.1 H Plt Count 153 MPV 8.4 Neut % (Auto) 94.1 H Lymph % (Auto) 1.0 L [place] % (Auto) 4.8 Eos % (Auto) 0.0 Baso % (Auto) 0.1 Neut # (Auto) 17.5 H Lymph # (Auto) 0.2 L [place] # (Auto) 0.9 Eos # (Auto) 0.0 Baso # (Auto) 0.0 WBC Differential . Differential Comment Auto diff final PT INR APTT Fibrinogen Sodium Potassium Chloride Carbon Dioxide Anion Gap BUN Creatinine Estimated GFR Random Glucose Calcium Total Bilirubin AST ALT Alkaline Phosphatase Total Protein Albumin Blood Bank Comment Medications: Active Medications Generic Name Dose Route Start Last Admin Trade Name Freq PRN Reason Stop Dose Admin Al Hydroxide/Mg Hydroxide 30 ml 11/23/17 13:03 11/28/17 20:54 Milk Of Magnesia Liq PO 30 ml Q12H PRN Administration Mild Constipation Buspirone HCl 5 mg 11/25/17 21:00 12/07/17 08:20 Buspar PO 5 mg BID [facility] Administration Famotidine 20 mg 11/23/17 15:00 12/07/17 08:20 Pepcid PO 20 mg BID [facility] Administration Heparin Sodium (Porcine) 5,000 units 11/28/17 14:00 12/06/17 15:56 Heparin Inj OTHER 12/09/17 13:59 Not Given Q48H [facility] Methylprednisolone Sodium 104 mls @ 200 mls/hr 11/27/17 12:00 12/07/17 12:09 Succinate 250 mg/ Sodium IV.SIG Infused Chloride Q6H [facility] Infusion Lactulose 30 ml 11/23/17 13:03 12/04/17 17:07 Lactulose Liq PO 30 ml DAILY PRN Administration SEVERE CONSITIPATION Lorazepam 1 mg 12/06/17 21:00 12/06/17 21:42 Ativan PO 1 mg HS [facility] Administration Morphine Sulfate 4 mg 11/23/17 13:04 11/30/17 00:55 Morphine Inj IV.PUSH 4 mg Q3H PRN Administration BREAKTHROUGH PAIN Morphine Sulfate 2 mg 11/23/17 13:04 11/26/17 09:11 Morphine Inj IV.PUSH 2 mg Q3H PRN Administration PAIN 3-5; IF UABLE TO TAKE PO Oxycodone/Acetaminophen 1 tab 11/23/17 13:04 11/23/17 13:14 Percocet 5/325 Mg PO 1 tab Q6H PRN Administration PAIN SCALE 3 TO 5 Oxycodone/Acetaminophen 1 tab 11/29/17 15:41 12/07/17 11:37 Percocet 10/325 Mg PO 1 tab Q4H PRN Administration PAIN SCALE 6 TO 10 Senna/Docusate Sodium 1 tab 11/23/17 21:00 12/07/17 08:20 Lisa-Colace PO 1 tab BID [facility] Administration Sennosides 17.2 mg 11/23/17 13:03 11/28/17 08:27 Senokot PO 17.2 mg Q12H PRN Administration Moderate Constipation Sodium Chloride 10 ml 11/28/17 14:00 12/06/17 15:57 Ns Flush OTHER 12/08/17 13:59 Not Given Q48H [facility] Sodium Chloride 2 ml 12/05/17 21:00 12/07/17 08:21 Ns Flush IV.FLUSH 2 ml BID [facility] Administration Objective Remarks: GENERAL: Well-nourished, well-developed young female patient, in no acute distress. SKIN: Warm and dry. Vasc-cath Rt, drsg clean/dry. HEAD: Normocephalic. EYES: No scleral icterus. No injection or drainage. NECK: Supple, trachea midline. CARDIOVASCULAR: +S1/S2. RESPIRATORY: Posterior breath sounds clear, equal bilaterally. Non-labored at rest. GASTROINTESTINAL: Abdomen soft, non-tender, nondistended. EXTREMITIES: No cyanosis, or pitting edema. MUSCULOSKELETAL: Adequate muscle tone. BLE weakened strength, improving. NEUROLOGICAL: Awake, alert, and oriented x3. PSYCHIATRIC: Appropriate mood and affect; insight and judgment normal. Assessment/Plan - Plan Ms. Price is a pleasant 37-year-old female patient who has a history of multiple sclerosis. She recently moved to [place] from [place]. She is under the care of neurologist who consulted hematology for plasma exchange. Plan: 1. Plasmapheresis, patient currently receiving her 5th plasma exchange. Dr. Henry requests additional treatments 7-10. Orders written for 5 additional treatments every other day. Orders given to Sameer dialysis nurse. Dialysis nurses reports that the patient is clotting off the machine during treatments. This has occurred in 4 of 5 treatments. They have requested to possibly use heparin 8000 units as needed for machine prime and heparin 1: 1000 units/mL. Use 1 mL each hour when indicated to prevent clotting during treatment. This will be further discussed with , and ordered if he approves. 2. Continue to monitor fibrinogen, CBC and coags. Plan to transfuse cryoprecipitate for fibrinogen < 100. - Attending Statement The exam, history, and the medical decision-making described in the above note were completed with the assistance of the mid-level provider. I reviewed and agree with the findings presented. I attest that I had a [id number] encounter with the patient on the same day, and personally performed and documented my assessment and findings in the medical record. Patient feels depressed Complaining of generalized weakness She had her fifth plasmapheresis today Dr. Henry neurologist wants to continue pheresis for total of 10 treatments We will use heparin during the plasmapheresis because of the clotting issues Continue to give her cryoprecipitate if fibrinogen is less than 100 Discussed with the patient and the family I supported her as much as possible
[2017-12-07] MEDS: Ferrous Sulfate 325 MG Tablet PO SCH (20:44)
[2017-12-07] MEDS: LORazepam 1 MG Tablet PO SCH (20:44)
[2017-12-08] MEDS: Sodium Chloride 0.9% 2 ML Flush BID IV.FLUSH SCH ×3 (05:52→21:03)
[2017-12-08] MEDS: MethylPREDNISolone Sod Suc Inj 250 MG in Sodium Chlor 0.9% Inj 100 ML IV.SIG SCH ×4 (05:59→23:54)
[2017-12-08] MEDS: oxyCODONE/Acetaminophen 10/325 Tablet PO PRN ×3 (05:59→21:01)
[2017-12-08 07:27] LABS: Baso # (Auto) 0.1 th/mm3 (0.0-0.2); Baso % (Auto) 0.3 % (0.0-2.0); Hemoglobin 8.6 gm/dL (11.6-15.3); Lymph # (Auto) 0.3 th/mm3 (1.0-4.8); Lymph % (Auto) 1.5 % (9.0-44.0); Mean Corpuscular Hemoglobin 26.3 pg (27.0-34.0); Mean Corpuscular Volume 82.2 fL (80.0-100.0); Mean Platelet Volume 8.2 fL (7.0-11.0); Mono # (Auto) 0.6 th/mm3 (0.0-0.9); Mono % (Auto) 2.9 % (0.0-8.0); Neut % (Auto) 95.3 % (16.0-70.0); Platelet Count 131 th/mm3 (150-450); Red Blood Count 3.28 mil/mm3 (4.00-5.30)
[2017-12-08 07:54] LABS: Alanine Aminotransferase 16 U/L (10-53); Albumin 3.9 g/dL (3.4-5.0); Anion Gap 4 meq/L (5-15); Aspartate Aminotransferase 7 U/L (15-37); Blood Urea Nitrogen 19 mg/dL (7-18); Carbon Dioxide 35.3 meq/L (21.0-32.0); Chloride 101 meq/L (98-107); Glomerular Filtration Rate 83 mL/min (>89); Glucose,Random 141 mg/dL (74-106); Potassium 3.7 meq/L (3.5-5.1); Sodium 140 meq/L (136-145)
[2017-12-08 07:56] LABS: Alkaline Phosphatase 39 U/L (45-117); Total Protein 5.1 g/dL (6.4-8.2)
[2017-12-08 08:09] LABS: INR 1.4 Ratio
[2017-12-08 08:10] LABS: Activated Partial Thrombo Time 26.9 sec (24.3-30.1)
[2017-12-08] MEDS: Ferrous Sulfate 325 MG Tablet PO SCH ×2 (08:46→21:02)
[2017-12-08] MEDS: Senna/Docusate Sodium 8.6/50 MG Tablet PO SCH ×2 (08:47→21:02)
[2017-12-08] MEDS: Famotidine 20 MG Tablet PO SCH ×2 (08:47→21:02)
[2017-12-08 09:17] LABS: Ovalocytes 1+; Platelet Morphology Normal (Normal)
--- NOTE | 2017-12-08 11:18 | P.PNIM ---
Subjective Interval history: Patient reports feeling stronger. Physical Exam Vital signs: Vital Signs 12/07/17 12:00 12/07/17 18:12 12/07/17 20:00 Temperature 98.0 F 98.3 F Pulse Rate 73 71 Respiratory Rate 16 18 17 Blood Pressure 153/74 H 158/78 H Pulse Oximetry 100 98 12/08/17 00:00 12/08/17 00:30 12/08/17 04:30 Temperature 98.0 F Pulse Rate 77 Respiratory Rate 16 17 18 Blood Pressure 133/73 Pulse Oximetry 100 12/08/17 08:00 Temperature 98.3 F Pulse Rate 88 Respiratory Rate 18 Blood Pressure 148/73 H Pulse Oximetry 100 Intake & Output 12/07/17 12/08/17 12/08/17 18:59 06:59 18:59 Intake Total 3993 / 3993 208 / 208 Output Total 3500 / 3500 Balance 493 / 493 208 / Intake: IV 3993 / 3993 208 / 208 SoluMEDROL Inj 250 MG In NS Inj / 208 208 / 208 100 ML @ 200 mls/hr IV.SIG Q6H LOLA Rx#:[id number] Output: Plasma Exchange Amount 3500 / 3500 Other: # Voids 6 Date of Last Bowel Movement 12/05/17 12/05/17 Narrative: GENERAL: This is a well-nourished, well-developed patient, in no apparent distress sitting up in a chair. CARDIOVASCULAR: Regular rate and rhythm RESPIRATORY: Clear to auscultation. Breath sounds equal bilaterally. No wheezes , rales, or rhonchi. GASTROINTESTINAL: Abdomen soft, non-tender, nondistended. Normal active bowel sounds MUSCULOSKELETAL: Extremities without clubbing, cyanosis, or edema. NEURO: Alert & Oriented x4 to person, place, time, situation. Moves all ext x4 with increased strength Results - Labs CBC & Chem 7: 12/08/17 07:08 12/08/17 07:08 Laboratory Results - last 24 hr 12/08/17 12/08/17 12/08/17 07:08 07:08 07:08 WBC 21.0 H RBC 3.28 L Hgb 8.6 L Hct 27.0 L MCV 82.2 MCH 26.3 L MCHC 32.0 RDW 24.0 H Plt Count 131 L MPV 8.2 Prelim Diff (Auto) Slide review pending Neut % (Auto) 95.3 H Lymph % (Auto) 1.5 L [place] % (Auto) 2.9 Eos % (Auto) 0.0 Baso % (Auto) 0.3 Neut # (Auto) 20.0 H Lymph # (Auto) 0.3 L [place] # (Auto) 0.6 Eos # (Auto) 0.0 Baso # (Auto) 0.1 WBC Differential . Diff Scan Auto diff confirmed Differential Comment . Platelet Estimate Low L Platelet Morphology Normal Ovalocytes 1+ H PT 14.0 H INR 1.4 APTT 26.9 Fibrinogen 64 L* Sodium 140 Potassium 3.7 Chloride 101 Carbon Dioxide 35.3 H Anion Gap 4 L BUN 19 H Creatinine 0.92 Estimated GFR 83 L Random Glucose 141 H Calcium 8.0 L Total Bilirubin 0.6 AST 7 L ALT 16 Alkaline Phosphatase 39 L Total Protein 5.1 L Albumin 3.9 Blood Bank Comment 12/08/17 10:03 WBC RBC Hgb Hct MCV MCH MCHC RDW Plt Count MPV Prelim Diff (Auto) Neut % (Auto) Lymph % (Auto) [place] % (Auto) Eos % (Auto) Baso % (Auto) Neut # (Auto) Lymph # (Auto) [place] # (Auto) Eos # (Auto) Baso # (Auto) WBC Differential Diff Scan Differential Comment Platelet Estimate Platelet Morphology Ovalocytes PT INR APTT Fibrinogen Sodium Potassium Chloride Carbon Dioxide Anion Gap BUN Creatinine Estimated GFR Random Glucose Calcium Total Bilirubin AST ALT Alkaline Phosphatase Total Protein Albumin Blood Bank Comment - Procedures IR dialysis cath plcmt w us Signed EXAM DATE: 11/28/2017 12:00 AM EDT AGE/SEX: 37 years / Female INDICATIONS: Patient with history of Multiple Sclerosis in need of temporary non-tunneled central venous catheter placement for Plasmapheresis. CLINICAL DATA: This is the patient's initial encounter. Patient reports that signs and symptoms have been present for 1 day and indicates a pain score of 0/ 10. MEDICAL/SURGICAL HISTORY: Multiple sclerosis. Anemia. section. COMPARISON: No prior exams available for comparison. FLUORO TIME (min): 0.15 IMAGE SERIES: 3 ACCESS SITE: Right internal jugular vein DEVICE(S): 14 Micronesian double lumen 15 cm Schon catheter Vascath. . . PROCEDURE : 1. Ultrasound guided venipuncture. 2. Fluoroscopic guidance. 3. Central line placement. The risks, benefits and alternatives to the procedure were explained and verbal and written consent was obtained. The site was prepped in sterile fashion. Full sterile technique was used, including cap, mask, sterile gloves and gown and a large sterile sheet. Hand hygiene and 2% chlorhexidine prep was utilized per protocol for cutaneous antisepsis with appropriate dry time for site. Sterile gel and sterile probe cover were utilized for ultrasound guidance. The skin and subcutaneous tissues were infiltrated with local anesthetic solution. A suitable site above the vein was selected with ultrasound and fluoroscopic guidance. A small incision was made. The vein was accessed under direct ultrasound visualization using the micropuncture technique. The micropuncture set was exchanged for a 0.035 wire. The tract was dilated. The catheter was advanced into position under direct fluoroscopic visualization, and was advanced with the tip at the junction of the superior vena cava and rt atrium. The catheter was fixed in place with suture and a sterile dressing was applied. The patient tolerated the procedure well and there were no complications. CONCLUSION: 1. Uncomplicated line placement as above. Electronically signed by: Chin Laguna MD 11/28/2017 Assessment and Plan - Assessment (1) Multiple sclerosis exacerbation Code(s): G35 - Multiple sclerosis Status: Acute - Plan 37-year-old female with a history of multiple sclerosis 1. Multiple sclerosis exacerbation. -Neurochecks has remained stable Status post IV Solu-Medrol in the ER Further management as per neurology. Appreciate hematology assistance in starting plasmapheresis. Continues on IV steroids as per neurology. Appears to be improving on plasmapheresis. Patient has completed 5 cycles. Her next cycle is scheduled for tomorrow. Per neurology recommendations, she should receive 7 total cycles. Continue occupational and physical therapy Likely to be given cryoprecipitate today due to fibrinogen levels. Hematology service currently managing. 2. Right upper extremity swelling CT angiogram appears negative for thrombus. Likely superficial thrombus. Appears to be improving. =resolved. 3. Chronic anemia. Hemoglobin 8.6. No signs of bleeding. 4. Tobacco abuse. Cessation counseling provided. 5. Chronic mild constipation. Resolved. 6. Depression. Continue BuSpar. 7. Leukocytosisdue to steroids 8. DVT prophylaxisheparin Discharge Planning: Will need walker for home and home after plasmapheresis course completed.
--- NOTE | 2017-12-08 11:32 | P.PNONC ---
Subjective Interval history: Patient denies any new complaint Objective Vital Signs/Intake & Output: Vital Signs 12/07/17 12:00 12/07/17 18:12 12/07/17 20:00 Temperature 98.0 F 98.3 F Pulse Rate 73 71 Respiratory Rate 16 18 17 Blood Pressure 153/74 H 158/78 H Pulse Oximetry 100 98 12/08/17 00:00 12/08/17 00:30 12/08/17 04:30 Temperature 98.0 F Pulse Rate 77 Respiratory Rate 16 17 18 Blood Pressure 133/73 Pulse Oximetry 100 12/08/17 08:00 12/08/17 11:17 Temperature 98.3 F 98.4 F Pulse Rate 88 90 Respiratory Rate 18 20 Blood Pressure 148/73 H Pulse Oximetry 100 Intake & Output 12/07/17 12/08/17 12/08/17 18:59 06:59 18:59 Intake Total 3993 / 3993 208 / 208 0 / 0 Output Total 3500 / 3500 Balance 493 / 493 208 / 208 0 / 0 Intake: IV 3993 / 3993 208 / 208 SoluMEDROL Inj 250 MG In NS Inj 208 / 208 208 / 208 100 ML @ 200 mls/hr IV.SIG Q6H LOLA Rx#:[id number] Intake (Blood Product) Amt 0 / 0 Pre-Pooled Cryo Thawed 10units 0 / 0 Unit [id number] Output: Plasma Exchange Amount 3500 / 3500 Other: # Voids 6 Date of Last Bowel Movement 12/05/17 12/05/17 Result Diagrams: 12/08/17 07:08 12/08/17 07:08 Laboratory Results: Laboratory Results - last 24 hr 12/08/17 12/08/17 12/08/17 07:08 07:08 07:08 WBC 21.0 H RBC 3.28 L Hgb 8.6 L Hct 27.0 L MCV 82.2 MCH 26.3 L MCHC 32.0 RDW 24.0 H Plt Count 131 L MPV 8.2 Prelim Diff (Auto) Slide review pending Neut % (Auto) 95.3 H Lymph % (Auto) 1.5 L [place] % (Auto) 2.9 Eos % (Auto) 0.0 Baso % (Auto) 0.3 Neut # (Auto) 20.0 H Lymph # (Auto) 0.3 L [place] # (Auto) 0.6 Eos # (Auto) 0.0 Baso # (Auto) 0.1 WBC Differential . Diff Scan Auto diff confirmed Differential Comment . Platelet Estimate Low L Platelet Morphology Normal Ovalocytes 1+ H PT 14.0 H INR 1.4 APTT 26.9 Fibrinogen 64 L* Sodium 140 Potassium 3.7 Chloride 101 Carbon Dioxide 35.3 H Anion Gap 4 L BUN 19 H Creatinine 0.92 Estimated GFR 83 L Random Glucose 141 H Calcium 8.0 L Total Bilirubin 0.6 AST 7 L ALT 16 Alkaline Phosphatase 39 L Total Protein 5.1 L Albumin 3.9 Blood Bank Comment 12/08/17 10:03 WBC RBC Hgb Hct MCV MCH MCHC RDW Plt Count MPV Prelim Diff (Auto) Neut % (Auto) Lymph % (Auto) [place] % (Auto) Eos % (Auto) Baso % (Auto) Neut # (Auto) Lymph # (Auto) [place] # (Auto) Eos # (Auto) Baso # (Auto) WBC Differential Diff Scan Differential Comment Platelet Estimate Platelet Morphology Ovalocytes PT INR APTT Fibrinogen Sodium Potassium Chloride Carbon Dioxide Anion Gap BUN Creatinine Estimated GFR Random Glucose Calcium Total Bilirubin AST ALT Alkaline Phosphatase Total Protein Albumin Blood Bank Comment Medications: Active Medications Generic Name Dose Route Start Last Admin Trade Name Freq PRN Reason Stop Dose Admin Al Hydroxide/Mg Hydroxide 30 ml 11/23/17 13:03 11/28/17 20:54 Milk Of Magnesia Liq PO 30 ml Q12H PRN Administration Mild Constipation Buspirone HCl 5 mg 11/25/17 21:00 12/08/17 08:46 Buspar PO 5 mg BID LOLA Administration Famotidine 20 mg 11/23/17 15:00 12/08/17 08:47 Pepcid PO 20 mg BID LOLA Administration Ferrous Sulfate 325 mg 12/07/17 21:00 12/08/17 08:46 Ferosul PO 325 mg BID LOLA Administration Methylprednisolone Sodium 104 mls @ 200 mls/hr 11/27/17 12:00 12/08/17 06:31 Succinate 250 mg/ Sodium IV.SIG Infused Chloride Q6H LOLA Infusion Lactulose 30 ml 11/23/17 13:03 12/04/17 17:07 Lactulose Liq PO 30 ml DAILY PRN Administration SEVERE CONSITIPATION Lorazepam 1 mg 12/06/17 21:00 12/07/17 20:44 Ativan PO 1 mg HS LOLA Administration Morphine Sulfate 4 mg 11/23/17 13:04 11/30/17 00:55 Morphine Inj IV.PUSH 4 mg Q3H PRN Administration BREAKTHROUGH PAIN Morphine Sulfate 2 mg 11/23/17 13:04 11/26/17 09:11 Morphine Inj IV.PUSH 2 mg Q3H PRN Administration PAIN 3-5; IF UABLE TO TAKE PO Oxycodone/Acetaminophen 1 tab 11/23/17 13:04 11/23/17 13:14 Percocet 5/325 Mg PO 1 tab Q6H PRN Administration PAIN SCALE 3 TO 5 Oxycodone/Acetaminophen 1 tab 11/29/17 15:41 12/08/17 05:59 Percocet 10/325 Mg PO 1 tab Q4H PRN Administration PAIN SCALE 6 TO 10 Senna/Docusate Sodium 1 tab 11/23/17 21:00 12/08/17 08:47 Lisa-Colace PO 1 tab BID LOLA Administration Sennosides 17.2 mg 11/23/17 13:03 11/28/17 08:27 Senokot PO 17.2 mg Q12H PRN Administration Moderate Constipation Sodium Chloride 2 ml 12/05/17 21:00 12/08/17 08:47 Ns Flush IV.FLUSH 2 ml BID LOLA Administration Objective Remarks: GENERAL: Well-nourished, well-developed young female patient, in no acute distress. SKIN: Warm and dry. Vasc-cath Rt, drsg clean/dry. HEAD: Normocephalic. EYES: No scleral icterus. No injection or drainage. NECK: Supple, trachea midline. CARDIOVASCULAR: +S1/S2. RESPIRATORY: Posterior breath sounds clear, equal bilaterally. Non-labored at rest. GASTROINTESTINAL: Abdomen soft, non-tender, nondistended. EXTREMITIES: No cyanosis, or pitting edema. MUSCULOSKELETAL: Adequate muscle tone. BLE weakened strength, improving. NEUROLOGICAL: Awake, alert, and oriented x3. PSYCHIATRIC: Appropriate mood and affect; insight and judgment normal. Assessment/Plan - Plan Ms. Price is a pleasant 37-year-old female patient who has a history of multiple sclerosis. She recently moved to [place] from [place]. She is under the care of neurologist who consulted hematology for plasma exchange. Plan: 1. Plasmapheresis, patient currently receiving her 5th plasma exchange. Dr. Henry requests additional treatments 7-10. Orders written for 5 additional treatments every other day. Orders given to Sameer, dialysis nurse. Dialysis nurses reports that the patient is clotting off the machine during treatments. This has occurred in 4 of 5 treatments. They have requested to possibly use heparin 8000 units as needed for machine prime and heparin 1: 1000 units/mL. Use 1 mL each hour when indicated to prevent clotting during treatment. This will be further discussed with , and ordered if he approves. 2. Continue to monitor fibrinogen, CBC and coags. Plan to transfuse cryoprecipitate for fibrinogen < 100. 12/08/2017 Patient is doing okay. Feeling little bit better than yesterday Fibrinogen is less than 100. Will give her cryoprecipitate 1 bag today Sixth plasmapheresis tomorrow. Continue to monitor coags and CBC Dr. Henry neurologist have recommended 10 plasmapheresis treatment
--- NOTE | 2017-12-08 17:02 | P.PNNEU ---
Subjective Subjective Comments: pt feeling weak in general. Had plasmapheresis #4 yesterday Active Medications: Active Medications Acetaminophen (Tylenol) 650 mg PO Q4H PRN PRN Reason: Temp > 100.4 Acetaminophen (Tylenol) 650 mg PO Q4H PRN PRN Reason: SEE LABEL COMMENTS Al Hydroxide/Mg Hydroxide (Milk Of Magnesia Liq) 30 ml PO Q12H PRN PRN Reason: Mild Constipation Last Admin: 11/28/17 20:54 Dose: 30 ml Bisacodyl (Dulcolax Supp) 10 mg RECTAL DAILY PRN PRN Reason: SEVERE CONSITIPATION Buspirone HCl (Buspar) 5 mg PO BID [facility] Last Admin: 12/08/17 08:46 Dose: 5 mg Diphenhydramine HCl (Benadryl) 25 mg PO Q4H PRN PRN Reason: SEE LABEL COMMENTS Diphenhydramine HCl (Benadryl Inj) 25 mg IV.PUSH UNSCH PRN PRN Reason: SEE LABEL COMMENTS Stop: 12/17/17 23:59 Diphenhydramine HCl (Benadryl Inj) 25 mg IV.PUSH UNSCH PRN PRN Reason: SEE LABEL COMMENTS Stop: 12/17/17 23:59 Famotidine (Pepcid) 20 mg PO BID [facility] Last Admin: 12/08/17 08:47 Dose: 20 mg Ferrous Sulfate (Ferosul) 325 mg PO BID [facility] Last Admin: 12/08/17 08:46 Dose: 325 mg Heparin Sodium (Porcine) (Heparin Inj) 0 units IV.FLUSH Q48H [facility] Stop: 12/17/17 08:01 Methylprednisolone Sodium Succinate 250 mg/ Sodium Chloride 104 mls @ 200 mls/ hr IV.SIG Q6H [facility] Last Infusion: 12/08/17 15:59 Dose: Infused Albumin Human ([place] 5% Inj) 3,500 mls @ 0 mls/hr IV.SIG Q48H [facility] Stop: 12/17/17 08:01 Calcium Gluconate 3.5 gm/ (Sodium Chloride) 285 mls @ 0 mls/hr IV.SIG Q48H [facility] Stop: 12/17/17 08:01 Ibuprofen (Motrin) 600 mg PO Q6HR PRN PRN Reason: PAIN SCALE 1 TO 2 Lactulose (Lactulose Liq) 30 ml PO DAILY PRN PRN Reason: SEVERE CONSITIPATION Last Admin: 12/04/17 17:07 Dose: 30 ml Lorazepam (Ativan) 1 mg PO HS [facility] Last Admin: 12/07/17 20:44 Dose: 1 mg Morphine Sulfate (Morphine Inj) 4 mg IV.PUSH Q3H PRN PRN Reason: BREAKTHROUGH PAIN Last Admin: 11/30/17 00:55 Dose: 4 mg Morphine Sulfate (Morphine Inj) 4 mg IV.PUSH Q3H PRN PRN Reason: PAIN 6-10;IF UNABLE TO TAKE PO Morphine Sulfate (Morphine Inj) 2 mg IV.PUSH Q3H PRN PRN Reason: PAIN 3-5; IF UABLE TO TAKE PO Last Admin: 11/26/17 09:11 Dose: 2 mg Naloxone HCl (Narcan Inj) 0.4 mg IV.PUSH UNSCH PRN PRN Reason: SEE LABEL COMMENTS Ondansetron HCl (Zofran Inj) 4 mg IV.PUSH Q6H PRN PRN Reason: NAUSEA OR VOMITING Oxycodone/Acetaminophen (Percocet 5/325 Mg) 1 tab PO Q6H PRN PRN Reason: PAIN SCALE 3 TO 5 Last Admin: 11/23/17 13:14 Dose: 1 tab Oxycodone/Acetaminophen (Percocet 10/325 Mg) 1 tab PO Q4H PRN PRN Reason: PAIN SCALE 6 TO 10 Last Admin: 12/08/17 13:17 Dose: 1 tab Senna/Docusate Sodium (Lisa-Colace) 1 tab PO BID [facility] Last Admin: 12/08/17 08:47 Dose: 1 tab Sennosides (Senokot) 17.2 mg PO Q12H PRN PRN Reason: Moderate Constipation Last Admin: 11/28/17 08:27 Dose: 17.2 mg Sodium Chloride (Ns Flush) 2 ml IV.FLUSH BID [facility] Last Admin: 12/08/17 08:47 Dose: 2 ml Sodium Chloride (Ns Flush) 2 ml IV.FLUSH PRN PRN PRN Reason: FLUSH AFTER USING IV ACCESS Sodium Chloride (Ns Flush) 0 ml IV.FLUSH Q48H [facility] Stop: 12/17/17 08:01 Allergies/Adverse Reactions: Allergies Allergy/AdvReac Type Severity Reaction Status Date / Time No Known Allergies Allergy Verified 11/22/17 22:25 Physical Exam Vital signs: Vital Signs 12/07/17 18:12 12/07/17 20:00 12/08/17 00:00 Temperature 98.3 F 98.0 F Pulse Rate 71 77 Respiratory Rate 18 17 16 Blood Pressure 158/78 H 133/73 Pulse Oximetry 98 100 12/08/17 00:30 12/08/17 04:30 12/08/17 08:00 Temperature 98.3 F Pulse Rate 88 Respiratory Rate 17 18 18 Blood Pressure 148/73 H Pulse Oximetry 100 12/08/17 11:17 12/08/17 11:35 12/08/17 12:00 Temperature 98.4 F 98.5 F 98.4 F Pulse Rate 90 74 90 Respiratory Rate 20 18 20 Blood Pressure 136/70 142/84 H Pulse Oximetry 100 100 12/08/17 13:15 Temperature 98.7 F Pulse Rate 81 Respiratory Rate 18 Blood Pressure 141/69 H Pulse Oximetry 98 Intake & Output 12/07/17 12/08/17 12/08/17 18:59 06:59 18:59 Intake Total 3993 / 3993 208 / 208 104 / 104 Output Total 3500 / 3500 Balance 493 / 493 208 / 208 104 / 104 Intake: IV 3993 / 3993 208 / 208 104 / 104 SoluMEDROL Inj 250 MG In NS Inj 208 / 208 208 / 208 104 / 104 100 ML @ 200 mls/hr IV.SIG Q6H LOLA Rx#:[id number] Intake (Blood Product) Amt 0 / 0 Pre-Pooled Cryo Thawed 10units 0 / 0 Unit [id number] Output: Plasma Exchange Amount 3500 / 3500 Other: # Voids 6 Date of Last Bowel Movement 12/05/17 12/05/17 12/05/17 - Routine Neurological Exam alert, speech normal CN intact MOTOR 5/5 BUE. 4/5 LLE, 4+/5 RLE Objective Laboratory Results - last 24 hr 12/08/17 12/08/17 12/08/17 07:08 07:08 07:08 WBC 21.0 H RBC 3.28 L Hgb 8.6 L Hct 27.0 L MCV 82.2 MCH 26.3 L MCHC 32.0 RDW 24.0 H Plt Count 131 L MPV 8.2 Prelim Diff (Auto) Slide review pending Neut % (Auto) 95.3 H Lymph % (Auto) 1.5 L [place] % (Auto) 2.9 Eos % (Auto) 0.0 Baso % (Auto) 0.3 Neut # (Auto) 20.0 H Lymph # (Auto) 0.3 L [place] # (Auto) 0.6 Eos # (Auto) 0.0 Baso # (Auto) 0.1 WBC Differential . Diff Scan Auto diff confirmed Differential Comment . Platelet Estimate Low L Platelet Morphology Normal Ovalocytes 1+ H PT 14.0 H INR 1.4 APTT 26.9 Fibrinogen 64 L* Sodium 140 Potassium 3.7 Chloride 101 Carbon Dioxide 35.3 H Anion Gap 4 L BUN 19 H Creatinine 0.92 Estimated GFR 83 L Random Glucose 141 H Calcium 8.0 L Total Bilirubin 0.6 AST 7 L ALT 16 Alkaline Phosphatase 39 L Total Protein 5.1 L Albumin 3.9 Blood Bank Comment 12/08/17 10:03 WBC RBC Hgb Hct MCV MCH MCHC RDW Plt Count MPV Prelim Diff (Auto) Neut % (Auto) Lymph % (Auto) [place] % (Auto) Eos % (Auto) Baso % (Auto) Neut # (Auto) Lymph # (Auto) [place] # (Auto) Eos # (Auto) Baso # (Auto) WBC Differential Diff Scan Differential Comment Platelet Estimate Platelet Morphology Ovalocytes PT INR APTT Fibrinogen Sodium Potassium Chloride Carbon Dioxide Anion Gap BUN Creatinine Estimated GFR Random Glucose Calcium Total Bilirubin AST ALT Alkaline Phosphatase Total Protein Albumin Blood Bank Comment Review/Management - Diagnosis (1) Multiple sclerosis exacerbation Code(s): G35 - Multiple sclerosis Status: Acute Current Visit: Yes - Review/Management Plan: continue plasmapheresis every other day for 7 treatments upto 10 if needed
[2017-12-08] MEDS: LORazepam 1 MG Tablet PO SCH (21:03)
[2017-12-09] MEDS: MethylPREDNISolone Sod Suc Inj 250 MG in Sodium Chlor 0.9% Inj 100 ML IV.SIG SCH ×3 (05:36→17:50)
[2017-12-09 06:34] LABS: Hemoglobin 8.4 gm/dL (11.6-15.3); Mean Corpuscular HGB Conc 31.2 % (32.0-36.0); Mean Corpuscular Hemoglobin 26.1 pg (27.0-34.0); Mean Corpuscular Volume 83.7 fL (80.0-100.0); Platelet Count 115 th/mm3 (150-450); Red Blood Count 3.23 mil/mm3 (4.00-5.30); Red Cell Distribution Width 24.6 % (11.6-17.2)
[2017-12-09] MEDS ORDERED: Heparin 2,000 UNITS/2 ML Vial (for IV use) IV.FLUSH PRN (06:38)
[2017-12-09 07:05] LABS: INR 1.1 Ratio; Prothrombin Time 11.4 sec (9.8-11.6)
[2017-12-09 07:07] LABS: Albumin 3.6 g/dL (3.4-5.0); Anion Gap 5 meq/L (5-15); Aspartate Aminotransferase 8 U/L (15-37); Blood Urea Nitrogen 21 mg/dL (7-18); Calcium 8.2 mg/dL (8.5-10.1); Carbon Dioxide 35.1 meq/L (21.0-32.0); Chloride 102 meq/L (98-107); Glomerular Filtration Rate 89 mL/min (>89); Glucose,Random 123 mg/dL (74-106); Potassium 3.9 meq/L (3.5-5.1); Sodium 142 meq/L (136-145)
[2017-12-09 07:08] LABS: Alanine Aminotransferase 22 U/L (10-53)
[2017-12-09 07:10] LABS: Alkaline Phosphatase 50 U/L (45-117); Total Protein 5.2 g/dL (6.4-8.2)
[2017-12-09] MEDS: oxyCODONE/Acetaminophen 10/325 Tablet PO PRN ×2 (07:52→12:13)
[2017-12-09] MEDS: Sodium Chloride 0.9% 2 ML Flush BID IV.FLUSH SCH ×2 (08:00→20:57)
[2017-12-09] MEDS: Senna/Docusate Sodium 8.6/50 MG Tablet PO SCH ×2 (08:00→20:56)
[2017-12-09] MEDS: Famotidine 20 MG Tablet PO SCH ×2 (08:00→20:57)
[2017-12-09] MEDS: Ferrous Sulfate 325 MG Tablet PO SCH ×2 (08:00→20:56)
--- NOTE | 2017-12-09 09:54 | P.PNIM ---
Subjective Interval history: Feeling stronger. No other concerns. Ready for her plasmapheresis session today. Physical Exam Vital signs: Vital Signs 12/08/17 11:17 12/08/17 11:35 12/08/17 12:00 Temperature 98.4 F 98.5 F 98.4 F Pulse Rate 90 74 90 Respiratory Rate 20 18 20 Blood Pressure 136/70 142/84 H Pulse Oximetry 100 100 12/08/17 13:15 12/08/17 16:00 12/08/17 20:00 Temperature 98.7 F 98.5 F 97.6 F Pulse Rate 81 67 73 Respiratory Rate 18 18 18 Blood Pressure 141/69 H 148/67 H 131/60 Pulse Oximetry 98 100 100 12/09/17 00:00 12/09/17 04:00 12/09/17 08:00 Temperature 97.9 F 98.1 F 98.0 F Pulse Rate 63 75 60 Respiratory Rate 17 17 18 Blood Pressure 114/60 147/84 H 149/83 H Pulse Oximetry 100 100 98 Intake & Output 12/08/17 12/09/17 12/09/17 18:59 06:59 18:59 Intake Total 648 / 648 208 / 208 Output Total 3500 / 3500 Balance -2852 / -2852 / 208 Weight 115.4 kg Intake: IV 208 / 208 SoluMEDROL Inj 250 MG In NS Inj / 208 100 ML @ 200 mls/hr IV.SIG Q6H [facility] Rx#:[id number] Oral 240 / 240 Other 200 / 200 Intake (Blood Product) Amt 0 / 0 0 / 0 Pre-Pooled Cryo Thawed 10units 0 / 0 0 / 0 Unit [id number] Output: Urine 0 / 0 Plasma Exchange Amount 3500 / 3500 Other: # Voids 6 8 Date of Last Bowel Movement 12/05/17 # Bowel Movements 2 1 Narrative: GENERAL: This is a well-nourished, well-developed patient, in no apparent distress sitting up in a chair. CARDIOVASCULAR: Regular rate and rhythm RESPIRATORY: Clear to auscultation. Breath sounds equal bilaterally. No wheezes , rales, or rhonchi. GASTROINTESTINAL: Abdomen soft, obese, non-tender, nondistended. Normal active bowel sounds MUSCULOSKELETAL: Extremities without clubbing, cyanosis, trace edema NEURO: Alert & Oriented x4 to person, place, time, situation. Moves all ext x4 with increased strength bilateral upper extremities Results - Labs CBC & Chem 7: 12/09/17 06:05 12/09/17 06:05 Laboratory Results - last 24 hr 12/08/17 12/09/17 12/09/17 10:03 06:05 06:05 WBC 19.0 H RBC 3.23 L Hgb 8.4 L Hct 27.0 L MCV 83.7 MCH 26.1 L MCHC 31.2 L RDW 24.6 H Plt Count 115 L MPV 8.0 PT 11.4 INR 1.1 APTT 24.0 L Fibrinogen 100 L Sodium Potassium Chloride Carbon Dioxide Anion Gap BUN Creatinine Estimated GFR Random Glucose Calcium Total Bilirubin AST ALT Alkaline Phosphatase Total Protein Albumin Blood Bank Comment 12/09/17 06:05 WBC RBC Hgb Hct MCV MCH MCHC RDW Plt Count MPV PT INR APTT Fibrinogen Sodium 142 Potassium 3.9 Chloride 102 Carbon Dioxide 35.1 H Anion Gap 5 BUN 21 H Creatinine 0.86 Estimated GFR 89 Random Glucose 123 H Calcium 8.2 L Total Bilirubin 0.5 AST 8 L ALT 22 Alkaline Phosphatase 50 Total Protein 5.2 L Albumin 3.6 Blood Bank Comment Microbiology 12/09/17 04:44 Stool Stool Occult Blood ([facility]) - Final Hemoccult positive - Procedures IR dialysis cath plcmt w us Signed EXAM DATE: 11/28/2017 12:00 AM EDT AGE/SEX: 37 years / Female INDICATIONS: Patient with history of Multiple Sclerosis in need of temporary non-tunneled central venous catheter placement for Plasmapheresis. CLINICAL DATA: This is the patient's initial encounter. Patient reports that signs and symptoms have been present for 1 day and indicates a pain score of 0/ 10. MEDICAL/SURGICAL HISTORY: Multiple sclerosis. Anemia. section. COMPARISON: No prior exams available for comparison. FLUORO TIME (min): 0.15 IMAGE SERIES: 3 ACCESS SITE: Right internal jugular vein DEVICE(S): 14 Gabonese double lumen 15 cm Schon catheter Vascath. . . PROCEDURE : 1. Ultrasound guided venipuncture. 2. Fluoroscopic guidance. 3. Central line placement. The risks, benefits and alternatives to the procedure were explained and verbal and written consent was obtained. The site was prepped in sterile fashion. Full sterile technique was used, including cap, mask, sterile gloves and gown and a large sterile sheet. Hand hygiene and 2% chlorhexidine prep was utilized per protocol for cutaneous antisepsis with appropriate dry time for site. Sterile gel and sterile probe cover were utilized for ultrasound guidance. The skin and subcutaneous tissues were infiltrated with local anesthetic solution. A suitable site above the vein was selected with ultrasound and fluoroscopic guidance. A small incision was made. The vein was accessed under direct ultrasound visualization using the micropuncture technique. The micropuncture set was exchanged for a 0.035 wire. The tract was dilated. The catheter was advanced into position under direct fluoroscopic visualization, and was advanced with the tip at the junction of the superior vena cava and rt atrium. The catheter was fixed in place with suture and a sterile dressing was applied. The patient tolerated the procedure well and there were no complications. CONCLUSION: 1. Uncomplicated line placement as above. Electronically signed by: Chin Laguna MD 11/28/2017 Assessment and Plan - Assessment (1) Multiple sclerosis exacerbation Code(s): G35 - Multiple sclerosis Status: Acute - Plan 37-year-old female with a history of multiple sclerosis 1. Multiple sclerosis exacerbation. -Neurochecks has remained stable Status post IV Solu-Medrol in the ER Further management as per neurology. Appreciate hematology assistance in starting plasmapheresis. Continues on IV steroids as per neurology. Appears to be improving on plasmapheresis. Patient has completed 5 cycles. She will receive her sixth cycle today. Per neurology recommendations, she should receive 7 total cycles. Continue occupational and physical therapy. Hematology service currently managing. 2. Right upper extremity swelling CT angiogram appears negative for thrombus. Likely superficial thrombus. Appears to be improving. =resolved. 3. Chronic anemia. Hemoglobin 8.4. No signs of bleeding. 4. Tobacco abuse. Cessation counseling provided. 5. Chronic mild constipation. Resolved. 6. Depression. Continue BuSpar. 7. Leukocytosisdue to steroids 8. DVT prophylaxisheparin Discharge Planning: Will need walker for home and home after plasmapheresis course completed.
[2017-12-09] MEDS ORDERED: Anticoagulant Citrate Dextrose 1,000 ML Solution EXTRACORPO ONE (10:00)
--- NOTE | 2017-12-09 11:59 | P.PNONC ---
Subjective Interval history: Patient sitting in chair, states she feels the same, still generalized weakness and tired. She is pending plasma exchange #6 today. Reports bright red vaginal bleeding "since treatment started" Objective Vital Signs/Intake & Output: Vital Signs 12/08/17 12:00 12/08/17 13:15 12/08/17 16:00 Temperature 98.4 F 98.7 F 98.5 F Pulse Rate 90 81 67 Respiratory Rate 20 18 18 Blood Pressure 142/84 H 141/69 H 148/67 H Pulse Oximetry 100 98 100 12/08/17 20:00 12/09/17 00:00 12/09/17 04:00 Temperature 97.6 F 97.9 F 98.1 F Pulse Rate 73 63 75 Respiratory Rate 18 17 17 Blood Pressure 131/60 114/60 147/84 H Pulse Oximetry 100 100 100 12/09/17 08:00 Temperature 98.0 F Pulse Rate 60 Respiratory Rate 18 Blood Pressure 149/83 H Pulse Oximetry 98 Intake & Output 12/08/17 12/09/17 12/09/17 18:59 06:59 18:59 Intake Total 648 / 648 208 / 208 Output Total 3500 / 3500 Balance -2852 / -2852 208 / 208 Weight 115.4 kg Intake: IV / 208 SoluMEDROL Inj 250 MG In NS Inj 208 / 208 100 ML @ 200 mls/hr IV.SIG Q6H [facility] Rx#:[id number] Oral 240 / 240 Other 200 / 200 Intake (Blood Product) Amt 0 / 0 0 / 0 Pre-Pooled Cryo Thawed 10units 0 / 0 0 / 0 Unit [id number] Output: Urine 0 / 0 Plasma Exchange Amount 3500 / 3500 Other: # Voids 6 8 Date of Last Bowel Movement 12/05/17 # Bowel Movements 2 1 Result Diagrams: 12/09/17 06:05 12/09/17 06:05 Laboratory Results: Laboratory Results - last 24 hr 12/09/17 12/09/17 12/09/17 06:05 06:05 06:05 WBC 19.0 H RBC 3.23 L Hgb 8.4 L Hct 27.0 L MCV 83.7 MCH 26.1 L MCHC 31.2 L RDW 24.6 H Plt Count 115 L MPV 8.0 PT 11.4 INR 1.1 APTT 24.0 L Fibrinogen 100 L Sodium 142 Potassium 3.9 Chloride 102 Carbon Dioxide 35.1 H Anion Gap 5 BUN 21 H Creatinine 0.86 Estimated GFR 89 Random Glucose 123 H Calcium 8.2 L Total Bilirubin 0.5 AST 8 L ALT 22 Alkaline Phosphatase 50 Total Protein 5.2 L Albumin 3.6 Culture Results: Microbiology 12/09/17 04:44 Stool Occult Blood ([facility]) - Final Stool Hemoccult positive Medications: Active Medications Generic Name Dose Route Start Last Admin Trade Name Freq PRN Reason Stop Dose Admin Al Hydroxide/Mg Hydroxide 30 ml 11/23/17 13:03 11/28/17 20:54 Milk Of Magnesia Liq PO 30 ml Q12H PRN Administration Mild Constipation Buspirone HCl 5 mg 11/25/17 21:00 12/09/17 08:00 Buspar PO 5 mg BID LOLA Administration Famotidine 20 mg 11/23/17 15:00 12/09/17 08:00 Pepcid PO 20 mg BID LOLA Administration Ferrous Sulfate 325 mg 12/07/17 21:00 12/09/17 08:00 Ferosul PO 325 mg BID LOLA Administration Methylprednisolone Sodium 104 mls @ 200 mls/hr 11/27/17 12:00 12/09/17 06:17 Succinate 250 mg/ Sodium IV.SIG Infused Chloride Q6H [facility]A Infusion Lactulose 30 ml 11/23/17 13:03 12/04/17 17:07 Lactulose Liq PO 30 ml DAILY PRN Administration SEVERE CONSITIPATION Lorazepam 1 mg 12/06/17 21:00 12/08/17 21:03 Ativan PO 1 mg HS LOLA Administration Morphine Sulfate 4 mg 11/23/17 13:04 11/30/17 00:55 Morphine Inj IV.PUSH 4 mg Q3H PRN Administration BREAKTHROUGH PAIN Morphine Sulfate 2 mg 11/23/17 13:04 11/26/17 09:11 Morphine Inj IV.PUSH 2 mg Q3H PRN Administration PAIN 3-5; IF UABLE TO TAKE PO Oxycodone/Acetaminophen 1 tab 11/23/17 13:04 11/23/17 13:14 Percocet 5/325 Mg PO 1 tab Q6H PRN Administration PAIN SCALE 3 TO 5 Oxycodone/Acetaminophen 1 tab 11/29/17 15:41 12/09/17 07:52 Percocet 10/325 Mg PO 1 tab Q4H PRN Administration PAIN SCALE 6 TO 10 Senna/Docusate Sodium 1 tab 11/23/17 21:00 12/09/17 08:00 Lisa-Colace PO 1 tab BID [facility]A Administration Sennosides 17.2 mg 11/23/17 13:03 11/28/17 08:27 Senokot PO 17.2 mg Q12H PRN Administration Moderate Constipation Sodium Chloride 2 ml 12/05/17 21:00 12/09/17 08:00 Ns Flush IV.FLUSH 2 ml BID [facility]A Administration Objective Remarks: GENERAL: Well-nourished, well-developed young female patient, in no acute distress. SKIN: Warm and dry. Vasc-cath Rt, drsg clean/dry. HEAD: Normocephalic. EYES: No scleral icterus. No injection or drainage. NECK: Supple, trachea midline. CARDIOVASCULAR: +S1/S2. RESPIRATORY: Posterior breath sounds clear, equal bilaterally. Non-labored at rest. GASTROINTESTINAL: Abdomen soft, non-tender, nondistended. EXTREMITIES: No cyanosis, or pitting edema. MUSCULOSKELETAL: Adequate muscle tone. BLE weakened strength, improving. NEUROLOGICAL: Awake, alert, and oriented x3. PSYCHIATRIC: Appropriate mood and affect; insight and judgment normal. Assessment/Plan - Plan Ms. Price is a pleasant 37-year-old female patient who has a history of multiple sclerosis. She recently moved to [place] from [place]. She is under the care of neurologist who consulted hematology for plasma exchange. Plan: 1. Plasmapheresis, patient scheduled for her 6th plasma exchange. 2. Fibrinogen 100 today. Will transfuse cryoprecipitate after plasma exchange today. She is status post 1 bag yesterday. 3. Subjectively reports vaginal bleeding, continue to monitor closely. Will watch CBC closely. 4. Continue to monitor fibrinogen, CBC and coags. Plan to transfuse cryoprecipitate for fibrinogen < 100. - Attending Statement The exam, history, and the medical decision-making described in the above note were completed with the assistance of the mid-level provider. I reviewed and agree with the findings presented. I attest that I had a [id number] encounter with the patient on the same day, and personally performed and documented my assessment and findings in the medical record. Patient stated that the lower extremity is slightly stronger. She has persistent menstrual bleed. Hemoglobin and platelet count trended a little lower likely due to consumption. She has coagulopathy with low fibrinogen due to the plasmapheresis. She is going to have plasmapheresis #6 today. We will transfuse cryoprecipitate after the plasmapheresis given the vaginal bleed and low fibrinogen level.
[2017-12-09] MEDS ORDERED: Sodium Chlor 0.9% Inj 250 ML IV.SIG SCH (14:00)
[2017-12-09] MEDS: ALBUMIN HUMAN 5% IV.SIG SCH (15:30)
[2017-12-09] MEDS ORDERED: Heparin 10,000 UNITS/10 ML Vial (for IV use) IV.FLUSH PRN (16:11)
[2017-12-09] MEDS: CALCIUM GLUCONATE IV.SIG SCH (18:28)
[2017-12-09] MEDS: Heparin 2,000 UNITS/2 ML Vial (for IV use) IV.FLUSH SCH (18:28)
[2017-12-09] MEDS: SODIUM CHLOR 0.9% IV.SIG SCH (18:28)
[2017-12-09] MEDS: LORazepam 1 MG Tablet PO SCH (20:57)
[2017-12-09] MEDS: Morphine Inj 4 MG/ML Vial IV.PUSH PRN (21:46)
[2017-12-10] MEDS: MethylPREDNISolone Sod Suc Inj 250 MG in Sodium Chlor 0.9% Inj 100 ML IV.SIG SCH ×5 (00:15→17:19)
[2017-12-10] MEDS: oxyCODONE/Acetaminophen 10/325 Tablet PO PRN ×5 (03:35→20:41)
[2017-12-10 05:43] LABS: Activated Partial Thrombo Time 27.1 sec (24.3-30.1); INR 1.1 Ratio; Prothrombin Time 11.5 sec (9.8-11.6)
[2017-12-10] MEDS: Famotidine 20 MG Tablet PO SCH ×2 (08:29→20:40)
[2017-12-10] MEDS: Ferrous Sulfate 325 MG Tablet PO SCH ×2 (08:29→20:41)
[2017-12-10] MEDS: Senna/Docusate Sodium 8.6/50 MG Tablet PO SCH ×2 (09:05→20:41)
[2017-12-10] MEDS: Sodium Chloride 0.9% 2 ML Flush BID IV.FLUSH SCH (09:05)
--- NOTE | 2017-12-10 09:49 | P.PNIM ---
Subjective Interval history: Patient is feeling stronger able to stand up now by herself and having more movements. She is wanting to have 10 treatments and not stopping at 7 cycles. Physical Exam Vital signs: Vital Signs 12/09/17 12:00 12/09/17 15:03 12/09/17 18:49 Temperature 98.4 F 98.3 F 98.0 F Pulse Rate 73 81 84 Respiratory Rate 16 16 14 Blood Pressure 135/72 145/72 H 135/72 Pulse Oximetry 100 99 95 12/09/17 19:08 12/09/17 20:00 12/10/17 00:00 Temperature 97.9 F 98.3 F 98.4 F Pulse Rate 85 78 63 Respiratory Rate 17 18 18 Blood Pressure 143/70 H 156/76 H 140/75 Pulse Oximetry 98 100 100 12/10/17 04:00 12/10/17 08:00 Temperature 97.5 F L 97.9 F Pulse Rate 90 86 Respiratory Rate 17 18 Blood Pressure 141/71 H 148/77 H Pulse Oximetry 100 100 Intake & Output 12/09/17 12/10/17 12/10/17 18:59 06:59 18:59 Intake Total 5208 / 5208 104 / 104 Output Total 3500 / 3500 Balance 1708 / 1708 104 / 104 Weight 118.4 kg Intake: IV 3708 / 3708 104 / 104 Alburx 5% Inj 3,500 ML @ As 3500 / 3500 Directed IV.SIG Q48H [facility] Rx#: [id number] SoluMEDROL Inj 250 MG In NS Inj 208 / 208 104 / 104 100 ML @ 200 mls/hr IV.SIG Q6H [facility] Rx#:[id number] Oral 1500 / 1500 Intake (Blood Product) Amt 0 / 0 Pre-Pooled Cryo Thawed 10units 0 / 0 Unit [id number] Output: Plasma Exchange Amount 3500 / 3500 Other: # Voids 7 6 Date of Last Bowel Movement 12/09/17 12/09/17 # Bowel Movements 1 2 Narrative: GENERAL: This is a well-nourished, well-developed patient, in no apparent distress standing up in the room. CARDIOVASCULAR: Regular rate and rhythm RESPIRATORY: Clear to auscultation. Breath sounds equal bilaterally. No wheezes , rales, or rhonchi. GASTROINTESTINAL: Abdomen soft, obese, non-tender, nondistended. Normal active bowel sounds MUSCULOSKELETAL: Extremities without clubbing, cyanosis, trace to 1+ edema NEURO: Alert & Oriented x4 to person, place, time, situation. Moves all ext x4 with increased strength bilateral upper extremities Results - Labs CBC & Chem 7: 12/09/17 06:05 12/09/17 06:05 Laboratory Results - last 24 hr 12/09/17 12/10/17 13:42 04:31 PT 11.5 INR 1.1 APTT 27.1 Fibrinogen 109 L Blood Bank Comment - Procedures IR dialysis cath plcmt w us Signed EXAM DATE: 11/28/2017 12:00 AM EDT AGE/SEX: 37 years / Female INDICATIONS: Patient with history of Multiple Sclerosis in need of temporary non-tunneled central venous catheter placement for Plasmapheresis. CLINICAL DATA: This is the patient's initial encounter. Patient reports that signs and symptoms have been present for 1 day and indicates a pain score of 0/ 10. MEDICAL/SURGICAL HISTORY: Multiple sclerosis. Anemia. section. COMPARISON: No prior exams available for comparison. FLUORO TIME (min): 0.15 IMAGE SERIES: 3 ACCESS SITE: Right internal jugular vein DEVICE(S): 14 Tajik double lumen 15 cm Schon catheter Vascath. . . PROCEDURE : 1. Ultrasound guided venipuncture. 2. Fluoroscopic guidance. 3. Central line placement. The risks, benefits and alternatives to the procedure were explained and verbal and written consent was obtained. The site was prepped in sterile fashion. Full sterile technique was used, including cap, mask, sterile gloves and gown and a large sterile sheet. Hand hygiene and 2% chlorhexidine prep was utilized per protocol for cutaneous antisepsis with appropriate dry time for site. Sterile gel and sterile probe cover were utilized for ultrasound guidance. The skin and subcutaneous tissues were infiltrated with local anesthetic solution. A suitable site above the vein was selected with ultrasound and fluoroscopic guidance. A small incision was made. The vein was accessed under direct ultrasound visualization using the micropuncture technique. The micropuncture set was exchanged for a 0.035 wire. The tract was dilated. The catheter was advanced into position under direct fluoroscopic visualization, and was advanced with the tip at the junction of the superior vena cava and rt atrium. The catheter was fixed in place with suture and a sterile dressing was applied. The patient tolerated the procedure well and there were no complications. CONCLUSION: 1. Uncomplicated line placement as above. Electronically signed by: Chin Laguan MD 11/28/2017 Assessment and Plan - Assessment (1) Multiple sclerosis exacerbation Code(s): G35 - Multiple sclerosis Status: Acute - Plan 37-year-old female with a history of multiple sclerosis 1. Multiple sclerosis exacerbation. -Neurochecks has remained stable and clinically improving Status post IV Solu-Medrol in the ER Further management as per neurology. Appreciate hematology assistance in starting plasmapheresis. Continues on IV steroids as per neurology. Appears to be improving on plasmapheresis. Patient has completed 6 cycles. She will receive her seventh cycle tomorrow. Per neurology recommendations, she should receive at least 7 total cycles with further evaluations to 10 cycles. Continue occupational and physical therapy. Hematology service currently managing. 2. Right upper extremity swelling CT angiogram appears negative for thrombus. Likely superficial thrombus. Appears to be improving. =resolved. 3. Chronic anemia. Hemoglobin 8.4. No signs of bleeding. 4. Tobacco abuse. Cessation counseling provided. 5. Chronic mild constipation. Resolved. 6. Depression. Continue BuSpar. 7. Leukocytosisdue to steroids 8. DVT prophylaxisheparin Discharge Planning: Will need walker for home and home after plasmapheresis course completed.
--- NOTE | 2017-12-10 10:57 | P.PNONC ---
Subjective Interval history: Patient standing up in the room upon my arrival. She states after her treatment yesterday she has felt the best she has felt. Reports increased strength in her lower extremities. She states her vaginal bleeding has stopped this a.m. She is awaiting IV team to restart her IV for her steroids dose this afternoon. Objective Vital Signs/Intake & Output: Vital Signs 12/09/17 12:00 12/09/17 15:03 12/09/17 18:49 Temperature 98.4 F 98.3 F 98.0 F Pulse Rate 73 81 84 Respiratory Rate 16 16 14 Blood Pressure 135/72 145/72 H 135/72 Pulse Oximetry 100 99 95 12/09/17 19:08 12/09/17 20:00 12/10/17 00:00 Temperature 97.9 F 98.3 F 98.4 F Pulse Rate 85 78 63 Respiratory Rate 17 18 18 Blood Pressure 143/70 H 156/76 H 140/75 Pulse Oximetry 98 100 100 12/10/17 04:00 12/10/17 08:00 Temperature 97.5 F L 97.9 F Pulse Rate 90 86 Respiratory Rate 17 18 Blood Pressure 141/71 H 148/77 H Pulse Oximetry 100 100 Intake & Output 12/09/17 12/10/17 12/10/17 18:59 06:59 18:59 Intake Total 5208 / 5208 104 / 104 30 / 30 Output Total 3500 / 3500 Balance 1708 / 1708 104 / 104 30 / 30 Weight 118.4 kg Intake: IV 3708 / 3708 104 / 104 30 / 30 Alburx 5% Inj 3,500 ML @ As 3500 / 3500 Directed IV.SIG Q48H [facility] Rx#: [id number] SoluMEDROL Inj 250 MG In NS Inj 208 / 208 104 / 104 100 ML @ 200 mls/hr IV.SIG Q6H [facility] Rx#:[id number] NS Inj 250 ML @ 15 mls/hr IV. 30 / 30 SIG ONCE [facility] Rx#:[id number] Oral 1500 / 1500 Intake (Blood Product) Amt 0 / 0 Pre-Pooled Cryo Thawed 10units 0 / 0 Unit [id number] Output: Plasma Exchange Amount 3500 / 3500 Other: # Voids 7 6 Date of Last Bowel Movement 12/09/17 12/09/17 # Bowel Movements 1 2 Result Diagrams: 12/09/17 06:05 12/09/17 06:05 Laboratory Results: Laboratory Results - last 24 hr 12/09/17 12/10/17 13:42 04:31 PT 11.5 INR 1.1 APTT 27.1 Fibrinogen 109 L Blood Bank Comment Culture Results: Microbiology 12/09/17 04:44 Stool Occult Blood ([facility]) - Final Stool Hemoccult positive Medications: Active Medications Generic Name Dose Route Start Last Admin Trade Name Freq PRN Reason Stop Dose Admin Al Hydroxide/Mg Hydroxide 30 ml 11/23/17 13:03 11/28/17 20:54 Milk Of Magnesia Liq PO 30 ml Q12H PRN Administration Mild Constipation Buspirone HCl 5 mg 11/25/17 21:00 12/10/17 08:29 Buspar PO 5 mg BID [facility]A Administration Famotidine 20 mg 11/23/17 15:00 12/10/17 08:29 Pepcid PO 20 mg BID [facility] Administration Ferrous Sulfate 325 mg 12/07/17 21:00 12/10/17 08:29 Ferosul PO 325 mg BID [facility] Administration Heparin Sodium (Porcine) 0 units 12/09/17 08:00 12/09/17 18:28 Heparin Inj IV.FLUSH 12/17/17 08:01 Not Given Q48H [facility] Methylprednisolone Sodium 104 mls @ 200 mls/hr 11/27/17 12:00 12/10/17 09:05 Succinate 250 mg/ Sodium IV.SIG Not Given Chloride Q6H [facility] Albumin Human 3,500 mls @ 0 mls/hr 12/09/17 08:00 12/09/17 18:00 Alburx 5% Inj IV.SIG 12/17/17 08:01 Infused Q48H [facility] Infusion As Directed Calcium Gluconate 3.5 gm/ 285 mls @ 0 mls/hr 12/09/17 08:00 12/09/17 18:28 Sodium Chloride IV.SIG 12/17/17 08:01 Not Given Q48H [facility]A As Directed Lactulose 30 ml 11/23/17 13:03 12/10/17 00:15 Lactulose Liq PO 30 ml DAILY PRN Administration SEVERE CONSITIPATION Lorazepam 1 mg 12/06/17 21:00 12/09/17 20:57 Ativan PO 1 mg HS [facility] Administration Morphine Sulfate 4 mg 11/23/17 13:04 12/09/17 21:46 Morphine Inj IV.PUSH 4 mg Q3H PRN Administration BREAKTHROUGH PAIN Morphine Sulfate 2 mg 11/23/17 13:04 11/26/17 09:11 Morphine Inj IV.PUSH 2 mg Q3H PRN Administration PAIN 3-5; IF UABLE TO TAKE PO Ondansetron HCl 4 mg 11/23/17 13:03 12/09/17 21:45 Zofran Inj IV.PUSH 4 mg Q6H PRN Administration NAUSEA OR VOMITING Oxycodone/Acetaminophen 1 tab 11/23/17 13:04 11/23/17 13:14 Percocet 5/325 Mg PO 1 tab Q6H PRN Administration PAIN SCALE 3 TO 5 Oxycodone/Acetaminophen 1 tab 11/29/17 15:41 12/10/17 08:29 Percocet 10/325 Mg PO 1 tab Q4H PRN Administration PAIN SCALE 6 TO 10 Senna/Docusate Sodium 1 tab 11/23/17 21:00 12/10/17 09:05 Lisa-Colace PO Not Given BID [facility] Sennosides 17.2 mg 11/23/17 13:03 12/10/17 00:15 Senokot PO 17.2 mg Q12H PRN Administration Moderate Constipation Sodium Chloride 2 ml 12/05/17 21:00 12/10/17 09:05 Ns Flush IV.FLUSH Not Given BID [facility] Sodium Chloride 0 ml 12/09/17 08:00 12/09/17 18:27 Ns Flush IV.FLUSH 12/17/17 08:01 Not Given Q48H [facility] Objective Remarks: GENERAL: Well-nourished, well-developed young female patient, in no acute distress. SKIN: Warm and dry. Vasc-cath Rt, drsg clean/dry. HEAD: Normocephalic. EYES: No scleral icterus. No injection or drainage. NECK: Supple, trachea midline. CARDIOVASCULAR: +S1/S2. RESPIRATORY: Posterior breath sounds clear, equal bilaterally. Non-labored at rest. GASTROINTESTINAL: Abdomen soft, non-tender, nondistended. EXTREMITIES: No cyanosis, or pitting edema. MUSCULOSKELETAL: Adequate muscle tone. BUE equal strength. BLE strength, improving. NEUROLOGICAL: Awake, alert, and oriented x3. PSYCHIATRIC: Appropriate mood and affect; insight and judgment normal. Assessment/Plan - Plan Ms. Price is a pleasant 37-year-old female patient who has a history of multiple sclerosis. She recently moved to [place] from [place]. She is under the care of neurologist who consulted hematology for plasma exchange. Plan: 1. Plasmapheresis, patient status post 6th plasma exchange, yesterday. 2. Fibrinogen 109 today. Status post transfusion of cryoprecipitate last night after plasma exchange. 3. Vaginal bleeding has stopped per patient. Continue to monitor CBC. 4. Continue to monitor fibrinogen, CBC and coags. Plan to transfuse cryoprecipitate for fibrinogen < 100. - Attending Statement The exam, history, and the medical decision-making described in the above note were completed with the assistance of the mid-level provider. I reviewed and agree with the findings presented. I attest that I had a [id number] encounter with the patient on the same day, and personally performed and documented my assessment and findings in the medical record. Patient tolerated plasmapheresis #6 well yesterday. She is feeling stronger this morning. Her vaginal bleed stopped this morning. She has cytopenia due to plasmapheresis. Fibrinogen stable at 109 after cryoprecipitate transfusion yesterday.
[2017-12-11] MEDS: Sodium Chloride 0.9% 2 ML Flush BID IV.FLUSH SCH ×3 (00:16→20:52)
[2017-12-11] MEDS: MethylPREDNISolone Sod Suc Inj 250 MG in Sodium Chlor 0.9% Inj 100 ML IV.SIG SCH (00:16)
[2017-12-11] MEDS: oxyCODONE/Acetaminophen 10/325 Tablet PO PRN ×6 (01:25→22:21)
[2017-12-11] MEDS: LORazepam 1 MG Tablet PO SCH ×2 (01:25→20:51)
[2017-12-11] MEDS ORDERED: predniSONE 20 MG Tablet PO ONE (02:00)
[2017-12-11] MEDS: Ferrous Sulfate 325 MG Tablet PO SCH ×2 (08:44→20:51)
[2017-12-11] MEDS: predniSONE 20 MG Tablet PO SCH ×2 (08:44→20:51)
[2017-12-11] MEDS: Famotidine 20 MG Tablet PO SCH ×2 (08:44→20:51)
--- NOTE | 2017-12-11 09:07 | P.PN ---
Subjective Interval history: Patient doing well overnight. Reports improved strength after completion of plasmapheresis on Monday. Patient is tolerating p.o., voiding/stooling well. No events per RN. Physical Exam Vital signs: Vital Signs 12/10/17 11:40 12/10/17 16:00 12/10/17 20:00 Temperature 97.3 F L 97.9 F 98.1 F Pulse Rate 87 79 84 Respiratory Rate 13 17 18 Blood Pressure 168/84 H 154/87 H 144/89 H Pulse Oximetry 100 99 12/11/17 00:00 Temperature 97.7 F Pulse Rate 73 Respiratory Rate 16 Blood Pressure 128/74 Pulse Oximetry 100 Intake & Output 12/10/17 12/11/17 12/11/17 18:59 06:59 18:59 Intake Total 854 / 854 Balance 854 / 854 Weight 119.2 kg Intake: IV 134 / 134 SoluMEDROL Inj 250 MG In NS Inj 104 / 104 100 ML @ 200 mls/hr IV.SIG Q6H [facility] Rx#:[id number] NS Inj 250 ML @ 15 mls/hr IV. 30 / 30 SIG ONCE [facility] Rx#:[id number] Oral 720 / 720 Other: # Voids 12 6 Date of Last Bowel Movement 12/10/17 12/10/17 # Bowel Movements 4 1 Narrative: GENERAL: Well-nourished -Burkinan female, in NAD, lying comfortably in bed SKIN: Warm and dry. HEENT: Normocephalic. No scleral icterus. No injection or drainage. PERRLA. MOM. NECK: Supple, trachea midline. No JVD or lymphadenopathy. CARDIOVASCULAR: Regular rate and rhythm without murmurs, gallops, or rubs. RESPIRATORY: Breath sounds equal bilaterally. No accessory muscle use. GASTROINTESTINAL: Abdomen soft, non-tender, nondistended. MUSCULOSKELETAL: No cyanosis, or edema. Motor strength 5/5 x 4 BACK: Nontender without obvious deformity. No CVA tenderness. NEURO: AAO x3, no focal deficit Results - Labs CBC & Chem 7: 12/09/17 06:05 12/09/17 06:05 - Procedures IR dialysis cath plcmt w us Signed EXAM DATE: 11/28/2017 12:00 AM EDT AGE/SEX: 37 years / Female INDICATIONS: Patient with history of Multiple Sclerosis in need of temporary non-tunneled central venous catheter placement for Plasmapheresis. CLINICAL DATA: This is the patient's initial encounter. Patient reports that signs and symptoms have been present for 1 day and indicates a pain score of 0/ 10. MEDICAL/SURGICAL HISTORY: Multiple sclerosis. Anemia. section. COMPARISON: No prior exams available for comparison. FLUORO TIME (min): 0.15 IMAGE SERIES: 3 ACCESS SITE: Right internal jugular vein DEVICE(S): 14 [place] double lumen 15 cm Schon catheter Vascath. . . PROCEDURE : 1. Ultrasound guided venipuncture. 2. Fluoroscopic guidance. 3. Central line placement. The risks, benefits and alternatives to the procedure were explained and verbal and written consent was obtained. The site was prepped in sterile fashion. Full sterile technique was used, including cap, mask, sterile gloves and gown and a large sterile sheet. Hand hygiene and 2% chlorhexidine prep was utilized per protocol for cutaneous antisepsis with appropriate dry time for site. Sterile gel and sterile probe cover were utilized for ultrasound guidance. The skin and subcutaneous tissues were infiltrated with local anesthetic solution. A suitable site above the vein was selected with ultrasound and fluoroscopic guidance. A small incision was made. The vein was accessed under direct ultrasound visualization using the micropuncture technique. The micropuncture set was exchanged for a 0.035 wire. The tract was dilated. The catheter was advanced into position under direct fluoroscopic visualization, and was advanced with the tip at the junction of the superior vena cava and rt atrium. The catheter was fixed in place with suture and a sterile dressing was applied. The patient tolerated the procedure well and there were no complications. CONCLUSION: 1. Uncomplicated line placement as above. Electronically signed by: Chin Laguna MD 11/28/2017 Assessment and Plan - Assessment (1) Multiple sclerosis exacerbation Code(s): G35 - Multiple sclerosis Status: Acute - Plan This is a 37-year-old -Burkinan female with past medical history multiple sclerosis MS exacerbation, admitted on 11/23/17 1. Multiple Sclerosis Exacerbation, strength improving today Neurochecks have remained stable Managed by Neurology, appreciate assistance, continue on Methyolpred 250mg IV Q6hrs as per Neurology and plasmapheresis. Has plasmapheresis #7 schedule today. Per neurology recommendations, she should receive 7-10 total cycles, pending their assessment today Continue occupational and physical therapy Appreciate Hematology assistance with plasmapheresis Reccs Per [facility]On 12/10: 1. Plasmapheresis, patient status post 6th plasma exchange, yesterday. 2. Fibrinogen 109 today. Status post transfusion of cryoprecipitate last night after plasma exchange. 3. Vaginal bleeding has stopped per patient. Continue to monitor CBC. 4. Continue to monitor fibrinogen, CBC and coags. Plan to transfuse cryoprecipitate for fibrinogen < 100. Per Neuro on 12/08: Continue plasmapheresis every other day for 7 treatments upto 10 if needed 2. Right Upper Extremity Swelling, resolved CT angiogram Neg for thrombus 3. Chronic Anemia Pending AM labs, Hgb 8.4 on 12/09 No signs of bleeding Cont. FeSulfate Follow-up CBC in AM 4. Leukocytosis, improving Secondary to steroids, patient afebrile WBC 19 on 12/09, pending labs this AM Blood culture with no growth times 5 days (4 bottles) 11/25 Negative UA, Neg chest x-ray on admission (11/25) 5. Tobacco Abuse Cessation counseling provided, risks discussed 6. Depression Continue BuSpar, denies homicidal/suicidal ideation 7. GERD Cont. Pepcid 8. DVT prophylaxis: SCD's 9. Disposition: Plan for plasmapheresis #7 today, pending Neuro reccs to determine if she will need 10 treatments Code Status: full Discussed Condition With: patient, RN, CM
[2017-12-11 09:21] LABS: Hematocrit 25.7 % (35.0-46.0); Hemoglobin 8.2 gm/dL (11.6-15.3); Mean Corpuscular Volume 84.4 fL (80.0-100.0); Mean Platelet Volume 8.3 fL (7.0-11.0); Platelet Count 99 th/mm3 (150-450); Red Blood Count 3.04 mil/mm3 (4.00-5.30); Red Cell Distribution Width 26.1 % (11.6-17.2); White Blood Count 19.8 th/mm3 (4.0-11.0)
[2017-12-11] MEDS: Anticoagulant Citrate Dextrose 1,000 ML Solution EXTRACORPO SCH (10:10)
[2017-12-11] MEDS: Senna/Docusate Sodium 8.6/50 MG Tablet PO SCH ×2 (10:37→20:51)
[2017-12-11] MEDS: ALBUMIN HUMAN 5% IV.SIG SCH (11:15)
[2017-12-11] MEDS: SODIUM CHLOR 0.9% IV.SIG SCH (11:17)
[2017-12-11] MEDS: CALCIUM GLUCONATE IV.SIG SCH (11:17)
--- NOTE | 2017-12-11 15:31 | P.PNONC ---
Subjective Interval history: Afebrile Patient had seventh plasma exchange today Reports she feels weak and nauseous after her treatment She is currently awaiting IV placement so she can have something for nausea Had some further vaginal bleeding this morning Objective Vital Signs/Intake & Output: Vital Signs 12/10/17 16:00 12/10/17 20:00 12/11/17 00:00 Temperature 97.9 F 98.1 F 97.7 F Pulse Rate 79 84 73 Respiratory Rate 17 18 16 Blood Pressure 154/87 H 144/89 H 128/74 Pulse Oximetry 99 100 Intake & Output 12/10/17 12/11/17 12/11/17 18:59 06:59 18:59 Intake Total 854 / 854 Output Total 2500 / 2500 Balance 854 / 854 -2500 / -2500 Weight 262 lb 12.656 oz Intake: IV 134 / 134 SoluMEDROL Inj 250 MG In NS Inj 104 / 104 100 ML @ 200 mls/hr IV.SIG Q6H [facility] Rx#:[id number] NS Inj 250 ML @ 15 mls/hr IV. 30 / 30 SIG ONCE [facility] Rx#:[id number] Oral 720 / 720 Output: Plasma Exchange Amount 2500 / 2500 Other: # Voids 12 6 Date of Last Bowel Movement 12/10/17 12/10/17 12/10/17 # Bowel Movements 4 1 Result Diagrams: 12/11/17 07:59 12/09/17 06:05 Laboratory Results: Laboratory Results - last 24 hr 12/11/17 07:59 WBC 19.8 H RBC 3.04 L Hgb 8.2 L Hct 25.7 L MCV 84.4 MCH 27.0 MCHC 32.0 RDW 26.1 H Plt Count 99 L MPV 8.3 Culture Results: Microbiology 12/09/17 04:44 Stool Occult Blood (MOHAN) - Final Stool Hemoccult positive Medications: Active Medications Generic Name Dose Route Start Last Admin Trade Name Freq PRN Reason Stop Dose Admin Al Hydroxide/Mg Hydroxide 30 ml 11/23/17 13:03 11/28/17 20:54 Milk Of Magnesia Liq PO 30 ml Q12H PRN Administration Mild Constipation Buspirone HCl 5 mg 11/25/17 21:00 12/11/17 08:44 Buspar PO 5 mg BID LOAL Administration Famotidine 20 mg 11/23/17 15:00 12/11/17 08:44 Pepcid PO 20 mg BID [facility] Administration Ferrous Sulfate 325 mg 12/07/17 21:00 12/11/17 08:44 Ferosul PO 325 mg BID [facility] Administration Heparin Sodium (Porcine) 0 units 12/09/17 08:00 12/09/17 18:28 Heparin Inj IV.FLUSH 12/17/17 08:01 Not Given Q48H [facility] Albumin Human 3,500 mls @ 0 mls/hr 12/09/17 08:00 12/11/17 11:15 Alburx 5% Inj IV.SIG 12/17/17 08:01 2,500 mls/hr Q48H [facility] Administration As Directed Calcium Gluconate 3.5 gm/ 285 mls @ 0 mls/hr 12/09/17 08:00 12/11/17 11:17 Sodium Chloride IV.SIG 12/17/17 08:01 135 mls/hr Q48H [facility] Administration As Directed Lactulose 30 ml 11/23/17 13:03 12/10/17 00:15 Lactulose Liq PO 30 ml DAILY PRN Administration SEVERE CONSITIPATION Lorazepam 1 mg 12/06/17 21:00 12/11/17 01:25 Ativan PO 1 mg HS LOLA Administration Morphine Sulfate 4 mg 11/23/17 13:04 12/09/17 21:46 Morphine Inj IV.PUSH 4 mg Q3H PRN Administration BREAKTHROUGH PAIN Morphine Sulfate 2 mg 11/23/17 13:04 11/26/17 09:11 Morphine Inj IV.PUSH 2 mg Q3H PRN Administration PAIN 3-5; IF UABLE TO TAKE PO Ondansetron HCl 4 mg 11/23/17 13:03 12/09/17 21:45 Zofran Inj IV.PUSH 4 mg Q6H PRN Administration NAUSEA OR VOMITING Oxycodone/Acetaminophen 1 tab 11/23/17 13:04 11/23/17 13:14 Percocet 5/325 Mg PO 1 tab Q6H PRN Administration PAIN SCALE 3 TO 5 Oxycodone/Acetaminophen 1 tab 11/29/17 15:41 12/11/17 14:15 Percocet 10/325 Mg PO 1 tab Q4H PRN Administration PAIN SCALE 6 TO 10 Prednisone 40 mg 12/11/17 09:00 12/11/17 08:44 Deltasone PO 40 mg BID [facility] Administration Senna/Docusate Sodium 1 tab 11/23/17 21:00 12/11/17 10:37 Lisa-Colace PO Not Given BID [facility] Sennosides 17.2 mg 11/23/17 13:03 12/10/17 00:15 Senokot PO 17.2 mg Q12H PRN Administration Moderate Constipation Sodium Chloride 2 ml 12/05/17 21:00 12/11/17 10:37 Ns Flush IV.FLUSH Not Given BID [facility] Sodium Chloride 0 ml 12/09/17 08:00 12/09/17 18:27 Ns Flush IV.FLUSH 12/17/17 08:01 Not Given Q48H [facility] Sodium Citrate 1,000 ml 12/11/17 08:30 12/11/17 10:10 Acd-A Solution EXTRACORPO 12/17/17 08:29 1,000 ml UNSCH LOLA Administration Objective Remarks: GENERAL: Well-nourished, well-developed young female patient, in no acute distress. SKIN: Warm and dry. Vasc-cath Rt, drsg clean/dry. HEAD: Normocephalic. EYES: No scleral icterus. No injection or drainage. NECK: Supple, trachea midline. CARDIOVASCULAR: +S1/S2. RESPIRATORY: Posterior breath sounds clear, equal bilaterally. Non-labored at rest. GASTROINTESTINAL: Abdomen soft, non-tender, nondistended. EXTREMITIES: No cyanosis, or pitting edema. MUSCULOSKELETAL: Adequate muscle tone. BUE equal strength. BLE strength, improving. NEUROLOGICAL: Awake, alert, and oriented x3. Assessment/Plan - Plan Ms. Price is a pleasant 37-year-old female patient who has a history of multiple sclerosis. She recently moved to [place] from [place]. She is under the care of neurologist who consulted hematology for plasma exchange. Plan: 1. Plasmapheresis, patient status post 7th plasma exchange earlier today. I will give her a one-time dose of ODT Zofran until IV can be placed. 2. Coags are pending. I have called the lab and they are sending someone back out for re-collect. We will plan to transfuse cryoprecipitate for fibrinogen less than 100. 3. Monitor CBC. Monitor fibrinogen. - Attending Statement The exam, history, and the medical decision-making described in the above note were completed with the assistance of the mid-level provider. I reviewed and agree with the findings presented. I attest that I had a [id number] encounter with the patient on the same day, and personally performed and documented my assessment and findings in the medical record. c/o gereralized weakness after plasmaphersis Today she had 7th plasma phersis. Fibrinogen is <100, give cryo today. D/W pt RN
[2017-12-11 16:12] LABS: Activated Partial Thrombo Time 39.5 sec (24.3-30.1); INR 1.4 Ratio
[2017-12-11] MEDS ORDERED: Sodium Chlor 0.9% Inj 250 ML IV.SIG SCH (17:00)
--- NOTE | 2017-12-11 20:02 | P.PNNEU ---
Subjective Subjective Comments: s/p pheresis 7 today Active Medications: Active Medications Acetaminophen (Tylenol) 650 mg PO Q4H PRN PRN Reason: Temp > 100.4 Acetaminophen (Tylenol) 650 mg PO Q4H PRN PRN Reason: SEE LABEL COMMENTS Al Hydroxide/Mg Hydroxide (Milk Of Brittany Freire) 30 ml PO Q12H PRN PRN Reason: Mild Constipation Last Admin: 11/28/17 20:54 Dose: 30 ml Bisacodyl (Dulcolax Supp) 10 mg RECTAL DAILY PRN PRN Reason: SEVERE CONSITIPATION Buspirone HCl (Buspar) 5 mg PO BID [facility] Last Admin: 12/11/17 08:44 Dose: 5 mg Diphenhydramine HCl (Benadryl) 25 mg PO Q4H PRN PRN Reason: SEE LABEL COMMENTS Diphenhydramine HCl (Benadryl Inj) 25 mg IV.PUSH UNSCH PRN PRN Reason: SEE LABEL COMMENTS Stop: 12/17/17 23:59 Diphenhydramine HCl (Benadryl Inj) 25 mg IV.PUSH UNSCH PRN PRN Reason: SEE LABEL COMMENTS Stop: 12/17/17 23:59 Famotidine (Pepcid) 20 mg PO BID [facility] Last Admin: 12/11/17 08:44 Dose: 20 mg Ferrous Sulfate (Ferosul) 325 mg PO BID [facility] Last Admin: 12/11/17 08:44 Dose: 325 mg Heparin Sodium (Porcine) (Heparin Inj) 0 units IV.FLUSH Q48H [facility] Stop: 12/17/17 08:01 Last Admin: 12/09/17 18:28 Dose: Not Given Heparin Sodium (Porcine) (Heparin Inj) 1,000 units IV.FLUSH WITH DIALYSIS PRN PRN Reason: prevent clot plasma exchange Heparin Sodium (Porcine) (Heparin Inj) 8,000 units IV.FLUSH UNSCH PRN PRN Reason: MACHINE PRIMING Albumin Human (Alburx 5% Inj) 3,500 mls @ 0 mls/hr IV.SIG Q48H [facility] Stop: 12/17/17 08:01 Last Infusion: 12/11/17 12:39 Dose: Infused Calcium Gluconate 3.5 gm/ (Sodium Chloride) 285 mls @ 0 mls/hr IV.SIG Q48H [facility] Stop: 12/17/17 08:01 Last Admin: 12/11/17 11:17 Dose: 135 mls/hr Sodium Chloride (Ns Inj) 250 mls @ 15 mls/hr IV.SIG ONCE [facility] Stop: 12/12/17 09:39 Ibuprofen (Motrin) 600 mg PO Q6HR PRN PRN Reason: PAIN SCALE 1 TO 2 Lactulose (Lactulose Liq) 30 ml PO DAILY PRN PRN Reason: SEVERE CONSITIPATION Last Admin: 12/10/17 00:15 Dose: 30 ml Lorazepam (Ativan) 1 mg PO [facility] Last Admin: 12/11/17 01:25 Dose: 1 mg Morphine Sulfate (Morphine Inj) 4 mg IV.PUSH Q3H PRN PRN Reason: BREAKTHROUGH PAIN Last Admin: 12/09/17 21:46 Dose: 4 mg Morphine Sulfate (Morphine Inj) 4 mg IV.PUSH Q3H PRN PRN Reason: PAIN 6-10;IF UNABLE TO TAKE PO Morphine Sulfate (Morphine Inj) 2 mg IV.PUSH Q3H PRN PRN Reason: PAIN 3-5; IF UABLE TO TAKE PO Last Admin: 11/26/17 09:11 Dose: 2 mg Naloxone HCl (Narcan Inj) 0.4 mg IV.PUSH UNSCH PRN PRN Reason: SEE LABEL COMMENTS Ondansetron HCl (Zofran Inj) 4 mg IV.PUSH Q6H PRN PRN Reason: NAUSEA OR VOMITING Last Admin: 12/09/17 21:45 Dose: 4 mg Oxycodone/Acetaminophen (Percocet 5/325 Mg) 1 tab PO Q6H PRN PRN Reason: PAIN SCALE 3 TO 5 Last Admin: 11/23/17 13:14 Dose: 1 tab Oxycodone/Acetaminophen (Percocet 10/325 Mg) 1 tab PO Q4H PRN PRN Reason: PAIN SCALE 6 TO 10 Last Admin: 12/11/17 18:10 Dose: 1 tab Prednisone (Deltasone) 40 mg PO BID [facility] Last Admin: 12/11/17 08:44 Dose: 40 mg Senna/Docusate Sodium (Lisa-Colace) 1 tab PO BID [facility] Last Admin: 12/11/17 10:37 Dose: Not Given Sennosides (Senokot) 17.2 mg PO Q12H PRN PRN Reason: Moderate Constipation Last Admin: 12/10/17 00:15 Dose: 17.2 mg Sodium Chloride (Ns Flush) 2 ml IV.FLUSH BID [facility] Last Admin: 12/11/17 10:37 Dose: Not Given Sodium Chloride (Ns Flush) 2 ml IV.FLUSH PRN PRN PRN Reason: FLUSH AFTER USING IV ACCESS Sodium Chloride (Ns Flush) 0 ml IV.FLUSH Q48H [facility] Stop: 12/17/17 08:01 Last Admin: 12/09/17 18:27 Dose: Not Given Sodium Citrate (Acd-A Solution) 1,000 ml EXTRACORPO UNSCH [facility] Stop: 12/17/17 08:29 Last Admin: 12/11/17 10:10 Dose: 1,000 ml Allergies/Adverse Reactions: Allergies Allergy/AdvReac Type Severity Reaction Status Date / Time No Known Allergies Allergy Verified 11/22/17 22:25 Physical Exam Vital signs: Vital Signs 12/11/17 00:00 12/11/17 17:05 12/11/17 19:39 Temperature 97.7 F 97.8 F 97.7 F Pulse Rate 73 78 96 H Respiratory Rate 16 16 18 Blood Pressure 128/74 144/79 H 148/68 H Pulse Oximetry 100 98 98 Intake & Output 12/11/17 12/11/17 12/12/17 06:59 18:59 06:59 Intake Total 3740 / 3740 0 / 0 Output Total 2500 / 2500 Balance 1240 / 1240 0 / 0 Weight 119.2 kg Intake: IV 3500 / 3500 Alburx 5% Inj 3,500 ML @ As 3500 / 3500 Directed IV.SIG Q48H [facility] Rx#: [id number] Oral 240 / 240 Intake (Blood Product) Amt 0 / 0 Pre-Pooled Cryo Thawed 10units 0 / 0 Unit [id number] Output: Plasma Exchange Amount 2500 / 2500 Other: # Voids 6 Date of Last Bowel Movement 12/10/17 12/10/17 # Bowel Movements 1 - Routine Neurological Exam alert, speech normal CN intact motor 4/5 BLE. Objective Laboratory Results - last 24 hr 12/11/17 12/11/17 12/11/17 07:59 15:00 16:22 WBC 19.8 H RBC 3.04 L Hgb 8.2 L Hct 25.7 L MCV 84.4 MCH 27.0 MCHC 32.0 RDW 26.1 H Plt Count 99 L MPV 8.3 PT 14.0 H INR 1.4 APTT 39.5 H D Fibrinogen 71 L* Blood Bank Comment Review/Management - Diagnosis (1) Multiple sclerosis exacerbation Code(s): G35 - Multiple sclerosis Status: Acute Current Visit: Yes - Review/Management Plan: continue plasmapheresis every other day for total of 9. Recommend [facility] after pheresis
[2017-12-11] MEDS: Heparin 2,000 UNITS/2 ML Vial (for IV use) IV.FLUSH SCH (20:13)
[2017-12-12] MEDS: oxyCODONE/Acetaminophen 10/325 Tablet PO PRN ×4 (03:25→15:43)
[2017-12-12 07:20] LABS: Baso % (Auto) 0.2 % (0.0-2.0); Hematocrit 25.4 % (35.0-46.0); Hemoglobin 8.1 gm/dL (11.6-15.3); Lymph # (Auto) 0.3 th/mm3 (1.0-4.8); Lymph % (Auto) 1.6 % (9.0-44.0); Mean Corpuscular HGB Conc 31.9 % (32.0-36.0); Mean Corpuscular Volume 84.7 fL (80.0-100.0); Mean Platelet Volume 8.1 fL (7.0-11.0); Mono # (Auto) 0.4 th/mm3 (0.0-0.9); Mono % (Auto) 2.3 % (0.0-8.0); Neut # (Auto) 18.3 th/mm3 (1.8-7.7); Neut % (Auto) 95.9 % (16.0-70.0); Platelet Count 76 th/mm3 (150-450); Red Cell Distribution Width 26.2 % (11.6-17.2); White Blood Count 19.1 th/mm3 (4.0-11.0)
[2017-12-12 07:22] LABS: INR 1.1 Ratio; Prothrombin Time 10.9 sec (9.8-11.6)
[2017-12-12] MEDS: Famotidine 20 MG Tablet PO SCH ×2 (07:45→21:33)
[2017-12-12] MEDS: predniSONE 20 MG Tablet PO SCH ×2 (07:45→21:32)
[2017-12-12] MEDS: Ferrous Sulfate 325 MG Tablet PO SCH ×2 (07:45→21:32)
[2017-12-12 07:56] LABS: Anion Gap 8 meq/L (5-15); Blood Urea Nitrogen 19 mg/dL (7-18); Calcium 8.8 mg/dL (8.5-10.1); Chloride 103 meq/L (98-107); Glomerular Filtration Rate Greater Than 89 mL/min (>89); Glucose,Random 103 mg/dL (74-106); Potassium 3.8 meq/L (3.5-5.1); Sodium 142 meq/L (136-145)
[2017-12-12] MEDS ORDERED: Acetaminophen 325 MG Tablet PO PRN (08:20)
[2017-12-12 08:40] LABS: Ovalocytes 1+; Platelet Morphology Normal (Normal); Target Cells 1+
[2017-12-12] MEDS ORDERED: Sodium Chlor 0.9% Inj 250 ML IV.SIG SCH (09:00)
--- NOTE | 2017-12-12 09:28 | P.PN ---
Subjective Interval history: F/u MS exac. Feels weak currently receiving packed RBC transfusion. Physical Exam Vital signs: Vital Signs 12/11/17 17:05 12/11/17 19:39 12/11/17 19:55 Temperature 97.8 F 97.7 F 98.0 F Pulse Rate 78 96 H 86 Respiratory Rate 16 18 18 Blood Pressure 144/79 H 148/68 H 136/72 Pulse Oximetry 98 98 100 12/11/17 22:26 12/11/17 23:48 12/12/17 03:40 Temperature 98.1 F 97.6 F 97.7 F Pulse Rate 84 85 78 Respiratory Rate 18 18 18 Blood Pressure 138/68 133/66 156/73 H Pulse Oximetry 100 100 99 12/12/17 08:00 Temperature 98.1 F Pulse Rate 78 Respiratory Rate 18 Blood Pressure 160/70 H Pulse Oximetry 98 Intake & Output 12/11/17 12/12/17 12/12/17 18:59 06:59 18:59 Intake Total 3740 / 3740 939 / 939 Output Total 2500 / 2500 Balance 1240 / 1240 939 / 939 Weight 119.4 kg Intake: IV 3500 / 3500 Alburx 5% Inj 3,500 ML @ As 3500 / 3500 Directed IV.SIG Q48H [facility] Rx#: [id number] Oral 240 / 240 720 / 720 Intake (Blood Product) Amt 219 / 219 Pre-Pooled Cryo Thawed 10units 219 / 219 Unit [id number] Output: Plasma Exchange Amount 2500 / 2500 Other: # Voids 5 Date of Last Bowel Movement 12/10/17 12/11/17 Narrative: GENERAL: Well-nourished -Faroese female, in NAD, lying comfortably in bed SKIN: Warm and dry. CARDIOVASCULAR: Regular rate and rhythm without murmurs, gallops, or rubs. RESPIRATORY: Breath sounds equal bilaterally. No accessory muscle use. GASTROINTESTINAL: Abdomen soft, non-tender, nondistended. MUSCULOSKELETAL: No cyanosis, or edema. Motor strength 5/5 x 4 BACK: Nontender without obvious deformity. No CVA tenderness. NEURO: AAO x3, no focal deficit Results - Labs CBC & Chem 7: 12/12/17 06:52 12/12/17 06:52 Laboratory Results - last 24 hr 12/11/17 12/11/17 12/12/17 15:00 16:22 06:52 WBC 19.1 H RBC 3.00 L Hgb 8.1 L Hct 25.4 L MCV 84.7 MCH 27.0 MCHC 31.9 L RDW 26.2 H Plt Count 76 L MPV 8.1 Prelim Diff (Auto) Slide review pending Neut % (Auto) 95.9 H Lymph % (Auto) 1.6 L [place] % (Auto) 2.3 Eos % (Auto) 0.0 Baso % (Auto) 0.2 Neut # (Auto) 18.3 H Lymph # (Auto) 0.3 L [place] # (Auto) 0.4 Eos # (Auto) 0.0 Baso # (Auto) 0.0 WBC Differential . Diff Scan Auto diff confirmed Differential Comment . Platelet Estimate Low L Platelet Morphology Normal Polychromasia 2.0 H Target Cells 1+ H Ovalocytes 1+ H PT 14.0 H INR 1.4 APTT 39.5 H D Fibrinogen 71 L* Sodium Potassium Chloride Carbon Dioxide Anion Gap BUN Creatinine Estimated GFR Random Glucose Calcium MTS Gel Crossmatch Blood Bank Comment 12/12/17 12/12/17 12/12/17 06:52 06:52 09:12 WBC RBC Hgb Hct MCV MCH MCHC RDW Plt Count MPV Prelim Diff (Auto) Neut % (Auto) Lymph % (Auto) [place] % (Auto) Eos % (Auto) Baso % (Auto) Neut # (Auto) Lymph # (Auto) [place] # (Auto) Eos # (Auto) Baso # (Auto) WBC Differential Diff Scan Differential Comment Platelet Estimate Platelet Morphology Polychromasia Target Cells Ovalocytes PT 10.9 INR 1.1 APTT Fibrinogen 132 L Sodium 142 Potassium 3.8 Chloride 103 Carbon Dioxide 31.0 Anion Gap 8 BUN 19 H Creatinine 0.84 Estimated GFR Greater than 89 Random Glucose 103 Calcium 8.8 MTS Gel Crossmatch See Detail Blood Bank Comment - Imaging ITS Impressions Cervical Spine MRI 11/23/17 00:00 CONCLUSION: 1. Rounded 5 mm area of T2 prolongation in the posterior substance of the cervical cord just inferior to the C5-6 level without enhancement. Given the adjacent disc protrusion, differential considerations include demyelinating and encephalomalacic causes. 2. Central left paracentral protrusion at C5-6 disc with out evidence of cord compression. Head MRI 11/23/17 00:00 CONCLUSION: 1. Scattered areas of abnormal T2 signal within the periventricular and subcortical white matter. No enhancing lesions identified. Please see above. Thoracic Spine MRI 11/23/17 00:00 CONCLUSION: 1. Elongated 12 mm area of T2 prolongation within the substance of the thoracic cord left half T5 level characteristic of demyelination. Chest X-Ray 11/25/17 00:00 CONCLUSION: No acute cardiopulmonary abnormality is identified. Catheter Placement 11/28/17 00:00 CONCLUSION: 1. Uncomplicated line placement as above. Upper Extremity CTA 11/30/17 00:00 CONCLUSION: 1. Limited but negative evaluation of the upper extremity. No abnormalities identified to the level of the proximal forearm with nonvisualization of vessels distal to this. - Procedures IR dialysis cath plcmt w us, Right internal jugular vein Assessment and Plan - Assessment (1) Multiple sclerosis exacerbation Code(s): G35 - Multiple sclerosis Status: Acute - Plan This is a 37-year-old -Faroese female with past medical history multiple sclerosis MS exacerbation, admitted on 11/23/17 1. Multiple Sclerosis Exacerbation Neurochecks have remained stable Managed by Neurology, appreciate assistance, continue on prednisone 40 mg twice a day as per Neurology and plasmapheresis. Has plasmapheresis #7 up to 9 tx per neuro Cryoprecipitate if the region level less than 100 Continue occupational and physical therapy, refer to [facility] assistance with plasmapheresis 2. Right Upper Extremity Swelling, resolved CT angiogram Neg for thrombus 3. Chronic Anemia, hemoglobin 8.1. Iron studies reviewed No signs of bleeding but guaiac positive x1. Patient on PPI. Will monitor and consider GI consult Cont. Fe Sulfate Follow-up CBC in the morning after packed RBC transfusion today. 4. Leukocytosis, improving Secondary to steroids, patient afebrile Blood culture with no growth times 5 days (4 bottles) 11/25 Negative UA, Neg chest x-ray on admission (11/25) 5. Tobacco Abuse Cessation counseling provided, risks discussed 6. Depression Continue BuSpar, denies homicidal/suicidal ideation 7. GERD Cont. Pepcid 8. DVT prophylaxis: SCD's 9. Disposition: Plan for plasmapheresis up to 9 tx
[2017-12-12] MEDS: Senna/Docusate Sodium 8.6/50 MG Tablet PO SCH ×2 (11:06→21:33)
[2017-12-12] MEDS: Sodium Chloride 0.9% 2 ML Flush BID IV.FLUSH SCH (11:06)
--- NOTE | 2017-12-12 14:55 | P.PNONC ---
Subjective Interval history: Patient reports acid reflux and GERD symptoms. She states she has a history of gastric ulcers in the past and took Prilosec and ranitidine prior to this hospitalization. Still with continued fatigue. Status post 1 unit of PRBCs today. Objective Vital Signs/Intake & Output: Vital Signs 12/11/17 17:05 12/11/17 19:39 12/11/17 19:55 Temperature 97.8 F 97.7 F 98.0 F Pulse Rate 78 96 H 86 Respiratory Rate 16 18 18 Blood Pressure 144/79 H 148/68 H 136/72 Pulse Oximetry 98 98 100 12/11/17 22:26 12/11/17 23:48 12/12/17 03:40 Temperature 98.1 F 97.6 F 97.7 F Pulse Rate 84 85 78 Respiratory Rate 18 18 18 Blood Pressure 138/68 133/66 156/73 H Pulse Oximetry 100 100 99 12/12/17 08:00 12/12/17 10:56 12/12/17 11:19 Temperature 98.1 F 97.7 F 97.7 F Pulse Rate 78 76 79 Respiratory Rate 18 16 18 Blood Pressure 160/70 H 144/86 H 144/84 H Pulse Oximetry 98 99 99 Intake & Output 12/11/17 12/12/17 12/12/17 18:59 06:59 18:59 Intake Total 3740 / 3740 939 / 939 0 / 0 Output Total 3500 / 3500 Balance 240 / 240 939 / 939 0 / 0 Weight 119.4 kg Intake: IV 3500 / 3500 Alburx 5% Inj 3,500 ML @ As 3500 / 3500 Directed IV.SIG Q48H LOLA Rx#: [id number] Oral 240 / 240 720 / 720 Intake (Blood Product) Amt 219 / 219 0 / 0 Pre-Pooled Cryo Thawed 10units 219 / 219 Unit [id number] Rbc As-3 Leukoreduced Unit 0 / 0 [id number] Output: Plasma Exchange Amount 3500 / 3500 Other: # Voids 5 Date of Last Bowel Movement 12/10/17 12/11/17 12/11/17 Result Diagrams: 12/12/17 06:52 12/12/17 06:52 Laboratory Results: Laboratory Results - last 24 hr 12/11/17 12/11/17 12/12/17 15:00 16:22 06:52 WBC 19.1 H RBC 3.00 L Hgb 8.1 L Hct 25.4 L MCV 84.7 MCH 27.0 MCHC 31.9 L RDW 26.2 H Plt Count 76 L MPV 8.1 Prelim Diff (Auto) Slide review pending Neut % (Auto) 95.9 H Lymph % (Auto) 1.6 L White % (Auto) 2.3 Eos % (Auto) 0.0 Baso % (Auto) 0.2 Neut # (Auto) 18.3 H Lymph # (Auto) 0.3 L White # (Auto) 0.4 Eos # (Auto) 0.0 Baso # (Auto) 0.0 WBC Differential . Diff Scan Auto diff confirmed Differential Comment . Platelet Estimate Low L Platelet Morphology Normal Polychromasia 2.0 H Target Cells 1+ H Ovalocytes 1+ H PT 14.0 H INR 1.4 APTT 39.5 H D Fibrinogen 71 L* Sodium Potassium Chloride Carbon Dioxide Anion Gap BUN Creatinine Estimated GFR Random Glucose Calcium Blood Type Antibody Screen MTS Gel Crossmatch Blood Bank Comment 12/12/17 12/12/17 12/12/17 06:52 06:52 09:12 WBC RBC Hgb Hct MCV MCH MCHC RDW Plt Count MPV Prelim Diff (Auto) Neut % (Auto) Lymph % (Auto) White % (Auto) Eos % (Auto) Baso % (Auto) Neut # (Auto) Lymph # (Auto) White # (Auto) Eos # (Auto) Baso # (Auto) WBC Differential Diff Scan Differential Comment Platelet Estimate Platelet Morphology Polychromasia Target Cells Ovalocytes PT 10.9 INR 1.1 APTT Fibrinogen 132 L Sodium 142 Potassium 3.8 Chloride 103 Carbon Dioxide 31.0 Anion Gap 8 BUN 19 H Creatinine 0.84 Estimated GFR Greater than 89 Random Glucose 103 Calcium 8.8 Blood Type O Positive Antibody Screen Negative MTS Gel Crossmatch See Detail Blood Bank Comment Medications: Active Medications Generic Name Dose Route Start Last Admin Trade Name Freq PRN Reason Stop Dose Admin Acetaminophen 650 mg 12/01/17 14:23 12/12/17 11:09 Tylenol PO 650 mg Q4H PRN Administration SEE LABEL COMMENTS Al Hydroxide/Mg Hydroxide 30 ml 11/23/17 13:03 11/28/17 20:54 Milk Of Magnesia Liq PO 30 ml Q12H PRN Administration Mild Constipation Buspirone HCl 5 mg 11/25/17 21:00 12/12/17 07:45 Buspar PO 5 mg BID LOLA Administration Diphenhydramine HCl 25 mg 12/01/17 14:23 12/12/17 11:09 Benadryl PO 25 mg Q4H PRN Administration SEE LABEL COMMENTS Famotidine 20 mg 11/23/17 15:00 12/12/17 07:45 Pepcid PO 20 mg BID LOLA Administration Ferrous Sulfate 325 mg 12/07/17 21:00 12/12/17 07:45 Ferosul PO 325 mg BID LOLA Administration Heparin Sodium (Porcine) 0 units 12/09/17 08:00 12/11/17 20:13 Heparin Inj IV.FLUSH 12/17/17 08:01 Not Given Q48H LOLA Albumin Human 3,500 mls @ 0 mls/hr 12/09/17 08:00 12/11/17 12:39 Alburx 5% Inj IV.SIG 12/17/17 08:01 Infused Q48H LOLA Infusion As Directed Calcium Gluconate 3.5 gm/ 285 mls @ 0 mls/hr 12/09/17 08:00 12/11/17 11:17 Sodium Chloride IV.SIG 12/17/17 08:01 135 mls/hr Q48H LOLA Administration As Directed Sodium Chloride 250 mls @ 15 mls/hr 12/12/17 09:00 12/12/17 11:11 Ns Inj IV.SIG 12/13/17 01:39 15 mls/hr ONCE LOLA Administration Lactulose 30 ml 11/23/17 13:03 12/10/17 00:15 Lactulose Liq PO 30 ml DAILY PRN Administration SEVERE CONSITIPATION Lorazepam 1 mg 12/06/17 21:00 12/11/17 20:51 Ativan PO 1 mg HS LOLA Administration Morphine Sulfate 4 mg 11/23/17 13:04 12/09/17 21:46 Morphine Inj IV.PUSH 4 mg Q3H PRN Administration BREAKTHROUGH PAIN Morphine Sulfate 2 mg 11/23/17 13:04 11/26/17 09:11 Morphine Inj IV.PUSH 2 mg Q3H PRN Administration PAIN 3-5; IF UABLE TO TAKE PO Ondansetron HCl 4 mg 11/23/17 13:03 12/12/17 13:35 Zofran Inj IV.PUSH 4 mg Q6H PRN Administration NAUSEA OR VOMITING Oxycodone/Acetaminophen 1 tab 11/23/17 13:04 11/23/17 13:14 Percocet 5/325 Mg PO 1 tab Q6H PRN Administration PAIN SCALE 3 TO 5 Oxycodone/Acetaminophen 1 tab 11/29/17 15:41 12/12/17 11:54 Percocet 10/325 Mg PO 1 tab Q4H PRN Administration PAIN SCALE 6 TO 10 Prednisone 40 mg 12/11/17 09:00 12/12/17 07:45 Deltasone PO 40 mg BID LOLA Administration Senna/Docusate Sodium 1 tab 11/23/17 21:00 12/12/17 11:06 Lisa-Colace PO Not Given BID LOLA Sennosides 17.2 mg 11/23/17 13:03 12/10/17 00:15 Senokot PO 17.2 mg Q12H PRN Administration Moderate Constipation Sodium Chloride 2 ml 12/05/17 21:00 12/12/17 11:06 Ns Flush IV.FLUSH 2 ml BID LOLA Administration Sodium Chloride 0 ml 12/09/17 08:00 12/11/17 20:13 Ns Flush IV.FLUSH 12/17/17 08:01 Not Given Q48H LOLA Sodium Citrate 1,000 ml 12/11/17 08:30 12/11/17 10:10 Acd-A Solution EXTRACORPO 12/17/17 08:29 1,000 ml UNSCH LOLA Administration Objective Remarks: GENERAL: Well-nourished, well-developed young female patient, in no acute distress. SKIN: Warm and dry. Vasc-cath Rt, drsg clean/dry. HEAD: Normocephalic. EYES: No scleral icterus. No injection or drainage. NECK: Supple, trachea midline. CARDIOVASCULAR: +S1/S2. RESPIRATORY: Posterior breath sounds clear, equal bilaterally. Non-labored at rest. GASTROINTESTINAL: Abdomen soft, non-tender, nondistended. EXTREMITIES: No cyanosis, or pitting edema. MUSCULOSKELETAL: Adequate muscle tone. NEUROLOGICAL: Awake, alert, and oriented x3. PSYCHIATRIC: Appropriate mood and affect; insight and judgment normal. Assessment/Plan - Plan Ms. Price is a pleasant 37-year-old female patient who has a history of multiple sclerosis. She recently moved to [place] from [place]. She is under the care of neurologist who consulted hematology for plasma exchange. Plan: 1. Plasmapheresis, patient status post 7th plasma exchange yesterday. Patient scheduled for her eighth treatment tomorrow. Neurology has requested 9 total treatments. 2. Fibrinogen 132 today, no transfusion of cryoprecipitate needed. 3. Fatigue, hemoglobin has been trending down, currently 8.1. We will transfuse 1 unit of PRBCs today. 4. Acid reflux, patient reports history of gastric ulcers and took Prilosec and ranitidine time prior to her hospital admission. Currently on Pepcid, will add Protonix. 5. Repeat CBC and coags in the a.m. - Attending Statement The exam, history, and the medical decision-making described in the above note were completed with the assistance of the mid-level provider. I reviewed and agree with the findings presented. I attest that I had a [id number] encounter with the patient on the same day, and personally performed and documented my assessment and findings in the medical record. c/o fatigue No other c/o Hg Coming down. Give PRBC today. Fib >100. d/w her.
[2017-12-12] MEDS: Pantoprazole Sodium 20 MG DR Tablet PO SCH (15:43)
[2017-12-12] MEDS: LORazepam 1 MG Tablet PO SCH (21:33)
[2017-12-13] MEDS: oxyCODONE/Acetaminophen 10/325 Tablet PO PRN (02:03)
[2017-12-13] MEDS: Sodium Chloride 0.9% 2 ML Flush BID IV.FLUSH SCH ×3 (06:32→21:27)
[2017-12-13 08:17] LABS: Activated Partial Thrombo Time 21.7 sec (24.3-30.1); INR 1.1 Ratio; Prothrombin Time 10.7 sec (9.8-11.6)
[2017-12-13 08:18] LABS: Hematocrit 29.6 % (35.0-46.0); Hemoglobin 9.2 gm/dL (11.6-15.3); Mean Corpuscular Hemoglobin 26.4 pg (27.0-34.0); Mean Corpuscular Volume 85.6 fL (80.0-100.0); Mean Platelet Volume 7.9 fL (7.0-11.0); Platelet Count 87 th/mm3 (150-450); Red Blood Count 3.46 mil/mm3 (4.00-5.30); Red Cell Distribution Width 25.9 % (11.6-17.2); White Blood Count 12.9 th/mm3 (4.0-11.0)
[2017-12-13 08:19] LABS: Mean Corpuscular HGB Conc 30.9 % (32.0-36.0)
[2017-12-13] MEDS: Senna/Docusate Sodium 8.6/50 MG Tablet PO SCH ×2 (08:23→21:25)
[2017-12-13] MEDS: predniSONE 20 MG Tablet PO SCH ×2 (08:23→21:25)
[2017-12-13] MEDS: Pantoprazole Sodium 20 MG DR Tablet PO SCH (08:24)
[2017-12-13] MEDS: Famotidine 20 MG Tablet PO SCH ×2 (08:24→21:25)
[2017-12-13] MEDS: Ferrous Sulfate 325 MG Tablet PO SCH ×2 (08:24→21:25)
--- NOTE | 2017-12-13 08:42 | P.PN ---
Subjective Interval history: Follow-up MS exacerbation. Feels crappy complains of generalized edema patient has gained at least 25 kg since admission. Physical Exam Vital signs: Vital Signs 12/12/17 10:56 12/12/17 11:19 12/12/17 16:10 Temperature 97.7 F 97.7 F 98.2 F Pulse Rate 76 79 67 Respiratory Rate 16 18 18 Blood Pressure 144/86 H 144/84 H 161/88 H Pulse Oximetry 99 99 100 12/12/17 19:51 12/12/17 23:59 Temperature 98.1 F 98.1 F Pulse Rate 68 61 Respiratory Rate 17 17 Blood Pressure 143/75 H 152/82 H Pulse Oximetry 99 100 Intake & Output 12/12/17 12/13/17 12/13/17 18:59 06:59 18:59 Intake Total 660 / 660 480 / 480 Balance 660 / 660 480 / 480 Weight 121.3 kg Intake: Oral 660 / 660 480 / 480 Intake (Blood Product) Amt 0 / 0 Rbc As-3 Leukoreduced Unit 0 / 0 [id number] Other: # Voids 4 5 Date of Last Bowel Movement 12/11/17 12/11/17 # Bowel Movements 0 0 Narrative: GENERAL: Well-nourished -[place] female, in NAD, lying comfortably in bed SKIN: Warm and dry. CARDIOVASCULAR: Regular rate and rhythm without murmurs, gallops, or rubs. RESPIRATORY: Breath sounds equal bilaterally. No accessory muscle use. GASTROINTESTINAL: Abdomen soft, non-tender, nondistended. MUSCULOSKELETAL: No cyanosis but with bilateral lower extremity pitting edema. Motor strength 5/5 x 4 BACK: Nontender without obvious deformity. No CVA tenderness. NEURO: AAO x3, no focal deficit Results - Labs CBC & Chem 7: 12/13/17 07:09 12/12/17 06:52 Laboratory Results - last 24 hr 12/12/17 12/12/17 12/13/17 06:52 09:12 07:09 WBC 12.9 H RBC 3.46 L Hgb 9.2 L Hct 29.6 L MCV 85.6 MCH 26.4 L MCHC 30.9 L RDW 25.9 H Plt Count 87 L MPV 7.9 WBC Differential . Diff Scan Auto diff confirmed Platelet Estimate Low L Platelet Morphology Normal Polychromasia 2.0 H Target Cells 1+ H Ovalocytes 1+ H PT INR APTT Fibrinogen Blood Type O Positive Antibody Screen Negative MTS Gel Crossmatch See Detail 12/13/17 07:09 WBC RBC Hgb Hct MCV MCH MCHC RDW Plt Count MPV WBC Differential Diff Scan Platelet Estimate Platelet Morphology Polychromasia Target Cells Ovalocytes PT 10.7 INR 1.1 APTT 21.7 L D Fibrinogen 127 L Blood Type Antibody Screen MTS Gel Crossmatch - Procedures IR dialysis cath plcmt w us, Right internal jugular vein Assessment and Plan - Assessment (1) Multiple sclerosis exacerbation Code(s): G35 - Multiple sclerosis Status: Acute - Plan This is a 37-year-old -[place] female with past medical history multiple sclerosis MS exacerbation, admitted on 11/23/17 1. Multiple Sclerosis Exacerbation Neurochecks have remained stable Managed by Neurology, christine assistance, continue on prednisone 40 mg twice a day as per Neurology and plasmapheresis. S/p plasmapheresis #7 up to 9 tx per neuro, due today Cryoprecipitate if the region level less than 100 Continue occupational and physical therapy, refer to [facility] assistance with plasmapheresis 2. Right Upper Extremity Swelling, resolved CT angiogram Neg for thrombus 3. Chronic Anemia, improved with blood transfusion. Iron studies reviewed No signs of bleeding but guaiac positive x1 likely contamination from vaginal bleeding. Hemoccult stools. Patient on PPI. Will monitor and consider GI consult Cont. Fe Sulfate. 4. Leukocytosis, improving Secondary to steroids, patient afebrile Blood culture with no growth times 5 days (4 bottles) 11/25 Negative UA, Neg chest x-ray on admission (11/25) 5. Tobacco Abuse Cessation counseling provided, risks discussed 6. Depression Continue BuSpar, denies homicidal/suicidal ideation 7. GERD Cont. Pepcid 8. Fluid overload. Albumin within normal limits. Start Lasix with potassium supplementation. DVT prophylaxis: SCD's Disposition: Plan for plasmapheresis up to 9 tx
--- NOTE | 2017-12-13 15:35 | P.PNONC ---
Subjective Interval history: Patient reports edema all over, which is painful, attending has scheduled lasix to start today. She feels weaker today. Denies any vaginal bleeding. Has a small amount of blood oozing at Vasc-cath site. Objective Vital Signs/Intake & Output: Vital Signs 12/12/17 16:10 12/12/17 19:51 12/12/17 23:59 Temperature 98.2 F 98.1 F 98.1 F Pulse Rate 67 68 61 Respiratory Rate 18 17 Blood Pressure 161/88 H 143/75 H 152/82 H Pulse Oximetry 100 99 100 12/13/17 08:00 12/13/17 12:00 Temperature 98.8 F 97.4 F L Pulse Rate 105 H 84 Respiratory Rate 18 Blood Pressure 135/82 178/98 H Pulse Oximetry 99 99 Intake & Output 12/12/17 12/13/17 12/13/17 18:59 06:59 18:59 Intake Total 660 / 660 480 / 480 Balance 660 / 660 480 / 480 Weight 121.3 kg Intake: Oral 660 / 660 480 / 480 Intake (Blood Product) Amt 0 / 0 Rbc As-3 Leukoreduced Unit 0 / 0 [id number] Other: # Voids 4 5 Date of Last Bowel Movement 12/11/17 12/11/17 12/11/17 # Bowel Movements 0 0 Result Diagrams: 12/13/17 07:09 12/12/17 06:52 Laboratory Results: Laboratory Results - last 24 hr 12/13/17 12/13/17 07:09 07:09 WBC 12.9 H RBC 3.46 L Hgb 9.2 L Hct 29.6 L MCV 85.6 MCH 26.4 L MCHC 30.9 L RDW 25.9 H Plt Count 87 L MPV 7.9 PT 10.7 INR 1.1 APTT 21.7 L D Fibrinogen 127 L Medications: Active Medications Generic Name Dose Route Start Last Admin Trade Name Freq PRN Reason Stop Dose Admin Acetaminophen 650 mg 12/01/17 14:23 12/12/17 11:09 Tylenol PO 650 mg Q4H PRN Administration SEE LABEL COMMENTS Al Hydroxide/Mg Hydroxide 30 ml 11/23/17 13:03 11/28/17 20:54 Milk Of Magnesia Liq PO 30 ml Q12H PRN Administration Mild Constipation Buspirone HCl 5 mg 11/25/17 21:00 12/13/17 08:24 Buspar PO 5 mg BID LOLA Administration Diphenhydramine HCl 25 mg 12/01/17 14:23 12/12/17 11:09 Benadryl PO 25 mg Q4H PRN Administration SEE LABEL COMMENTS Famotidine 20 mg 11/23/17 15:00 12/13/17 08:24 Pepcid PO 20 mg BID LOLA Administration Ferrous Sulfate 325 mg 12/07/17 21:00 12/13/17 08:24 Ferosul PO 325 mg BID LOLA Administration Heparin Sodium (Porcine) 0 units 12/09/17 08:00 12/11/17 20:13 Heparin Inj IV.FLUSH 12/17/17 08:01 Not Given Q48H LOLA Albumin Human 3,500 mls @ 0 mls/hr 12/09/17 08:00 12/11/17 12:39 Alburx 5% Inj IV.SIG 12/17/17 08:01 Infused Q48H LOLA Infusion As Directed Calcium Gluconate 3.5 gm/ 285 mls @ 0 mls/hr 12/09/17 08:00 12/11/17 11:17 Sodium Chloride IV.SIG 12/17/17 08:01 135 mls/hr Q48H LOLA Administration As Directed Lactulose 30 ml 11/23/17 13:03 12/10/17 00:15 Lactulose Liq PO 30 ml DAILY PRN Administration SEVERE CONSITIPATION Lorazepam 1 mg 12/06/17 21:00 12/12/17 21:33 Ativan PO 1 mg HS LOLA Administration Morphine Sulfate 4 mg 11/23/17 13:04 12/09/17 21:46 Morphine Inj IV.PUSH 4 mg Q3H PRN Administration BREAKTHROUGH PAIN Morphine Sulfate 2 mg 11/23/17 13:04 11/26/17 09:11 Morphine Inj IV.PUSH 2 mg Q3H PRN Administration PAIN 3-5; IF UABLE TO TAKE PO Ondansetron HCl 4 mg 11/23/17 13:03 12/12/17 13:35 Zofran Inj IV.PUSH 4 mg Q6H PRN Administration NAUSEA OR VOMITING Oxycodone/Acetaminophen 1 tab 11/23/17 13:04 11/23/17 13:14 Percocet 5/325 Mg PO 1 tab Q6H PRN Administration PAIN SCALE 3 TO 5 Oxycodone/Acetaminophen 1 tab 11/29/17 15:41 12/13/17 02:03 Percocet 10/325 Mg PO 1 tab Q4H PRN Administration PAIN SCALE 6 TO 10 Pantoprazole Sodium 20 mg 12/12/17 15:00 12/13/17 08:24 Protonix PO 20 mg DAILY LOLA Administration Prednisone 40 mg 12/11/17 09:00 12/13/17 08:23 Deltasone PO 40 mg BID LOLA Administration Senna/Docusate Sodium 1 tab 11/23/17 21:00 12/13/17 08:23 Lisa-Colace PO 1 tab BID LOLA Administration Sennosides 17.2 mg 11/23/17 13:03 12/10/17 00:15 Senokot PO 17.2 mg Q12H PRN Administration Moderate Constipation Sodium Chloride 2 ml 12/05/17 21:00 12/13/17 08:24 Ns Flush IV.FLUSH 2 ml BID LOLA Administration Sodium Chloride 0 ml 12/09/17 08:00 12/11/17 20:13 Ns Flush IV.FLUSH 12/17/17 08:01 Not Given Q48H LOLA Sodium Citrate 1,000 ml 12/11/17 08:30 12/11/17 10:10 Acd-A Solution EXTRACORPO 12/17/17 08:29 1,000 ml UNSCH LOLA Administration Objective Remarks: GENERAL: Well-nourished, well-developed young female patient, in no acute distress. SKIN: Warm and dry. Vasc-cath Rt, small amount of sanguinous fluid under dressing on the Biopatch. HEAD: Normocephalic. EYES: No scleral icterus. No injection or drainage. NECK: Supple, trachea midline. CARDIOVASCULAR: +S1/S2. RESPIRATORY: Posterior breath sounds clear, equal bilaterally. Non-labored at rest. GASTROINTESTINAL: Abdomen soft, non-tender, nondistended. EXTREMITIES: No cyanosis. +generalized edema. MUSCULOSKELETAL: Adequate muscle tone. NEUROLOGICAL: Awake, alert, and oriented x3. PSYCHIATRIC: Appropriate mood and affect; insight and judgment normal. Assessment/Plan - Plan Ms. Price is a pleasant 37-year-old female patient who has a history of multiple sclerosis. She recently moved to [place] from [place]. She is under the care of neurologist who consulted hematology for plasma exchange. Plan: 1. Plasmapheresis, patient status post 7th plasma exchange yesterday. Patient pending her 8 plasma exchange today. Neurology has requested 9 total treatments. Her last exchange will be Monday. 2. Fibrinogen 127 today, no transfusion of cryoprecipitate needed. 3. Fatigue, continues, status post transfusion of 1 unit of PRBCs yesterday. Hemoglobin 9.2 today. 4. Acid reflux, continues. Patient reports history of gastric ulcers and took Prilosec and ranitidine time prior to her hospital admission. Continue Pepcid and Protonix. 5. Generalized edema, patient to start Lasix 40 mg today. Management per attending. 6. Repeat CBC and coags in the a.m. - Attending Statement The exam, history, and the medical decision-making described in the above note were completed with the assistance of the mid-level provider. I reviewed and agree with the findings presented. I attest that I had a [id number] encounter with the patient on the same day, and personally performed and documented my assessment and findings in the medical record. Patient is complaining of generalized weakness and swelling. Lasix has been ordered #8 plasma pheresis today On Monday after the ninth plasmapheresis we will remove the Vas-Cath. Dr. Henry have recommended 9 total plasmapheresis Continue to monitor coag's
[2017-12-13] MEDS: ALBUMIN HUMAN 5% IV.SIG SCH (16:52)
[2017-12-13] MEDS: Anticoagulant Citrate Dextrose 1,000 ML Solution EXTRACORPO SCH (16:53)
[2017-12-13] MEDS: LORazepam 1 MG Tablet PO SCH (21:26)
[2017-12-14 07:13] LABS: Baso % (Auto) 0.1 % (0.0-2.0); Eos # (Auto) 0.1 th/mm3 (0.0-0.4); Eos % (Auto) 0.6 % (0.0-4.0); Hematocrit 27.6 % (35.0-46.0); Hemoglobin 8.8 gm/dL (11.6-15.3); Lymph # (Auto) 0.8 th/mm3 (1.0-4.8); Lymph % (Auto) 5.7 % (9.0-44.0); Mean Corpuscular HGB Conc 31.8 % (32.0-36.0); Mean Corpuscular Hemoglobin 27.3 pg (27.0-34.0); Mean Corpuscular Volume 85.9 fL (80.0-100.0); Mean Platelet Volume 7.9 fL (7.0-11.0); Mono # (Auto) 0.4 th/mm3 (0.0-0.9); Mono % (Auto) 2.6 % (0.0-8.0); Neut # (Auto) 13.5 th/mm3 (1.8-7.7); Platelet Count 77 th/mm3 (150-450); Red Blood Count 3.21 mil/mm3 (4.00-5.30); Red Cell Distribution Width 27.1 % (11.6-17.2); White Blood Count 14.8 th/mm3 (4.0-11.0)
[2017-12-14 07:36] LABS: Calcium 8.7 mg/dL (8.5-10.1); Carbon Dioxide 28.8 meq/L (21.0-32.0); Magnesium 1.9 mg/dL (1.5-2.5); Potassium 3.2 meq/L (3.5-5.1)
[2017-12-14 08:23] LABS: Platelet Morphology Normal (Normal)
[2017-12-14 08:24] LABS: Ovalocytes 1+
[2017-12-14 08:25] LABS: Acanthocytes Occ
[2017-12-14] MEDS: Famotidine 20 MG Tablet PO SCH ×2 (08:37→21:34)
[2017-12-14] MEDS: predniSONE 20 MG Tablet PO SCH (08:37)
[2017-12-14] MEDS: Ferrous Sulfate 325 MG Tablet PO SCH ×2 (08:37→21:35)
[2017-12-14] MEDS: Pantoprazole Sodium 20 MG DR Tablet PO SCH (08:38)
[2017-12-14] MEDS: Sodium Chloride 0.9% 2 ML Flush BID IV.FLUSH SCH ×2 (08:41→22:44)
[2017-12-14] MEDS: Senna/Docusate Sodium 8.6/50 MG Tablet PO SCH ×2 (08:42→21:35)
[2017-12-14] MEDS ORDERED: Potassium Bicarbonate 25 MEQ Effervescent Tablet PO ONE (09:24)
--- NOTE | 2017-12-14 09:28 | P.PN ---
Subjective Interval history: Follow-up fluid overload she is crying today because of generalized edema. Discussed with neurology, taper prednisone every 2 days. She is also guaiac positive Physical Exam Vital signs: Vital Signs 12/13/17 12:00 12/13/17 17:47 12/13/17 20:43 Temperature 97.4 F L 98.3 F 97.5 F L Pulse Rate 84 75 93 H Respiratory Rate 18 18 18 Blood Pressure 178/98 H 146/85 H 140/67 Pulse Oximetry 99 100 100 12/13/17 23:15 12/14/17 08:00 Temperature 97.8 F 97.7 F Pulse Rate 87 98 H Respiratory Rate 18 16 Blood Pressure 119/66 127/64 Pulse Oximetry 100 100 Intake & Output 12/13/17 12/14/17 12/14/17 18:59 06:59 18:59 Intake Total 4720 / 4720 360 / 360 Output Total 3500 / 3500 Balance 1220 / 1220 360 / 360 Weight 121.3 kg Intake: IV 3500 / 3500 Alburx 5% Inj 3,500 ML @ As 3500 / 3500 Directed IV.SIG Q48H LOLA Rx#: [id number] Oral 1220 / 1220 360 / 360 Output: Plasma Exchange Amount 3500 / 3500 Other: # Voids 8 6 Date of Last Bowel Movement 12/11/17 12/13/17 # Bowel Movements 0 1 Narrative: GENERAL: Well-nourished -[place] female, in NAD, lying comfortably in bed SKIN: Warm and dry. CARDIOVASCULAR: Regular rate and rhythm without murmurs, gallops, or rubs. RESPIRATORY: Breath sounds equal bilaterally. No accessory muscle use. GASTROINTESTINAL: Abdomen soft, non-tender, nondistended. MUSCULOSKELETAL: No cyanosis but with bilateral lower extremity pitting edema. Motor strength 5/5 x 4 NEURO: AAO x3, no focal deficit Results - Labs CBC & Chem 7: 12/14/17 06:40 12/14/17 06:40 Laboratory Results - last 24 hr 12/14/17 12/14/17 12/14/17 06:40 06:40 06:40 WBC 14.8 H RBC 3.21 L Hgb 8.8 L Hct 27.6 L MCV 85.9 MCH 27.3 MCHC 31.8 L RDW 27.1 H Plt Count 77 L MPV 7.9 Prelim Diff (Auto) Slide review pending Neut % (Auto) 91.0 H Lymph % (Auto) 5.7 L [place] % (Auto) 2.6 Eos % (Auto) 0.6 Baso % (Auto) 0.1 Neut # (Auto) 13.5 H Lymph # (Auto) 0.8 L [place] # (Auto) 0.4 Eos # (Auto) 0.1 Baso # (Auto) 0.0 WBC Differential . Diff Scan Auto diff confirmed Differential Comment . Platelet Estimate Low L Platelet Morphology Normal Basophilic Stippling Faint H Ovalocytes 1+ H Acanthocytes (Spur) Occ H Fibrinogen 86 L* Sodium 143 Potassium 3.2 L Chloride 105 Carbon Dioxide 28.8 Anion Gap 9 BUN 23 H Creatinine 1.00 Estimated GFR 75 L Random Glucose 118 H Calcium 8.7 Magnesium 1.9 Microbiology 12/13/17 18:55 Stool Stool Occult Blood (MOHAN) - Final Hemoccult positive - Procedures IR dialysis cath plcmt w us, Right internal jugular vein Assessment and Plan - Assessment (1) Multiple sclerosis exacerbation Code(s): G35 - Multiple sclerosis Status: Acute - Plan This is a 37-year-old -[place] female with past medical history multiple sclerosis MS exacerbation, admitted on 11/23/17 1. Multiple Sclerosis Exacerbation Neurochecks have remained stable Managed by Neurology, appreciate assistance, continue on prednisone 40 mg twice a day as per Neurology and plasmapheresis. S/p plasmapheresis #8 up to 9 tx per neuro, due tomorrow Cryoprecipitate if fibrinogen level less than 100, she needs another dose today Continue occupational and physical therapy, refer to [facility] assistance with plasmapheresis 2. Right Upper Extremity Swelling, resolved CT angiogram Neg for thrombus 3. Chronic Anemia, improved with blood transfusion. Iron studies reviewed No signs of bleeding but guaiac positive x 2 initially thought due to contamination from vaginal bleeding. Still Hemoccult positive with resolved vaginal bleeding. Patient on PPI. Will monitor and request GI consult Cont. Fe Sulfate. 4. Leukocytosis, improving Secondary to steroids, patient afebrile Blood culture with no growth times 5 days (4 bottles) 11/25 Negative UA, Neg chest x-ray on admission (11/25) 5. Tobacco Abuse Cessation counseling provided, risks discussed 6. Depression Continue BuSpar, denies homicidal/suicidal ideation 7. GERD Cont. Pepcid 8. Fluid overload. Albumin within normal limits. Weight and swelling about the same will increase Lasix to 40 mg IV twice a day with potassium supplementation to 40 mg twice a day potassium 3.2 today. DVT prophylaxis: SCD's Disposition: Plan for plasmapheresis up to 9 tx Discharge Planning: [facility] patricia case hopefully
[2017-12-14] MEDS ORDERED: Acetaminophen 325 MG Tablet PO PRN (11:32)
[2017-12-14] MEDS ORDERED: Sodium Chlor 0.9% Inj 250 ML IV.SIG SCH (12:00)
--- NOTE | 2017-12-14 13:13 | P.PNONC ---
Subjective Interval history: Patient sitting in bed, her family is at the bedside. She reports still feeling fatigued and painfully swollen all over. She states the attending is going to increase her diuretic to twice a day. She has had 2 Hemoccult positive stool studies, she reports she has been seen by GI, however I do not see a GI note. She denies any further vaginal bleeding. Still has the epigastric burning and discomfort. Objective Vital Signs/Intake & Output: Vital Signs 12/13/17 17:47 12/13/17 20:43 12/13/17 23:15 Temperature 98.3 F 97.5 F L 97.8 F Pulse Rate 75 93 H 87 Respiratory Rate 18 18 18 Blood Pressure 146/85 H 140/67 119/66 Pulse Oximetry 100 100 100 12/14/17 08:00 Temperature 97.7 F Pulse Rate 98 H Respiratory Rate 16 Blood Pressure 127/64 Pulse Oximetry 100 Intake & Output 12/13/17 12/14/17 12/14/17 18:59 06:59 18:59 Intake Total 4720 / 4720 360 / 360 Output Total 3500 / 3500 Balance 1220 / 1220 360 / 360 Weight 121.3 kg Intake: IV 3500 / 3500 [place] 5% Inj 3,500 ML @ As 3500 / 3500 Directed IV.SIG Q48H LOLA Rx#: [id number] Oral 1220 / 1220 360 / 360 Output: Plasma Exchange Amount 3500 / 3500 Other: # Voids 8 6 Date of Last Bowel Movement 12/11/17 12/13/17 # Bowel Movements 0 1 Result Diagrams: 12/15/17 07:14 12/15/17 07:14 Laboratory Results: Laboratory Results - last 24 hr 12/14/17 12/14/17 12/14/17 06:40 06:40 06:40 WBC 14.8 H RBC 3.21 L Hgb 8.8 L Hct 27.6 L MCV 85.9 MCH 27.3 MCHC 31.8 L RDW 27.1 H Plt Count 77 L MPV 7.9 Prelim Diff (Auto) Slide review pending Neut % (Auto) 91.0 H Lymph % (Auto) 5.7 L [place] % (Auto) 2.6 Eos % (Auto) 0.6 Baso % (Auto) 0.1 Neut # (Auto) 13.5 H Lymph # (Auto) 0.8 L [place] # (Auto) 0.4 Eos # (Auto) 0.1 Baso # (Auto) 0.0 WBC Differential . Diff Scan Auto diff confirmed Differential Comment . Platelet Estimate Low L Platelet Morphology Normal Basophilic Stippling Faint H Ovalocytes 1+ H Acanthocytes (Spur) Occ H Fibrinogen 86 L* Sodium 143 Potassium 3.2 L Chloride 105 Carbon Dioxide 28.8 Anion Gap 9 BUN 23 H Creatinine 1.00 Estimated GFR 75 L Random Glucose 118 H Calcium 8.7 Magnesium 1.9 Blood Bank Comment 12/14/17 12:32 WBC RBC Hgb Hct MCV MCH MCHC RDW Plt Count MPV Prelim Diff (Auto) Neut % (Auto) Lymph % (Auto) [place] % (Auto) Eos % (Auto) Baso % (Auto) Neut # (Auto) Lymph # (Auto) [place] # (Auto) Eos # (Auto) Baso # (Auto) WBC Differential Diff Scan Differential Comment Platelet Estimate Platelet Morphology Basophilic Stippling Ovalocytes Acanthocytes (Spur) Fibrinogen Sodium Potassium Chloride Carbon Dioxide Anion Gap BUN Creatinine Estimated GFR Random Glucose Calcium Magnesium Blood Bank Comment Culture Results: Microbiology 12/13/17 18:55 Stool Occult Blood (MOHAN) - Final Stool Hemoccult positive Medications: Active Medications Generic Name Dose Route Start Last Admin Trade Name Freq PRN Reason Stop Dose Admin Acetaminophen 650 mg 12/01/17 14:23 12/12/17 11:09 Tylenol PO 650 mg Q4H PRN Administration SEE LABEL COMMENTS Al Hydroxide/Mg Hydroxide 30 ml 11/23/17 13:03 11/28/17 20:54 Milk Of Magnesia Liq PO 30 ml Q12H PRN Administration Mild Constipation Buspirone HCl 5 mg 11/25/17 21:00 12/14/17 08:37 Buspar PO Not Given BID LOLA Diphenhydramine HCl 25 mg 12/01/17 14:23 12/12/17 11:09 Benadryl PO 25 mg Q4H PRN Administration SEE LABEL COMMENTS Famotidine 20 mg 11/23/17 15:00 12/14/17 08:37 Pepcid PO 20 mg BID LOLA Administration Ferrous Sulfate 325 mg 12/07/17 21:00 12/14/17 08:37 Ferosul PO 325 mg BID LOLA Administration Heparin Sodium (Porcine) 0 units 12/09/17 08:00 12/11/17 20:13 Heparin Inj IV.FLUSH 12/17/17 08:01 Not Given Q48H LOLA Albumin Human 3,500 mls @ 0 mls/hr 12/09/17 08:00 12/13/17 16:54 [place] 5% Inj IV.SIG 12/17/17 08:01 Infused Q48H LOLA Infusion As Directed Calcium Gluconate 3.5 gm/ 285 mls @ 0 mls/hr 12/09/17 08:00 12/11/17 11:17 Sodium Chloride IV.SIG 12/17/17 08:01 135 mls/hr Q48H LOLA Administration As Directed Lactulose 30 ml 11/23/17 13:03 12/10/17 00:15 Lactulose Liq PO 30 ml DAILY PRN Administration SEVERE CONSITIPATION Lorazepam 1 mg 12/06/17 21:00 12/13/17 21:26 Ativan PO Not Given HS LOLA Morphine Sulfate 4 mg 11/23/17 13:04 12/09/17 21:46 Morphine Inj IV.PUSH 4 mg Q3H PRN Administration BREAKTHROUGH PAIN Morphine Sulfate 2 mg 11/23/17 13:04 11/26/17 09:11 Morphine Inj IV.PUSH 2 mg Q3H PRN Administration PAIN 3-5; IF UABLE TO TAKE PO Ondansetron HCl 4 mg 11/23/17 13:03 12/12/17 13:35 Zofran Inj IV.PUSH 4 mg Q6H PRN Administration NAUSEA OR VOMITING Oxycodone/Acetaminophen 1 tab 11/23/17 13:04 11/23/17 13:14 Percocet 5/325 Mg PO 1 tab Q6H PRN Administration PAIN SCALE 3 TO 5 Oxycodone/Acetaminophen 1 tab 11/29/17 15:41 12/13/17 02:03 Percocet 10/325 Mg PO 1 tab Q4H PRN Administration PAIN SCALE 6 TO 10 Pantoprazole Sodium 20 mg 12/12/17 15:00 12/14/17 08:38 Protonix PO 20 mg DAILY LOLA Administration Prednisone 40 mg 12/11/17 09:00 12/14/17 08:37 Deltasone PO 40 mg BID LOLA Administration Senna/Docusate Sodium 1 tab 11/23/17 21:00 12/14/17 08:42 Lisa-Colace PO Not Given BID LOLA Sennosides 17.2 mg 11/23/17 13:03 12/10/17 00:15 Senokot PO 17.2 mg Q12H PRN Administration Moderate Constipation Sodium Chloride 2 ml 12/05/17 21:00 12/14/17 08:41 Ns Flush IV.FLUSH 2 ml BID LOLA Administration Sodium Chloride 0 ml 12/09/17 08:00 12/11/17 20:13 Ns Flush IV.FLUSH 12/17/17 08:01 Not Given Q48H LOLA Sodium Citrate 1,000 ml 12/11/17 08:30 12/13/17 16:53 Acd-A Solution EXTRACORPO 12/17/17 08:29 1,000 ml UNSCH LOLA Administration Objective Remarks: GENERAL: Well-nourished, well-developed young female patient, in no acute distress. SKIN: Warm and dry. Vasc-cath Rt, small amount of sanguinous fluid under dressing on the Biopatch. HEAD: Normocephalic. EYES: No scleral icterus. No injection or drainage. NECK: Supple, trachea midline. CARDIOVASCULAR: +S1/S2. RESPIRATORY: Posterior breath sounds clear, equal bilaterally. Non-labored at rest. GASTROINTESTINAL: Abdomen soft, non-tender, nondistended. EXTREMITIES: No cyanosis. +generalized edema. MUSCULOSKELETAL: Adequate muscle tone. NEUROLOGICAL: Awake, alert, and oriented x3. PSYCHIATRIC: Appropriate mood and affect; insight and judgment normal. Assessment/Plan - Plan Ms. Price is a pleasant 37-year-old female patient who has a history of multiple sclerosis. She recently moved to [place] from [place]. She is under the care of neurologist who consulted hematology for plasma exchange. Plan: 1. Plasmapheresis, patient status post 8th plasma exchange yesterday. Neurology has requested 9 total treatments. Her last exchange will be Monday. 2. Fibrinogen 86 today, will transfuse 1 unit cryoprecipitate today. Discussed with RN. 3. Fatigue, continues, status post transfusion of 1 unit of PRBCs on 2017. Hemoglobin was 9.2 yesterday and today it is 8.8. Continue to monitor. 4. Acid reflux, continues. Patient reports history of gastric ulcers and took Prilosec and ranitidine time prior to her hospital admission. Continue Pepcid and Protonix. She has had 2+ Hemoccult studies, attending consulting GI. 5. Generalized edema, 2 twice daily today per attending. 6. Repeat CBC and coags in the a.m. - Attending Statement The exam, history, and the medical decision-making described in the above note were completed with the assistance of the mid-level provider. I reviewed and agree with the findings presented. I attest that I had a [id number] encounter with the patient on the same day, and personally performed and documented my assessment and findings in the medical record. Late entry complaining of generalized weakness Anxious to go home Complaining of heartburn She will have ninth and last plasma pheresis tomorrow Monitor coags
[2017-12-14] MEDS ORDERED: Ibuprofen 600 MG Tablet PO PRN (15:00)
--- NOTE | 2017-12-14 16:29 | P.CONGI ---
History of Present Illness Consult date: 12/14/17 Consult reason: Anemia with guaiac positive stools/epigastric pain Chief complaint: MS Exacerbation History of Present Illness: Ms. Price is a 37-year-old female patient with a medical history significant for multiple sclerosis. Patient was admitted on 11/23/2017 for exacerbation of same. Patient reporting left-sided weakness that she states is common with her exacerbations. Patient currently receiving plasmapheresis as ordered. Last treatment was 2 weeks ago and patient states she began to have epigastric pain immediately post treatment. Our service has been consulted to evaluate patient' s complaint of epigastric pain as well and has heme positive stool and ongoing anemia. Patient reports epigastric pain "feels like gurgling". At some time she states it feels like a dull ache. Patient reports history of GERD, acid reflux for which she takes Prilosec and ranitidine at home with good relief of same. Patient reporting 2-week onset of difficulty swallowing, feeling as though food is stuck and moving slowly. She endorses that the epigastric discomfort is aggravated by carbonated drinks and various foods. She denies that there are any alleviating factors. Reports occasional nausea without vomiting. Patient denies ever having had an EGD or colonoscopy, she states that she was placed on Prilosec and ranitidine based on symptoms that she reported. Patient denies any noted obvious blood in stools. She states that stools are normally soft and brown were today x2 bowel movements. She states that she normally has a soft bowel movement every 2 days. Patient denies the current use of NSAIDs, she states that she used to utilize ibuprofen for migraine headaches but has not had any NSAID's for months. Patient denies the use of tobacco states she stopped smoking 1 month ago and denies any use of EtOH. She reports known family history for gastric ulcers-her dad. <Daniela White - Last Filed: 12/14/17 16:14> Review of Systems All other systems reviewed negative except as stated in HPI <Daniela White - Last Filed: 12/14/17 16:14> PMFSH - History History Provided By: Patient - Medical History Medical History: Medical History (Last Reviewed 12/13/17 @ 08:27 by Miguel Angel Gould) Anemia Multiple sclerosis - Surgical History Surgical History: Surgical History (Last Reviewed 12/12/17 @ 09:24 by Pastora Rodriguez) Previous section - Family History Family History: Family History (Last Reviewed 11/28/17 @ 08:14 by Miguel Angel Gould) Father Stroke Mother Hypertension Lupus - Tobacco History Second Hand Smoke Exposure: Yes Tobacco Use In Past 30 Days: Yes Smoking Status: Current every day smoker Tobacco Type: Cigarettes - Alcohol History How Often Do You Have a Drink Containing Alcohol: Never - Substance Use History Substance History: No History of Abuse - Travel History Recent Travel in the [place] Within the Last 8 Weeks: No Recent Travel Out of the Country Within the Last 8 Weeks: No - Immunization History Tetanus Immunization: <5 Years Hx Influenza Vaccine This Season: No <Daniela White - Last Filed: 12/14/17 16:14> - Medical History Medical History: Medical History (Last Reviewed 12/13/17 @ 08:27 by Miguel Angel Gould) Anemia Multiple sclerosis - Surgical History Surgical History: Surgical History (Last Reviewed 12/12/17 @ 09:24 by Pastora Rodriguez) Previous section - Family History Family History: Family History (Last Reviewed 11/28/17 @ 08:14 by Miguel Angel Gould) Father Stroke Mother Hypertension Lupus <Lin Hernandez - Last Filed: 12/14/17 19:27> Medications and Allergies Active Medications: Active Medications Acetaminophen (Tylenol) 650 mg PO Q4H PRN PRN Reason: Temp > 100.4 Acetaminophen (Tylenol) 650 mg PO Q4H PRN PRN Reason: SEE LABEL COMMENTS Last Admin: 12/12/17 11:09 Dose: 650 mg Acetaminophen (Tylenol) 650 mg PO Q4H PRN PRN Reason: SEE LABEL COMMENTS Al Hydroxide/Mg Hydroxide (Milk Of Brittany Liq) 30 ml PO Q12H PRN PRN Reason: Mild Constipation Last Admin: 11/28/17 20:54 Dose: 30 ml Bisacodyl (Dulcolax Supp) 10 mg RECTAL DAILY PRN PRN Reason: SEVERE CONSITIPATION Buspirone HCl (Buspar) 5 mg PO BID [facility] Last Admin: 12/14/17 08:37 Dose: Not Given Diphenhydramine HCl (Benadryl Inj) 25 mg IV.PUSH UNSCH PRN PRN Reason: SEE LABEL COMMENTS Stop: 12/17/17 23:59 Diphenhydramine HCl (Benadryl Inj) 25 mg IV.PUSH UNSCH PRN PRN Reason: SEE LABEL COMMENTS Stop: 12/17/17 23:59 Diphenhydramine HCl (Benadryl) 25 mg PO Q4H PRN PRN Reason: SEE LABEL COMMENTS Famotidine (Pepcid) 20 mg PO BID [facility] Last Admin: 12/14/17 08:37 Dose: 20 mg Ferrous Sulfate (Ferosul) 325 mg PO BID [facility] Last Admin: 12/14/17 08:37 Dose: 325 mg Furosemide (Lasix Inj) 40 mg IV.PUSH BID@0900,1800 [facility] Heparin Sodium (Porcine) (Heparin Inj) 0 units IV.FLUSH Q48H [facility] Stop: 12/17/17 08:01 Last Admin: 12/11/17 20:13 Dose: Not Given Heparin Sodium (Porcine) (Heparin Inj) 1,000 units IV.FLUSH WITH DIALYSIS PRN PRN Reason: prevent clot plasma exchange Heparin Sodium (Porcine) (Heparin Inj) 8,000 units IV.FLUSH UNSCH PRN PRN Reason: MACHINE PRIMING Albumin Human (Alburx 5% Inj) 3,500 mls @ 0 mls/hr IV.SIG Q48H [facility] Stop: 12/17/17 08:01 Last Infusion: 12/13/17 16:54 Dose: Infused Calcium Gluconate 3.5 gm/ (Sodium Chloride) 285 mls @ 0 mls/hr IV.SIG Q48H [facility] Stop: 12/17/17 08:01 Last Admin: 12/11/17 11:17 Dose: 135 mls/hr Sodium Chloride (Ns Inj) 250 mls @ 15 mls/hr IV.SIG ONCE [facility] Stop: 12/15/17 04:39 Ibuprofen (Motrin) 600 mg PO Q6HR PRN PRN Reason: PAIN SCALE 1 TO 2 Lactulose (Lactulose Liq) 30 ml PO DAILY PRN PRN Reason: SEVERE CONSITIPATION Last Admin: 12/10/17 00:15 Dose: 30 ml Lorazepam (Ativan) 1 mg PO HS [facility] Last Admin: 12/13/17 21:26 Dose: Not Given Morphine Sulfate (Morphine Inj) 4 mg IV.PUSH Q3H PRN PRN Reason: BREAKTHROUGH PAIN Last Admin: 12/09/17 21:46 Dose: 4 mg Morphine Sulfate (Morphine Inj) 4 mg IV.PUSH Q3H PRN PRN Reason: PAIN 6-10;IF UNABLE TO TAKE PO Morphine Sulfate (Morphine Inj) 2 mg IV.PUSH Q3H PRN PRN Reason: PAIN 3-5; IF UABLE TO TAKE PO Last Admin: 11/26/17 09:11 Dose: 2 mg Naloxone HCl (Narcan Inj) 0.4 mg IV.PUSH UNSCH PRN PRN Reason: SEE LABEL COMMENTS Ondansetron HCl (Zofran Inj) 4 mg IV.PUSH Q6H PRN PRN Reason: NAUSEA OR VOMITING Last Admin: 12/12/17 13:35 Dose: 4 mg Oxycodone/Acetaminophen (Percocet 5/325 Mg) 1 tab PO Q6H PRN PRN Reason: PAIN SCALE 3 TO 5 Last Admin: 11/23/17 13:14 Dose: 1 tab Oxycodone/Acetaminophen (Percocet 10/325 Mg) 1 tab PO Q4H PRN PRN Reason: PAIN SCALE 6 TO 10 Last Admin: 12/13/17 02:03 Dose: 1 tab Pantoprazole Sodium (Protonix) 20 mg PO DAILY [facility] Last Admin: 12/14/17 08:38 Dose: 20 mg Potassium Chloride (K-Dur) 40 meq PO BID [facility] Prednisone (Deltasone) 20 mg PO BID [facility] Stop: 12/17/17 23:59 Prednisone (Deltasone) 30 mg PO BID [facility] Stop: 12/16/17 01:00 Prednisone (Deltasone) 10 mg PO BID [facility] Stop: 12/19/17 23:59 Prednisone (Deltasone) 10 mg PO DAILY [facility] Stop: 12/21/17 23:50 Senna/Docusate Sodium (Lisa-Colace) 1 tab PO BID [facility] Last Admin: 12/14/17 08:42 Dose: Not Given Sennosides (Senokot) 17.2 mg PO Q12H PRN PRN Reason: Moderate Constipation Last Admin: 12/10/17 00:15 Dose: 17.2 mg Sodium Chloride (Ns Flush) 2 ml IV.FLUSH BID [facility] Last Admin: 12/14/17 08:41 Dose: 2 ml Sodium Chloride (Ns Flush) 2 ml IV.FLUSH PRN PRN PRN Reason: FLUSH AFTER USING IV ACCESS Sodium Chloride (Ns Flush) 0 ml IV.FLUSH Q48H [facility] Stop: 12/17/17 08:01 Last Admin: 12/11/17 20:13 Dose: Not Given Sodium Citrate (Acd-A Solution) 1,000 ml EXTRACORPO UNSCH [facility] Stop: 12/17/17 08:29 Last Admin: 12/13/17 16:53 Dose: 1,000 ml <Daniela White - Last Filed: 12/14/17 16:14> Active Medications: Active Medications Acetaminophen (Tylenol) 650 mg PO Q4H PRN PRN Reason: Temp > 100.4 Last Admin: 12/14/17 18:04 Dose: 650 mg Acetaminophen (Tylenol) 650 mg PO Q4H PRN PRN Reason: SEE LABEL COMMENTS Last Admin: 12/12/17 11:09 Dose: 650 mg Acetaminophen (Tylenol) 650 mg PO Q4H PRN PRN Reason: SEE LABEL COMMENTS Al Hydroxide/Mg Hydroxide (Milk Of Magnsissy Liq) 30 ml PO Q12H PRN PRN Reason: Mild Constipation Last Admin: 11/28/17 20:54 Dose: 30 ml Bisacodyl (Dulcolax Supp) 10 mg RECTAL DAILY PRN PRN Reason: SEVERE CONSITIPATION Buspirone HCl (Buspar) 5 mg PO BID [facility] Last Admin: 12/14/17 08:37 Dose: Not Given Diphenhydramine HCl (Benadryl Inj) 25 mg IV.PUSH UNSCH PRN PRN Reason: SEE LABEL COMMENTS Stop: 12/17/17 23:59 Diphenhydramine HCl (Benadryl Inj) 25 mg IV.PUSH UNSCH PRN PRN Reason: SEE LABEL COMMENTS Stop: 12/17/17 23:59 Diphenhydramine HCl (Benadryl) 25 mg PO Q4H PRN PRN Reason: SEE LABEL COMMENTS Famotidine (Pepcid) 20 mg PO BID [facility] Last Admin: 12/14/17 08:37 Dose: 20 mg Ferrous Sulfate (Ferosul) 325 mg PO BID [facility] Last Admin: 12/14/17 08:37 Dose: 325 mg Furosemide (Lasix Inj) 40 mg IV.PUSH BID@0900,1800 [facility] Last Admin: 12/14/17 18:03 Dose: 40 mg Heparin Sodium (Porcine) (Heparin Inj) 0 units IV.FLUSH Q48H [facility] Stop: 12/17/17 08:01 Last Admin: 12/14/17 18:55 Dose: Not Given Heparin Sodium (Porcine) (Heparin Inj) 1,000 units IV.FLUSH WITH DIALYSIS PRN PRN Reason: prevent clot plasma exchange Heparin Sodium (Porcine) (Heparin Inj) 8,000 units IV.FLUSH UNSCH PRN PRN Reason: MACHINE PRIMING Albumin Human (Alburx 5% Inj) 3,500 mls @ 0 mls/hr IV.SIG Q48H [facility] Stop: 12/17/17 08:01 Last Infusion: 12/13/17 16:54 Dose: Infused Calcium Gluconate 3.5 gm/ (Sodium Chloride) 285 mls @ 0 mls/hr IV.SIG Q48H [facility] Stop: 12/17/17 08:01 Last Infusion: 12/14/17 18:55 Dose: Infused Sodium Chloride (Ns Inj) 250 mls @ 15 mls/hr IV.SIG ONCE [facility] Stop: 12/15/17 04:39 Last Infusion: 12/14/17 18:56 Dose: Infused Ibuprofen (Motrin) 600 mg PO Q6HR PRN PRN Reason: PAIN SCALE 1 TO 2 Lactulose (Lactulose Liq) 30 ml PO DAILY PRN PRN Reason: SEVERE CONSITIPATION Last Admin: 12/10/17 00:15 Dose: 30 ml Lorazepam (Ativan) 1 mg PO HS [facility] Last Admin: 12/13/17 21:26 Dose: Not Given Morphine Sulfate (Morphine Inj) 4 mg IV.PUSH Q3H PRN PRN Reason: BREAKTHROUGH PAIN Last Admin: 12/09/17 21:46 Dose: 4 mg Morphine Sulfate (Morphine Inj) 4 mg IV.PUSH Q3H PRN PRN Reason: PAIN 6-10;IF UNABLE TO TAKE PO Morphine Sulfate (Morphine Inj) 2 mg IV.PUSH Q3H PRN PRN Reason: PAIN 3-5; IF UABLE TO TAKE PO Last Admin: 11/26/17 09:11 Dose: 2 mg Naloxone HCl (Narcan Inj) 0.4 mg IV.PUSH UNSCH PRN PRN Reason: SEE LABEL COMMENTS Ondansetron HCl (Zofran Inj) 4 mg IV.PUSH Q6H PRN PRN Reason: NAUSEA OR VOMITING Last Admin: 12/12/17 13:35 Dose: 4 mg Oxycodone/Acetaminophen (Percocet 5/325 Mg) 1 tab PO Q6H PRN PRN Reason: PAIN SCALE 3 TO 5 Last Admin: 11/23/17 13:14 Dose: 1 tab Oxycodone/Acetaminophen (Percocet 10/325 Mg) 1 tab PO Q4H PRN PRN Reason: PAIN SCALE 6 TO 10 Last Admin: 12/13/17 02:03 Dose: 1 tab Pantoprazole Sodium (Protonix) 20 mg PO DAILY [facility] Last Admin: 12/14/17 08:38 Dose: 20 mg Potassium Chloride (K-Dur) 40 meq PO BID [facility] Prednisone (Deltasone) 20 mg PO BID [facility] Stop: 12/17/17 23:59 Prednisone (Deltasone) 30 mg PO BID [facility] Stop: 12/16/17 01:00 Prednisone (Deltasone) 10 mg PO BID [facility] Stop: 12/19/17 23:59 Prednisone (Deltasone) 10 mg PO DAILY [facility] Stop: 12/21/17 23:50 Senna/Docusate Sodium (Lisa-Colace) 1 tab PO BID [facility] Last Admin: 12/14/17 08:42 Dose: Not Given Sennosides (Senokot) 17.2 mg PO Q12H PRN PRN Reason: Moderate Constipation Last Admin: 12/10/17 00:15 Dose: 17.2 mg Sodium Chloride (Ns Flush) 2 ml IV.FLUSH BID [facility] Last Admin: 12/14/17 08:41 Dose: 2 ml Sodium Chloride (Ns Flush) 2 ml IV.FLUSH PRN PRN PRN Reason: FLUSH AFTER USING IV ACCESS Sodium Chloride (Ns Flush) 0 ml IV.FLUSH Q48H [facility] Stop: 12/17/17 08:01 Last Admin: 12/14/17 18:55 Dose: Not Given Sodium Citrate (Acd-A Solution) 1,000 ml EXTRACORPO UNSCH [facility] Stop: 12/17/17 08:29 Last Admin: 12/13/17 16:53 Dose: 1,000 ml <BratbrianLin - Last Filed: 12/14/17 19:27> Allergies Allergy/AdvReac Type Severity Reaction Status Date / Time No Known Allergies Allergy Verified 09/26/18 22:25 Home Medications Medication Instructions Recorded Confirmed Type No Known Home Medications 11/22/17 11/22/17 History Exam Vital signs: Vital Signs 12/13/17 17:47 12/13/17 20:43 12/13/17 23:15 Temperature 98.3 F 97.5 F L 97.8 F Pulse Rate 75 93 H 87 Respiratory Rate 18 18 18 Blood Pressure 146/85 H 140/67 119/66 Pulse Oximetry 100 100 100 12/14/17 08:00 12/14/17 12:00 12/14/17 13:25 Temperature 97.7 F 98.8 F 98.1 F Pulse Rate 98 H 78 92 H Respiratory Rate 16 16 18 Blood Pressure 127/64 126/60 126/66 Pulse Oximetry 100 100 12/14/17 14:09 12/14/17 15:15 Temperature 98.5 F 98 F Pulse Rate 91 H 89 Respiratory Rate 17 14 Blood Pressure 136/78 134/73 Pulse Oximetry 99 99 Intake & Output 12/13/17 12/14/17 12/14/17 18:59 06:59 18:59 Intake Total 4720 / 4720 360 / 360 227 / 227 Output Total 3500 / 3500 Balance 1220 / 1220 360 / 360 227 / 227 Weight 121.3 kg Intake: IV 3500 / 3500 Alburx 5% Inj 3,500 ML @ As 3500 / 3500 Directed IV.SIG Q48H [facility] Rx#: [id number] Oral 1220 / 1220 360 / 360 Other 5 / 5 Pre-Pooled Cryo Thawed 10units 5 / 5 Unit [id number] Intake (Blood Product) Amt 222 / 222 Pre-Pooled Cryo Thawed 10units 222 / 222 Unit [id number] Output: Plasma Exchange Amount 3500 / 3500 Other: Other Intake Source Pre-Pooled Cryo Thawed 10units Saline Solution Unit [id number] # Voids 8 6 Date of Last Bowel Movement 12/11/17 12/13/17 # Bowel Movements 0 1 - Constitutional no acute distress - Routine HEENT Exam Head: Present: normocephalic - Routine Respiratory Exam Present: CTA bilaterally. Absent: accessory muscle use - Routine Cardiovascular Exam Present: RRR - Routine Abdominal Exam Present: soft, normoactive bowel sounds. Absent: tenderness, distended, guarding, firm - Routine Extremities Exam Present: edema, pulses intact - Routine Skin Exam Present: dry, warm. Absent: pallor - Routine Neurological Exam Present: alert, oriented X3 <White,Daniela - Last Filed: 12/14/17 16:14> Vital signs: Vital Signs 12/13/17 20:43 12/13/17 23:15 12/14/17 08:00 Temperature 97.5 F L 97.8 F 97.7 F Pulse Rate 93 H 87 98 H Respiratory Rate 18 18 16 Blood Pressure 140/67 119/66 127/64 Pulse Oximetry 100 100 100 12/14/17 12:00 12/14/17 13:25 12/14/17 14:09 Temperature 98.8 F 98.1 F 98.5 F Pulse Rate 78 92 H 91 H Respiratory Rate 16 18 17 Blood Pressure 126/60 126/66 136/78 Pulse Oximetry 100 99 12/14/17 15:15 Temperature 98 F Pulse Rate 89 Respiratory Rate 14 Blood Pressure 134/73 Pulse Oximetry 99 Intake & Output 12/14/17 12/14/17 12/15/17 06:59 18:59 06:59 Intake Total 360 / 360 1652 / 1652 Balance 360 / 360 1652 / 1652 Weight 121.3 kg Intake: IV 785 / 785 Calcium Gluconate Inj 3.5 GM In 285 / 285 NS Inj 250 ML @ As Directed IV .SIG Q48H [facility] Rx#:[id number] NS Inj 250 ML @ 15 mls/hr IV. 250 / 250 SIG ONCE [facility] Rx#:[id number] Oral 360 / 360 640 / 640 Other 5 / 5 Pre-Pooled Cryo Thawed 10units 5 / 5 Unit [id number] Intake (Blood Product) Amt 222 / 222 Pre-Pooled Cryo Thawed 10units 222 / 222 Unit [id number] Other: Other Intake Source Pre-Pooled Cryo Thawed 10units Saline Solution Unit [id number] # Voids 6 3 Date of Last Bowel Movement 12/13/17 # Bowel Movements 1 1 <Lin Hernandez - Last Filed: 12/14/17 19:27> Results - Labs CBC & Chem 7: 12/14/17 06:40 12/14/17 06:40 Labs: Laboratory Results - last 24 hr 12/14/17 12/14/17 12/14/17 06:40 06:40 06:40 WBC 14.8 H RBC 3.21 L Hgb 8.8 L Hct 27.6 L MCV 85.9 MCH 27.3 MCHC 31.8 L RDW 27.1 H Plt Count 77 L MPV 7.9 Prelim Diff (Auto) Slide review pending Neut % (Auto) 91.0 H Lymph % (Auto) 5.7 L [place] % (Auto) 2.6 Eos % (Auto) 0.6 Baso % (Auto) 0.1 Neut # (Auto) 13.5 H Lymph # (Auto) 0.8 L [place] # (Auto) 0.4 Eos # (Auto) 0.1 Baso # (Auto) 0.0 WBC Differential . Diff Scan Auto diff confirmed Differential Comment . Platelet Estimate Low L Platelet Morphology Normal Basophilic Stippling Faint H Ovalocytes 1+ H Acanthocytes (Spur) Occ H Fibrinogen 86 L* Sodium 143 Potassium 3.2 L Chloride 105 Carbon Dioxide 28.8 Anion Gap 9 BUN 23 H Creatinine 1.00 Estimated GFR 75 L Random Glucose 118 H Calcium 8.7 Magnesium 1.9 Blood Bank Comment 12/14/17 12/14/17 12:32 13:45 WBC RBC Hgb Hct MCV MCH MCHC RDW Plt Count MPV Prelim Diff (Auto) Neut % (Auto) Lymph % (Auto) [place] % (Auto) Eos % (Auto) Baso % (Auto) Neut # (Auto) Lymph # (Auto) [place] # (Auto) Eos # (Auto) Baso # (Auto) WBC Differential Diff Scan Differential Comment Platelet Estimate Platelet Morphology Basophilic Stippling Ovalocytes Acanthocytes (Spur) Fibrinogen Sodium Potassium Chloride Carbon Dioxide Anion Gap BUN Creatinine Estimated GFR Random Glucose Calcium Magnesium 2.1 Blood Bank Comment <Daniela White - Last Filed: 12/14/17 16:14> - Labs CBC & Chem 7: 12/14/17 06:40 12/14/17 06:40 Labs: Laboratory Results - last 24 hr 12/14/17 12/14/17 12/14/17 06:40 06:40 06:40 WBC 14.8 H RBC 3.21 L Hgb 8.8 L Hct 27.6 L MCV 85.9 MCH 27.3 MCHC 31.8 L RDW 27.1 H Plt Count 77 L MPV 7.9 Prelim Diff (Auto) Slide review pending Neut % (Auto) 91.0 H Lymph % (Auto) 5.7 L [place] % (Auto) 2.6 Eos % (Auto) 0.6 Baso % (Auto) 0.1 Neut # (Auto) 13.5 H Lymph # (Auto) 0.8 L [place] # (Auto) 0.4 Eos # (Auto) 0.1 Baso # (Auto) 0.0 WBC Differential . Diff Scan Auto diff confirmed Differential Comment . Platelet Estimate Low L Platelet Morphology Normal Basophilic Stippling Faint H Ovalocytes 1+ H Acanthocytes (Spur) Occ H Fibrinogen 86 L* Sodium 143 Potassium 3.2 L Chloride 105 Carbon Dioxide 28.8 Anion Gap 9 BUN 23 H Creatinine 1.00 Estimated GFR 75 L Random Glucose 118 H Calcium 8.7 Magnesium 1.9 Blood Bank Comment 12/14/17 12/14/17 12:32 13:45 WBC RBC Hgb Hct MCV MCH MCHC RDW Plt Count MPV Prelim Diff (Auto) Neut % (Auto) Lymph % (Auto) [place] % (Auto) Eos % (Auto) Baso % (Auto) Neut # (Auto) Lymph # (Auto) [place] # (Auto) Eos # (Auto) Baso # (Auto) WBC Differential Diff Scan Differential Comment Platelet Estimate Platelet Morphology Basophilic Stippling Ovalocytes Acanthocytes (Spur) Fibrinogen Sodium Potassium Chloride Carbon Dioxide Anion Gap BUN Creatinine Estimated GFR Random Glucose Calcium Magnesium 2.1 Blood Bank Comment <DavidChecoe - Last Filed: 12/14/17 19:27> Assessment and Plan (1) Anemia Status: Acute Code(s): D64.9 - Anemia, unspecified (2) Guaiac + stool Status: Acute Code(s): R19.5 - Other fecal abnormalities (3) Epigastric pain Status: Acute Code(s): R10.13 - Epigastric pain - Plan Ms. Price is a 37-year-old female patient with a medical history significant for multiple sclerosis. Patient was admitted on 11/23/2017 for exacerbation of same. Patient reporting left-sided weakness that she states is common with her exacerbations. Patient currently receiving plasmapheresis as ordered. Last treatment was 2 weeks ago and patient states she began to have epigastric pain immediately post treatment. Our service has been consulted to evaluate patient' s complaint of epigastric pain as well and has heme positive stool and ongoing anemia. Patient reports epigastric pain "feels like gurgling". At some time she states it feels like a dull ache. Patient reports history of GERD, acid reflux for which she takes Prilosec and ranitidine at home with good relief of same. Patient reporting 2-week onset of difficulty swallowing, feeling as though food is stuck and moving slowly. She endorses that the epigastric discomfort is aggravated by carbonated drinks and various foods. She denies that there are any alleviating factors. Reports occasional nausea without vomiting. Patient denies ever having had an EGD or colonoscopy, she states that she was placed on Prilosec and ranitidine based on symptoms that she reported. Patient denies any noted obvious blood in stools. She states that stools are normally soft and brown were today x2 bowel movements. She states that she normally has a soft bowel movement every 2 days. Patient denies the current use of NSAIDs, she states that she used to utilize ibuprofen for migraine headaches but has not had any NSAID's for months. Patient denies the use of tobacco states she stopped smoking 1 month ago and denies any use of EtOH. She reports known family history for gastric ulcers-her dad. Anemia with guaiac positive stools/epigastric pain Hemoglobin 8.8 hematocrit 27.6 platelet count 77. INR 1.1. Stools heme positive today, patient reporting some difficulty swallowing and states food feels like it is moving slowly. Endorses nausea, denies any vomiting. History of GERD on Prilosec and Ranitidine. Hospitalized for exacerbation of MS, reports onset of epigastric discomfort after receiving plasmapheresis treatment 2 weeks ago. Plan -N.p.o. after midnight -Obtain consent for EGD -Avoid NSAIDs -Monitor for any bleeding -Antireflux regimen -Continue PPI -Monitor labs -Supportive care This patient has been seen by myself and Dr. Barlow to this note is written on her behalf - Attending Attestation Dr. Hernandez <Daniela White - Last Filed: 12/14/17 16:14> (1) Anemia Status: Acute Code(s): D64.9 - Anemia, unspecified (2) Guaiac + stool Status: Acute Code(s): R19.5 - Other fecal abnormalities (3) Epigastric pain Status: Acute Code(s): R10.13 - Epigastric pain - Attending Attestation seen, examined agree with above <Lin Hernandez - Last Filed: 12/14/17 19:27>
[2017-12-14] MEDS: CALCIUM GLUCONATE IV.SIG SCH (18:55)
[2017-12-14] MEDS: Heparin 2,000 UNITS/2 ML Vial (for IV use) IV.FLUSH SCH (18:55)
[2017-12-14] MEDS: SODIUM CHLOR 0.9% IV.SIG SCH (18:55)
[2017-12-14] MEDS: predniSONE 10 MG Tablet PO SCH (21:33)
[2017-12-14] MEDS: oxyCODONE/Acetaminophen 10/325 Tablet PO PRN (21:34)
[2017-12-14] MEDS: LORazepam 1 MG Tablet PO SCH (21:35)
[2017-12-15 07:35] VITALS: O2SAT 100
[2017-12-15 08:15] LABS: Baso % (Auto) 0.2 % (0.0-2.0); Hematocrit 27.2 % (35.0-46.0); Hemoglobin 8.6 gm/dL (11.6-15.3); Lymph # (Auto) 0.3 th/mm3 (1.0-4.8); Lymph % (Auto) 2.4 % (9.0-44.0); Mean Corpuscular HGB Conc 31.7 % (32.0-36.0); Mean Corpuscular Hemoglobin 27.4 pg (27.0-34.0); Mean Corpuscular Volume 86.5 fL (80.0-100.0); Mono # (Auto) 0.3 th/mm3 (0.0-0.9); Mono % (Auto) 2.2 % (0.0-8.0); Neut # (Auto) 10.8 th/mm3 (1.8-7.7); Neut % (Auto) 95.2 % (16.0-70.0); Platelet Count 77 th/mm3 (150-450); Red Blood Count 3.15 mil/mm3 (4.00-5.30); Red Cell Distribution Width 28.2 % (11.6-17.2); White Blood Count 11.3 th/mm3 (4.0-11.0)
[2017-12-15 08:25] LABS: Activated Partial Thrombo Time 20.9 sec (24.3-30.1); Prothrombin Time 10.5 sec (9.8-11.6)
[2017-12-15 08:45] LABS: Carbon Dioxide 32.3 meq/L (21.0-32.0); Magnesium 2.2 mg/dL (1.5-2.5); Potassium 4.5 meq/L (3.5-5.1)
--- NOTE | 2017-12-15 08:47 | P.PN ---
Subjective Interval history: Follow-up fluid overload and anemia with guaiac positive stool. Tolerated EGD which showed ulcer and Perla. Today she is feeling much better ambulating in the hallway states her swelling is much improved. She wants to go home awaiting neurology follow-up. Physical Exam Vital signs: Vital Signs 12/14/17 12:00 12/14/17 13:25 12/14/17 14:09 Temperature 98.8 F 98.1 F 98.5 F Pulse Rate 78 92 H 91 H Respiratory Rate 16 18 17 Blood Pressure 126/60 126/66 136/78 Pulse Oximetry 100 99 12/14/17 15:15 12/14/17 20:00 12/15/17 00:00 Temperature 98 F 97.7 F 98.0 F Pulse Rate 89 87 80 Respiratory Rate 14 16 17 Blood Pressure 134/73 116/58 L 114/60 Pulse Oximetry 99 98 98 12/15/17 07:34 Temperature 97.6 F Pulse Rate 78 Respiratory Rate 17 Blood Pressure 144/87 H Pulse Oximetry 100 Intake & Output 12/14/17 12/15/17 12/15/17 18:59 06:59 18:59 Intake Total 1652 / 1652 500 / 500 Balance 1652 / 1652 500 / 500 Weight 110.9 kg Intake: IV 785 / 785 Calcium Gluconate Inj 3.5 GM In 285 / 285 NS Inj 250 ML @ As Directed IV .SIG Q48H [facility] Rx#:[id number] NS Inj 250 ML @ 15 mls/hr IV. 250 / 250 SIG ONCE [facility] Rx#:[id number] Oral 640 / 640 500 / 500 Other 5 / 5 Pre-Pooled Cryo Thawed 10units 5 / 5 Unit [id number] Intake (Blood Product) Amt 222 / 222 Pre-Pooled Cryo Thawed 10units 222 / 222 Unit [id number] Other: Other Intake Source Pre-Pooled Cryo Thawed 10units Saline Solution Unit [id number] # Voids 3 2 Date of Last Bowel Movement 12/13/17 # Bowel Movements 1 Narrative: GENERAL: Well-nourished -[place] female, in NAD SKIN: Warm and dry. CARDIOVASCULAR: Regular rate and rhythm without murmurs, gallops, or rubs. RESPIRATORY: Breath sounds equal bilaterally. No accessory muscle use. GASTROINTESTINAL: Abdomen soft, non-tender, nondistended. MUSCULOSKELETAL: No cyanosis but with bilateral lower extremity pitting edema which is improving. Motor strength 5/5 x 4 NEURO: AAO x3, no focal deficit Results - Labs CBC & Chem 7: 12/15/17 07:14 12/15/17 07:14 Laboratory Results - last 24 hr 12/14/17 12/14/17 12/15/17 12:32 13:45 07:14 WBC RBC Hgb Hct MCV MCH MCHC RDW Plt Count MPV Prelim Diff (Auto) Neut % (Auto) Lymph % (Auto) [place] % (Auto) Eos % (Auto) Baso % (Auto) Neut # (Auto) Lymph # (Auto) [place] # (Auto) Eos # (Auto) Baso # (Auto) Differential Comment PT 10.5 INR 1.0 APTT 20.9 L Fibrinogen 169 L Magnesium 2.1 Blood Bank Comment 12/15/17 07:14 WBC 11.3 H RBC 3.15 L Hgb 8.6 L Hct 27.2 L MCV 86.5 MCH 27.4 MCHC 31.7 L RDW 28.2 H Plt Count 77 L MPV 8.0 Prelim Diff (Auto) Slide review pending Neut % (Auto) 95.2 H Lymph % (Auto) 2.4 L [place] % (Auto) 2.2 Eos % (Auto) 0.0 Baso % (Auto) 0.2 Neut # (Auto) 10.8 H Lymph # (Auto) 0.3 L [place] # (Auto) 0.3 Eos # (Auto) 0.0 Baso # (Auto) 0.0 Differential Comment . PT INR APTT Fibrinogen Magnesium Blood Bank Comment - Procedures IR dialysis cath plcmt w us, Right internal jugular vein Assessment and Plan - Assessment (1) Multiple sclerosis exacerbation Code(s): G35 - Multiple sclerosis Status: Acute - Plan This is a 37-year-old -[place] female with past medical history multiple sclerosis MS exacerbation, admitted on 11/23/17 1. Multiple Sclerosis Exacerbation Neurochecks have remained stable Managed by Neurology S/p plasmapheresis #8 up to 9 tx per neuro, due today but patient refused states she is much improved Wean Prednisone Cryoprecipitate if fibrinogen level less than 100 Continue occupational and physical therapy, refer to [facility] assistance with plasmapheresis 2. Right Upper Extremity Swelling, resolved CT angiogram Neg for thrombus 3. Anemia secondary to acute blood loss improved with blood transfusion. EGD with the following results 1. Duodenitis duodenal bulb, clean base ulcer - biopsy: gastritis antrum-biopsy and white deposits in distal esophagus consistent with Perla esophagitis. Follow-up biopsy results, continue PPI and avoid NSAIDs. Nystatin. Antireflux mechanisms discussed with the patient. Continue iron 4. Leukocytosis, improving Secondary to steroids, patient afebrile Blood culture with no growth times 5 days (4 bottles) 11/25 Negative UA, Neg chest x-ray on admission (11/25) 5. Tobacco Abuse Cessation counseling provided, risks discussed 6. Depression Continue BuSpar, denies homicidal/suicidal ideation 7. GERD Cont. Pepcid 8. Fluid overload. Albumin within normal limits. Improving continue Lasix to 40 mg IV twice a day with potassium supplementation to 40 mg twice a day. Switch to p.o. Lasix 40 mg daily and potassium 40 mg daily when patient gets discharged DVT prophylaxis: SCD's Disposition: Discharge when cleared by neurology Discharge Planning: [facility] patricia case hopefully
[2017-12-15] MEDS: Senna/Docusate Sodium 8.6/50 MG Tablet PO SCH (09:19)
[2017-12-15] MEDS: Famotidine 20 MG Tablet PO SCH (09:19)
[2017-12-15] MEDS: Pantoprazole Sodium 20 MG DR Tablet PO SCH (09:19)
[2017-12-15] MEDS: predniSONE 10 MG Tablet PO SCH (09:19)
[2017-12-15] MEDS: Sodium Chloride 0.9% 2 ML Flush BID IV.FLUSH SCH (09:19)
[2017-12-15] MEDS: Ferrous Sulfate 325 MG Tablet PO SCH (09:19)
[2017-12-15 10:23] LABS: Dimorphic RBC Present; Lymphocytes 6 % (9-44); Monocytes 7 % (0-8); Myelocytes 1 % (0-0); Ovalocytes 1+; Platelet Morphology Normal (Normal); Target Cells 1+
--- NOTE | 2017-12-15 10:27 | GIPROC ---
[facility] [address] [facility]. [facility], [address] EGD PROCEDURE REPORT EXAM DATE: 12/15/2017 PATIENT NAME: Nancy Price MR #: [id number] BIRTHDATE: 1980 ATTENDING: Lin Hernandez MD ORDER #: [id number] MAINTENANCE AND CUSTODIAN SUPERVISOR: Carolann Connolly and Rsoalino Dow STATUS: inpatient INDICATIONS: The patient is a 37 yr old female here for an EGD due to REFLUX, RETROSTERNAL CHEST PAIN PROCEDURE PERFORMED: EGD w/ biopsy MEDICATIONS: None and Per Anesthesia. TOPICAL ANESTHETIC: none CONSENT: The patient understands the risks and benefits of the procedure and understands that these risks include, but are not limited to: sedation, allergic reaction, infection, perforation and/or bleeding. Alternative means of evaluation and treatment include, among others: physical exam, x-rays, and/or surgical intervention. The patient elects to proceed with this endoscopic procedure. medical equipment was checked for proper function. Hand hygiene and appropriate measures for infection prevention was taken. After the risks, benefits and alternatives of the procedure were thoroughly explained, Informed consent was verified, confirmed and timeout was successfully executed by the treatment team. The patient was anesthetized with topical anesthesia and the Pentax [id number] endoscope was introduced through the mouth and advanced to the second portion of the duodenum. Retroflexed views revealed a hiatal hernia The gastroscope was then slowly withdrawn and removed. Duodenitis duodenla bulb, clean base ulcer -biopsy gastritis antrum-biopsy white deposits in distal esophagus consistent with Perla esophagitis. ADVERSE EVENTS: There were no complications. IMPRESSIONS: 1. Duodenitis duodenla bulb, clean base ulcer -biopsy gastritis antrum-biopsy white deposits in distal esophagus consistent with Perla esophagitis 2. Retroflexed views revealed a hiatal hernia RECOMMENDATIONS: 1. Await biopsy results. Biopsy results will not be ready for 7-10 days. If you don't hear from us in two weeks, call our office for biopsy results. 2. Continue PPI 3. Avoid NSAIDS 4. Diflucan if no contraindication nystatin PATIENT CONDITION: stable DISPOSITION: Inpatient REPEAT EXAM: Return 3 months EGD Lin Hernandez MD eSigned: Lin Hernandez MD 12/15/2017 10:27 AM cc: PATIENT NAME: Nancy Price MR#: [id number]
[2017-12-15] MEDS: oxyCODONE/Acetaminophen 10/325 Tablet PO PRN (11:23)
[2017-12-15] MEDS: Nystatin Liq 500,000 UNIT/5 ML UDC SWISH-SWAL SCH ×4 (11:23→17:24)
[2017-12-15 11:37] VITALS: RESP 16
[2017-12-15] MEDS: ALBUMIN HUMAN 5% IV.SIG SCH (13:45)
[2017-12-15] MEDS: SODIUM CHLOR 0.9% IV.SIG SCH (13:45)
[2017-12-15] MEDS: Heparin 2,000 UNITS/2 ML Vial (for IV use) IV.FLUSH SCH (13:45)
[2017-12-15] MEDS: CALCIUM GLUCONATE IV.SIG SCH (13:45)
[2017-12-15 15:04] VITALS: BP 130/65; PULSE 88; TEMP 97.6
--- NOTE | 2017-12-15 16:28 | P.DS ---
Date of admission: 11/23/17 01:36 Primary care physician: No Primary Care Physician Brief History from admission: 37-year-old female with a history of multiple sclerosis with most recent exacerbation last month who presents with a 1 day history of diplopia starting yesterday, with gradual onset left upper and lower extremity weakness starting during the day yesterday. She denies any chest pain, shortness of breath, nausea, vomiting, fevers, chills. She says that this current MS exacerbation is similar to her last MS exacerbation, both with left-sided weakness. Patient recently moved down here from [place], hoping that the warm weather would help with her MS. DS: Diagnosis - Discharge Diagnosis (1) Multiple sclerosis exacerbation Status: Acute DS: Medications - Discharge Medications Prescriptions: buspirone 5 mg PO BID #60 tab famotidine 20 mg PO BID #60 tab ferrous sulfate [FeroSul] 325 mg PO DAILY #30 tab furosemide [Lasix] 40 mg PO DAILY #7 tab nystatin 5 ml SWISH-SWAL QID #280 ml oxycodone-acetaminophen 1 tab PO Q12H PRN #14 tab PRN Reason: Acute Pain pantoprazole [Protonix] 20 mg PO DAILY #30 tab potassium chloride 40 meq PO DAILY #14 tab prednisone 30 mg PO BID #20 tab DS: Summary Hospital Course: This is a 37-year-old -[place] female with past medical history multiple sclerosis MS exacerbation, admitted on 11/23/17 1. Multiple Sclerosis Exacerbation Neurochecks have remained stable Managed by Neurology S/p plasmapheresis #8 up to 9 tx per neuro, due today but patient refused states she is much improved Wean Prednisone Cryoprecipitate if fibrinogen level less than 100 Continue occupational and physical therapy, refer to [facility] assistance with plasmapheresis 2. Right Upper Extremity Swelling, resolved CT angiogram Neg for thrombus 3. Anemia secondary to acute blood loss improved with blood transfusion. EGD with the following results 1. Duodenitis duodenal bulb, clean base ulcer - biopsy: gastritis antrum-biopsy and white deposits in distal esophagus consistent with Perla esophagitis. Follow-up biopsy results, continue PPI and avoid NSAIDs. Nystatin. Antireflux mechanisms discussed with the patient. Continue iron 4. Leukocytosis, improving Secondary to steroids, patient afebrile Blood culture with no growth times 5 days (4 bottles) 11/25 Negative UA, Neg chest x-ray on admission (11/25) 5. Tobacco Abuse Cessation counseling provided, risks discussed 6. Depression Continue BuSpar, denies homicidal/suicidal ideation 7. GERD Cont. Pepcid 8. Fluid overload. Albumin within normal limits. Improving continue Lasix to 40 mg IV twice a day with potassium supplementation to 40 mg twice a day. Switch to p.o. Lasix 40 mg daily and potassium 40 mg daily for 7 days when patient gets discharged. May discontinue Lasix if edema resolves. Repeat BMP in 3 days. DVT prophylaxis: SCD's Disposition: Discharge when cleared by neurology - Time Spent with Patient Total time spent providing and/or coordinating discharge services: Greater than 30 minutes - Quality: VTE Deep Vein Thrombosis/Pulmonary Embolism Present on Admission: No Exam Vital signs: Vital Signs 12/14/17 20:00 12/15/17 00:00 12/15/17 07:34 Temperature 97.7 F 98.0 F 97.6 F Pulse Rate 87 80 78 Respiratory Rate 16 17 17 Blood Pressure 116/58 L 114/60 144/87 H Pulse Oximetry 98 98 100 12/15/17 10:32 12/15/17 11:36 12/15/17 15:03 Temperature 98.1 F 97.9 F 97.6 F Pulse Rate 73 74 88 Respiratory Rate 18 16 16 Blood Pressure 126/63 126/83 130/65 Pulse Oximetry 100 100 100 Intake & Output 12/14/17 12/15/17 12/15/17 18:59 06:59 18:59 Intake Total 1652 / 1652 500 / 500 200 / 200 Balance 1652 / 1652 500 / 500 200 / 200 Weight 110.9 kg Intake: IV 785 / 785 Calcium Gluconate Inj 3.5 GM In 285 / 285 NS Inj 250 ML @ As Directed IV .SIG Q48H [facility] Rx#:[id number] NS Inj 250 ML @ 15 mls/hr IV. 250 / 250 SIG ONCE [facility] Rx#:[id number] Oral 640 / 640 500 / 500 Anesthesia Amount 200 / 200 Other 5 / 5 Pre-Pooled Cryo Thawed 10units 5 / 5 Unit [id number] Intake (Blood Product) Amt 222 / 222 Pre-Pooled Cryo Thawed 10units 222 / 222 Unit [id number] Other: Other Intake Source Pre-Pooled Cryo Thawed 10units Saline Solution Unit [id number] # Voids 3 2 3 Date of Last Bowel Movement 12/13/17 12/13/17 # Bowel Movements 1 Narrative: GENERAL: Well-nourished -[place] female, in NAD SKIN: Warm and dry. CARDIOVASCULAR: Regular rate and rhythm without murmurs, gallops, or rubs. RESPIRATORY: Breath sounds equal bilaterally. No accessory muscle use. GASTROINTESTINAL: Abdomen soft, non-tender, nondistended. MUSCULOSKELETAL: No cyanosis but with bilateral lower extremity pitting edema which is improving. Motor strength 5/5 x 4 NEURO: AAO x3, no focal deficit Results Procedures completed during hospitalization: IR dialysis cath plcmt w us, Right internal jugular vein Pending studies at discharge: Pending at discharge 12/15/17 13:46 Surgical [PTH] Routine Labs on day of discharge: Labs from last 24 hours 12/15/17 12/15/17 12/15/17 07:14 07:14 07:14 WBC 11.3 H RBC 3.15 L Hgb 8.6 L Hct 27.2 L MCV 86.5 MCH 27.4 MCHC 31.7 L RDW 28.2 H Plt Count 77 L MPV 8.0 Prelim Diff (Auto) Slide review pending Neut % (Auto) 95.2 H Lymph % (Auto) 2.4 L [place] % (Auto) 2.2 Eos % (Auto) 0.0 Baso % (Auto) 0.2 Neut # (Auto) 10.8 H Lymph # (Auto) 0.3 L [place] # (Auto) 0.3 Eos # (Auto) 0.0 Baso # (Auto) 0.0 WBC Differential Manual diff final Seg Neuts % (Manual) 79 H Band Neuts % (Manual) 7 H Lymphocytes % (Manual) 6 L Monocytes % (Manual) 7 Myelocytes % (Man) 1 H Abs Neuts (Manual) 9.8 H Differential Comment . Platelet Estimate Low L Platelet Morphology Normal Dimorphic RBCs Present H Target Cells 1+ H Ovalocytes 1+ H PT 10.5 INR 1.0 APTT 20.9 L Fibrinogen 169 L Sodium 139 Potassium 4.5 D Chloride 101 Carbon Dioxide 32.3 H Anion Gap 6 BUN 23 H Creatinine 0.87 Estimated GFR 88 L Random Glucose 94 Calcium 9.0 Magnesium 2.2 - Impressions ITS Impressions Cervical Spine MRI 09/27/18 00:00 CONCLUSION: 1. Rounded 5 mm area of T2 prolongation in the posterior substance of the cervical cord just inferior to the C5-6 level without enhancement. Given the adjacent disc protrusion, differential considerations include demyelinating and encephalomalacic causes. 2. Central left paracentral protrusion at C5-6 disc with out evidence of cord compression. Head MRI 11/23/17 00:00 CONCLUSION: 1. Scattered areas of abnormal T2 signal within the periventricular and subcortical white matter. No enhancing lesions identified. Please see above. Thoracic Spine MRI 11/23/17 00:00 CONCLUSION: 1. Elongated 12 mm area of T2 prolongation within the substance of the thoracic cord left half T5 level characteristic of demyelination. Chest X-Ray 11/25/17 00:00 CONCLUSION: No acute cardiopulmonary abnormality is identified. Catheter Placement 11/28/17 00:00 CONCLUSION: 1. Uncomplicated line placement as above. Upper Extremity CTA 11/30/17 00:00 CONCLUSION: 1. Limited but negative evaluation of the upper extremity. No abnormalities identified to the level of the proximal forearm with nonvisualization of vessels distal to this. Discharge Plan - Discharge Disposition Patient Disposition: Discharge Home - Discharge Condition Condition: Stable - Discharge Order Discharge Orders: Discharge Order (Routine); Ordered 12/15/17 Ordered By: Devin Parker - Physicians Team Primary Care Provider: Primary Care Saida You Attending Provider: Devin Parker Other Providers: Harjit Henry MD, PhD ; Chin Pope MD ; Florian Dyer MD ; Maura Siddiqi MD ; Lin Hernandez MD
--- NOTE | 2017-12-15 16:31 | P.PNNEU ---
Subjective Subjective Comments: pt reports improved strength, able to ambulate Active Medications: Active Medications Acetaminophen (Tylenol) 650 mg PO Q4H PRN PRN Reason: Temp > 100.4 Last Admin: 12/14/17 18:04 Dose: 650 mg Acetaminophen (Tylenol) 650 mg PO Q4H PRN PRN Reason: SEE LABEL COMMENTS Last Admin: 12/12/17 11:09 Dose: 650 mg Acetaminophen (Tylenol) 650 mg PO Q4H PRN PRN Reason: SEE LABEL COMMENTS Al Hydroxide/Mg Hydroxide (Milk Of Brittany Liagusto) 30 ml PO Q12H PRN PRN Reason: Mild Constipation Last Admin: 11/28/17 20:54 Dose: 30 ml Bisacodyl (Dulcolax Supp) 10 mg RECTAL DAILY PRN PRN Reason: SEVERE CONSITIPATION Buspirone HCl (Buspar) 5 mg PO BID [facility] Last Admin: 12/15/17 09:18 Dose: Not Given Diphenhydramine HCl (Benadryl Inj) 25 mg IV.PUSH UNSCH PRN PRN Reason: SEE LABEL COMMENTS Stop: 12/17/17 23:59 Diphenhydramine HCl (Benadryl Inj) 25 mg IV.PUSH UNSCH PRN PRN Reason: SEE LABEL COMMENTS Stop: 12/17/17 23:59 Diphenhydramine HCl (Benadryl) 25 mg PO Q4H PRN PRN Reason: SEE LABEL COMMENTS Last Admin: 12/14/17 21:33 Dose: 25 mg Famotidine (Pepcid) 20 mg PO BID [facility] Last Admin: 12/15/17 09:19 Dose: Not Given Ferrous Sulfate (Ferosul) 325 mg PO BID [facility] Last Admin: 12/15/17 09:19 Dose: Not Given Furosemide (Lasix Inj) 40 mg IV.PUSH BID@0900,1800 [facility] Last Admin: 12/15/17 09:19 Dose: Not Given Heparin Sodium (Porcine) (Heparin Inj) 0 units IV.FLUSH Q48H [facility] Stop: 12/17/17 08:01 Last Admin: 12/15/17 13:45 Dose: Not Given Heparin Sodium (Porcine) (Heparin Inj) 1,000 units IV.FLUSH WITH DIALYSIS PRN PRN Reason: prevent clot plasma exchange Heparin Sodium (Porcine) (Heparin Inj) 8,000 units IV.FLUSH UNSCH PRN PRN Reason: MACHINE PRIMING Albumin Human (Alburx 5% Inj) 3,500 mls @ 0 mls/hr IV.SIG Q48H [facility] Stop: 12/17/17 08:01 Last Admin: 12/15/17 13:45 Dose: Not Given Calcium Gluconate 3.5 gm/ (Sodium Chloride) 285 mls @ 0 mls/hr IV.SIG Q48H [facility] Stop: 12/17/17 08:01 Last Admin: 12/15/17 13:45 Dose: Not Given Ibuprofen (Motrin) 600 mg PO Q6HR PRN PRN Reason: PAIN SCALE 1 TO 2 Lactulose (Lactulose Liq) 30 ml PO DAILY PRN PRN Reason: SEVERE CONSITIPATION Last Admin: 12/10/17 00:15 Dose: 30 ml Lorazepam (Ativan) 1 mg PO HS [facility] Last Admin: 12/14/17 21:35 Dose: Not Given Morphine Sulfate (Morphine Inj) 4 mg IV.PUSH Q3H PRN PRN Reason: BREAKTHROUGH PAIN Last Admin: 12/09/17 21:46 Dose: 4 mg Morphine Sulfate (Morphine Inj) 4 mg IV.PUSH Q3H PRN PRN Reason: PAIN 6-10;IF UNABLE TO TAKE PO Morphine Sulfate (Morphine Inj) 2 mg IV.PUSH Q3H PRN PRN Reason: PAIN 3-5; IF UABLE TO TAKE PO Last Admin: 11/26/17 09:11 Dose: 2 mg Naloxone HCl (Narcan Inj) 0.4 mg IV.PUSH UNSCH PRN PRN Reason: SEE LABEL COMMENTS Nystatin (Mycostatin Liq) 5 ml SWISH-SWAL QID [facility] Last Admin: 12/15/17 13:46 Dose: Not Given Ondansetron HCl (Zofran Inj) 4 mg IV.PUSH Q6H PRN PRN Reason: NAUSEA OR VOMITING Last Admin: 12/12/17 13:35 Dose: 4 mg Oxycodone/Acetaminophen (Percocet 5/325 Mg) 1 tab PO Q6H PRN PRN Reason: PAIN SCALE 3 TO 5 Last Admin: 11/23/17 13:14 Dose: 1 tab Oxycodone/Acetaminophen (Percocet 10/325 Mg) 1 tab PO Q4H PRN PRN Reason: PAIN SCALE 6 TO 10 Last Admin: 12/15/17 11:23 Dose: 1 tab Pantoprazole Sodium (Protonix) 20 mg PO DAILY [facility] Last Admin: 12/15/17 09:19 Dose: Not Given Potassium Chloride (K-Dur) 40 meq PO BID [facility] Last Admin: 12/15/17 09:19 Dose: Not Given Prednisone (Deltasone) 20 mg PO BID [facility] Stop: 12/17/17 23:59 Prednisone (Deltasone) 30 mg PO BID [facility] Stop: 12/16/17 01:00 Last Admin: 12/15/17 09:19 Dose: Not Given Prednisone (Deltasone) 10 mg PO BID [facility] Stop: 12/19/17 23:59 Prednisone (Deltasone) 10 mg PO DAILY [facility] Stop: 12/21/17 23:50 Senna/Docusate Sodium (Lisa-Colace) 1 tab PO BID [facility] Last Admin: 12/15/17 09:19 Dose: Not Given Sennosides (Senokot) 17.2 mg PO Q12H PRN PRN Reason: Moderate Constipation Last Admin: 12/10/17 00:15 Dose: 17.2 mg Sodium Chloride (Ns Flush) 2 ml IV.FLUSH BID [facility] Last Admin: 12/15/17 09:19 Dose: Not Given Sodium Chloride (Ns Flush) 2 ml IV.FLUSH PRN PRN PRN Reason: FLUSH AFTER USING IV ACCESS Sodium Chloride (Ns Flush) 0 ml IV.FLUSH Q48H [facility] Stop: 12/17/17 08:01 Last Admin: 12/15/17 13:45 Dose: Not Given Sodium Citrate (Acd-A Solution) 1,000 ml EXTRACORPO UNSCH [facility] Stop: 12/17/17 08:29 Last Admin: 12/13/17 16:53 Dose: 1,000 ml Allergies/Adverse Reactions: Allergies Allergy/AdvReac Type Severity Reaction Status Date / Time No Known Allergies Allergy Verified 11/22/17 22:25 Physical Exam Vital signs: Vital Signs 12/14/17 20:00 12/15/17 00:00 12/15/17 07:34 Temperature 97.7 F 98.0 F 97.6 F Pulse Rate 87 80 78 Respiratory Rate 16 17 17 Blood Pressure 116/58 L 114/60 144/87 H Pulse Oximetry 98 98 100 12/15/17 10:32 12/15/17 11:36 12/15/17 15:03 Temperature 98.1 F 97.9 F 97.6 F Pulse Rate 73 74 88 Respiratory Rate 18 16 16 Blood Pressure 126/63 126/83 130/65 Pulse Oximetry 100 100 100 Intake & Output 12/14/17 12/15/17 12/15/17 18:59 06:59 18:59 Intake Total 1652 / 1652 500 / 500 200 / 200 Balance 1652 / 1652 500 / 500 200 / 200 Weight 110.9 kg Intake: IV 785 / 785 Calcium Gluconate Inj 3.5 GM In 285 / 285 NS Inj 250 ML @ As Directed IV .SIG Q48H [facility] Rx#:[id number] NS Inj 250 ML @ 15 mls/hr IV. 250 / 250 SIG ONCE [facility] Rx#:[id number] Oral 640 / 640 500 / 500 Anesthesia Amount 200 / 200 Other 5 / 5 Pre-Pooled Cryo Thawed 10units 5 / 5 Unit [id number] Intake (Blood Product) Amt 222 / 222 Pre-Pooled Cryo Thawed 10units 222 / 222 Unit [id number] Other: Other Intake Source Pre-Pooled Cryo Thawed 10units Saline Solution Unit [id number] # Voids 3 2 3 Date of Last Bowel Movement 12/13/17 12/13/17 # Bowel Movements 1 - Routine Neurological Exam alert, speech normal CN intact MOTOR 5/5 BUE, 5/5 RLE. 4+/5 LLE Objective Laboratory Results - last 24 hr 12/15/17 12/15/17 12/15/17 07:14 07:14 07:14 WBC 11.3 H RBC 3.15 L Hgb 8.6 L Hct 27.2 L MCV 86.5 MCH 27.4 MCHC 31.7 L RDW 28.2 H Plt Count 77 L MPV 8.0 Prelim Diff (Auto) Slide review pending Neut % (Auto) 95.2 H Lymph % (Auto) 2.4 L [place] % (Auto) 2.2 Eos % (Auto) 0.0 Baso % (Auto) 0.2 Neut # (Auto) 10.8 H Lymph # (Auto) 0.3 L [place] # (Auto) 0.3 Eos # (Auto) 0.0 Baso # (Auto) 0.0 WBC Differential Manual diff final Seg Neuts % (Manual) 79 H Band Neuts % (Manual) 7 H Lymphocytes % (Manual) 6 L Monocytes % (Manual) 7 Myelocytes % (Man) 1 H Abs Neuts (Manual) 9.8 H Differential Comment . Platelet Estimate Low L Platelet Morphology Normal Dimorphic RBCs Present H Target Cells 1+ H Ovalocytes 1+ H PT 10.5 INR 1.0 APTT 20.9 L Fibrinogen 169 L Sodium 139 Potassium 4.5 D Chloride 101 Carbon Dioxide 32.3 H Anion Gap 6 BUN 23 H Creatinine 0.87 Estimated GFR 88 L Random Glucose 94 Calcium 9.0 Magnesium 2.2 Review/Management - Diagnosis (1) Multiple sclerosis exacerbation Code(s): G35 - Multiple sclerosis Status: Acute Current Visit: Yes - Review/Management Plan: Pt is much improved. D/C plasmapheresis. Taper off prednisone as specified in medication section of chart Ok from neurology standpoint to discharge to home when ok with primary service. Please have pt follow up with me in office in two weeks. At that point, will arrange for her to start immunomodulator therapy.
--- NOTE | 2017-12-15 16:35 | P.PNONC ---
Subjective Interval history: Patient is feeling much better now She has refused today's plasmapheresis. She is complaining of right-sided neck pain where the Vas-Cath is She wants to go home today She had upper endoscopy today which did not show any significant findings Objective Vital Signs/Intake & Output: Vital Signs 12/14/17 20:00 12/15/17 00:00 12/15/17 07:34 Temperature 97.7 F 98.0 F 97.6 F Pulse Rate 87 80 78 Respiratory Rate 16 17 17 Blood Pressure 116/58 L 114/60 144/87 H Pulse Oximetry 98 98 100 12/15/17 10:32 12/15/17 11:36 12/15/17 15:03 Temperature 98.1 F 97.9 F 97.6 F Pulse Rate 73 74 88 Respiratory Rate 18 16 16 Blood Pressure 126/63 126/83 130/65 Pulse Oximetry 100 100 100 Intake & Output 12/14/17 12/15/17 12/15/17 18:59 06:59 18:59 Intake Total 1652 / 1652 500 / 500 200 / 200 Balance 1652 / 1652 500 / 500 200 / 200 Weight 110.9 kg Intake: IV 785 / 785 Calcium Gluconate Inj 3.5 GM In 285 / 285 NS Inj 250 ML @ As Directed IV .SIG Q48H LOLA Rx#:[id number] NS Inj 250 ML @ 15 mls/hr IV. 250 / 250 SIG ONCE LOLA Rx#:[id number] Oral 640 / 640 500 / 500 Anesthesia Amount 200 / 200 Other 5 / 5 Pre-Pooled Cryo Thawed 10units 5 / 5 Unit [id number] Intake (Blood Product) Amt 222 / 222 Pre-Pooled Cryo Thawed 10units 222 / 222 Unit [id number] Other: Other Intake Source Pre-Pooled Cryo Thawed 10units Saline Solution Unit [id number] # Voids 3 2 3 Date of Last Bowel Movement 12/13/17 12/13/17 # Bowel Movements 1 Result Diagrams: 12/15/17 07:14 12/15/17 07:14 Laboratory Results: Laboratory Results - last 24 hr 12/15/17 12/15/17 12/15/17 07:14 07:14 07:14 WBC 11.3 H RBC 3.15 L Hgb 8.6 L Hct 27.2 L MCV 86.5 MCH 27.4 MCHC 31.7 L RDW 28.2 H Plt Count 77 L MPV 8.0 Prelim Diff (Auto) Slide review pending Neut % (Auto) 95.2 H Lymph % (Auto) 2.4 L Drew % (Auto) 2.2 Eos % (Auto) 0.0 Baso % (Auto) 0.2 Neut # (Auto) 10.8 H Lymph # (Auto) 0.3 L Drew # (Auto) 0.3 Eos # (Auto) 0.0 Baso # (Auto) 0.0 WBC Differential Manual diff final Seg Neuts % (Manual) 79 H Band Neuts % (Manual) 7 H Lymphocytes % (Manual) 6 L Monocytes % (Manual) 7 Myelocytes % (Man) 1 H Abs Neuts (Manual) 9.8 H Differential Comment . Platelet Estimate Low L Platelet Morphology Normal Dimorphic RBCs Present H Target Cells 1+ H Ovalocytes 1+ H PT 10.5 INR 1.0 APTT 20.9 L Fibrinogen 169 L Sodium 139 Potassium 4.5 D Chloride 101 Carbon Dioxide 32.3 H Anion Gap 6 BUN 23 H Creatinine 0.87 Estimated GFR 88 L Random Glucose 94 Calcium 9.0 Magnesium 2.2 Culture Results: Microbiology 12/13/17 18:55 Stool Occult Blood (MOHAN) - Final Stool Hemoccult positive Medications: Active Medications Generic Name Dose Route Start Last Admin Trade Name Freq PRN Reason Stop Dose Admin Acetaminophen 650 mg 11/23/17 13:03 12/14/17 18:04 Tylenol PO 650 mg Q4H PRN Administration Temp > 100.4 Acetaminophen 650 mg 12/01/17 14:23 12/12/17 11:09 Tylenol PO 650 mg Q4H PRN Administration SEE LABEL COMMENTS Al Hydroxide/Mg Hydroxide 30 ml 11/23/17 13:03 11/28/17 20:54 Milk Of Magnesia Liq PO 30 ml Q12H PRN Administration Mild Constipation Buspirone HCl 5 mg 11/25/17 21:00 12/15/17 09:18 Buspar PO Not Given BID LOLA Diphenhydramine HCl 25 mg 12/14/17 11:32 12/14/17 21:33 Benadryl PO 25 mg Q4H PRN Administration SEE LABEL COMMENTS Famotidine 20 mg 11/23/17 15:00 12/15/17 09:19 Pepcid PO Not Given BID [facility] Ferrous Sulfate 325 mg 12/07/17 21:00 12/15/17 09:19 Ferosul PO Not Given BID [facility] Furosemide 40 mg 12/14/17 18:00 12/15/17 09:19 Lasix Inj IV.PUSH Not Given BID@0900,1800 [facility] Heparin Sodium (Porcine) 0 units 12/09/17 08:00 12/15/17 13:45 Heparin Inj IV.FLUSH 12/17/17 08:01 Not Given Q48H [facility] Albumin Human 3,500 mls @ 0 mls/hr 12/09/17 08:00 12/15/17 13:45 Alburx 5% Inj IV.SIG 12/17/17 08:01 Not Given Q48H LOLA As Directed Calcium Gluconate 3.5 gm/ 285 mls @ 0 mls/hr 12/09/17 08:00 12/15/17 13:45 Sodium Chloride IV.SIG 12/17/17 08:01 Not Given Q48H LOLA As Directed Lactulose 30 ml 11/23/17 13:03 12/10/17 00:15 Lactulose Liq PO 30 ml DAILY PRN Administration SEVERE CONSITIPATION Lorazepam 1 mg 12/06/17 21:00 12/14/17 21:35 Ativan PO Not Given HS [facility] Morphine Sulfate 4 mg 11/23/17 13:04 12/09/17 21:46 Morphine Inj IV.PUSH 4 mg Q3H PRN Administration BREAKTHROUGH PAIN Morphine Sulfate 2 mg 11/23/17 13:04 11/26/17 09:11 Morphine Inj IV.PUSH 2 mg Q3H PRN Administration PAIN 3-5; IF UABLE TO TAKE PO Nystatin 5 ml 12/15/17 13:00 12/15/17 13:46 Mycostatin Liq SWISH-SWAL Not Given QID [facility] Ondansetron HCl 4 mg 11/23/17 13:03 12/12/17 13:35 Zofran Inj IV.PUSH 4 mg Q6H PRN Administration NAUSEA OR VOMITING Oxycodone/Acetaminophen 1 tab 11/23/17 13:04 11/23/17 13:14 Percocet 5/325 Mg PO 1 tab Q6H PRN Administration PAIN SCALE 3 TO 5 Oxycodone/Acetaminophen 1 tab 11/29/17 15:41 12/15/17 11:23 Percocet 10/325 Mg PO 1 tab Q4H PRN Administration PAIN SCALE 6 TO 10 Pantoprazole Sodium 20 mg 12/12/17 15:00 12/15/17 09:19 Protonix PO Not Given DAILY [facility] Potassium Chloride 40 meq 12/14/17 21:00 12/15/17 09:19 K-Dur PO Not Given BID [facility]A Prednisone 30 mg 12/14/17 14:35 12/15/17 09:19 Deltasone PO 12/16/17 01:00 Not Given BID [facility] Senna/Docusate Sodium 1 tab 11/23/17 21:00 12/15/17 09:19 Lisa-Colace PO Not Given BID [facility]A Sennosides 17.2 mg 11/23/17 13:03 12/10/17 00:15 Senokot PO 17.2 mg Q12H PRN Administration Moderate Constipation Sodium Chloride 2 ml 12/05/17 21:00 12/15/17 09:19 Ns Flush IV.FLUSH Not Given BID [facility]A Sodium Chloride 0 ml 12/09/17 08:00 12/15/17 13:45 Ns Flush IV.FLUSH 12/17/17 08:01 Not Given Q48H [facility] Sodium Citrate 1,000 ml 12/11/17 08:30 12/13/17 16:53 Acd-A Solution EXTRACORPO 12/17/17 08:29 1,000 ml UNSCH LOLA Administration Objective Remarks: GENERAL: Well-nourished, well-developed patient. SKIN: Warm and dry. HEAD: Normocephalic. EYES: No scleral icterus. No injection or drainage. NECK: Supple, trachea midline. No JVD or lymphadenopathy. LYMPHATIC: No adenopathy. CARDIOVASCULAR: Regular rate and rhythm without murmurs. RESPIRATORY: Breath sounds equal bilaterally. No accessory muscle use. GASTROINTESTINAL: Abdomen soft, non-tender, nondistended. EXTREMITIES: No cyanosis, or edema. NEUROLOGICAL: No obvious focal deficit. Awake, alert, and oriented x3. Assessment/Plan - Plan Ms. Price is a pleasant 37-year-old female patient who has a history of multiple sclerosis. She recently moved to [place] from [place]. She is under the care of neurologist who consulted hematology for plasma exchange. Plan: 1. Plasmapheresis, patient status post 8th plasma exchange yesterday. Neurology has requested 9 total treatments. Her last exchange will be Monday. 2. Fibrinogen 86 today, will transfuse 1 unit cryoprecipitate today. Discussed with RN. 3. Fatigue, continues, status post transfusion of 1 unit of PRBCs on 2017. Hemoglobin was 9.2 yesterday and today it is 8.8. Continue to monitor. 4. Acid reflux, continues. Patient reports history of gastric ulcers and took Prilosec and ranitidine time prior to her hospital admission. Continue Pepcid and Protonix. She has had 2+ Hemoccult studies, attending consulting GI. 5. Generalized edema, 2 twice daily today per attending. 6. Repeat CBC and coags in the a.m. 12/15/2017 Patient was scheduled to have her ninth plasmapheresis today but she told the nurse that she does not want to do it Patient stated that she is feeling much better now and she does not want any more plasmapheresis RN called neurologist Dr. Henry who agree with the patient and recommended to remove the Vas-Cath I have discussed with the patient's RN. Arrangements will be made to remove the Vas-Cath and patient could be discharged to home today Dr. Henry will see her later today and will make outpatient arrangements I will sign off on the case I will be available as needed Patient thanked for our services
[2017-12-16] MEDS ORDERED: predniSONE 20 MG Tablet PO SCH (09:00)
[2017-12-18] MEDS ORDERED: predniSONE 10 MG Tablet PO SCH (09:00)
[2017-12-20] MEDS ORDERED: predniSONE 10 MG Tablet PO SCH (09:00)
== END 2017-12-15 18:11 | disposition home or self-care (01) ==
LOC: NEPC 21:11 → NEDA 11-23 01:36 → N06 11-23 03:15
PROVIDERS: ADMIT Internal Medicine; ATTEND Internal Medicine
PROC: PANENDO (2017-12-15 09:57)